=== PATIENT | female | born 1935 | race African-American/Black ===

== ENCOUNTER → 2016-11-18 | Outpatient (CLI) | payer MEDICARE ==
--- NOTE | 2016-11-21 13:27 | XCELERA REPORT ---
[address] [address] Lower Extremity Arterial Evaluation Name: DANK WHITE Age: 81 yrs Gender: Female : 1935 Patient Status: Outpatient Patient Location: Study Date: 11/18/2016 01:27 PM Procedure: A color flow and duplex scan of the lower extremity arteries was performed bilaterally with velocity and waveform anaylsis. Ankle brachial indicies performed. Reason For Study: RIGHT CALF ULCER L97.212 Ordering Physician: SHIVA WILSON Performed By: August Loja Measurements and Calculations Right Left RETORT FURNACE HELPER PSV 160.6 174.6 cm/sec Prox PFA PSV -124.0 -103.7 cm/sec Dist SFA PSV -144.1 -101.5 cm/sec Prox Pop A PSV 115.2 108.1 cm/sec Dist KRISTAN PSV -70.3 56.2 cm/sec Dist POULTICE MACHINE OPERATOR PSV 68.3 105.6 cm/sec Dist Kenton A PSV -206.5 cm/sec Bony Pedis PSV 87.1 -76.0 cm/sec Right Side Arterial Evaluation Normal velocity, waveform and triphasic flow are present, from the Common Femoral artery to the Popliteal artery. Biphasic in the Anterior Tibial artery then occluded Posterior Tibial artery, with biphasic retrograde filling. The ankle-brachial index was not obtainable, non compressible. 0-19 % stenosis is noted at the Femoral artery. With sequential disease. Left Side Arterial Evaluation Normal velocity, waveform and triphasic flow are present, in the Common Femoral artery.. Biphasic fro the Femoral to the Popliteal artery. Occluded Anterior and Posterior Tibial arteries, with biphasic retrograde filling. The ankle-brachial index was not obtainable, non compressible. 0-19 % stenosis is noted at the Femoral artery. With sequential disease. Interpretation Summary Moderate hemodynamically significant lesions in the bilateral lower extremities, on duplex imaging, at rest. Quite good collateral formation, in spite of infrageniculate occlusions. : SHIVA WILSON > Pedro Encinas
== END ==
LOC: SP 12:33
PROVIDERS: ATTEND Nurse Practitioner Family
DX: L97.212 Non-pressure chronic ulcer of right calf with fat layer exposed (principal)
CPT/HCPCS: 93925

== ENCOUNTER → 2016-12-07 | Outpatient (CLI) | payer MEDICARE ==
[2016-12-07 11:28] LABS: APPEARANCE,URINE TURBID; BILIRUBIN,URINE NEGATIVE (NEGATIVE); GLUCOSE, URINE NEGATIVE (NEGATIVE); KETONES,URINE NEGATIVE (NEGATIVE); LEUKOCYTE ESTERASE,URINE LARGE (NEGATIVE); NITRITE,URINE POSITIVE (NEGATIVE); PROTEIN,URINE 30 mg/dL (NEGATIVE); URINE SPECIFIC GRAVITY 1.012; UROBILINOGEN,URINE NEGATIVE mg/dL (<2.0)
[2016-12-07 11:33] LABS: HEMATOCRIT 38.8 % (36.0-47.0); HEMOGLOBIN 12.7 g/dL (12.0-15.5); HGB HCT DIFFERENCE -0.7; MEAN CORPUSCULAR HEMOGLOBIN 30.3 pg (27.0-33.4); MEAN CORPUSCULAR HGB CONC 32.7 g/dL (32.0-36.0); MEAN CORPUSCULAR VOLUME 93 fl (80-97); RED BLOOD COUNT 4.18 10^6/uL (3.72-5.28); RED CELL DISTRIBUTION WIDTH 15.2 % (11.5-14.0); WHITE BLOOD COUNT 5.5 10^3/uL (4.0-10.5)
[2016-12-07 11:55] LABS: ALANINE AMINOTRANSFERASE 35 U/L (9-52); ALBUMIN 3.8 g/dL (3.5-5.0); ALKALINE PHOSPHATASE 80 U/L (38-126); ANION GAP 12 (5-19); ASPARTATE AMINO TRANSFERASE 26 U/L (14-36); BILIRUBIN,TOTAL 0.8 mg/dL (0.2-1.3); BLOOD UREA NITROGEN 37 mg/dL (7-20); CALCIUM 10.4 mg/dL (8.4-10.2); CARBON DIOXIDE 28 mmol/L (22-30); CHLORIDE 102 mmol/L (98-107); CREATININE RESULT 1.96 mg/dL (0.52-1.25); GLUCOSE 117 mg/dL (75-110); POTASSIUM 4.5 mmol/L (3.6-5.0); SODIUM 141.9 mmol/L (137-145); TOTAL PROTEIN 8.1 g/dL (6.3-8.2)
== END ==
LOC: OD 10:10
PROVIDERS: ATTEND Internal Medicine Nephrology
DX: I12.9 Hypertensive chronic kidney disease with stage 1 through stage 4 chronic kidney disease, or unspecified chronic kidney disease (principal); N18.4 Chronic kidney disease, stage 4 (severe); E87.5 Hyperkalemia; D64.9 Anemia, unspecified
CPT/HCPCS: 36415; 80053; 81001; 82728; 83540; 83550; 85027

== ENCOUNTER → 2016-12-28 | Outpatient (CLI) | payer MEDICARE ==
[2016-12-28 09:53] LABS: CREATININE RESULT 1.84 mg/dL (0.52-1.25)
== END ==
LOC: OD 08:52
PROVIDERS: ATTEND Surgery Vascular Surgery
DX: Z79.899 Other long term (current) drug therapy (principal); Z51.81 Encounter for therapeutic drug level monitoring
CPT/HCPCS: 36415; 82565

== ENCOUNTER → 2017-01-21 | Outpatient (CLI) | payer MEDICARE ==
[2017-01-21 12:47] LABS: ANION GAP 12 (5-19); BLOOD UREA NITROGEN 41 mg/dL (7-20); CALCIUM 10.5 mg/dL (8.4-10.2); CARBON DIOXIDE 27 mmol/L (22-30); CHLORIDE 104 mmol/L (98-107); CREATININE RESULT 2.09 mg/dL (0.52-1.25); GLUCOSE 104 mg/dL (75-110); POTASSIUM 4.5 mmol/L (3.6-5.0); SODIUM 142.9 mmol/L (137-145)
== END ==
LOC: OD 11:08
PROVIDERS: ATTEND Internal Medicine Nephrology
DX: I12.9 Hypertensive chronic kidney disease with stage 1 through stage 4 chronic kidney disease, or unspecified chronic kidney disease (principal); N18.4 Chronic kidney disease, stage 4 (severe); E87.5 Hyperkalemia; D64.9 Anemia, unspecified
CPT/HCPCS: 36415; 80048

== ENCOUNTER → 2017-05-19 | Outpatient (CLI) | payer MEDICARE ==
[2017-05-19 10:55] LABS: HEMATOCRIT 36.4 % (36.0-47.0); HEMOGLOBIN 11.7 g/dL (12.0-15.5); HGB HCT DIFFERENCE -1.3; MEAN CORPUSCULAR HEMOGLOBIN 30.3 pg (27.0-33.4); MEAN CORPUSCULAR HGB CONC 32.1 g/dL (32.0-36.0); MEAN CORPUSCULAR VOLUME 95 fl (80-97); RED BLOOD COUNT 3.86 10^6/uL (3.72-5.28); RED CELL DISTRIBUTION WIDTH 14.2 % (11.5-14.0); WHITE BLOOD COUNT 4.3 10^3/uL (4.0-10.5)
[2017-05-19 11:16] LABS: ANION GAP 9 (5-19); BLOOD UREA NITROGEN 41 mg/dL (7-20); CALCIUM 9.8 mg/dL (8.4-10.2); CARBON DIOXIDE 28 mmol/L (22-30); CHLORIDE 105 mmol/L (98-107); CREATININE RESULT 2.06 mg/dL (0.52-1.25); GLUCOSE 88 mg/dL (75-110); POTASSIUM 4.9 mmol/L (3.6-5.0); SODIUM 141.6 mmol/L (137-145)
[2017-05-19 11:22] LABS: ANION GAP 9 (5-19); BLOOD UREA NITROGEN 41 mg/dL (7-20); CALCIUM 9.8 mg/dL (8.4-10.2); CARBON DIOXIDE 28 mmol/L (22-30); CHLORIDE 105 mmol/L (98-107); CREATININE RESULT 2.06 mg/dL (0.52-1.25); GLUCOSE 88 mg/dL (75-110); POTASSIUM 4.9 mmol/L (3.6-5.0); SODIUM 141.6 mmol/L (137-145)
[2017-05-20 14:53] LABS: VITAMIN D 1,25 DIHYDROXY 38.2 pg/mL (19.9-79.3)
== END ==
LOC: OD 10:08
PROVIDERS: ATTEND Family Medicine
DX: E03.9 Hypothyroidism, unspecified (principal); E78.5 Hyperlipidemia, unspecified; Z79.899 Other long term (current) drug therapy; I12.9 Hypertensive chronic kidney disease with stage 1 through stage 4 chronic kidney disease, or unspecified chronic kidney disease; N18.4 Chronic kidney disease, stage 4 (severe); D64.9 Anemia, unspecified
CPT/HCPCS: 36415; 80048; 82306; 82652; 83036; 84443; 85027

== ENCOUNTER → 2017-05-25 | Outpatient (CLI) | payer MEDICARE ==
[2017-05-25 11:56] LABS: CHOLESTEROL 171.51 mg/dL (0-200); Direct HDL 45 mg/dL (>40); TRIGLYCERIDES 91 mg/dL (<150)
[2017-05-25 12:07] LABS: DIRECT LDL 79 mg/dL (<100)
== END ==
LOC: OD 09:49
PROVIDERS: ATTEND Family Medicine
DX: E03.9 Hypothyroidism, unspecified (principal); E78.5 Hyperlipidemia, unspecified; I10 Essential (primary) hypertension; Z79.899 Other long term (current) drug therapy
CPT/HCPCS: 36415; 80061

== ENCOUNTER 2017-08-11 12:30 | Inpatient (IN) | payer MEDICARE ==
[2017-08-11] MEDS ORDERED: VANCOMYCIN HCL INJ 1000 MG VIAL IV ONE (12:54)
--- NOTE | 2017-08-11 12:55 | ER Document Report ---
ED Medical Screen (RME) - General Chief Complaint: Wound Recheck Stated Complaint: WOUND CHECK Time Seen by Provider: 08/11/17 12:51 Mode of Arrival: Ambulatory Information source: Patient Notes: 82-year-old female presents with wound to her left lateral leg of months duration. Patient was seen by her primary care physician noted to have maggots sent in for evaluation I have greeted and performed a rapid initial assessment of this patient. A comprehensive ED assessment and evaluation of the patient, analysis of test results and completion of the medical decision making process will be conducted by additional ED providers. PHYSICAL EXAMINATION: GENERAL: Well-appearing, well-nourished and in no acute distress. HEAD: Atraumatic, normocephalic. EYES: Pupils equal round extraocular movements intact, conjunctiva are normal. ENT: Nares patent NECK: Normal range of motion LUNGS: No respiratory distress Musculoskeletal: Normal range of motion NEUROLOGICAL: Normal speech, normal gait. PSYCH: Normal mood, normal affect. SKIN: left lateral leg ulcer with multiple maggots TRAVEL OUTSIDE OF THE [place] IN LAST 30 DAYS: No - Related Data Allergies/Adverse Reactions: No Known Allergies Allergy (Unverified 02/26/11 01:54) Past Medical History - Social History Chew tobacco use (# tins/day): No Frequency of alcohol use: None Drug Abuse: None - Past Medical History Cardiac Medical History: Reports: Hx Hypertension - MEDICATED Denies: Hx Coronary Artery Disease, Hx Heart Attack Pulmonary Medical History: Denies: Hx Asthma, Hx Bronchitis, Hx COPD, Hx Pneumonia Neurological Medical History: Denies: Hx Cerebrovascular Accident, Hx Seizures Renal/ Medical History: Denies: Hx Peritoneal Dialysis GI Medical History: Denies: Hx Hepatitis, Hx Hiatal Hernia, Hx Ulcer Musculoskeltal Medical History: Denies Hx Arthritis Infectious Medical History: Denies: Hx Hepatitis Past Surgical History: Reports: Hx Hysterectomy, Hx Orthopedic Surgery - left hip replacement. Denies: Hx Mastectomy, Hx Open Heart Surgery, Hx Pacemaker - Immunizations Hx Diphtheria, Pertussis, Tetanus Vaccination: No - UNSURE History of Influenza Vaccine for 08/2017 - 01/2018 Season: No Physical Exam - Vital signs Vitals: Temp Pulse BP Pulse Ox 97.8 F 89 180/88 H 100 08/11/17 12:39 08/11/17 12:39 08/11/17 12:39 08/11/17 12:39 Course - Vital Signs Vital signs: Temp Pulse Resp BP Pulse Ox 97.8 F 89 180/88 H 100 08/11/17 12:39 08/11/17 12:39 08/11/17 12:39 08/11/17 12:39
--- NOTE | 2017-08-11 13:57 | ER Document Report ---
ED General - General Chief Complaint: Wound Recheck Stated Complaint: WOUND CHECK Time Seen by Provider: 08/11/17 12:51 Mode of Arrival: Ambulatory Information source: Patient Notes: 82 yr old female presents with chronic wound of the left lateral leg of a month duraiton. pt seen by pcp today noted maggots and sent i for care denies any fevers or chills TRAVEL OUTSIDE OF THE [place] IN LAST 30 DAYS: No - HPI Onset: Other Onset/Duration: Persistent Quality of pain: Achy Severity: Mild Associated symptoms: Other Exacerbated by: Denies Relieved by: Denies Similar symptoms previously: Yes Recently seen / treated by doctor: Yes - Related Data Allergies/Adverse Reactions: No Known Allergies Allergy (Unverified 02/26/11 01:54) Past Medical History - General Information source: Patient - Social History Smoking Status: Never Smoker Cigarette use (# per day): No Chew tobacco use (# tins/day): No Smoking Education Provided: No Frequency of alcohol use: None Drug Abuse: None Family History: Reviewed & Not Pertinent - Past Medical History Cardiac Medical History: Reports: Hx Hypertension - MEDICATED Denies: Hx Coronary Artery Disease, Hx Heart Attack Pulmonary Medical History: Denies: Hx Asthma, Hx Bronchitis, Hx COPD, Hx Pneumonia Neurological Medical History: Denies: Hx Cerebrovascular Accident, Hx Seizures Renal/ Medical History: Denies: Hx Peritoneal Dialysis GI Medical History: Denies: Hx Hepatitis, Hx Hiatal Hernia, Hx Ulcer Musculoskeltal Medical History: Denies Hx Arthritis Infectious Medical History: Denies: Hx Hepatitis Past Surgical History: Reports: Hx Hysterectomy, Hx Orthopedic Surgery - left hip replacement. Denies: Hx Mastectomy, Hx Open Heart Surgery, Hx Pacemaker - Immunizations Hx Diphtheria, Pertussis, Tetanus Vaccination: No - UNSURE Hx Pneumococcal Vaccination: 09/07/05 Review of Systems - Review of Systems Notes: REVIEW OF SYSTEMS: CONSTITUTIONAL : Denies fever, chills, or sweats. Denies recent illness. EENT: Denies eye, ear, throat, or mouth pain or symptoms. Denies nasal or sinus congestion or discharge. Denies throat, tongue, or mouth swelling or difficulty swallowing. CARDIOVASCULAR: Denies chest pain. Denies palpitations or racing or irregular heart beat. Denies ankle edema. RESPIRATORY: Denies cough, cold, or chest congestion. Denies shortness of breath, difficulty breathing, or wheezing. GASTROINTESTINAL: Denies abdominal pain or distention. Denies nausea, vomiting , or diarrhea. Denies blood in vomitus, stools, or per rectum. Denies black, tarry stools. Denies constipation. GENITOURINARY: Denies difficulty urinating, painful urination, burning, frequency, blood in urine, or discharge. FEMALE GENITOURINARY: Denies vaginal bleeding, heavy or abnormal periods, irregular periods. Denies vaginal discharge or odor. MUSCULOSKELETAL: Admits to left leg pain SKIN: Denies rash, lesions or sores. HEMATOLOGIC : Denies easy bruising or bleeding. LYMPHATIC: Denies swollen, enlarged glands. NEUROLOGICAL: Denies confusion or altered mental status. Denies passing out or loss of consciousness. Denies dizziness or lightheadedness. Denies headache. Denies weakness or paralysis or loss of use of either side. Denies problems with gait or speech. Denies sensory loss, numbness, or tingling. Denies seizures. PSYCHIATRIC: Denies anxiety or stress. Denies depression, suicidal ideation, or homicidal ideation. ALL OTHER SYSTEMS REVIEWED AND NEGATIVE. PHYSICAL EXAMINATION: GENERAL: Well-appearing, well-nourished and in no acute distress. HEAD: Atraumatic, normocephalic. EYES: Pupils equal round and reactive to light, extraocular movements intact, conjunctiva are normal. ENT: Nares patent, oropharynx clear without exudates. Moist mucous membranes. NECK: Normal range of motion, supple without lymphadenopathy LUNGS: Breath sounds clear to auscultation bilaterally and equal. No wheezes rales or rhonchi. HEART: Regular rate and rhythm without murmurs ABDOMEN: Soft, nontender, nondistended abdomen. No guarding, no rebound. No masses appreciated. Female : deferred Musculoskeletal: Normal range of motion, no pitting or edema. No cyanosis. NEUROLOGICAL: Cranial nerves grossly intact. Normal speech, normal gait. Normal sensory, motor exams PSYCH: Normal mood, normal affect. SKIN: Ulceration of the left leg Dictation was performed using [employer] recognition software Physical Exam - Vital signs Vitals: Temp Pulse BP Pulse Ox 97.8 F 89 180/88 H 100 08/11/17 12:39 08/11/17 12:39 08/11/17 12:39 08/11/17 12:39 Course - Re-evaluation Re-evalutation: 08/11/17 13:57 Dr Riddle contacted 08/11/17 14:55 dr Riddle requests mri results before he decides to admit or have ortho admit 08/11/17 15:05 Given core morbidities I will admit to hospitalist service - Vital Signs Vital signs: Temp Pulse Resp BP Pulse Ox 97.8 F 89 180/88 H 100 08/11/17 12:39 08/11/17 12:39 08/11/17 12:39 08/11/17 12:39 - Laboratory Result Diagrams: 08/11/17 13:16 08/11/17 13:16 Laboratory results interpreted by me: 08/11/17 08/11/17 13:16 13:16 Hct 34.9 L RDW 14.1 H Seg Neutrophils % 80.0 H Lymphocytes % 8.6 L BUN 50 H Creatinine 2.66 H Est GFR ( Amer) 21 L Est GFR (Non-Af Amer) 17 L Glucose 113 H Calcium 10.3 H Direct Bilirubin 0.5 H Discharge - Discharge Clinical Impression: Chronic ulcer of left leg Qualifiers: Non-pressure ulcer stage: with necrosis of muscle Qualified Code(s): L97.923 - Non-pressure chronic ulcer of unspecified part of left lower leg with necrosis of muscle Condition: Stable Disposition: ADMITTED INPATIENT Admitting Provider: Hospitalist Unit Admitted: Telemetry Referrals: RASHEL DOS SANTOS MD [Primary Care Provider] - Follow up as needed
[2017-08-11 14:04] LABS: ABSOLUTE BASOPHILS # (AUTO) 0.1 10^3/uL (0.0-0.2); ABSOLUTE EOSINOPHILS # (AUTO) 0.1 10^3/uL (0.0-0.6); ABSOLUTE LYMPHOCYTES (AUTO) 0.6 10^3/uL (0.5-4.7); ABSOLUTE MONOCYTES (AUTO) 0.7 10^3/uL (0.1-1.4); ABSOLUTE NEUT (AUTO) 5.6 10^3/uL (1.7-8.2); BASOPHILS % (AUTO) 0.9 % (0-2); HEMATOCRIT 34.9 % (36.0-47.0); HGB HCT DIFFERENCE 1.1; LYMPHOCYTES % (AUTO) 8.6 % (13-45); MEAN CORPUSCULAR HEMOGLOBIN 32.1 pg (27.0-33.4); MEAN CORPUSCULAR HGB CONC 34.2 g/dL (32.0-36.0); MEAN CORPUSCULAR VOLUME 94 fl (80-97); MONOCYTES % (AUTO) 9.5 % (3-13); RED BLOOD COUNT 3.73 10^6/uL (3.72-5.28); RED CELL DISTRIBUTION WIDTH 14.1 % (11.5-14.0); WHITE BLOOD COUNT 7.1 10^3/uL (4.0-10.5)
[2017-08-11 14:17] LABS: ALANINE AMINOTRANSFERASE 27 U/L (9-52); ALKALINE PHOSPHATASE 81 U/L (38-126); ANION GAP 13 (5-19); ASPARTATE AMINO TRANSFERASE 26 U/L (14-36); BILIRUBIN,DIRECT 0.5 mg/dL (0.0-0.4); BILIRUBIN,TOTAL 0.7 mg/dL (0.2-1.3); BLOOD UREA NITROGEN 50 mg/dL (7-20); CALCIUM 10.3 mg/dL (8.4-10.2); CARBON DIOXIDE 25 mmol/L (22-30); CHLORIDE 99 mmol/L (98-107); CREATININE RESULT 2.66 mg/dL (0.52-1.25); GLUCOSE 113 mg/dL (75-110); POTASSIUM 4.7 mmol/L (3.6-5.0); SODIUM 137.2 mmol/L (137-145)
--- NOTE | 2017-08-11 15:42 | RADIOLOGY REPORT (SQ) ---
EXAM DESCRIPTION: VENOUS UNILATERAL LOWER COMPLETED DATE/TIME: 08/11/2017 3:31 pm REASON FOR STUDY: left lower extremity edema COMPARISON: None. TECHNIQUE: Dynamic and static hewitt scale and color images acquired of the left leg venous system. Se lected spectral images acquired with additional compression and augmentation maneuvers. The contralat eral common femoral vein and saphenofemoral junction were also imaged. Images stored on PACS. LIMITATIONS: None. FINDINGS: COMMON FEMORAL: Normal phasicity, compression and augmentation. No visualized echogenic ma terial on hewitt scale. No defects on color images. FEMORAL: Normal compression and augmentation. No visualized echogenic material on hewitt scale. No defe cts on color images. POPLITEAL: Normal compression, augmentation. No visualized echogenic material on hewitt scale. No defec ts on color images. CALF VESSELS: Normal compression, augmentation. No visualized echogenic material on hewitt scale. No de fects on color images. GSV and SSV: Normal compression, augmentation. No visualized echogenic material on hewitt scale. No def ects on color images. ANY DEEP VENOUS INSUFFICIENCY: Not evaluated. ANY EVIDENCE OF POPLITEAL CYST: No. OTHER: No other significant finding. CONTRALATERAL COMMON FEMORAL VEIN AND SAPHENOFEMORAL JUNCTION: Normal phasicity, compression and augmentation. No visualized echogenic material on hewitt scale. No de fects on color images. IMPRESSION: NO EVIDENCE DVT OR SVT IN THE LEFT LEG. TECHNICAL DOCUMENTATION: JOB ID: [id number] [employer]- All Rights Reserved
--- NOTE | 2017-08-11 15:44 | RADIOLOGY REPORT (SQ) ---
EXAM DESCRIPTION: TIBIA FIBULA LEFT COMPLETED DATE/TIME: 08/11/2017 3:06 pm REASON FOR STUDY: ulceration leg COMPARISON: None. NUMBER OF VIEWS: Two views. TECHNIQUE: Two radiographic images acquired of the left tibia and fibula to include the knee and ank le in at least one projection. LIMITATIONS: None. FINDINGS: MINERALIZATION: Normal. BONES: No acute fracture or dislocation. No worrisome bone lesions. SOFT TISSUES: Skin ulcer lateral aspect distally. Vascular calcifications. OTHER: No other significant finding. IMPRESSION: No evidence of osteomyelitis. TECHNICAL DOCUMENTATION: JOB ID: [id number] [employer]- All Rights Reserved
--- NOTE | 2017-08-11 16:22 | PDOC CONSULTATION ---
History of Present Illness Admission Date/PCP: 08/11/17 15:28 RASHEL DOS SANTOS MD Patient complains of: Left leg pain History of Present Illness: DANK WHITE is a 82 year old female with several month history of a nonhealing wound at the lateral aspect of her left lower leg just above the lateral malleolus. She notes pain at night and this leg but has been ambulating. She denies any claudication with ambulation. She has no history of diabetes. She had a history of chronic right lower leg wound that eventually healed under wound care clinic. She denies any fever. She denies any injury to the left leg. Past Medical History Cardiac Medical History: Reports: Hypertension - MEDICATED Denies: Coronary Artery Disease, Myocardial Infarction Pulmonary Medical History: Denies: Asthma, Bronchitis, Chronic Obstructive Pulmonary Disease (COPD), Pneumonia Neurological Medical History: Denies: Seizures GI Medical History: Denies: Hepatitis, Hiatal Hernia Musculoskeltal Medical History: Denies: Arthritis Hematology: Reports: Anemia - MEDICATED Denies: Sickle Cell Disease Past Surgical History Past Surgical History: Reports: Hysterectomy, Orthopedic Surgery - left hip replacement Denies: Amputation, Mastectomy, Pacemaker Social History Smoking Status: Never Smoker Family History Family History: Reviewed & Not Pertinent Parental Family History Reviewed: No Children Family History Reviewed: No Sibling(s) Family History Reviewed.: No Medication/Allergy Home Medications: Furosemide [Lasix 20 mg Tablet] 20 mg PO DAILY 08/11/17 Levothyroxine Sodium [Synthroid 0.1 mg Tablet] 0.1 mg PO DAILY 08/11/17 Losartan Potassium [Cozaar 100 mg Tablet] 100 mg PO DAILY 08/11/17 Mupirocin Calcium [Mupirocin] 15 gm TP BID 08/11/17 Sulfamethoxazole/Trimethoprim [Bactrim 400-80 mg Tablet] 1 tab PO BID 08/11/17 Allergies/Adverse Reactions: No Known Allergies Allergy (Unverified 02/26/11 01:54) Physical Exam Vital Signs: Temp Pulse Resp BP Pulse Ox 97.8 F 89 180/88 H 100 08/11/17 12:39 08/11/17 12:39 08/11/17 12:39 08/11/17 12:39 General appearance: PRESENT: no acute distress, cooperative Eye exam: PRESENT: conjunctiva pink Respiratory exam: PRESENT: clear to auscultation laurie Cardiovascular exam: PRESENT: RRR, systolic murmur Vascular exam: PRESENT: other - 2+ palpable pulses in bilateral dorsalis pedis. No ischemic changes of the toes. GI/Abdominal exam: PRESENT: other - Soft, nondistended, nontender to palpation. Extremities exam: PRESENT: other - Moderate left lower leg edema. A silver dollar sized wound just above the lateral malleolus with mild surrounding induration. The wound appears full-thickness with a sponginess underlying it with maggots at the base. No purulent drainage. The foot shows no ischemic changes. And it has palpable 2+ dorsalis pedis pulse. Neurological exam: PRESENT: alert, awake, oriented to situation Psychiatric exam: PRESENT: appropriate affect Skin exam: PRESENT: warm Results Impressions: Tibia/Fibula X-Ray 08/11/17 14:52 IMPRESSION: No evidence of osteomyelitis. Venous Doppler Study 08/11/17 14:53 IMPRESSION: NO EVIDENCE DVT OR SVT IN THE LEFT LEG. Assessment & Plan - Diagnosis (1) Chronic ulcer of left leg Qualifiers: Non-pressure ulcer stage: with necrosis of muscle Qualified Code(s): L97.923 - Non-pressure chronic ulcer of unspecified part of left lower leg with necrosis of muscle Is this a current diagnosis for this admission?: Yes Plan: Neglected chronic nonhealing ulcer of the left leg just above the lateral malleolus. She has good pulsations in her dorsalis pedis so I do not think it is related to arterial insufficiency. She had Doppler venous study which demonstrated no DVT. She may very well have underlying osteomyelitis of her fibula. Recommend MRI to rule out osteomyelitis. If she indeed has osteomyelitis she may benefit from resection of her fibula. If there is no evidence of osteomyelitis she would benefit from debridement. Although the maggots are doing a good job in debriding necrotic tissue. Patient will be admitted to the hospitalist service. Surgical service will follow along. MRI machine is backed up and will be done tomorrow morning.
[2017-08-11] MEDS ORDERED: ACETAMINOPHEN 325 MG TABLET PO PRN (16:52)
[2017-08-11] MEDS ORDERED: ONDANSETRON HCL INJ/PF 4 MG/2 ML SDV IV PRN (17:06)
[2017-08-11] MEDS ORDERED: ERTAPENEM SODIUM INJ 1 GM VIAL IV SCH (17:15)
--- NOTE | 2017-08-11 17:29 | PDOC H&P ---
History of Present Illness Admission Date/PCP: 08/11/17 15:28 RASHEL DOS SANTOS MD Patient complains of: leg ulcer History of Present Illness: DANK WHITE is a 82 year old female with several month history of a nonhealing wound at the lateral aspect of her left lower leg just above the lateral malleolus. She notes pain at night and this leg but has been ambulating. She denies any claudication with ambulation. She has no history of diabetes. She had a history of chronic right lower leg wound that eventually healed under wound care clinic. She denies any fever. She denies any injury to the left leg. With wound care the patient claims that her wounds on both legs healed and was discharged eventually from the wound clinic several months ago. She started to develop leg ulcer again on the left side. Denies any chills or fever. She does have pain on the leg patiently at night. Patient was evaluated by primary care physician where she was advised to return for reevaluation today of which her wounds were found to have maggots and therefore was sent to the hospital for admission. Past Medical History Cardiac Medical History: Reports: Hypertension - MEDICATED Denies: Coronary Artery Disease, Myocardial Infarction Pulmonary Medical History: Denies: Asthma, Bronchitis, Chronic Obstructive Pulmonary Disease (COPD), Pneumonia Neurological Medical History: Denies: Seizures Renal/ Medical History: Reports: Chronic Kidney Disease GI Medical History: Denies: Hepatitis, Hiatal Hernia Musculoskeltal Medical History: Denies: Arthritis Hematology: Reports: Anemia - MEDICATED Denies: Sickle Cell Disease Past Surgical History Past Surgical History: Reports: Hysterectomy, Orthopedic Surgery - left hip replacement Denies: Amputation, Mastectomy, Pacemaker Social History Information Source: Patient Smoking Status: Never Smoker Frequency of Alcohol Use: None Hx Recreational Drug Use: No Drugs: None - Advance Directive Resuscitation Status: Full Code Family History Family History: Malignancy - Breast Parental Family History Reviewed: Yes Children Family History Reviewed: Yes Sibling(s) Family History Reviewed.: Yes Medication/Allergy Home Medications: Furosemide [Lasix 20 mg Tablet] 20 mg PO DAILY 08/11/17 Levothyroxine Sodium [Synthroid 0.1 mg Tablet] 0.1 mg PO DAILY 08/11/17 Losartan Potassium [Cozaar 100 mg Tablet] 100 mg PO DAILY 08/11/17 Mupirocin Calcium [Mupirocin] 15 gm TP BID 08/11/17 Sulfamethoxazole/Trimethoprim [Bactrim 400-80 mg Tablet] 1 tab PO BID 08/11/17 Allergies/Adverse Reactions: No Known Allergies Allergy (Unverified 02/26/11 01:54) Review of Systems Constitutional: ABSENT: chills, fever(s), headache(s), weight gain, weight loss Eyes: ABSENT: visual disturbances Ears: ABSENT: hearing changes Nose, Mouth, and Throat: ABSENT: mouth pain, sore throat Cardiovascular: PRESENT: edema - Both lower extremities. ABSENT: chest pain, dyspnea on exertion, orthropnea, palpitations Respiratory: ABSENT: cough, hemoptysis Gastrointestinal: ABSENT: abdominal pain, constipation, diarrhea, hematemesis, hematochezia, nausea, vomiting Genitourinary: ABSENT: dysuria, hematuria Musculoskeletal: ABSENT: joint swelling Integumentary: ABSENT: rash, wounds Neurological: ABSENT: abnormal gait, abnormal speech, confusion, dizziness, focal weakness, syncope Psychiatric: ABSENT: anxiety, depression, homidical ideation, suicidal ideation Endocrine: ABSENT: cold intolerance, heat intolerance, polydipsia, polyphagia, polyuria Hematologic/Lymphatic: ABSENT: easy bleeding, easy bruising Physical Exam Vital Signs: Temp Pulse Resp BP Pulse Ox 97.6 F 79 172/77 H 100 08/11/17 16:24 08/11/17 16:24 08/11/17 16:24 08/11/17 16:24 General appearance: PRESENT: no acute distress, obese Head exam: PRESENT: atraumatic, normocephalic Eye exam: PRESENT: conjunctiva pink, EOMI, PERRLA - Sluggish. ABSENT: scleral icterus Ear exam: PRESENT: normal external ear exam Mouth exam: PRESENT: moist, neck supple, tongue midline Throat exam: ABSENT: post pharyngeal erythema, tonsillar erythema Neck exam: ABSENT: carotid bruit, JVD, lymphadenopathy, thyromegaly Respiratory exam: PRESENT: clear to auscultation laurie, unlabored. ABSENT: rales , rhonchi, wheezes Cardiovascular exam: PRESENT: RRR. ABSENT: diastolic murmur, rubs, systolic murmur Pulses: PRESENT: normal dorsalis pedis pul Vascular exam: PRESENT: normal capillary refill GI/Abdominal exam: PRESENT: normal bowel sounds, soft. ABSENT: distended, guarding, mass, organolmegaly, rebound, tenderness Rectal exam: PRESENT: deferred Extremities exam: PRESENT: full ROM. ABSENT: calf tenderness, clubbing, pedal edema Neurological exam: PRESENT: alert, awake, oriented to person, oriented to place , oriented to time, oriented to situation Psychiatric exam: PRESENT: appropriate affect, normal mood. ABSENT: homicidal ideation, suicidal ideation Skin exam: PRESENT: dry, warm, other - There is discoloration and darkening of the skin bilaterally on both lower extremities left more than the right with a chronic ulcer without any foul-smelling drainage but with some necrosis noted on the lateral portion of the leg distally.. ABSENT: cyanosis Results Impressions: Tibia/Fibula X-Ray 08/11/17 14:52 IMPRESSION: No evidence of osteomyelitis. Venous Doppler Study 08/11/17 14:53 IMPRESSION: NO EVIDENCE DVT OR SVT IN THE LEFT LEG. 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 Is this a current diagnosis for this admission?: Yes (2) Dehydration Is this a current diagnosis for this admission?: Yes (3) Hypercalcemia Is this a current diagnosis for this admission?: Yes (4) Essential hypertension Is this a current diagnosis for this admission?: Yes (5) Chronic kidney disease, stage III (moderate) Is this a current diagnosis for this admission?: Yes (6) Chronic ulcer of left leg Qualifiers: Non-pressure ulcer stage: with necrosis of muscle Qualified Code(s): L97.923 - Non-pressure chronic ulcer of unspecified part of left lower leg with necrosis of muscle Is this a current diagnosis for this admission?: Yes - Time Time Spent: 30 to 50 Minutes - Inpatient Certification Based on my medical assessment, after consideration of the patient's comorbidities, presenting symptoms, or acuity I expect that the services needed warrant INPATIENT care.: Yes I certify that my determination is in accordance with my understanding of Medicare's requirements for reasonable and necessary INPATIENT services [42 CFR 412.3e].: Yes Medical Necessity: Need For IV Fluids, Need for Surgery, Risk of Complication if Not Cared For in Hospital Post Hospital Care: D/C [place] Documentation - Plan Summary Plan Summary: We will admit the patient to the medical floor. Gently hydrate the patient with saline and recheck calcium level in the morning. We will consult surgery for debridement. I will obtain an arterial Doppler. I will empirically start the patient on antibiotic with Invanz. DVT prophylaxis with Lovenox will be placed. Further testing depends on the initial evaluation as outlined above.
[2017-08-11] MEDS: ERTAPENEM SODIUM 0.5 GM in NORMAL SALINE 50 ML IV SCH (17:53)
[2017-08-11] MEDS: NORMAL SALINE 1000 ML 1,000 ML IV PRN (17:55)
[2017-08-11] MEDS: DOCUSATE SODIUM 100 MG CAPSULE PO SCH (17:55)
[2017-08-11] MEDS ORDERED: INFLUENZA ADLT QUAD (36MOS+) 2017-18 VAC 0.5 ML SYR IM PRN (18:42)
[2017-08-12 05:36] LABS: ANION GAP 9 (5-19); BLOOD UREA NITROGEN 48 mg/dL (7-20); CALCIUM 9.8 mg/dL (8.4-10.2); CARBON DIOXIDE 23 mmol/L (22-30); CHLORIDE 107 mmol/L (98-107); CREATININE RESULT 2.69 mg/dL (0.52-1.25); GLUCOSE 74 mg/dL (75-110); POTASSIUM 4.7 mmol/L (3.6-5.0); SODIUM 138.8 mmol/L (137-145)
[2017-08-12] MEDS: LANSOPRAZOLE 30 MG TAB.RAP.DR PO SCH (05:52)
[2017-08-12] MEDS: NORMAL SALINE 1000 ML 1,000 ML IV PRN ×2 (05:53→22:52)
[2017-08-12] MEDS: LEVOTHYROXINE SODIUM 0.1 MG TABLET PO SCH (07:50)
--- NOTE | 2017-08-12 09:53 | PDOC PROGRESS REPORT ---
Subjective Progress Note for:: 08/12/17 Subjective:: Patient voiced no complaints. No pain at the moment. No diarrhea nausea or vomiting. No dizziness nor lightheadedness. No foul-smelling drainage noted on the wounds. Physical Exam Vital Signs: Temp Pulse Resp BP Pulse Ox 98.1 F 63 18 124/59 L 100 08/12/17 07:30 08/12/17 07:30 08/12/17 07:30 08/12/17 07:30 08/12/17 07:30 Intake & Output 08/11/17 08/12/17 08/13/17 06:59 06:59 06:59 Intake Total 1730 Output Total 650 Balance 1080 Weight 86.1 kg General appearance: PRESENT: no acute distress, cooperative Head exam: PRESENT: normocephalic Eye exam: PRESENT: EOMI Mouth exam: PRESENT: moist, neck supple Neck exam: ABSENT: JVD Respiratory exam: PRESENT: clear to auscultation laurie. ABSENT: rhonchi, wheezes Cardiovascular exam: PRESENT: RRR. ABSENT: gallop GI/Abdominal exam: PRESENT: soft. ABSENT: distended, tenderness Extremities exam: PRESENT: other - Left lower extremity edema and wound dressing clean and dry Neurological exam: PRESENT: alert, awake, oriented to situation Skin exam: PRESENT: dry, warm. ABSENT: cyanosis Results Laboratory Results: 08/12/17 03:55 08/12/17 03:55 Sodium 138.8 Potassium 4.7 Chloride 107 Carbon Dioxide 23 Anion Gap 9 BUN 48 H Creatinine 2.69 H Est GFR ( Amer) 21 L Est GFR (Non-Af Amer) 17 L Glucose 74 L Calcium 9.8 Impressions: Tibia/Fibula X-Ray 08/11/17 14:52 IMPRESSION: No evidence of osteomyelitis. Venous Doppler Study 08/11/17 14:53 IMPRESSION: NO EVIDENCE DVT OR SVT IN THE LEFT LEG. 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 Is this a current diagnosis for this admission?: Yes (2) Dehydration Is this a current diagnosis for this admission?: Yes (3) Hypercalcemia Is this a current diagnosis for this admission?: Yes (4) Essential hypertension Is this a current diagnosis for this admission?: Yes (5) Chronic kidney disease, stage III (moderate) Is this a current diagnosis for this admission?: Yes (6) Chronic ulcer of left leg Qualifiers: Non-pressure ulcer stage: with necrosis of muscle Qualified Code(s): L97.923 - Non-pressure chronic ulcer of unspecified part of left lower leg with necrosis of muscle Is this a current diagnosis for this admission?: Yes - Time Time Spent with patient: 25-34 minutes - Plan Summary Plan Summary: Awaiting debridement. Obtain MRI of the lower extremity to evaluate for osteomyelitis. Continue current antibiotic. Check arterial Doppler. Continue supportive care.
[2017-08-12] MEDS: LOSARTAN POTASSIUM 50 MG TABLET PO SCH (09:59)
[2017-08-12] MEDS: DOCUSATE SODIUM 100 MG CAPSULE PO SCH ×2 (09:59→18:17)
[2017-08-12] MEDS: FUROSEMIDE 20 MG TABLET PO SCH (10:00)
[2017-08-12] MEDS: ENOXAPARIN SODIUM INJ 30 MG/0.3 ML DISP.SYRIN SUBCUT SCH (10:00)
--- NOTE | 2017-08-12 12:33 | RADIOLOGY REPORT (SQ) ---
EXAM DESCRIPTION: MRI LT LOWER EXTREMITY WITHOUT COMPLETED DATE/TIME: 08/12/2017 11:57 am REASON FOR STUDY: ulceration left leg COMPARISON: MRI left lower extremity 03/01/2011 Left tibia and fibula plain films 08/11/2017 TECHNIQUE: Multiplanar imaging to include fat and fluid sensitive sequences. LIMITATIONS: None. FINDINGS: Patient has a skin wound over the distal 3rd of the left lower leg laterally. A small ulc er or skin lesion about a cm in size is present on coronal image 11 and axial image 25. There is superficial cellulitis, in the left lower leg adjacent to the ulcer with mild skin thickenin g and edema in the subcutaneous tissues. There is myositis deep to the skin ulcer, with edema in the extensor digitorum longus muscle, the lat eral edge of the tibialis anterior muscle, in the medial most edge of the soleus muscle best shown on axial STIR images 16-25. Well-defined intramuscular abscess is not identified. There is normal flow signal in the anterior tibial peroneal and posterior tibial veins. No marrow edema in the distal tibia or fibula worrisome for osteomyelitis. IMPRESSION: Left lower leg superficial cellulitis and mild edema in the adjacent muscles suggesting myositis. No intramuscular abscess. No marrow signal abnormalities worrisome for osteomyelitis TECHNICAL DOCUMENTATION: JOB ID: [id number] [employer]- All Rights Reserved
--- NOTE | 2017-08-12 14:02 | PDOC PROGRESS REPORT ---
Subjective Progress Note for:: 08/12/17 Subjective:: pains left lower leg ulcer Physical Exam Vital Signs: Temp Pulse Resp BP Pulse Ox 98.1 F 63 18 124/59 L 100 08/12/17 07:30 08/12/17 07:30 08/12/17 07:30 08/12/17 07:30 08/12/17 07:30 Intake & Output 08/11/17 08/12/17 08/13/17 06:59 06:59 06:59 Intake Total 1730 Output Total 650 Balance 1080 Weight 86.1 kg Exam: Left lower leg dressing in intact Results Laboratory Results: 08/12/17 03:55 08/12/17 03:55 Sodium 138.8 Potassium 4.7 Chloride 107 Carbon Dioxide 23 Anion Gap 9 BUN 48 H Creatinine 2.69 H Est GFR ( Amer) 21 L Est GFR (Non-Af Amer) 17 L Glucose 74 L Calcium 9.8 Impressions: Tibia/Fibula X-Ray 08/11/17 14:52 IMPRESSION: No evidence of osteomyelitis. Venous Doppler Study 08/11/17 14:53 IMPRESSION: NO EVIDENCE DVT OR SVT IN THE LEFT LEG. Lower Extremity MRI 08/12/17 09:31 IMPRESSION: Left lower leg superficial cellulitis and mild edema in the adjacent muscles suggesting myositis. No intramuscular abscess. No marrow signal abnormalities worrisome for osteomyelitis Assessment & Plan - Diagnosis (1) Chronic kidney disease, stage III (moderate) Is this a current diagnosis for this admission?: Yes (2) Chronic ulcer of left leg Qualifiers: Non-pressure ulcer stage: with necrosis of muscle Qualified Code(s): L97.923 - Non-pressure chronic ulcer of unspecified part of left lower leg with necrosis of muscle Is this a current diagnosis for this admission?: Yes (3) Essential hypertension Is this a current diagnosis for this admission?: Yes (4) Infected stasis ulcer of left lower extremity Is this a current diagnosis for this admission?: Yes Plan: MRI of the left lower leg did not show any bone infection. We will debride the leg ulcer tomorrow in the OR . Patient just had lunch lunch today We will keep her n.p.o. from midnight - Time Time Spent with patient: 15-24 minutes
[2017-08-12] MEDS ORDERED: MORPHINE SULFATE 10 MG/ML INJ IV PRN (14:58)
--- NOTE | 2017-08-12 16:42 | XCELERA REPORT ---
[address] [address] Lower Extremity Arterial Evaluation Name: DANK WHITE Age: 82 yrs Gender: Female : 1935 Patient Status: [facility]: 08/12/2017 09:21 AM Procedure: A color flow and duplex scan of the lower extremity arteries was performed bilaterally with velocity and waveform anaylsis. Ankle brachial indicies performed. Reason For Study: PAD Ordering Physician: TAWNYA BLEVINS Performed By: August Loja Measurements and Calculations Right Left PROCESS CONTROLLER PSV 168.9 190.8 cm/sec Prox PFA PSV -141.4 -125.7 cm/sec Dist SFA PSV -157.2 -227.5 cm/sec Dist Pop A PSV 151.6 118.6 cm/sec Dist KRISTAN PSV 176.8 118.6 cm/sec Mid RADAR REPAIRER PSV 49.5 102.2 cm/sec Bony Pedis PSV 116.9 78.1 cm/sec Right Side Arterial Evaluation Normal velocity and triphasic waveforms noted from the Common Femoral artery to the Femoral, Biphasic from the Popliteal to the Anterior Tibial artery. Occluded Posterior Tibial with distal monophasic reconstitution. 20-49 % stenosis at the Femoral artery. With sequential changes. Ankle Brachial index not obtained due to non compressibility in the DP and occluded Posterior Tibial artery. Left Side Arterial Evaluation Normal velocity and triphasic waveforms noted from the Common Femoral artery to the Popliteal artery, Biphasic in he Anterior Tibial artery. Occluded Posterior Tibial with distal biphasic reconstitution. 20-49 % stenosis at the Anterior Tibial artery. Interpretation Summary Moderate hemodynamically significant lesions in the bilateral lower extremities, on duplex imaging, at rest. : TAWNYA BLEVINS > Pedro Encinas
[2017-08-12] MEDS: ERTAPENEM SODIUM 0.5 GM in NORMAL SALINE 50 ML IV SCH (18:17)
--- NOTE | 2017-08-13 02:08 | EKG REPORT ---
SEVERITY:- BORDERLINE ECG - SINUS RHYTHM LEFT AXIS DEVIATION BORDERLINE R WAVE PROGRESSION, ANTERIOR LEADS : Confirmed by: Mary Johnson MD 13-Aug-2017 02:07:40
[2017-08-13] MEDS: LANSOPRAZOLE 30 MG TAB.RAP.DR PO SCH (05:10)
[2017-08-13 05:39] LABS: ANION GAP 8 (5-19); BLOOD UREA NITROGEN 42 mg/dL (7-20); CARBON DIOXIDE 23 mmol/L (22-30); CHLORIDE 110 mmol/L (98-107); CREATININE RESULT 2.33 mg/dL (0.52-1.25); GLUCOSE 87 mg/dL (75-110); POTASSIUM 4.5 mmol/L (3.6-5.0); SODIUM 141.1 mmol/L (137-145)
[2017-08-13] MEDS ORDERED: FENTANYL CITRATE INJ/PF 100 MCG/2 ML AMPUL IV PRN ×2 (09:05)
[2017-08-13] MEDS ORDERED: PROMETHAZINE HCL INJ 25 MG/1 ML VIAL IV PRN (09:05)
[2017-08-13] MEDS ORDERED: MEPERIDINE HCL/PF INJ 25 MG/1 ML DISP.SYRIN IV PRN (09:05)
[2017-08-13] MEDS ORDERED: MORPHINE SULFATE 10 MG/ML INJ IV PRN (09:05)
[2017-08-13] MEDS ORDERED: DIPHENHYDRAMINE HCL 50 MG/ML VIAL IV PRN (09:05)
[2017-08-13] MEDS ORDERED: PROPOFOL INJ 200 MG/20 ML VIAL IV ONE (09:07)
[2017-08-13] MEDS ORDERED: MIDAZOLAM 2 MG/2 ML INJ ONE (09:07)
[2017-08-13] MEDS ORDERED: FENTANYL CITRATE INJ/PF 100 MCG/2 ML AMPUL ONE ×2 (09:07→10:50)
[2017-08-13] MEDS ORDERED: KETAMINE HCL INJ 500 MG/10 ML VIAL ONE (09:07)
[2017-08-13] MEDS ORDERED: ACETAMINOPHEN 100 ML IV ONE (09:07)
[2017-08-13] MEDS ORDERED: EPHEDRINE SULFATE INJ 50 MG/1 ML AMPULE ONE (09:08)
[2017-08-13] MEDS: FENTANYL CITRATE INJ/PF 100 MCG/2 ML AMPUL IV PRN ×2 (10:40→10:50)
[2017-08-13] MEDS ORDERED: OXYCODONE-ACETAMINOPHEN 5-325 MG TABLET PO PRN (11:13)
[2017-08-13] MEDS: LOSARTAN POTASSIUM 50 MG TABLET PO SCH (12:05)
[2017-08-13] MEDS: FUROSEMIDE 20 MG TABLET PO SCH (12:05)
[2017-08-13] MEDS: DOCUSATE SODIUM 100 MG CAPSULE PO SCH (12:05)
[2017-08-13] MEDS: LEVOTHYROXINE SODIUM 0.1 MG TABLET PO SCH (12:06)
--- NOTE | 2017-08-13 12:43 | OPERATIVE REPORT E ---
Operative Report NAME: DANK WHITE : 1935 AGE: 82Y DATE OF SURGERY: ROOM: 528 PREOPERATIVE DIAGNOSIS: INFECTED ULCER, LEFT LOWER LEG. POSTOPERATIVE DIAGNOSIS: INFECTED ULCER, LEFT LOWER LEG. OPERATION: Debridement of ulcer, left lower leg. SURGEON: KARRIE NEFF M.D. ANESTHESIA: Local/MAC. INDICATION: This is an 82-year-old female with a chronic ulcer on the left lower leg. She had an MRI, which showed no evidence of bone infection. There were maggots in the wound when seen by Dr. Riddle 2 days ago. An MRI, however, showed no bone infection or osteomyelitis. PROCEDURE: After adequate IV sedation, the patient was placed in supine position and the left leg prepped and draped in the usual sterile fashion. Appropriate timeout was called. Next, the area looked relatively clean with areas of necrotic tissue. This ulcer was then curetted and subsequently pulse lavaged. Hemostasis was obtained with cautery in a few areas. The wound looked relatively clean after the pulse lavage. No evidence of any abscess or accumulation. The wound roughly measured about 9 cm long x 4 cm wide x about 6 mm deep in the mid part. Hemostasis then obtained with cautery. Next, the wound was then curetted again in the more superficial areas and had a couple of smaller wounds posterior to the large one. They were all curetted again and then given another pulse lavage. The wound roughly measured 9 cm x 4 cm x 6 cm. The wound was then covered with a layer of iodoform gauze and covered with a 4 x 4 and Billy. The patient tolerated the procedure well. Needle, instrument and sponge counts were all correct. Estimated blood loss: About 5 mL. The patient tolerated the procedure well and brought to PACU in satisfactory condition. DICTATING PHYSICIAN: KARRIE NEFF M.D. [id number] PHY#: [id number] ID: [id number] JOB#: [id number] ACCT: [id number] cc:KARRIE NEFF M.D. >
[2017-08-13] MEDS: ENOXAPARIN SODIUM INJ 30 MG/0.3 ML DISP.SYRIN SUBCUT SCH (14:14)
--- NOTE | 2017-08-13 14:36 | PDOC DISCHARGE SUMMARY ---
General - Admit/Disc Date/PCP Admission Date/Primary Care Provider: 08/11/17 16:52 RASHEL DOS SANTOS MD Discharge Date: 08/13/17 - Discharge Diagnosis (1) Infected stasis ulcer of left lower extremity Is this a current diagnosis for this admission?: Yes (2) Dehydration Is this a current diagnosis for this admission?: Yes (3) Hypercalcemia Is this a current diagnosis for this admission?: Yes (4) Essential hypertension Is this a current diagnosis for this admission?: Yes (5) Chronic kidney disease, stage III (moderate) Is this a current diagnosis for this admission?: Yes (6) Chronic ulcer of left leg Is this a current diagnosis for this admission?: Yes - Additional Information Resuscitation Status: Full Code Discharge Diet: Cardiac - Low-fat low-salt Discharge Activity: Activity As Tolerated, Balance Activity w/Rest Home Medications: Furosemide [Lasix 20 mg Tablet] 20 mg PO DAILY 08/11/17 Levothyroxine Sodium [Synthroid 0.1 mg Tablet] 0.1 mg PO DAILY 08/11/17 Losartan Potassium [Cozaar 100 mg Tablet] 100 mg PO DAILY 08/11/17 Aspirin 325 mg PO DAILY #30 tablet 08/13/17 Doxycycline Hyclate 100 mg PO BID #28 tablet 08/13/17 Levofloxacin [Levaquin 750 mg Tablet] 750 mg PO Q2DAYS #7 tab 08/13/17 Additional Information: Follow-up with the wound clinic in 1 week History of Present Illness Patient complains of: Leg ulcer History of Present Illness: DANK WHITE is a 82 year old female with several month history of a nonhealing wound at the lateral aspect of her left lower leg just above the lateral malleolus. She notes pain at night and this leg but has been ambulating. She denies any claudication with ambulation. She has no history of diabetes. She had a history of chronic right lower leg wound that eventually healed under wound care clinic. She denies any fever. She denies any injury to the left leg. With wound care the patient claims that her wounds on both legs healed and was discharged eventually from the wound clinic several months ago. She started to develop leg ulcer again on the left side. Denies any chills or fever. She does have pain on the leg patiently at night. Patient was evaluated by primary care physician where she was advised to return for reevaluation today of which her wounds were found to have maggots and therefore was sent to the hospital for admission. Hospital Course Hospital Course: The patient was admitted to the medical floor. The patient was referred to surgery for further evaluation and management. Arterial Dopplers were obtained and shows some moderate disease. Patient was begun on antiplatelet therapy and antibiotic therapy. Irrigation of the wound was done. Surgery eventually performed debridement and recommended Silvadene dressings daily. Workups include x-ray of the involved limb showing no signs of osteomyelitis. Likewise MRI of the lower extremity not reveal osteomyelitis as well. Subsequently the patient was cleared by surgical service to be discharged after debridement. Home health was arranged for wound care. Patient was advised to follow-up again at the wound clinic. The rest of the hospital stays unremarkable. Physical Exam Vital Signs: Temp Pulse Resp BP Pulse Ox 97.3 F 59 L 16 164/69 H 99 08/13/17 12:19 08/13/17 12:19 08/13/17 12:19 08/13/17 12:19 08/13/17 12:19 Intake & Output 08/12/17 08/13/17 08/14/17 06:59 06:59 06:59 Intake Total 1730 3912 3500 Output Total 650 1600 3010 Balance 1080 2312 490 Weight 86.1 kg 87.5 kg General appearance: PRESENT: no acute distress, cooperative Head exam: PRESENT: normocephalic Eye exam: PRESENT: EOMI Mouth exam: PRESENT: moist Neck exam: ABSENT: JVD Respiratory exam: PRESENT: clear to auscultation laurie Cardiovascular exam: PRESENT: RRR GI/Abdominal exam: PRESENT: soft. ABSENT: distended Extremities exam: PRESENT: other - Trace lower extremity edema bilateral Neurological exam: PRESENT: alert, awake, oriented to situation Skin exam: PRESENT: dry, warm, other - Wound dressing clean and dry on the left leg.. ABSENT: cyanosis Results Laboratory Results: 08/13/17 04:43 08/13/17 04:43 Sodium 141.1 Potassium 4.5 Chloride 110 H Carbon Dioxide 23 Anion Gap 8 BUN 42 H Creatinine 2.33 H Est GFR ( Amer) 24 L Est GFR (Non-Af Amer) 20 L Glucose 87 Calcium 10.0 Impressions: Tibia/Fibula X-Ray 08/11/17 14:52 IMPRESSION: No evidence of osteomyelitis. Venous Doppler Study 08/11/17 14:53 IMPRESSION: NO EVIDENCE DVT OR SVT IN THE LEFT LEG. Lower Extremity MRI 08/12/17 09:31 IMPRESSION: Left lower leg superficial cellulitis and mild edema in the adjacent muscles suggesting myositis. No intramuscular abscess. No marrow signal abnormalities worrisome for osteomyelitis Qualifiers PATEINT BEING DISCHARGED WITH ANY OF THE FOLLOWING DIAGNOSIS?: No Plan Discharge Plan: Follow-up with primary care physician in 1 week. Follow-up with the wound clinic in 1 week. Time Spent: Less than 30 Minutes
[2017-08-13] MEDS ORDERED: ONDANSETRON HCL INJ/PF 4 MG/2 ML SDV ONE (14:39)
[2017-08-13] MEDS ORDERED: LIDOCAINE 2% INJ-PF (20 MG/ML) 10 ML AMPUL ONE (14:39)
[2017-08-13] MEDS ORDERED: DEXAMETHASONE SOD PHOSPHATE INJ 4 MG/1 ML VIAL ONE (14:39)
[2017-08-13 16:32] VITALS: BP 143/64
== END 2017-08-13 16:47 | disposition home health service (06) | DRG 300 ==
LOC: ER 12:30 → UNDOADMIN 15:28 → EH 15:28 → 5 17:37
PROC: 3E0234Z Introduction of Serum, Toxoid and Vaccine into Muscle, Percutaneous Approach (ICD-10-PCS; principal; 2017-08-13 09:30)
DX: I83.028 Varicose veins of left lower extremity with ulcer other part of lower leg (principal); L97.823 Non-pressure chronic ulcer of other part of left lower leg with necrosis of muscle; E86.0 Dehydration; E83.52 Hypercalcemia; I12.9 Hypertensive chronic kidney disease with stage 1 through stage 4 chronic kidney disease, or unspecified chronic kidney disease; N18.3 Chronic kidney disease, stage 3 (moderate); Z96.642 Presence of left artificial hip joint; Z23 Encounter for immunization
CPT/HCPCS: 00400; 36415; 80048; 80053; 84443; 85025; 90686; 93005; 93010; 93925; 93971; 99285; J0131; J1100; J1335; J1650; J2250; J2405; J2704; J3010; J3490; J7030

== ENCOUNTER → 2018-04-24 | Outpatient (CLI) | payer MEDICARE ==
[2018-04-24 14:38] LABS: APPEARANCE,URINE CLEAR; BILIRUBIN,URINE NEGATIVE (NEGATIVE); COLOR,URINE YELLOW; GLUCOSE, URINE NEGATIVE (NEGATIVE); HEMATOCRIT 36.5 % (36.0-47.0); HEMOGLOBIN 12.1 g/dL (12.0-15.5); KETONES,URINE NEGATIVE (NEGATIVE); LEUKOCYTE ESTERASE,URINE SMALL (NEGATIVE); MEAN CORPUSCULAR HEMOGLOBIN 31.4 pg (27.0-33.4); MEAN CORPUSCULAR HGB CONC 33.2 g/dL (32.0-36.0); MEAN CORPUSCULAR VOLUME 95 fl (80-97); NITRITE,URINE NEGATIVE (NEGATIVE); PLATELET COUNT 130 10^3/uL (150-450); PROTEIN,URINE 30 mg/dL (NEGATIVE); RED BLOOD COUNT 3.86 10^6/uL (3.72-5.28); RED CELL DISTRIBUTION WIDTH 14.7 % (11.5-14.0); URINE SPECIFIC GRAVITY 1.016; WHITE BLOOD COUNT 4.3 10^3/uL (4.0-10.5)
[2018-04-24 14:54] LABS: ANION GAP 11 (5-19); BLOOD UREA NITROGEN 23 mg/dL (7-20); CARBON DIOXIDE 30 mmol/L (22-30); CHLORIDE 105 mmol/L (98-107); GLUCOSE 86 mg/dL (75-110); POTASSIUM 4.8 mmol/L (3.6-5.0); SODIUM 145.9 mmol/L (137-145)
== END ==
LOC: OD 13:22
PROVIDERS: ATTEND Internal Medicine Nephrology
DX: I12.9 Hypertensive chronic kidney disease with stage 1 through stage 4 chronic kidney disease, or unspecified chronic kidney disease (principal); N18.4 Chronic kidney disease, stage 4 (severe); E87.5 Hyperkalemia; D64.9 Anemia, unspecified
CPT/HCPCS: 36415; 80048; 81001; 85027

== ENCOUNTER → 2018-05-22 | Outpatient (CLI) | payer MEDICARE ==
[2018-05-22 14:29] LABS: HEMATOCRIT 36.7 % (36.0-47.0); HEMOGLOBIN 12.3 g/dL (12.0-15.5); MEAN CORPUSCULAR HEMOGLOBIN 32.3 pg (27.0-33.4); MEAN CORPUSCULAR HGB CONC 33.6 g/dL (32.0-36.0); MEAN CORPUSCULAR VOLUME 96 fl (80-97); PLATELET COUNT 107 10^3/uL (150-450); RED BLOOD COUNT 3.82 10^6/uL (3.72-5.28); RED CELL DISTRIBUTION WIDTH 15.1 % (11.5-14.0); WHITE BLOOD COUNT 4.2 10^3/uL (4.0-10.5)
[2018-05-22 15:05] LABS: APPEARANCE,URINE SLIGHTLY-CLOUDY; BILIRUBIN,URINE NEGATIVE (NEGATIVE); COLOR,URINE YELLOW; GLUCOSE, URINE NEGATIVE (NEGATIVE); KETONES,URINE NEGATIVE (NEGATIVE); LEUKOCYTE ESTERASE,URINE LARGE (NEGATIVE); NITRITE,URINE NEGATIVE (NEGATIVE); PROTEIN,URINE 100 mg/dL (NEGATIVE); URINE SPECIFIC GRAVITY 1.018
[2018-05-22 15:09] LABS: UR PRO/CREAT RATIO RESULT 0.2 mg/mg (0.0-0.2); URINE CREATININE 241.9 mg/dL (15-278); URINE PROTEIN 44.9 mg/dL (<12)
[2018-05-22 16:03] LABS: ANION GAP 10 (5-19); BLOOD UREA NITROGEN 20 mg/dL (7-20); CALCIUM 10.7 mg/dL (8.4-10.2); CARBON DIOXIDE 30 mmol/L (22-30); CHLORIDE 105 mmol/L (98-107); GLUCOSE 91 mg/dL (75-110); POTASSIUM 4.2 mmol/L (3.6-5.0); SODIUM 145.4 mmol/L (137-145)
[2018-05-22 16:04] LABS: PHOSPHORUS 2.8 mg/dL (2.5-4.5)
[2018-05-22 16:05] LABS: ANION GAP 10 (5-19); BLOOD UREA NITROGEN 20 mg/dL (7-20); CALCIUM 10.7 mg/dL (8.4-10.2); CARBON DIOXIDE 30 mmol/L (22-30); CHLORIDE 105 mmol/L (98-107); CHOLESTEROL 272.71 mg/dL (0-200); DIRECT LDL 116 mg/dL (<100); GLUCOSE 91 mg/dL (75-110); POTASSIUM 4.2 mmol/L (3.6-5.0); SODIUM 145.4 mmol/L (137-145); TRIGLYCERIDES 154 mg/dL (<150); VLDL CHOLESTEROL 30.8 mg/dL (10-31)
== END ==
LOC: OD 13:12
PROVIDERS: ATTEND Internal Medicine Nephrology
DX: I12.9 Hypertensive chronic kidney disease with stage 1 through stage 4 chronic kidney disease, or unspecified chronic kidney disease (principal); N18.4 Chronic kidney disease, stage 4 (severe); R80.9 Proteinuria, unspecified; E78.5 Hyperlipidemia, unspecified; E03.9 Hypothyroidism, unspecified; Z79.899 Other long term (current) drug therapy
CPT/HCPCS: 36415; 80048; 80061; 81001; 82570; 83036; 83970; 84100; 84156; 84443; 85027

== ENCOUNTER → 2018-06-07 | Outpatient (CLI) | payer MEDICARE | LOC: OD 13:00 | PROVIDERS: ATTEND Family Medicine | DX: E03.9 Hypothyroidism, unspecified (principal); Z79.899 Other long term (current) drug therapy | CPT/HCPCS: 36415; 84436; 84443 ==

== ENCOUNTER → 2018-06-22 | Outpatient (CLI) | payer MEDICARE | LOC: OD 11:28 | PROVIDERS: ATTEND Family Medicine | DX: E03.9 Hypothyroidism, unspecified (principal); Z79.899 Other long term (current) drug therapy | CPT/HCPCS: 36415; 84436; 84443 ==

== ENCOUNTER → 2018-11-27 | Outpatient (CLI) | payer MEDICARE ==
[2018-11-27 13:34] LABS: HEMATOCRIT 37.5 % (36.0-47.0); HEMOGLOBIN 12.5 g/dL (12.0-15.5); MEAN CORPUSCULAR HGB CONC 33.2 g/dL (32.0-36.0); MEAN CORPUSCULAR VOLUME 93 fl (80-97); PLATELET COUNT 127 10^3/uL (150-450); RED BLOOD COUNT 4.02 10^6/uL (3.72-5.28); WHITE BLOOD COUNT 5.7 10^3/uL (4.0-10.5)
[2018-11-27 13:55] LABS: ANION GAP 8 (5-19); BLOOD UREA NITROGEN 30 mg/dL (7-20); CALCIUM 10.6 mg/dL (8.4-10.2); CARBON DIOXIDE 30 mmol/L (22-30); CHLORIDE 103 mmol/L (98-107); GLUCOSE 92 mg/dL (75-110); POTASSIUM 4.7 mmol/L (3.6-5.0); SODIUM 140.6 mmol/L (137-145)
== END ==
LOC: OD 12:25
PROVIDERS: ATTEND Internal Medicine Nephrology
DX: I12.9 Hypertensive chronic kidney disease with stage 1 through stage 4 chronic kidney disease, or unspecified chronic kidney disease (principal); N18.4 Chronic kidney disease, stage 4 (severe); E87.5 Hyperkalemia; D64.9 Anemia, unspecified
CPT/HCPCS: 36415; 80048; 85027

== ENCOUNTER → 2019-02-19 | Outpatient (CLI) | payer MEDICARE ==
[2019-02-19 13:10] LABS: ABSOLUTE EOSINOPHILS # (AUTO) 0.1 10^3/uL (0.0-0.6); ABSOLUTE MONOCYTES (AUTO) 0.5 10^3/uL (0.1-1.4); ABSOLUTE NEUT (AUTO) 4.2 10^3/uL (1.7-8.2); BASOPHILS % (AUTO) 0.5 % (0-2); EOSINOPHILS % (AUTO) 0.9 % (0-6); HEMATOCRIT 34.6 % (36.0-47.0); HEMOGLOBIN 11.5 g/dL (12.0-15.5); LYMPHOCYTES % (AUTO) 16.8 % (13-45); MEAN CORPUSCULAR HEMOGLOBIN 31.9 pg (27.0-33.4); MEAN CORPUSCULAR HGB CONC 33.1 g/dL (32.0-36.0); MEAN CORPUSCULAR VOLUME 96 fl (80-97); MONOCYTES % (AUTO) 9.2 % (3-13); PLATELET COUNT 117 10^3/uL (150-450); RED CELL DISTRIBUTION WIDTH 15.1 % (11.5-14.0); SEGMENTED NEUTROPHILS % (AUTO) 72.6 % (42-78); TOTAL CELLS COUNTED % (AUTO) 100 %; WHITE BLOOD COUNT 5.8 10^3/uL (4.0-10.5)
[2019-02-19 13:32] LABS: ANION GAP 7 (5-19); BLOOD UREA NITROGEN 39 mg/dL (7-20); CARBON DIOXIDE 32 mmol/L (22-30); CHLORIDE 103 mmol/L (98-107); GLUCOSE 85 mg/dL (75-110); POTASSIUM 4.3 mmol/L (3.6-5.0); SODIUM 141.5 mmol/L (137-145)
[2019-02-19 13:50] LABS: APPEARANCE,URINE SLIGHTLY-CLOUDY; BILIRUBIN,URINE NEGATIVE (NEGATIVE); COLOR,URINE YELLOW; GLUCOSE, URINE NEGATIVE (NEGATIVE); KETONES,URINE NEGATIVE (NEGATIVE); LEUKOCYTE ESTERASE,URINE LARGE (NEGATIVE); NITRITE,URINE NEGATIVE (NEGATIVE); PROTEIN,URINE NEGATIVE (NEGATIVE); URINE SPECIFIC GRAVITY 1.013; UROBILINOGEN,URINE NEGATIVE mg/dL (<2.0)
== END ==
LOC: OD 12:26
PROVIDERS: ATTEND Internal Medicine Nephrology
DX: N18.4 Chronic kidney disease, stage 4 (severe) (principal); E87.5 Hyperkalemia; D64.9 Anemia, unspecified
CPT/HCPCS: 36415; 80048; 81001; 85025

== ENCOUNTER → 2019-08-23 | Outpatient (CLI) | payer MEDICARE ==
[2019-08-23 17:24] LABS: HEMATOCRIT 37.7 % (36.0-47.0); HEMOGLOBIN 12.4 g/dL (12.0-15.5); MEAN CORPUSCULAR HEMOGLOBIN 31.3 pg (27.0-33.4); MEAN CORPUSCULAR HGB CONC 32.8 g/dL (32.0-36.0); MEAN CORPUSCULAR VOLUME 95 fl (80-97); RED BLOOD COUNT 3.95 10^6/uL (3.72-5.28); WHITE BLOOD COUNT 8.6 10^3/uL (4.0-10.5)
[2019-08-23 17:37] LABS: ANION GAP 11 (5-19); BLOOD UREA NITROGEN 36 mg/dL (7-20); CALCIUM 10.4 mg/dL (8.4-10.2); CARBON DIOXIDE 28 mmol/L (22-30); CHLORIDE 102 mmol/L (98-107); GLUCOSE 143 mg/dL (75-110); IRON(TIBC) 73.9 ug/dL (37-170); PHOSPHORUS 3.1 mg/dL (2.5-4.5); POTASSIUM 4.3 mmol/L (3.6-5.0)
[2019-08-23 17:41] LABS: PLATELET COUNT 138 10^3/uL (150-450)
== END ==
LOC: OD 16:38
PROVIDERS: ATTEND Internal Medicine Nephrology
DX: I12.9 Hypertensive chronic kidney disease with stage 1 through stage 4 chronic kidney disease, or unspecified chronic kidney disease (principal); N18.4 Chronic kidney disease, stage 4 (severe); D63.1 Anemia in chronic kidney disease; E87.5 Hyperkalemia; R80.9 Proteinuria, unspecified
CPT/HCPCS: 36415; 80048; 82728; 83540; 83550; 83970; 84100; 85027

== ENCOUNTER 2019-09-10 16:50 | Emergency (ER) | payer MEDICARE ==
--- NOTE | 2019-09-10 17:03 | ER Document Report ---
ED Medical Screen (RME) - General Chief Complaint: Facial Swelling Stated Complaint: FACIAL SWELLING Time Seen by Provider: 09/10/19 17:00 Primary Care Provider: Kenya MEDINA MD [Primary Care Provider] - Follow up as needed Mode of Arrival: Wheelchair Information source: Relative Notes: 84-year-old female presented to ED for some mild pressure in the left upper jaw and swelling to the left side of her face daughter states that she came home and saw that her mother's face was swollen so she brought her into the emergency room. She states mother did have a tooth fall out several months ago but no other problems that she knows of. I have greeted and performed a rapid initial assessment of this patient. A comprehensive ED assessment and evaluation of the patient, analysis of test results and completion of medical decision making process will be conducted by an additional ED providers. TRAVEL OUTSIDE OF THE [place] IN LAST 30 DAYS: No - Related Data Allergies/Adverse Reactions: No Known Allergies Allergy (Verified 09/10/19 16:57) Past Medical History - Past Medical History Cardiac Medical History: Reports: Hx Hypertension - MEDICATED Denies: Hx Coronary Artery Disease, Hx Heart Attack Pulmonary Medical History: Denies: Hx Asthma, Hx Bronchitis, Hx COPD, Hx Pneumonia Neurological Medical History: Denies: Hx Cerebrovascular Accident, Hx Seizures Renal/ Medical History: Denies: Hx Peritoneal Dialysis GI Medical History: Denies: Hx Hepatitis, Hx Hiatal Hernia, Hx Ulcer Musculoskeltal Medical History: Denies Hx Arthritis Infectious Medical History: Denies: Hx Hepatitis Past Surgical History: Reports: Hx Hysterectomy, Hx Orthopedic Surgery - left hip replacement. Denies: Hx Mastectomy, Hx Open Heart Surgery, Hx Pacemaker - Immunizations Hx Diphtheria, Pertussis, Tetanus Vaccination: No - UNSURE Doctor's Discharge - Discharge Referrals: Kenya MEDINA MD [Primary Care Provider] - Follow up as needed
[2019-09-10 17:25] LABS: ABSOLUTE BASOPHILS # (AUTO) 0.1 10^3/uL (0.0-0.2); ABSOLUTE LYMPHOCYTES (AUTO) 1.1 10^3/uL (0.5-4.7); ABSOLUTE MONOCYTES (AUTO) 0.9 10^3/uL (0.1-1.4); ABSOLUTE NEUT (AUTO) 6.6 10^3/uL (1.7-8.2); EOSINOPHILS % (AUTO) 0.3 % (0-6); HEMATOCRIT 35.5 % (36.0-47.0); HEMOGLOBIN 11.9 g/dL (12.0-15.5); LYMPHOCYTES % (AUTO) 12.9 % (13-45); MEAN CORPUSCULAR HGB CONC 33.4 g/dL (32.0-36.0); MEAN CORPUSCULAR VOLUME 96 fl (80-97); MONOCYTES % (AUTO) 10.7 % (3-13); PLATELET COUNT 132 10^3/uL (150-450); RED BLOOD COUNT 3.72 10^6/uL (3.72-5.28); RED CELL DISTRIBUTION WIDTH 14.7 % (11.5-14.0); SEGMENTED NEUTROPHILS % (AUTO) 75.1 % (42-78); TOTAL CELLS COUNTED % (AUTO) 100 %; WHITE BLOOD COUNT 8.8 10^3/uL (4.0-10.5)
[2019-09-10 17:46] LABS: ALKALINE PHOSPHATASE 56 U/L (38-126); ANION GAP 10 (5-19); ASPARTATE AMINO TRANSFERASE 35 U/L (14-36); BILIRUBIN,DIRECT 0.1 mg/dL (0.0-0.4); BILIRUBIN,TOTAL 0.9 mg/dL (0.2-1.3); BLOOD UREA NITROGEN 31 mg/dL (7-20); CALCIUM 10.5 mg/dL (8.4-10.2); CARBON DIOXIDE 28 mmol/L (22-30); CHLORIDE 101 mmol/L (98-107); GLUCOSE 111 mg/dL (75-110); TOTAL PROTEIN 7.6 g/dL (6.3-8.2)
--- NOTE | 2019-09-10 21:13 | ER Document Report ---
HPI - HPI Time Seen by Provider: 09/10/19 17:00 Pain Level: 0 Context: Patient is an 84 year old female who presents to the emergency department with a chief complaint of left facial swelling. Her daughter came to her house and noticed that she had some left-sided facial swelling. Patient denies any pain, fever, body aches, chills, or any other symptoms. Patient has a past medical history of hypothyroidism and hypertension. Denies any shortness of breath, difficulty breathing, or any other symptoms. Denies any dental pain. States that she had a tooth fall out a couple months ago. - ROS Notes: REVIEW OF SYSTEMS: CONSTITUTIONAL : Denies recent illness. Denies recent unintentional weight loss. Denies fever, chills, or sweats. EENT: See HPI. CARDIOVASCULAR: Denies chest pain. RESPIRATORY: Denies shortness of breath, cough, congestion, difficulty breathing, or wheezing. GASTROINTESTINAL: Denies nausea, vomiting, and diarrhea. Denies abdominal pain. Denies constipation. GENITOURINARY: Denies difficulty urinating, burning, blood in urine, urgency or frequency. MUSCULOSKELETAL: Denies neck and back pain. Denies joint pain or swelling. SKIN: Denies rash, itchiness, or lesions HEMATOLOGIC : Denies easy bruising or bleeding. LYMPHATIC: Denies swollen, painful, enlarged glands. NEUROLOGICAL: Denies no numbness or tingling denies weakness. Denies headache. Denies altered mental status. Denies alteration in speech. PSYCHIATRIC: Denies stress, anxiety, alteration in sleep patterns, or de pression. All other systems reviewed and negative. - REPRODUCTIVE Reproductive: DENIES: : Past Medical History - General Information source: Patient, Relative - Social History Smoking Status: Unknown if Ever Smoked Chew tobacco use (# tins/day): No Frequency of alcohol use: None Drug Abuse: None Family History: Malignancy - Breast Patient has suicidal ideation: No Patient has homicidal ideation: No - Past Medical History Cardiac Medical History: Reports: Hx Hypertension - MEDICATED Denies: Hx Coronary Artery Disease, Hx Heart Attack Pulmonary Medical History: Denies: Hx Asthma, Hx Bronchitis, Hx COPD, Hx Pneumonia Neurological Medical History: Denies: Hx Cerebrovascular Accident, Hx Seizures Renal/ Medical History: Denies: Hx Peritoneal Dialysis GI Medical History: Denies: Hx Hepatitis, Hx Hiatal Hernia, Hx Ulcer Musculoskeletal Medical History: Denies Hx Arthritis Infectious Medical History: Denies: Hx Hepatitis Past Surgical History: Reports: Hx Hysterectomy, Hx Orthopedic Surgery - left hip replacement. Denies: Hx Mastectomy, Hx Open Heart Surgery, Hx Pacemaker - Immunizations Hx Diphtheria, Pertussis, Tetanus Vaccination: No - UNSURE Hx Pneumococcal Vaccination: 09/07/05 Vertical Provider Document - CONSTITUTIONAL Agree With Documented VS: Yes Exam Limitations: No Limitations General Appearance: No Apparent Distress Notes: PHYSICAL EXAMINATION: GENERAL: Appears well, healthy, well-nourished, no acute distress. HEAD: Normocephalic, atraumatic. Mild swelling noted to the left cheek. No tenderness noted. EYES: PERRL, conjunctiva normal, all extraocular movements intact, sclera nonicteric ENT: Moist mucous membranes. Dental caries noted to the left upper teeth. Some teeth missing. NECK: Supple, no noticeable swelling, redness, rash. Normal range of motion. LUNGS: Equal breath sounds bilaterally and clear to auscultation. No wheezes rales or rhonchi. CARDIOVASCULAR: S1-S2, regular rate, regular rhythm. Radial pulses 2+, normal. ABDOMEN: Normoactive bowel sounds. Soft, nontender, no guarding, no rebound tenderness, and no masses palpated. EXTREMITIES: Normal strength and range of motion, no pitting or edema. No cyanosis. NEUROLOGICAL: Moves all extremities upon command. Strength 5/5 in all extremities. PSYCH: Normal mood, normal affect. SKIN: Warm, dry. No rash, lesions, ulcerations noted. Normal skin turgor. - INFECTION CONTROL TRAVEL OUTSIDE OF THE [place] IN LAST 30 DAYS: No - HEENT Mouth Diagram: 1 - Some missing teeth and dental caries noted Course - Re-evaluation Re-evalutation: 09/10/19 21:16 Patient has dental caries noted to the left upper side of her mouth. Patient has not been to a dentist in a while. Patient will be given clindamycin and she [facility] I have advised him to also call the insurance companies to check to see if she has dental coverage. Daughter and patient are in agreement with this plan. Follow-up precautions were given. Verbal discharge instructions were given to the patient. They verbalized understanding. They are stable for discharge. - Vital Signs Vital signs: Temp Pulse Resp BP Pulse Ox 98.0 F 81 16 181/64 H 98 09/10/19 16:56 09/10/19 16:56 09/10/19 16:56 09/10/19 16:56 09/10/19 16:56 - Laboratory Result Diagrams: 09/10/19 17:16 09/10/19 17:16 Laboratory results interpreted by me: 09/10/19 09/10/19 17:16 17:16 Hgb 11.9 L Hct 35.5 L RDW 14.7 H Plt Count 132 L Lymph % (Auto) 12.9 L BUN 31 H Creatinine 2.38 H Est GFR ( Amer) 24 L Est GFR (MDRD) Non-Af 19 L Glucose 111 H Calcium 10.5 H Discharge - Discharge Clinical Impression: Facial swelling Condition: Stable Disposition: HOME, SELF-CARE Additional Instructions: You are seen today in the emergency department for swelling to the left side of your face. The most likely cause of the swelling is an infected tooth. Please follow-up with a dentist. You are also being referred to [facility] if your insurance does not cover dental work. Please see them in 1 week. You are also being placed on antibiotics. Please take all your antibiotics as prescribed. You received your first dose here in the emergency department your next dose can be given in the morning. If you develop shortness of breath, difficulty breathing, fever, or worsening symptoms, please return to the emergency department. Prescriptions: Clindamycin HCl [Cleocin 150 mg Capsule] 300 mg PO Q6 7 Days #56 capsule Referrals: RASHEL DOS SANTOS MD [Primary Care Provider] - Follow up as needed [facility] [Provider Group] - Follow up in 1 week
[2019-09-10] MEDS ORDERED: CLINDAMYCIN HCL 150 MG CAPSULE PO ONE (21:19)
[2019-09-10 21:39] VITALS: BP 188/59
== END 2019-09-10 21:36 | disposition home or self-care (01) ==
LOC: ER 16:50
DX: R22.0 Localized swelling, mass and lump, head (principal); K02.9 Dental caries, unspecified; E03.9 Hypothyroidism, unspecified; I10 Essential (primary) hypertension; Z90.710 Acquired absence of both cervix and uterus; Z96.642 Presence of left artificial hip joint
CPT/HCPCS: 99283; 36415; 85025; 80053; A9270

== ENCOUNTER → 2019-12-27 | Outpatient (CLI) | payer MEDICARE, OTHER ==
[2019-12-27 13:42] LABS: ABSOLUTE BASOPHILS # (AUTO) 0.1 10^3/uL (0.0-0.2); ABSOLUTE EOSINOPHILS # (AUTO) 0.2 10^3/uL (0.0-0.6); ABSOLUTE LYMPHOCYTES (AUTO) 1.3 10^3/uL (0.5-4.7); ABSOLUTE MONOCYTES (AUTO) 0.5 10^3/uL (0.1-1.4); ABSOLUTE NEUT (AUTO) 3.2 10^3/uL (1.7-8.2); EOSINOPHILS % (AUTO) 3.1 % (0-6); HEMATOCRIT 36.1 % (36.0-47.0); HEMOGLOBIN 11.9 g/dL (12.0-15.5); LYMPHOCYTES % (AUTO) 24.6 % (13-45); MEAN CORPUSCULAR HEMOGLOBIN 31.5 pg (27.0-33.4); MEAN CORPUSCULAR HGB CONC 32.9 g/dL (32.0-36.0); MEAN CORPUSCULAR VOLUME 96 fl (80-97); MONOCYTES % (AUTO) 9.3 % (3-13); PLATELET COUNT 113 10^3/uL (150-450); RED BLOOD COUNT 3.77 10^6/uL (3.72-5.28); RED CELL DISTRIBUTION WIDTH 14.9 % (11.5-14.0); TOTAL CELLS COUNTED % (AUTO) 100 %; WHITE BLOOD COUNT 5.2 10^3/uL (4.0-10.5)
[2019-12-27 14:02] LABS: BLOOD UREA NITROGEN 25 mg/dL (7-20); CALCIUM 10.3 mg/dL (8.4-10.2); CARBON DIOXIDE 29 mmol/L (22-30); GLUCOSE 130 mg/dL (75-110); PHOSPHORUS 2.3 mg/dL (2.5-4.5); POTASSIUM 4.1 mmol/L (3.6-5.0)
[2019-12-27 14:03] LABS: ANION GAP 8 (5-19); CHLORIDE 104 mmol/L (98-107)
== END ==
LOC: OD 13:11
PROVIDERS: ATTEND Internal Medicine Nephrology
DX: I12.9 Hypertensive chronic kidney disease with stage 1 through stage 4 chronic kidney disease, or unspecified chronic kidney disease (principal); N18.4 Chronic kidney disease, stage 4 (severe); N25.0 Renal osteodystrophy; E87.5 Hyperkalemia
CPT/HCPCS: 36415; 80048; 83970; 84100; 85025

== ENCOUNTER 2020-07-08 11:30 | Inpatient (IN) | payer MEDICARE, OTHER ==
[2020-07-08] MEDS ORDERED: NORMAL SALINE 1000 ML 1,000 ML IV ONE ×2 (12:10→15:03)
--- NOTE | 2020-07-08 12:17 | ER Document Report ---
ED Medical Screen (RME) - General Chief Complaint: Skin Problem Stated Complaint: SORES ON LEGS Time Seen by Provider: 07/08/20 12:01 Primary Care Provider: RASHEL DOS SANTOS MD [Primary Care Provider] - Follow up as needed Mode of Arrival: Ambulatory Information source: Patient TRAVEL OUTSIDE OF THE [place] IN LAST 30 DAYS: No - HPI Notes: 07/08/20 12:11 85-year-old female presents to the emergency room with daughter for evaluation of her eyes rolling in the back of the her head while they were driving to the doctor's office this morning. Patient has swelling to her right lower extremity with erythema and induration as well as some swelling to her left lower extremity. Daughter states that the patient fell a month ago on her knees and had rug burn, never had it checked out by a provider, EMS was called to the scene but they said it was red burn. Today, the home health care nurse came and evaluated patient advise her to go to the doctors because it look like she was getting an infection in her right lower extremity. While they are on the way to the doctors, daughter states that her eyes started rolling the back of her head which made her very concerned, daughter brought pt to the emergency room. daughter states that a large blister to the back of her right leg started this morning that she never noticed before. No [id number] medication has been tried. Daughter is the historian for the patient. Denies history of diabetes. In triage patient's blood pressure was 74/30, patient is typically hypertensive. I have greeted and performed a rapid initial assessment of this patient. A comprehensive ED assessment and evaluation of the patient, analysis of test results and completion of the medical decision making process will be conducted by additional ED providers. PHYSICAL EXAMINATION: GENERAL: Chronically ill well-nourished and in no acute distress. CV: s1, s2 regular LUNGS: No respiratory distress Musculoskeletal: Normal range of motion NEUROLOGICAL: Normal speech, normal gait. SKIN: Warm, Dry, normal turgor, no rashes or lesions noted. Right lower extremity with erythema induration, pitting edema with large bullae to the back of the right posterior calf. Faint distal pulses bilaterally - Related Data Allergies/Adverse Reactions: No Known Allergies Allergy (Verified 09/10/19 16:57) Past Medical History - Past Medical History Cardiac Medical History: Reports: Hx Hypertension - MEDICATED Denies: Hx Coronary Artery Disease, Hx Heart Attack Pulmonary Medical History: Denies: Hx Asthma, Hx Bronchitis, Hx COPD, Hx Pneumonia Neurological Medical History: Denies: Hx Cerebrovascular Accident, Hx Seizures Renal/ Medical History: Denies: Hx Peritoneal Dialysis GI Medical History: Denies: Hx Hepatitis, Hx Hiatal Hernia, Hx Ulcer Musculoskeltal Medical History: Denies Hx Arthritis Infectious Medical History: Denies: Hx Hepatitis Past Surgical History: Reports: Hx Hysterectomy, Hx Orthopedic Surgery - left hip replacement. Denies: Hx Mastectomy, Hx Open Heart Surgery, Hx Pacemaker - Immunizations Hx Diphtheria, Pertussis, Tetanus Vaccination: No - UNSURE Physical Exam - Vital signs Vitals: Temp Pulse Resp BP Pulse Ox 98.5 F 77 20 74/30 L 100 07/08/20 11:43 07/08/20 11:43 07/08/20 11:43 07/08/20 11:43 07/08/20 11:43 Course - Vital Signs Vital signs: Temp Pulse Resp BP Pulse Ox 98.5 F 77 20 91/49 L 100 07/08/20 12:00 07/08/20 11:43 07/08/20 11:43 07/08/20 11:50 07/08/20 11:43 Doctor's Discharge - Discharge Referrals: RASHEL DOS SANTOS MD [Primary Care Provider] - Follow up as needed
--- NOTE | 2020-07-08 12:43 | RADIOLOGY REPORT (SQ) ---
EXAM DESCRIPTION: CHEST SINGLE VIEW IMAGES COMPLETED DATE/TIME: 07/08/2020 12:33 pm REASON FOR STUDY: AMS, hypovolemia COMPARISON: 2008 EXAM PARAMETERS: NUMBER OF VIEWS: One view. TECHNIQUE: Single frontal radiographic view of the chest acquired. RADIATION DOSE: NA LIMITATIONS: None. FINDINGS: LUNGS AND PLEURA: There is patchy opacification in the left base. The left hemidiaphragm is indistinct. MEDIASTINUM AND HILAR STRUCTURES: No masses. Contour normal. HEART AND VASCULAR STRUCTURES: Heart normal in size. Normal vasculature. BONES: No acute findings. HARDWARE: None in the chest. OTHER: No other significant finding. IMPRESSION: Cannot exclude left lower lobe pneumonia. TECHNICAL DOCUMENTATION: JOB ID: [id number] 2010 [employer]- All Rights Reserved Reading location - IP/workstation name: [email or web address]
[2020-07-08 13:09] LABS: HEMATOCRIT 35.1 % (36.0-47.0); HEMOGLOBIN 11.5 g/dL (12.0-15.5); MEAN CORPUSCULAR HEMOGLOBIN 31.1 pg (27.0-33.4); MEAN CORPUSCULAR HGB CONC 32.6 g/dL (32.0-36.0); MEAN CORPUSCULAR VOLUME 95 fl (80-97); PLATELET COUNT 128 10^3/uL (150-450); RED BLOOD COUNT 3.68 10^6/uL (3.72-5.28); RED CELL DISTRIBUTION WIDTH 16.2 % (11.5-14.0); WHITE BLOOD COUNT 9.8 10^3/uL (4.0-10.5)
[2020-07-08 13:30] LABS: ABSOLUTE LYMPHOCYTES# (MANUAL) 1.3 10^3/uL (0.5-4.7); ABSOLUTE MONOCYTES # (MANUAL) 0.5 10^3/uL (0.1-1.4); BASOPHILS % (MANUAL) 0 % (0-2); EOSINOPHILS % (MANUAL) 0 % (0-6); LYMPHOCYTES % (MANUAL) 13 % (13-45); METAMYELOCYTES % (MANUAL) 2 % (0-1); MONOCYTES % (MANUAL) 5 % (3-13); SEGMENTED NEUTROPHILS % (MAN) 64 % (42-78); TOTAL CELLS COUNTED 100
[2020-07-08 13:32] LABS: ANISOCYTOSIS 2+; PLATELET COMMENT DECREASED
[2020-07-08 13:34] LABS: BURR CELLS 1+; OVALOCYTES 1+; POIKILOCYTOSIS 1+; POLYCHROMASIA SLIGHT; SCHISTOCYTES SLIGHT
[2020-07-08] MEDS ORDERED: VANCOMYCIN HCL INJ 1000 MG VIAL IV ONE ×2 (13:34→15:06)
[2020-07-08 13:35] LABS: ALBUMIN 3.2 g/dL (3.5-5.0); ALKALINE PHOSPHATASE 55 U/L (38-126); ANION GAP 11 (5-19); ASPARTATE AMINO TRANSFERASE 43 U/L (14-36); BAND NEUTROPHILS % (MANUAL) 13 % (3-5); BILIRUBIN,DIRECT 0.4 mg/dL (0.0-0.4); BILIRUBIN,TOTAL 0.7 mg/dL (0.2-1.3); BLOOD UREA NITROGEN 96 mg/dL (7-20); CALCIUM 9.5 mg/dL (8.4-10.2); CARBON DIOXIDE 23 mmol/L (22-30); CHLORIDE 103 mmol/L (98-107); GLUCOSE 180 mg/dL (75-110); POTASSIUM 5.7 mmol/L (3.6-5.0); TOTAL PROTEIN 6.2 g/dL (6.3-8.2)
[2020-07-08 13:36] LABS: MYELOCYTES % (MANUAL) 2 % (0); PROMYELOCYTES % (MANUAL) 1 % (0)
[2020-07-08 13:54] LABS: TROPONIN I 0.125 ng/mL
[2020-07-08 13:56] LABS: C-REACTIVE PROTEIN 257.3 mg/L (<10.0)
--- NOTE | 2020-07-08 14:56 | RADIOLOGY REPORT (SQ) ---
EXAM DESCRIPTION: TIBIA FIBULA RIGHT IMAGES COMPLETED DATE/TIME: 07/08/2020 2:47 pm REASON FOR STUDY: pain/lesions COMPARISON: None. NUMBER OF VIEWS: Two views. TECHNIQUE: Two radiographic images acquired of the right tibia and fibula to include the knee and an kle in at least one projection. LIMITATIONS: None. FINDINGS: MINERALIZATION: Normal. BONES: No acute fracture or dislocation. Degenerative changes in the knee. No worrisome bone lesion s. SOFT TISSUES: Soft tissue swelling. No foreign body. OTHER: No other significant finding. IMPRESSION: CHRONIC DEGENERATIVE CHANGES. SOFT TISSUE SWELLING. NO ACUTE BONY FINDINGS. TECHNICAL DOCUMENTATION: JOB ID: [id number] 2010 [employer]- All Rights Reserved Reading location - IP/workstation name: [email or web address]
[2020-07-08] MEDS ORDERED: PIPERACILLIN/TAZOBACTAM 3.375 GM VIAL IV ONE (15:01)
[2020-07-08] MEDS ORDERED: CEFEPIME 2 GM/D5W RTU 2 GM/50 ML RTUPB IV ONE (15:02)
--- NOTE | 2020-07-08 15:02 | RADIOLOGY REPORT (SQ) ---
EXAM DESCRIPTION: VENOUS BILATERAL LOWER IMAGES COMPLETED DATE/TIME: 07/08/2020 2:54 pm REASON FOR STUDY: bilateral leg swelling R>L with erythema COMPARISON: None. TECHNIQUE: Dynamic and static hewitt scale and color images acquired of both lower extremity venous sy stems. Selected spectral images acquired with additional compression and augmentation maneuvers. Imag es stored on PACS. LIMITATIONS: None. FINDINGS: RIGHT LEG COMMON FEMORAL AND FEMORAL: Normal phasicity, compression and augmentation. No visualized echogenic m aterial on hewitt scale. No defects on color images. POPLITEAL: Normal compression and augmentation. No visualized echogenic material on hewitt scale. No de fects on color images. CALF VESSELS: Normal compression and augmentation. No visualized echogenic material on hewitt scale. No defects on color image. GSV: Normal compression. No visualized echogenic material on hewitt scale. No defects on color images. ANY DEEP VENOUS INSUFFICIENCY: No. ANY EVIDENCE OF POPLITEAL CYST: No. OTHER: No other significant finding. LEFT LEG COMMON FEMORAL AND FEMORAL: Normal phasicity, compression and augmentation. No visualized echogenic m aterial on hewitt scale. No defects on color images. POPLITEAL: Normal compression and augmentation. No visualized echogenic material on hewitt scale. No de fects on color images. CALF VESSELS: Normal compression and augmentation. No visualized echogenic material on hewitt scale. No defects on color images. GSV: Normal compression. No visualized echogenic material on hewitt scale. No defects on color images. ANY DEEP VENOUS INSUFFICIENCY: No. ANY EVIDENCE POPLITEAL CYST: No. OTHER: No other significant finding. IMPRESSION: NO EVIDENCE DVT OR SVT IN EITHER LEG. TECHNICAL DOCUMENTATION: JOB ID: [id number] 2010 [employer]- All Rights Reserved Reading location - IP/workstation name: [email or web address]
--- NOTE | 2020-07-08 15:19 | ER Document Report ---
ED General - General Chief Complaint: Skin Problem Stated Complaint: SORES ON LEGS Time Seen by Provider: 07/08/20 12:01 Primary Care Provider: RASHEL DOS SANTOS MD [Primary Care Provider] - Follow up as needed Information source: Patient TRAVEL OUTSIDE OF THE [place] IN LAST 30 DAYS: No - HPI Notes: Patient presents complaint of leg pain bilaterally. Right greater than left. States this is been going on for approximately 4 or 5 days. Pain is constant. It radiates up the right leg. It is a aching and burning sensation. It is moderate to severe in intensity. Is worse with movement and better with rest. Daughter states that patient was getting care for this at the wound center until late winter. Patient has not been back to the wound center since that time. No known recent falls or trauma. Daughter states that she was told her mother has vascular insufficiency which is why she gets the chronic wound. - Related Data Allergies/Adverse Reactions: No Known Allergies Allergy (Verified 09/10/19 16:57) Past Medical History - General Information source: Patient - Social History Smoking Status: Never Smoker Frequency of alcohol use: None Drug Abuse: None Family History: Malignancy - Breast Patient has homicidal ideation: No - Past Medical History Cardiac Medical History: Reports: Hx Hypertension - MEDICATED Denies: Hx Coronary Artery Disease, Hx Heart Attack Pulmonary Medical History: Denies: Hx Asthma, Hx Bronchitis, Hx COPD, Hx Pneumonia Neurological Medical History: Denies: Hx Cerebrovascular Accident, Hx Seizures Renal/ Medical History: Denies: Hx Peritoneal Dialysis GI Medical History: Denies: Hx Hepatitis, Hx Hiatal Hernia, Hx Ulcer Musculoskeletal Medical History: Denies Hx Arthritis Infectious Medical History: Denies: Hx Hepatitis Past Surgical History: Reports: Hx Hysterectomy, Hx Orthopedic Surgery - left hip replacement. Denies: Hx Mastectomy, Hx Open Heart Surgery, Hx Pacemaker - Immunizations Hx Diphtheria, Pertussis, Tetanus Vaccination: No - UNSURE Hx Pneumococcal Vaccination: 09/07/05 Review of Systems - Review of Systems Constitutional: Malaise, Weakness Cardiovascular: denies: Chest pain, Palpitations Respiratory: denies: Cough, Short of breath -: Yes All other systems reviewed and negative Physical Exam - Vital signs Vitals: Temp Pulse Resp BP Pulse Ox 98.5 F 77 20 74/30 L 100 07/08/20 11:43 07/08/20 11:43 07/08/20 11:43 07/08/20 11:43 07/08/20 11:43 Interpretation: Normal, Other - Patient's blood pressure at triage was listed as low however the entire time the patient has been in the room she has had a normal blood pressure for me. Currently it is 138 systolic. - General General appearance: Appears well, Alert - HEENT Head: Normocephalic, Atraumatic Eyes: Normal Pupils: PERRL - Respiratory Respiratory status: No respiratory distress Chest status: Nontender Breath sounds: Normal Chest palpation: Normal - Cardiovascular Rhythm: Regular Heart sounds: Normal auscultation Murmur: No - Abdominal Inspection: Normal Distension: No distension Bowel sounds: Normal Tenderness: Nontender Organomegaly: No organomegaly - Back Back: Normal, Nontender - Extremities General upper extremity: Normal inspection, Nontender, Normal color, Normal ROM, Normal temperature General lower extremity: Other - Patient has lymphedema and chronic vascular insufficiency changes to both lower extremities. The right leg is significantly more swollen than the left leg. It is tender indurated and erythematous with a large blister on the posterior aspect. Exam is consistent with cellulitis. - Neurological Cognition: Confused Orientation: Disoriented to time Brijesh Coma Scale Eye Opening: Spontaneous Leigh Coma Scale Verbal: Confused Leigh Coma Scale Motor: Obeys Commands Leigh Coma Scale Total: 14 Speech: Normal Sensory: Normal - Psychological Associated symptoms: Normal affect, Normal mood - Skin Skin Temperature: Warm Skin Moisture: Dry Skin Color: Normal Course - Re-evaluation Re-evalutation: 07/08/20 15:22 Patient presents with obvious cellulitis on exam. Lactate is elevated but vital signs been stable. Patient also has some evidence of acute renal failure with a minimally elevated potassium. I believe this is also why lactate is elevated as patient does not appear septic. The wounds on the legs be treated with antibiotics. The renal injury will be treated with fluids and then reassess. At this time I do not believe that potassium needs addressed as I believe it will come down with fluids however potassium will need to be rechecked. An EKG is pending to monitor any type of hyperkalemic rhythm changes. - Vital Signs Vital signs: Temp Pulse Resp BP Pulse Ox 98.5 F 77 23 H 126/41 H 99 07/08/20 12:00 07/08/20 11:43 07/08/20 14:01 07/08/20 14:01 07/08/20 14:01 - Laboratory Result Diagrams: 07/08/20 12:47 07/08/20 12:47 Laboratory results interpreted by me: 07/08/20 07/08/20 07/08/20 12:46 12:47 12:47 RBC 3.68 L Hgb 11.5 L Hct 35.1 L RDW 16.2 H Plt Count 128 L Band Neutrophils % 13 H Metamyelocytes % 2 H Myelocytes % 2 H Promyelocytes % 1 H Sodium 136.6 L Potassium 5.7 H BUN 96 H Creatinine 4.21 H Est GFR ( Amer) 12 L Est GFR (MDRD) Non-Af 10 L Glucose 180 H POC Glucose 197 H Lactic Acid AST 43 H C-Reactive Protein 257.3 H NT-Pro-B Natriuret Pep Total Protein 6.2 L Albumin 3.2 L 07/08/20 07/08/20 12:47 12:47 RBC Hgb Hct RDW Plt Count Band Neutrophils % Metamyelocytes % Myelocytes % Promyelocytes % Sodium Potassium BUN Creatinine Est GFR ( Amer) Est GFR (MDRD) Non-Af Glucose POC Glucose Lactic Acid 3.0 H AST C-Reactive Protein NT-Pro-B Natriuret Pep 3990 H Total Protein Albumin - Diagnostic Test Radiology reviewed: Image reviewed, Reports reviewed Discharge - Discharge Clinical Impression: Cellulitis Qualifiers: Site of cellulitis: extremity Site of cellulitis of extremity: lower extremity Laterality: right Qualified Code(s): L03.115 - Cellulitis of right lower limb Acute renal failure Qualifiers: Acute renal failure type: unspecified Qualified Code(s): N17.9 - Acute kidney failure, unspecified Condition: Serious Disposition: ADMITTED INPATIENT Admitting Provider: Surya (Hospitalist) Unit Admitted: Medical Floor Referrals: RASHEL DOS SANTOS MD [Primary Care Provider] - Follow up as needed
--- NOTE | 2020-07-08 18:29 | EKG REPORT ---
SEVERITY:- ABNORMAL ECG - SINUS RHYTHM PROBABLE LEFT ATRIAL ABNORMALITY BORDERLINE LEFT AXIS DEVIATION CONSIDER ANTERIOR INFARCT ABNORMAL T, CONSIDER ISCHEMIA, LATERAL LEADS : Confirmed by: Morris Crabtree MD 08-Jul-2020 18:28:38
[2020-07-08] MEDS ORDERED: ONDANSETRON 4 MG TAB.RAPDIS PO PRN (18:33)
[2020-07-08] MEDS ORDERED: ONDANSETRON HCL INJ/PF 4 MG/2 ML SDV IV PRN (18:33)
--- NOTE | 2020-07-08 18:52 | PDOC H&P ---
History of Present Illness Admission Date/PCP: 07/08/20 16:34 RASHEL DOS SANTOS MD History of Present Illness: DANK WHITE is a 85 year old female with past medical history significant for chronic bilateral lower extremity venous stasis ulcers, HTN, HLD, morbid obesity, hypothyroidism, dementia who presents with a 2-day history of progressive pain/edema/fluid weeping/erythema of right lower extremity. Patient and daughter state that she has had extensive history of recurrent wounds in both lower extremities and she has been followed at the wound clinic in the past although she recently stopped going there when her left leg was essentially healed. Patient was sent to ED by home health nurse who noticed worsening erythema on right lower extremity. Lactic acid was significantly elevated and WBC was upper limit normal with a significant bandemia. Patient also had some moderate hyperkalemia and DENISSE in the setting of CKD 3. She was given Kayexalate. For cellulitis she has started on vancomycin/cefepime. Blood cultures were drawn and sent. Patient denies being diabetic although her blood sugar is essentially 200 on admission. Troponin is elevated though she denies chest pain this is likely due to her worsening renal function. BNP is up to 4000 but she denies any history of CHF. CRP elevated at 257. General surgery consulted for possible debridement of bullous edema in right lower extremity as patient states she has required this in the past. Nephrology was consulted for acute renal failure on CKD. Past Medical History Cardiac Medical History: Reports: Hyperlipidema, Hypertension - MEDICATED Denies: Coronary Artery Disease, Myocardial Infarction Pulmonary Medical History: Denies: Asthma, Bronchitis, Chronic Obstructive Pulmonary Disease (COPD), Pneumonia Neurological Medical History: Denies: Seizures Renal/ Medical History: Reports: Chronic Kidney Disease GI Medical History: Denies: Hepatitis, Hiatal Hernia Musculoskeltal Medical History: Denies: Arthritis Hematology: Reports: Anemia - MEDICATED Denies: Sickle Cell Disease Past Surgical History Past Surgical History: Reports: Hysterectomy, Orthopedic Surgery - left hip replacement Denies: Amputation, Mastectomy, Pacemaker Social History Information Source: Patient, Emergency Med Personnel Lives with: Family Smoking Status: Never Smoker Frequency of Alcohol Use: None Hx Recreational Drug Use: No Drugs: None Hx Prescription Drug Abuse: No - Advance Directive Resuscitation Status: Full Code Surrogate healthcare decision maker:: Daughter Family History Family History: CVA, Malignancy - Breast Parental Family History Reviewed: Yes Children Family History Reviewed: Yes Sibling(s) Family History Reviewed.: Yes Medication/Allergy Home Medications: Furosemide [Lasix 20 mg Tablet] 20 mg PO DAILY 08/11/17 Levothyroxine Sodium [Synthroid 0.1 mg Tablet] 0.1 mg PO DAILY 08/11/17 Losartan Potassium [Cozaar 100 mg Tablet] 100 mg PO DAILY 08/11/17 Aspirin 325 mg PO DAILY #30 tablet 08/13/17 Doxycycline Hyclate 100 mg PO BID #28 tablet 08/13/17 Levofloxacin [Levaquin 750 mg Tablet] 750 mg PO Q2DAYS #7 tab 08/13/17 Clindamycin HCl [Cleocin 150 mg Capsule] 300 mg PO Q6 7 Days #56 capsule 09/10/19 Allergies/Adverse Reactions: No Known Allergies Allergy (Verified 09/10/19 16:57) Review of Systems All systems: reviewed and no additional remarkable complaints except as stated - Review of systems per HPI, otherwise negative, denies fevers Physical Exam Vital Signs: Temp Pulse Resp BP Pulse Ox 97.5 F 77 22 H 126/65 H 98 07/08/20 17:02 07/08/20 11:43 07/08/20 18:01 07/08/20 18:01 07/08/20 18:01 Intake & Output 07/07/20 07/08/20 07/09/20 06:59 06:59 06:59 Intake Total 2049 Balance 2049 Weight 97.5 kg General appearance: PRESENT: no acute distress, morbidly obese, well-developed, well-nourished Head exam: PRESENT: atraumatic, normocephalic Eye exam: PRESENT: conjunctiva pink Mouth exam: PRESENT: moist Respiratory exam: PRESENT: clear to auscultation laurie. ABSENT: rales, rhonchi, wheezes Cardiovascular exam: PRESENT: RRR. ABSENT: diastolic murmur, rubs, systolic murmur GI/Abdominal exam: PRESENT: normal bowel sounds, soft. ABSENT: distended, guarding, mass, organolmegaly, rebound, tenderness Extremities exam: PRESENT: tenderness, +2 edema, other - Significant erythema and edema worse on the right, multiple ulcerations of various stages of healing on both lower extremities Neurological exam: PRESENT: alert, awake, oriented to person, oriented to place, oriented to time, oriented to situation Psychiatric exam: PRESENT: appropriate affect Skin exam: PRESENT: dry, warm Results Laboratory Results: 07/08/20 12:47 07/08/20 12:47 07/08/20 07/08/20 07/08/20 12:47 12:47 12:47 WBC 9.8 RBC 3.68 L Hgb 11.5 L Hct 35.1 L MCV 95 MCH 31.1 MCHC 32.6 RDW 16.2 H Plt Count 128 L Seg Neutrophils % Not Reportable Sodium 136.6 L Potassium 5.7 H Chloride 103 Carbon Dioxide 23 Anion Gap 11 BUN 96 H Creatinine 4.21 H Est GFR ( Amer) 12 L Glucose 180 H Lactic Acid 3.0 H Calcium 9.5 Total Bilirubin 0.7 AST 43 H Alkaline Phosphatase 55 C-Reactive Protein 257.3 H Total Protein 6.2 L Albumin 3.2 L 07/08/20 16:15 WBC RBC Hgb Hct MCV MCH MCHC RDW Plt Count Seg Neutrophils % Sodium Potassium Chloride Carbon Dioxide Anion Gap BUN Creatinine Est GFR ( Amer) Glucose Lactic Acid 1.7 Calcium Total Bilirubin AST Alkaline Phosphatase C-Reactive Protein Total Protein Albumin 07/08/20 12:47 Troponin I 0.125 NT-Pro-B Natriuret Pep 3990 H Impressions: Chest X-Ray 07/08/20 12:07 IMPRESSION: Cannot exclude left lower lobe pneumonia. Venous Doppler Study 07/08/20 12:07 IMPRESSION: NO EVIDENCE DVT OR SVT IN EITHER LEG. Tibia/Fibula X-Ray 07/08/20 13:34 IMPRESSION: CHRONIC DEGENERATIVE CHANGES. SOFT TISSUE SWELLING. NO ACUTE BONY FINDINGS. Assessment and Plan - Diagnosis (1) Cellulitis of right lower extremity Is this a current diagnosis for this admission?: Yes Plan: 2-day history of worsening pain/edema/erythema/weeping, new large bullous pockets of fluid on posterior right leg Vancomycin/cefepime empiric Blood cultures High WBC and lactic acid with left shift General surgery consulted for possible debridement and/or I&D Arterial ultrasound to rule out PAD (2) Acute kidney injury superimposed on CKD Is this a current diagnosis for this admission?: Yes Plan: Baseline creatinine approximately 2.4, elevated up to 4.21 on admission Suspect due to acute infection of right lower extremity Nephrology consulted Holding fluids due to severe bilateral lower extremity edema Trend BMP (3) Venous stasis of both lower extremities Is this a current diagnosis for this admission?: Yes Plan: Needs follow-up with wound clinic and needs to be followed there long-term Antibiotics and wound care as above (4) Morbid obesity Is this a current diagnosis for this admission?: Yes Plan: Needs weight loss (5) HLD (hyperlipidemia) Is this a current diagnosis for this admission?: Yes (6) Hypothyroidism Is this a current diagnosis for this admission?: Yes Plan: Continue Synthroid (7) Dementia Is this a current diagnosis for this admission?: Yes (8) Chronic ulcer of left leg Qualifiers: Non-pressure ulcer stage: with necrosis of muscle Qualified Code(s): L97.923 - Non-pressure chronic ulcer of unspecified part of left lower leg with necrosis of muscle Is this a current diagnosis for this admission?: Yes Plan: No acute appearing wounds on left leg but many chronic healing ulcers in various stages (9) Essential hypertension Is this a current diagnosis for this admission?: Yes Plan: Home medications - Time Time Spent with patient: 35 or more minutes Medications reviewed and adjusted accordingly: Yes Anticipated Discharge Disposition: Home with Home Health Anticipated Discharge Timeframe: within 72 hours - Inpatient Certification Based on my medical assessment, after consideration of the patient's comorbidities, presenting symptoms, or acuity I expect that the services needed warrant INPATIENT care.: Yes I certify that my determination is in accordance with my understanding of Medicare's requirements for reasonable and necessary INPATIENT services [42 CFR 412.3e].: Yes Medical Necessity: Significant Comorbidiites Make Outpatient Treatment Too Ri tatyana, Need Close Monitoring Due to Risk of Patient Decompensation, Need for IV Antibiotics, Risk of Complication if Not Cared For in Hospital, Risk of Diagnosis Which Will Require Inpatient Eval/Care/Monitoring
--- NOTE | 2020-07-08 18:53 | ADVANCED CARE ---
- Diagnosis (1) Cellulitis of right lower extremity Diagnosis Current: Yes (2) Acute kidney injury superimposed on CKD Diagnosis Current: Yes (3) Venous stasis of both lower extremities Diagnosis Current: Yes (4) Morbid obesity Diagnosis Current: Yes (5) HLD (hyperlipidemia) Diagnosis Current: Yes (6) Hypothyroidism Diagnosis Current: Yes (7) Dementia Diagnosis Current: Yes (8) Chronic ulcer of left leg Diagnosis Current: Yes (9) Essential hypertension Diagnosis Current: Yes Attendance: Patient and daughter Resuscitation Status: Full Code Discussion: All aspects of code status discussed with patient/POA including cardioversion, chest compressions, and intubation and the patient/POA indicated they wish to be full code MPOA is designated as: DaughterKarrie Time Spent: Greater than 16 minutes
[2020-07-08] MEDS ORDERED: SODIUM POLYSTYRENE SULFONATE 15 GM/60 ML PO ONE (19:15)
--- NOTE | 2020-07-08 20:08 | Operative Report ---
Operative Report DATE OF SURGERY: 07/08/20 PREOPERATIVE DIAGNOSIS: Cellulitis of the right lower leg with the largest blis ter on the posterior distal calf about 10 x 10 cm in diameter and a scab on the right kneecap about 4 x 3 cm POSTOPERATIVE DIAGNOSIS: Same OPERATION: Sharp debridement of dried scab with sacral E full-thickness on the right kneecap about 4 x 3 cm and unroofing of large blister on the right distal calf about 10 x 10 cm in diameter and a couple of anterior blisters about 2 x 2cm. SURGEON: KARRIE NEFF ANESTHESIA: Other TISSUE REMOVED OR ALTERED: Scab on the anterior kneecap blistered skin posterior distal calf COMPLICATIONS: None ESTIMATED BLOOD LOSS: 1 cc QUANTITATIVE BLOOD LOSS: 1 INTRAOPERATIVE FINDINGS: Full-thickness dried scab about 4 x 3 cm on the anterior knee patellar area. 10 x 10 cm blister on the distal posterior calf and to anterior blisters H about 2 x 2 cm in diameter. PROCEDURE: Patient was placed in supine position while in bed and the nurses told the patient to semi-left lateral decubitus position to have a better view of the posterior blister. The blister was then unroofed with scissors blisters content swab and sent for culture. Blister roughly measured about 10 x 10 cm. Patient was then turned on her back again and this time there were at least two 2 x 2 centimeter blisters that were also ungroomed on the anterior larson area. Scab on the patellar area was then debrided using an 11 blade. It was a full- thickness skin scab. It measures about 3 x 4cm. Patient will eventfully have a Silvadene dressing for all wounds and the leg will be elevated on about 2 pillows. I also ordered a arterial and venous Doppler of the right lower leg. I could barely feel dorsalis pedis artery pulse posterior tibial artery unable to palpate because of the wound be skin changes. Distal ankle area is is darkly discolored bilaterally. The right lower leg is inflamed reddish and swollen. Patient apparently had a fall from her bed a month ago and fell on the rug on her knees and sustained some rug parsons underneath her knees. Wound on the left knee area has healed but the right patellar area has not healed completely with a thick full-thickness scab that was then debrided. We will then sign off but call if there is any abnormalities in the arterial or venous Dopplers.
[2020-07-08] MEDS: DOCUSATE SODIUM 100 MG CAPSULE PO SCH (20:48)
[2020-07-08] MEDS: ACETAMINOPHEN 325 MG TABLET PO PRN (20:49)
[2020-07-08] MEDS: ENOXAPARIN SODIUM INJ 30 MG/0.3 ML DISP.SYRIN SUBCUT SCH (20:55)
[2020-07-08] MEDS ORDERED: CEFEPIME 2 GM/D5W RTU 2 GM/50 ML RTUPB IV SCH (22:00)
[2020-07-08] MEDS: SILVER SULFADIAZINE 1% CREAM 400 GM TP SCH (23:00)
[2020-07-09] MEDS: MORPHINE SULFATE 10 MG/ML INJ IV PRN ×2 (04:27→23:40)
[2020-07-09 05:16] LABS: HEMATOCRIT 30.7 % (36.0-47.0); HEMOGLOBIN 10.3 g/dL (12.0-15.5); MEAN CORPUSCULAR HEMOGLOBIN 31.6 pg (27.0-33.4); MEAN CORPUSCULAR HGB CONC 33.7 g/dL (32.0-36.0); MEAN CORPUSCULAR VOLUME 94 fl (80-97); PLATELET COUNT 100 10^3/uL (150-450); RED BLOOD COUNT 3.27 10^6/uL (3.72-5.28); RED CELL DISTRIBUTION WIDTH 16.2 % (11.5-14.0); WHITE BLOOD COUNT 10.6 10^3/uL (4.0-10.5)
[2020-07-09 05:35] LABS: ANION GAP 7 (5-19); BLOOD UREA NITROGEN 95 mg/dL (7-20); CALCIUM 8.9 mg/dL (8.4-10.2); CARBON DIOXIDE 20 mmol/L (22-30); CHLORIDE 111 mmol/L (98-107); GLUCOSE 121 mg/dL (75-110); PHOSPHORUS 4.7 mg/dL (2.5-4.5); POTASSIUM 5.2 mmol/L (3.6-5.0)
[2020-07-09 06:10] LABS: ABSOLUTE LYMPHOCYTES# (MANUAL) 0.8 10^3/uL (0.5-4.7); ABSOLUTE MONOCYTES # (MANUAL) 0.3 10^3/uL (0.1-1.4); BAND NEUTROPHILS % (MANUAL) 12 % (3-5); BASOPHILS % (MANUAL) 0 % (0-2); EOSINOPHILS % (MANUAL) 0 % (0-6); LYMPHOCYTES % (MANUAL) 8 % (13-45); METAMYELOCYTES % (MANUAL) 1 % (0-1); MONOCYTES % (MANUAL) 3 % (3-13); SEGMENTED NEUTROPHILS % (MAN) 76 % (42-78); TOTAL CELLS COUNTED 100
[2020-07-09 06:14] LABS: ANISOCYTOSIS 1+; BURR CELLS SLIGHT; OVALOCYTES SLIGHT; PLATELET COMMENT DECREASED; POIKILOCYTOSIS SLIGHT; SCHISTOCYTES SLIGHT; TEAR DROP CELLS SLIGHT
--- NOTE | 2020-07-09 08:12 | RADIOLOGY REPORT (SQ) ---
CT of the right tibia: 07/09/2020 7:08 AM CDT TECHNIQUE: Multiple axial contiguous images were obtained through the right tibia without intravenous contrast administered. Coronal and sagittal reconstructed images were also obtained and examined. This exam was performed according to our departmental dose-optimization program, which includes automated exposure control, adjustment of the mA and/or KV according to the patient's size and/or use of iterative reconstruction technique. COMPARISON: None available HISTORY: 85-year old patient with concern for an abscess. FINDINGS: There is reticulation within the subcutaneous soft tissues with skin thickening. This is consistent with edema and cellulitis. There is some atrophy of the right lower extremity musculature. No acute osseous abnormality is readily apparent. There is a subcutaneous soft tissue defect seen at the left anterior tibia. No large knee or ankle joint effusion is seen. There are prominent varicose veins present. There is moderate tricompartmental joint space narrowing with marginal osteophyte formation. There are subchondral cysts with sclerosis at the right lateral tibial plateau. There are no findings to suggest an acute fracture or subluxation. IMPRESSION: There is extensive edema and cellulitis. This is most pronounced along the pretibial region. No obvious focal fluid collection is seen. Evaluation is mildly limited by lack of intravenous contrast.
[2020-07-09] MEDS ORDERED: ENOXAPARIN SODIUM INJ 40 MG/0.4 ML DISP.SYRIN SUBCUT SCH (10:00)
[2020-07-09] MEDS: ENOXAPARIN SODIUM INJ 30 MG/0.3 ML DISP.SYRIN SUBCUT SCH (10:38)
[2020-07-09] MEDS: SILVER SULFADIAZINE 1% CREAM 400 GM TP SCH ×2 (10:40→22:00)
[2020-07-09 12:53] LABS: PATH REVIEW PATHOLOGIST REVIEWED
--- NOTE | 2020-07-09 15:24 | RADIOLOGY REPORT (SQ) ---
EXAM DESCRIPTION: U/S RETROPERITON (RENAL/AORTA) IMAGES COMPLETED DATE/TIME: 07/09/2020 2:56 pm REASON FOR STUDY: DENISSE COMPARISON: None. TECHNIQUE: Dynamic and static grayscale images acquired of the kidneys and bladder and recorded on P ACS. Additional selected color Doppler and spectral images recorded. LIMITATIONS: Ultrasound is limited as patient was unable to hold respirations and unable to be place d in the decubitus position. FINDINGS: RIGHT KIDNEY: The right kidney measures 12.2 cm in length. The echogenicity of the renal parenchyma is increased. There are several cortical cysts the largest of which measures 1.6 x 1.7 x 2.2 cm. There is no hydronephrosis or calcification. LEFT KIDNEY: The left kidney measures 10.3 cm in length. The echogenicity of the renal parenchyma i s increased. There is no hydronephrosis, calcification or mass. BLADDER: There is a Valdovinos catheter within the urinary bladder. OTHER FINDINGS: No other significant finding. IMPRESSION: 1. Increased echogenicity of the renal parenchyma - correlate for chronic medical renal disease. 2. Valdovinos catheter within the urinary bladder. TECHNICAL DOCUMENTATION: JOB ID: [id number] 2010 [employer]- All Rights Reserved Reading location - IP/workstation name: [email or web address]
[2020-07-09 17:21] LABS: APPEARANCE,URINE SLIGHTLY-CLOUDY; BILIRUBIN,URINE NEGATIVE (NEGATIVE); COLOR,URINE YELLOW; GLUCOSE, URINE NEGATIVE (NEGATIVE); KETONES,URINE NEGATIVE (NEGATIVE); LEUKOCYTE ESTERASE,URINE MODERATE (NEGATIVE); NITRITE,URINE NEGATIVE (NEGATIVE); PROTEIN,URINE 30 mg/dL (NEGATIVE); URINE SPECIFIC GRAVITY 1.014; UROBILINOGEN,URINE NEGATIVE mg/dL (<2.0)
--- NOTE | 2020-07-09 17:56 | PDOC PROGRESS REPORT ---
Subjective Subjective:: Patient met yesterday for severe right lower extremity cellulitis, underwent debridement and I&D by general surgery, continued on broad-spectrum antibiotics local wound care. Patient does not seem to be in any significant pain today and is smiling and in good spirits. Her blood cultures are still pending but the initial results show gram-negative rods. Wound culture is pending. Potassium is coming down as it was initially elevated and creatinine is also improving today. ABIs still pending to rule out peripheral artery disease. TSH is normal. CT showed extensive cellulitis of right lower extremity but no kimberley inable abscess. Patient has no new complaints today. Reason For Visit: RLE CELLULITIS, HTN, HLD, DEMENTIA Physical Exam Vital Signs: Temp Pulse Resp BP Pulse Ox 98.4 F 101 H 20 159/40 H 93 07/09/20 10:00 07/09/20 08:00 07/09/20 08:00 07/09/20 08:00 07/09/20 08:00 Intake & Output 07/08/20 07/09/20 07/10/20 06:59 06:59 06:59 Intake Total 2049 Balance 2049 Weight 98.4 kg Exam: General appearance: PRESENT: no acute distress, morbidly obese, well-developed, well-nourished, smiling and in good spirits today states she has very little pain Head exam: PRESENT: atraumatic, normocephalic Eye exam: PRESENT: conjunctiva pink Mouth exam: PRESENT: moist Respiratory exam: PRESENT: clear to auscultation laurie. ABSENT: rales, rhonchi, wheezes Cardiovascular exam: PRESENT: RRR. ABSENT: diastolic murmur, rubs, systolic murmur GI/Abdominal exam: PRESENT: normal bowel sounds, soft. ABSENT: distended, guarding, mass, organolmegaly, rebound, tenderness Extremities exam: PRESENT: tenderness, +2 edema, other - Significant erythema and edema worse on the right, multiple ulcerations of various stages of healing on both lower extremities; now with I&D of bullous lesions of right leg and debridement of left leg ulcer on anterior larson Neurological exam: PRESENT: alert, awake, oriented to person, oriented to place, oriented to time, oriented to situation Psychiatric exam: PRESENT: appropriate affect Skin exam: PRESENT: dry, warm Results Laboratory Results: 07/09/20 04:44 07/09/20 04:44 07/09/20 07/09/20 07/09/20 04:44 04:44 04:44 WBC 10.6 H RBC 3.27 L Hgb 10.3 L Hct 30.7 L MCV 94 MCH 31.6 MCHC 33.7 RDW 16.2 H Plt Count 100 L Seg Neutrophils % Not Reportable Sodium 138.0 Potassium 5.2 H Chloride 111 H Carbon Dioxide 20 L Anion Gap 7 BUN 95 H Creatinine 3.52 H Est GFR ( Amer) 15 L Glucose 121 H Calcium 8.9 Phosphorus 4.7 H Magnesium 2.6 H TSH 1.48 Urine Color Urine Appearance Urine pH Ur Specific [place] Urine Protein Urine Glucose (UA) Urine Ketones Urine Blood Urine Nitrite Ur Leukocyte Esterase Urine WBC (Auto) Urine RBC (Auto) 07/09/20 15:40 WBC RBC Hgb Hct MCV MCH MCHC RDW Plt Count Seg Neutrophils % Sodium Potassium Chloride Carbon Dioxide Anion Gap BUN Creatinine Est GFR ( Amer) Glucose Calcium Phosphorus Magnesium TSH Urine Color YELLOW Urine Appearance SLIGHTLY-CLOUDY Urine pH 5.0 Ur Specific [place] 1.014 Urine Protein 30 H Urine Glucose (UA) NEGATIVE Urine Ketones NEGATIVE Urine Blood LARGE H Urine Nitrite NEGATIVE Ur Leukocyte Esterase MODERATE H Urine WBC (Auto) 33 Urine RBC (Auto) 68 07/08/20 12:47 Troponin I 0.125 NT-Pro-B Natriuret Pep 3990 H Impressions: Chest X-Ray 07/08/20 12:07 IMPRESSION: Cannot exclude left lower lobe pneumonia. Venous Doppler Study 07/08/20 12:07 IMPRESSION: NO EVIDENCE DVT OR SVT IN EITHER LEG. Tibia/Fibula X-Ray 07/08/20 13:34 IMPRESSION: CHRONIC DEGENERATIVE CHANGES. SOFT TISSUE SWELLING. NO ACUTE BONY FINDINGS. Lower Extremity CT 07/09/20 07:00 IMPRESSION: There is extensive edema and cellulitis. This is most pronounced along the pretibial region. No obvious focal fluid collection is seen. Evaluation is mildly limited by lack of intravenous contrast. Renal Ultrasound 07/09/20 10:49 IMPRESSION: 1. Increased echogenicity of the renal parenchyma - correlate for chronic medical renal disease. 2. Valdovinos catheter within the urinary bladder. Assessment and Plan - Diagnosis (1) Cellulitis of right lower extremity Is this a current diagnosis for this admission?: Yes Plan: 2-day history of worsening pain/edema/erythema/weeping, new large bullous pockets of fluid on posterior right leg Vancomycin/cefepime empiric Blood cultures growing gram-negative rods High WBC and lactic acid with left shift General surgery consulted and they performed debridement and I&D of multiple right lower extremity bullous lesions Wound culture sent Arterial ultrasound to rule out PAD CT RLE showed extensive soft tissue cellulitis but no drainable abscess (2) Acute kidney injury superimposed on CKD Is this a current diagnosis for this admission?: Yes Plan: Baseline creatinine approximately 2.4, elevated up to 4.21 on admission Suspect due to acute infection of right lower extremity Nephrology consulted Holding fluids due to severe bilateral lower extremity edema Trend BMP Improving Nephrology consulted Renal ultrasound (3) Venous stasis of both lower extremities Is this a current diagnosis for this admission?: Yes (4) Morbid obesity Is this a current diagnosis for this admission?: Yes (5) HLD (hyperlipidemia) Is this a current diagnosis for this admission?: Yes (6) Hypothyroidism Is this a current diagnosis for this admission?: Yes (7) Dementia Is this a current diagnosis for this admission?: Yes (8) Chronic ulcer of left leg Qualifiers: Non-pressure ulcer stage: with necrosis of muscle Qualified Code(s): L97.923 - Non-pressure chronic ulcer of unspecified part of left lower leg with necrosis of muscle Is this a current diagnosis for this admission?: Yes (9) Essential hypertension Is this a current diagnosis for this admission?: Yes - Time Time Spent with patient: 25-34 minutes Medications reviewed and adjusted accordingly: Yes Anticipated Discharge Disposition: Home with Home Health Anticipated Discharge Timeframe: within 72 hours - Inpatient Certification Based on my medical assessment, after consideration of the patient's comorbid ities, presenting symptoms, or acuity I expect that the services needed warrant INPATIENT care.: Yes I certify that my determination is in accordance with my understanding of Medicare's requirements for reasonable and necessary INPATIENT services [42 CFR 412.3e].: Yes Medical Necessity: Significant Comorbidiites Make Outpatient Treatment Too Risky, Need Close Monitoring Due to Risk of Patient Decompensation, Need for IV Antibiotics, Risk of Complication if Not Cared For in Hospital, Risk of Diagnosis Which Will Require Inpatient Eval/Care/Monitoring
[2020-07-09] MEDS: ACETAMINOPHEN 325 MG TABLET PO PRN (17:57)
[2020-07-09] MEDS: CEFEPIME 1 GM/D5W RTU 1 GM/50 ML RTUPB IV SCH (17:58)
[2020-07-09] MEDS ORDERED: VANCOMYCIN HCL INJ 1000 MG VIAL IV ONE (18:33)
--- NOTE | 2020-07-09 20:49 | PDOC CONSULTATION ---
Consultation Consult Date: 07/09/20 Provider Consulted: ANIRUDH SOTELO Consult reason:: DENISSE/CKD History of Present Illness Admission Date/PCP: 07/08/20 16:34 RASHEL DOS SANTOS MD History of Present Illness: DANK WHITE is a 85 year old female, with history of chronic bilateral lower extremity venous stasis ulcers, hypertension, hyperlipidemia, chronic kidney disease, and dementia who was admitted yesterday because of worsening bilateral lower extremity erythema, swelling and and ulcers. Patient really did not add much to the history. He denies any fever, nausea, vomiting, diarrhea, cough, shortness of breath nor chest pains. Claims she has good appetite and is drinking been drinking fluids. She was diagnosed with lower extremity cellulitis and ulcers. Surgery did debridement last night. Patient also came in initially with low blood pressure as low as 74/30 initially but now it has improved. She was given 2 L of IV fluid bolus in the emergency room. She was also given antibiotics and is currently on cefepime and vancomycin. Other initial work-up showed a BUN of 96, creatinine of 4.21 with EGFR of 12, potassium of 5.7 and hemoglobin of 11.5. Review of records showed that on January 18, 2020 she had a BUN of 31, creatinine of 2.39. Her baseline creatinine seems to be around 2.2-2.5 with EGFR of 21-25. Her urine output has not been quantified. She remembers seeing Dr. Gatica but could not tell me when the last time she saw him. Past Medical History Cardiac Medical History: Reports: Hyperlipidemia, Hypertension-primary Neurological Medical History: Reports: Other - Dementia Renal/ Medical History: Reports: Chronic Kidney Disease Stage IV Past Surgical History Past Surgical History: Reports: Hysterectomy, Orthopedic Surgery - left hip replacement Social History Information Source: Patient Lives with: Alone - Her daughter lives across her. Smoking Status: Never Smoker Electronic Cigarette use?: No Frequency of Alcohol Use: None Hx Recreational Drug Use: No Drugs: None Hx Prescription Drug Abuse: No - Advance Directive Resuscitation Status: Full Code Family History Family History: Hypertension - Parents, Malignancy - Breast cancer in her sister Parental Family History Reviewed: Yes Children Family History Reviewed: Yes Sibling(s) Family History Reviewed.: Yes Medication/Allergy Home Medications: Furosemide [Lasix 20 mg Tablet] 20 mg PO DAILY 08/11/17 Levothyroxine Sodium [Synthroid 0.1 mg Tablet] 0.1 mg PO DAILY 08/11/17 Ascorbic Acid [Vitamin C 500 mg Tablet] 500 mg PO DAILY 07/08/20 Aspirin [Ecotrin 81 mg EC Tablet] 81 mg PO DAILY 07/08/20 Cholecalciferol (Vitamin D3) [Vitamin D3 400 Unit Tablet] 400 unit PO DAILY 07/08/20 Clonidine HCl [Catapres 0.1 mg Tablet] 0.1 mg PO Q12 07/08/20 Cyanocobalamin (Vitamin B-12) [Vitamin B-12 1000 Mcg Tablet] 1 tab PO DAILY 07/08/20 Donepezil HCl 10 mg PO QHS 07/08/20 Ferrous Fumarate 45 mg PO DAILY 07/08/20 Memantine HCl 10 mg PO QPM 07/08/20 Prednisone [Deltasone 5 mg Tablet] 5 mg PO DAILY 07/08/20 Vits96/Iron Fum/Folic [ Tablet] 1 each PO DAILY 07/08/20 Allergies/Adverse Reactions: No Known Allergies Allergy (Verified 09/10/19 16:57) Review of Systems All systems: reviewed and no additional remarkable complaints except as stated Review of Systems: Constitutional: ABSENT: chills, fatigue, fever(s), headache(s), weight gain, weight loss Eyes: ABSENT: visual disturbances Ears: ABSENT: hearing changes Cardiovascular: ABSENT: chest pain, dyspnea on exertion, orthropnea, palpitations; admits leg swelling Respiratory: ABSENT: cough, dyspnea, hemoptysis Gastrointestinal: ABSENT: abdominal pain, constipation, diarrhea, hematemesis, hematochezia, nausea, vomiting Genitourinary: ABSENT: dysuria, hematuria Musculoskeletal: ABSENT: joint swelling Integumentary: ABSENT: rash; admits lower extremity open wounds Neurological: ABSENT: abnormal gait, abnormal speech, confusion, dizziness, focal weakness, numbness, syncope Psychiatric: ABSENT: anxiety, depression Endocrine: ABSENT: cold intolerance, heat intolerance, polydipsia, polyuria Hematologic/Lymphatic: ABSENT: easy bleeding, easy bruising, lymphadenopathy Physical Exam Vital Signs: Temp Pulse Resp BP Pulse Ox 98.4 F 101 H 20 159/40 H 93 07/09/20 08:00 07/09/20 08:00 07/09/20 08:00 07/09/20 08:00 07/09/20 08:00 Intake & Output 0907/09/20 07/10/20 06:59 06:59 06:59 Intake Total 2049 Balance 2049 Weight 98.4 kg Exam: General appearance: No acute distress, cooperative, well-developed, well- nourished Head exam: PRESENT: atraumatic, normocephalic Eye exam: PRESENT: Conjunctiva Bucklin, EOMI, PERRLA. ABSENT: conjunctival injection, scleral icterus Mouth exam: PRESENT: moist, neck supple, tongue midline Neck exam: PRESENT: full ROM. ABSENT: carotid bruit, JVD, lymphadenopathy, thyromegaly Respiratory exam: PRESENT: clear to auscultation bilaterally. ABSENT: rales, rhonchi, stridor, wheezes Cardiovascular exam: PRESENT: RRR, +S1, +S2. ABSENT: systolic murmur Pulses: PRESENT: normal radial pulses, normal dorsalis pedis pulses GI/Abdominal exam: PRESENT: normal bowel sounds, soft. ABSENT: guarding, mass, tenderness Rectal exam: Deferred Extremities exam: PRESENT: full ROM. Grade 2 bilateral lower extremity pitting edema ABSENT: calf tenderness Musculoskeletal: PRESENT: full ROM. ABSENT: deformity Neurological exam: PRESENT: alert, Awake, Oriented to person, Oriented to place, Oriented to time, reflexes normal, CN II-XII grossly intact. ABSENT: motor sensory deficit Psychiatric exam: PRESENT: appropriate affect, normal mood. ABSENT: homicidal ideation, suicidal ideation Skin exam: PRESENT: dry, warm. Positive open sores 2 on the right and 1 on the left leg, poor skin turgor in the lower extremities with wrinkling of the skin ABSENT: rash Results Laboratory Results: 07/09/20 04:44 07/09/20 04:44 07/08/20 07/08/20 07/08/20 12:47 12:47 12:47 WBC 9.8 RBC 3.68 L Hgb 11.5 L Hct 35.1 L MCV 95 MCH 31.1 MCHC 32.6 RDW 16.2 H Plt Count 128 L Seg Neutrophils % Not Reportable Sodium 136.6 L Potassium 5.7 H Chloride 103 Carbon Dioxide 23 Anion Gap 11 BUN 96 H Creatinine 4.21 H Est GFR ( Amer) 12 L Glucose 180 H Lactic Acid 3.0 H Calcium 9.5 Phosphorus Magnesium Total Bilirubin 0.7 AST 43 H Alkaline Phosphatase 55 C-Reactive Protein 257.3 H Total Protein 6.2 L Albumin 3.2 L TSH 07/08/20 07/09/20 07/09/20 16:15 04:44 04:44 WBC 10.6 H RBC 3.27 L Hgb 10.3 L Hct 30.7 L MCV 94 MCH 31.6 MCHC 33.7 RDW 16.2 H Plt Count 100 L Seg Neutrophils % Not Reportable Sodium 138.0 Potassium 5.2 H Chloride 111 H Carbon Dioxide 20 L Anion Gap 7 BUN 95 H Creatinine 3.52 H Est GFR ( Amer) 15 L Glucose 121 H Lactic Acid 1.7 Calcium 8.9 Phosphorus 4.7 H Magnesium 2.6 H Total Bilirubin AST Alkaline Phosphatase C-Reactive Protein Total Protein Albumin TSH 07/09/20 04:44 WBC RBC Hgb Hct MCV MCH MCHC RDW Plt Count Seg Neutrophils % Sodium Potassium Chloride Carbon Dioxide Anion Gap BUN Creatinine Est GFR ( Amer) Glucose Lactic Acid Calcium Phosphorus Magnesium Total Bilirubin AST Alkaline Phosphatase C-Reactive Protein Total Protein Albumin TSH 1.48 07/08/20 12:47 Troponin I 0.125 NT-Pro-B Natriuret Pep 3990 H Impressions: Chest X-Ray 07/08/20 12:07 IMPRESSION: Cannot exclude left lower lobe pneumonia. Venous Doppler Study 07/08/20 12:07 IMPRESSION: NO EVIDENCE DVT OR SVT IN EITHER LEG. Tibia/Fibula X-Ray 07/08/20 13:34 IMPRESSION: CHRONIC DEGENERATIVE CHANGES. SOFT TISSUE SWELLING. NO ACUTE BONY FINDINGS. Lower Extremity CT 07/09/20 07:00 IMPRESSION: There is extensive edema and cellulitis. This is most pronounced along the pretibial region. No obvious focal fluid collection is seen. Evaluation is mildly limited by lack of intravenous contrast. Assessment & Plan - Diagnosis (1) Acute kidney injury superimposed on CKD Is this a current diagnosis for this admission?: Yes Plan: The patient presents with hypotension and lower extremity cellulitis. Baseline creatinine around 2.2-2.5 which is currently 4.21. Patient is still clinically volume depleted. I will obtain a kidney ultrasound and insert a Valdovinos catheter quantify her urine output. Will check urinalysis and urine sodium. Start IV fluid hydration cautiously. Continue to monitor kidney function and avoid nephrotoxic medications. (2) Cellulitis Qualifiers: Site of cellulitis: extremity Site of cellulitis of extremity: lower extremity Laterality: right Qualified Code(s): L03.115 - Cellulitis of right lower limb Is this a current diagnosis for this admission?: Yes Plan: Status post debridement, 07/08. Currently on cefepime and vancomycin per hospitalist. (3) Venous stasis of both lower extremities Is this a current diagnosis for this admission?: Yes Plan: Chronic and recurrent. (4) Dehydration Is this a current diagnosis for this admission?: Yes Plan: Start IV fluid hydration. (5) Essential hypertension Is this a current diagnosis for this admission?: Yes Plan: Presented initially with hypotension and is currently improved. (6) Hyperkalemia Is this a current diagnosis for this admission?: Yes Plan: Improved. (7) Dementia Is this a current diagnosis for this admission?: Yes - Notes Notes: Thank you very much for this consultation.
[2020-07-10 04:46] LABS: ABSOLUTE LYMPHOCYTES (AUTO) 0.7 10^3/uL (0.5-4.7); ABSOLUTE MONOCYTES (AUTO) 0.6 10^3/uL (0.1-1.4); ABSOLUTE NEUT (AUTO) 9.9 10^3/uL (1.7-8.2); BASOPHILS % (AUTO) 0.1 % (0-2); EOSINOPHILS % (AUTO) 0.4 % (0-6); HEMATOCRIT 29.7 % (36.0-47.0); HEMOGLOBIN 9.9 g/dL (12.0-15.5); LYMPHOCYTES % (AUTO) 5.9 % (13-45); MEAN CORPUSCULAR HEMOGLOBIN 31.1 pg (27.0-33.4); MEAN CORPUSCULAR HGB CONC 33.3 g/dL (32.0-36.0); MEAN CORPUSCULAR VOLUME 93 fl (80-97); MONOCYTES % (AUTO) 5.3 % (3-13); RED BLOOD COUNT 3.18 10^6/uL (3.72-5.28); RED CELL DISTRIBUTION WIDTH 15.9 % (11.5-14.0); SEGMENTED NEUTROPHILS % (AUTO) 88.3 % (42-78); TOTAL CELLS COUNTED % (AUTO) 100 %; WHITE BLOOD COUNT 11.2 10^3/uL (4.0-10.5)
[2020-07-10 05:01] LABS: ANION GAP 9 (5-19); CARBON DIOXIDE 21 mmol/L (22-30); CHLORIDE 110 mmol/L (98-107); GLUCOSE 121 mg/dL (75-110); POTASSIUM 4.3 mmol/L (3.6-5.0)
[2020-07-10 05:11] LABS: BLOOD UREA NITROGEN 75 mg/dL (7-20)
[2020-07-10 05:16] LABS: PLATELET COUNT 93 10^3/uL (150-450)
[2020-07-10] MEDS: ENOXAPARIN SODIUM INJ 30 MG/0.3 ML DISP.SYRIN SUBCUT SCH (10:08)
[2020-07-10] MEDS: MORPHINE SULFATE 10 MG/ML INJ IV PRN (10:15)
[2020-07-10] MEDS: SILVER SULFADIAZINE 1% CREAM 400 GM TP SCH ×2 (10:16→22:37)
[2020-07-10] MEDS: DOCUSATE SODIUM 100 MG CAPSULE PO SCH (10:16)
[2020-07-10] MEDS: NORMAL SALINE 1000 ML 1,000 ML IV PRN (10:21)
[2020-07-10] MEDS ORDERED: VANCOMYCIN HCL 1,000 MG in DEXTROSE 5%-WATER 250 ML IV SCH (18:00)
--- NOTE | 2020-07-10 18:00 | PDOC PROGRESS REPORT ---
Subjective Subjective:: Patient met yesterday for severe right lower extremity cellulitis, underwent debridement and I&D by general surgery, continued on broad-spectrum antibiotics local wound care. Patient does not seem to be in any significant pain today and is smiling and in good spirits. Her blood cultures are still pending but the initial results show gram-negative rods. Wound culture is pending. Potassium is coming down as it was initially elevated and creatinine is also improving today. ABIs still pending to rule out peripheral artery disease. TSH is normal. CT showed extensive cellulitis of right lower extremity but no kimberley inable abscess. Patient has no new complaints today. 07/10/2020 Patient in good spirits today which I think is mostly due to the fact she is oblivious to her medical problems due to her dementia. She is very pleasant lady and seems to be quite happy most the time. Blood pressure is elevated and WBC is higher. Hemoglobin and platelets have dropped and her creatinine is also downtrending approximately now at her baseline. We will be holding her DVT prophylaxis until her platelets recover. Patient has no new complaints today other than some discomfort in her right lower extremity. Reason For Visit: RLE CELLULITIS, HTN, HLD, DEMENTIA Physical Exam Vital Signs: Temp Pulse Resp BP Pulse Ox 97.5 F 83 16 152/52 H 100 07/10/20 15:36 07/10/20 15:36 07/10/20 15:36 07/10/20 15:36 07/10/20 15:36 Intake & Output 07/09/20 07/10/20 07/11/20 06:59 06:59 06:59 Intake Total 2049 1026 920 Output Total 2200 700 Balance 2049 -117 220 Weight 98.4 kg 98.4 kg Exam: General appearance: PRESENT: no acute distress, morbidly obese, well-developed, well-nourished, smiling and states her right lower extremity is not really painful but just uncomfortable Head exam: PRESENT: atraumatic, normocephalic Eye exam: PRESENT: conjunctiva pink Mouth exam: PRESENT: moist Respiratory exam: PRESENT: clear to auscultation laurie. ABSENT: rales, rhonchi, wheezes Cardiovascular exam: PRESENT: RRR. ABSENT: diastolic murmur, rubs, systolic murmur GI/Abdominal exam: PRESENT: normal bowel sounds, soft. ABSENT: distended, guarding, mass, organolmegaly, rebound, tenderness Extremities exam: PRESENT: tenderness, +2 edema, other - Significant erythema and edema worse on the right, multiple ulcerations of various stages of healing on both lower extremities; now with I&D of bullous lesions of right leg and debridement of left leg ulcer on anterior larson Neurological exam: PRESENT: alert, awake, oriented to person, oriented to place, oriented to time, oriented to situation Psychiatric exam: PRESENT: appropriate affect Skin exam: PRESENT: dry, warm Results Laboratory Results: 07/10/20 04:21 07/10/20 04:21 07/10/20 07/10/20 04:21 04:21 WBC 11.2 H RBC 3.18 L Hgb 9.9 L Hct 29.7 L MCV 93 MCH 31.1 MCHC 33.3 RDW 15.9 H Plt Count 93 L Seg Neutrophils % 88.3 H Sodium 139.9 Potassium 4.3 Chloride 110 H Carbon Dioxide 21 L Anion Gap 9 BUN 75 H D Creatinine 2.58 H Est GFR ( Amer) 21 L Glucose 121 H Calcium 9.0 07/08/20 19:50 Leg - Right Cellulitis Gram Stain - Final 07/08/20 12:47 Troponin I 0.125 NT-Pro-B Natriuret Pep 3990 H Impressions: Chest X-Ray 07/08/20 12:07 IMPRESSION: Cannot exclude left lower lobe pneumonia. Venous Doppler Study 07/08/20 12:07 IMPRESSION: NO EVIDENCE DVT OR SVT IN EITHER LEG. Tibia/Fibula X-Ray 07/08/20 13:34 IMPRESSION: CHRONIC DEGENERATIVE CHANGES. SOFT TISSUE SWELLING. NO ACUTE BONY FINDINGS. Lower Extremity CT 07/09/20 07:00 IMPRESSION: There is extensive edema and cellulitis. This is most pronounced along the pretibial region. No obvious focal fluid collection is seen. Evaluation is mildly limited by lack of intravenous contrast. Renal Ultrasound 07/09/20 10:49 IMPRESSION: 1. Increased echogenicity of the renal parenchyma - correlate for chronic medical renal disease. 2. Valdovinos catheter within the urinary bladder. Assessment and Plan - Diagnosis (1) Cellulitis of right lower extremity Is this a current diagnosis for this admission?: Yes Plan: 2-day history of worsening pain/edema/erythema/weeping, new large bullous pockets of fluid on posterior right leg Vancomycin/cefepime empiric Blood cultures growing gram-negative rods 1/2 bottles, repeat blood cultures sent High WBC and lactic acid with left shift General surgery consulted and they performed debridement and I&D of multiple right lower extremity bullous lesions Wound culture growing gram-negative rods Arterial ultrasound to rule out PAD CT RLE showed extensive soft tissue cellulitis but no drainable abscess (2) Acute kidney injury superimposed on CKD Is this a current diagnosis for this admission?: Yes Plan: Baseline creatinine approximately 2.4, elevated up to 4.21 on admission Suspect due to acute infection of right lower extremity Nephrology consulted Holding fluids due to severe bilateral lower extremity edema Trend BMP Improving Nephrology consulted Renal ultrasound Resolved to baseline creatinine (3) Venous stasis of both lower extremities Is this a current diagnosis for this admission?: Yes (4) Morbid obesity Is this a current diagnosis for this admission?: Yes (5) HLD (hyperlipidemia) Is this a current diagnosis for this admission?: Yes (6) Hypothyroidism Is this a current diagnosis for this admission?: Yes (7) Dementia Is this a current diagnosis for this admission?: Yes (8) Chronic ulcer of left leg Qualifiers: Non-pressure ulcer stage: with necrosis of muscle Qualified Code(s): L97.923 - Non-pressure chronic ulcer of unspecified part of left lower leg with necrosis of muscle Is this a current diagnosis for this admission?: Yes (9) Essential hypertension Is this a current diagnosis for this admission?: Yes Plan: Home medications Uncontrolled, restarted home clonidine - Time Time Spent with patient: 25-34 minutes Medications reviewed and adjusted accordingly: Yes Anticipated Discharge Disposition: Home with Home Health Anticipated Discharge Timeframe: within 72 hours - Inpatient Certification Based on my medical assessment, after consideration of the patient's comorbidities, presenting symptoms, or acuity I expect that the services needed warrant INPATIENT care.: Yes I certify that my determination is in accordance with my understanding of Medicare's requirements for reasonable and necessary INPATIENT services [42 CFR 412.3e].: Yes Medical Necessity: Significant Comorbidiites Make Outpatient Treatment Too Risky, Need Close Monitoring Due to Risk of Patient Decompensation, Need for IV Antibiotics, Risk of Complication if Not Cared For in Hospital, Risk of Diagnosis Which Will Require Inpatient Eval/Care/Monitoring
[2020-07-10] MEDS: CEFEPIME 1 GM/D5W RTU 1 GM/50 ML RTUPB IV SCH (18:39)
[2020-07-10] MEDS ORDERED: VANCOMYCIN HCL 750 MG in DEXTROSE 5%-WATER 250 ML IV SCH (22:00)
[2020-07-10] MEDS ORDERED: (PENDING PHARMACY ID) (Donepezil Hcl [Donepezil Hcl] 10 MG) PO SCH (22:00)
--- NOTE | 2020-07-10 22:32 | PDOC PROGRESS REPORT ---
Subjective Progress Note for:: 07/10/20 Subjective:: Patient states she is doing fine and has no complaints at all. She looks very clinically hemodynamically stable. She has made about 2200 mL of urine output yesterday with minimal IV fluid hydration. Reason For Visit: RLE CELLULITIS, HTN, HLD, DEMENTIA Physical Exam Vital Signs: Temp Pulse Resp BP Pulse Ox 97.8 F 98 15 143/44 H 95 07/10/20 11:08 07/10/20 11:08 07/10/20 11:08 07/10/20 11:08 07/10/20 11:08 Intake & Output 07/09/20 07/10/20 07/11/20 06:59 06:59 06:59 Intake Total 2049 1026 Output Total 2199 Balance 2049 -117 Weight 98.4 kg 98.4 kg Exam: General appearance: PRESENT: no acute distress, cooperative, well-developed, well-nourished Head exam: PRESENT: atraumatic, normocephalic Eye exam: PRESENT: conjunctiva pink, PERRLA. ABSENT: scleral icterus Neck exam: ABSENT: JVD Respiratory exam: PRESENT: Normal breath sounds. ABSENT: crackles, rales, rhonchi, unlabored, wheezes Cardiovascular exam: PRESENT: Regular rate rhythm -+S1, +S2. ABSENT: diastolic murmur, systolic murmur GI/Abdominal exam: PRESENT: normal bowel sounds, soft. ABSENT: guarding, mass, tenderness Extremities exam: Grade 2 bilateral lower extremity pitting edema Neurological exam: PRESENT: alert, awake, oriented to person, place and time. Skin exam: PRESENT: dry, warm, she has multiple open sores on both lower extremities currently wrapped up in dressing, fair skin turgor. Results Laboratory Results: 07/10/20 04:21 07/10/20 04:21 07/09/20 07/10/20 07/10/20 15:40 04:21 04:21 WBC 11.2 H RBC 3.18 L Hgb 9.9 L Hct 29.7 L MCV 93 MCH 31.1 MCHC 33.3 RDW 15.9 H Plt Count 93 L Seg Neutrophils % 88.3 H Sodium 139.9 Potassium 4.3 Chloride 110 H Carbon Dioxide 21 L Anion Gap 9 BUN 75 H D Creatinine 2.58 H Est GFR ( Amer) 21 L Glucose 121 H Calcium 9.0 Urine Color YELLOW Urine Appearance SLIGHTLY-CLOUDY Urine pH 5.0 Ur Specific [place] 1.014 Urine Protein 30 H Urine Glucose (UA) NEGATIVE Urine Ketones NEGATIVE Urine Blood LARGE H Urine Nitrite NEGATIVE Ur Leukocyte Esterase MODERATE H Urine WBC (Auto) 33 Urine RBC (Auto) 68 07/08/20 19:50 Leg - Right Cellulitis Gram Stain - Final 07/08/20 12:47 Troponin I 0.125 NT-Pro-B Natriuret Pep 3990 H Impressions: Chest X-Ray 07/08/20 12:07 IMPRESSION: Cannot exclude left lower lobe pneumonia. Venous Doppler Study 07/08/20 12:07 IMPRESSION: NO EVIDENCE DVT OR SVT IN EITHER LEG. Tibia/Fibula X-Ray 07/08/20 13:34 IMPRESSION: CHRONIC DEGENERATIVE CHANGES. SOFT TISSUE SWELLING. NO ACUTE BONY FINDINGS. Lower Extremity CT 07/09/20 07:00 IMPRESSION: There is extensive edema and cellulitis. This is most pronounced along the pretibial region. No obvious focal fluid collection is seen. Evaluation is mildly limited by lack of intravenous contrast. Renal Ultrasound 07/09/20 10:49 IMPRESSION: 1. Increased echogenicity of the renal parenchyma - correlate for chronic medical renal disease. 2. Valdovinos catheter within the urinary bladder. Assessment & Plan - Diagnosis (1) Acute kidney injury superimposed on CKD Is this a current diagnosis for this admission?: Yes Plan: The patient presents with hypotension and lower extremity cellulitis. Baseline creatinine around 2.2-2.5 which went up to 4.21 on admission. Her creatinine is now 2.58 which is very near baseline. Her BUN is just lagging behind. Her kidney ultrasound showed a right kidney measuring at 12.2 cm and the left kidney at 10.3 cm. There is increased echogenicity bilaterally. On the right kidney are several cortical cysts. Both kidneys have no hydronephrosis, calcification or masses. Her urine sodium is low at 9 consistent with acute prerenal azotemia. Her urinalysis showed minimal protein of 30, large blood with WBC of 33, RBC of 68 and bacteria of 3+ from a catheterized specimen. Urine culture pending. We will decrease IV fluids rate. Continue to monitor kidney function and avoid nephrotoxic medications. (2) Cellulitis Qualifiers: Site of cellulitis: extremity Site of cellulitis of extremity: lower extremity Laterality: right Qualified Code(s): L03.115 - Cellulitis of right lower limb Is this a current diagnosis for this admission?: Yes Plan: Status post debridement, 07/08. Currently on cefepime and vancomycin per hospitalist. (3) Venous stasis of both lower extremities Is this a current diagnosis for this admission?: Yes Plan: Chronic and recurrent. (4) Dehydration Is this a current diagnosis for this admission?: Yes Plan: Improved with hydration. (5) Essential hypertension Is this a current diagnosis for this admission?: Yes Plan: Presented initially with hypotension and is currently improved. (6) Hyperkalemia Is this a current diagnosis for this admission?: Yes Plan: Resolved. (7) Dementia Is this a current diagnosis for this admission?: Yes - Notes Notes: I anticipate continued improvement of the patient's kidney function. I will sign off. Please call us back if we can be of further help. - Time Time with patient: 15-25 minutes
[2020-07-10] MEDS: DONEPEZIL HCL 5 MG TABLET PO SCH (22:36)
[2020-07-10] MEDS: CLONIDINE HCL 0.1 MG TABLET PO SCH (22:36)
[2020-07-11] MEDS: LEVOTHYROXINE SODIUM 0.1 MG TABLET PO SCH (06:11)
[2020-07-11 07:27] LABS: HEMATOCRIT 28.1 % (36.0-47.0); HEMOGLOBIN 9.3 g/dL (12.0-15.5); MEAN CORPUSCULAR VOLUME 94 fl (80-97); RED BLOOD COUNT 2.99 10^6/uL (3.72-5.28); WHITE BLOOD COUNT 8.6 10^3/uL (4.0-10.5)
[2020-07-11 07:58] LABS: PLATELET COUNT 99 10^3/uL (150-450)
[2020-07-11 08:06] LABS: ABSOLUTE LYMPHOCYTES# (MANUAL) 0.2 10^3/uL (0.5-4.7); ABSOLUTE MONOCYTES # (MANUAL) 0.6 10^3/uL (0.1-1.4); BASOPHILS % (MANUAL) 0 % (0-2); EOSINOPHILS % (MANUAL) 0 % (0-6); LYMPHOCYTES % (MANUAL) 2 % (13-45); MONOCYTES % (MANUAL) 7 % (3-13); SEGMENTED NEUTROPHILS % (MAN) 91 % (42-78); TOTAL CELLS COUNTED 100
[2020-07-11 08:15] LABS: ANISOCYTOSIS 1+; OVALOCYTES SLIGHT; PLATELET COMMENT DECREASED; POIKILOCYTOSIS SLIGHT
[2020-07-11] MEDS: ENOXAPARIN SODIUM INJ 30 MG/0.3 ML DISP.SYRIN SUBCUT SCH (09:18)
[2020-07-11] MEDS: CLONIDINE HCL 0.1 MG TABLET PO SCH ×2 (09:24→23:23)
[2020-07-11] MEDS: PRENATAL VITAMIN W DHA CAPSULE PO SCH (09:25)
[2020-07-11] MEDS: SILVER SULFADIAZINE 1% CREAM 400 GM TP SCH ×2 (09:25→23:24)
[2020-07-11] MEDS ORDERED: (PENDING PHARMACY ID) (Prenatal Vits96/Iron Fum/Folic [Prenatal Tablet] 1 EACH) PO SCH (10:00)
[2020-07-11] MEDS: CEFEPIME 1 GM/D5W RTU 1 GM/50 ML RTUPB IV SCH (17:09)
[2020-07-11] MEDS: NORMAL SALINE 1000 ML 1,000 ML IV PRN (17:13)
--- NOTE | 2020-07-11 18:08 | PDOC PROGRESS REPORT ---
Subjective Subjective:: Patient met yesterday for severe right lower extremity cellulitis, underwent debridement and I&D by general surgery, continued on broad-spectrum antibiotics local wound care. Patient does not seem to be in any significant pain today and is smiling and in good spirits. Her blood cultures are still pending but the initial results show gram-negative rods. Wound culture is pending. Potassium is coming down as it was initially elevated and creatinine is also improving today. ABIs still pending to rule out peripheral artery disease. TSH is normal. CT showed extensive cellulitis of right lower extremity but no kimberley inable abscess. Patient has no new complaints today. 07/10/2020 Patient in good spirits today which I think is mostly due to the fact she is oblivious to her medical problems due to her dementia. She is very pleasant lady and seems to be quite happy most the time. Blood pressure is elevated and WBC is higher. Hemoglobin and platelets have dropped and her creatinine is also downtrending approximately now at her baseline. We will be holding her DVT prophylaxis until her platelets recover. Patient has no new complaints today other than some discomfort in her right lower extremity. 07/11/2020 Patient in good spirits today although she is surprised daily when I tell her she has a leg infection and a bloodstream infection although we have had this discussion every day that she has been here. Suspect this is her severe dementia at play. Strangely, 1 of her blood cultures is growing vibrio species and I am at a loss for how she could have gotten this given she seems to be relatively immobilized at baseline. Vibrio species is not cholera or vulnificus per my discussion with microbiology lab today and is highly sensitive to many antibiotics. She also appears to be growing a few other bacteria that are not completely resulted yet. She remains on broad-spectrum antibiotics while these cultures are resulting. She still having some drainage from her leg wounds and we may need some guidance from surgery on how to care for these in the long- term. Second set of blood cultures on 07/10 are pending. Urine culture is negative. She has no new complaints today. Reason For Visit: RLE CELLULITIS, HTN, HLD, DEMENTIA Physical Exam Vital Signs: Temp Pulse Resp BP Pulse Ox 98.7 F 75 18 123/34 L 98 07/11/20 17:00 07/11/20 17:07/11/20 17:07/11/20 17:00 07/11/20 17:00 Intake & Output 07/10/20 07/11/20 07/12/20 06:59 06:59 06:59 Intake Total 1026 2930 0 Output Total 2200 1450 Balance -1174 1480 0 Weight 98.4 kg 98.4 kg Results Laboratory Results: 07/11/20 07:02 07/10/20 04:21 07/11/20 07:02 WBC 8.6 RBC 2.99 L Hgb 9.3 L Hct 28.1 L MCV 94 MCH 31.0 MCHC 33.0 RDW 16.0 H Plt Count 99 L Seg Neutrophils % Not Reportable 07/08/20 14:40 Blood Blood Culture (PCR) - Final 07/08/20 14:40 Blood Blood Culture - Final Vibrio Species 07/08/20 19:50 Leg - Right Cellulitis Gram Stain - Final 07/08/20 12:47 Troponin I 0.125 NT-Pro-B Natriuret Pep 3990 H Impressions: Chest X-Ray 07/08/20 12:07 IMPRESSION: Cannot exclude left lower lobe pneumonia. Venous Doppler Study 07/08/20 12:07 IMPRESSION: NO EVIDENCE DVT OR SVT IN EITHER LEG. Tibia/Fibula X-Ray 07/08/20 13:34 IMPRESSION: CHRONIC DEGENERATIVE CHANGES. SOFT TISSUE SWELLING. NO ACUTE BONY FINDINGS. Lower Extremity CT 07/09/20 07:00 IMPRESSION: There is extensive edema and cellulitis. This is most pronounced along the pretibial region. No obvious focal fluid collection is seen. Evaluation is mildly limited by lack of intravenous contrast. Renal Ultrasound 07/09/20 10:49 IMPRESSION: 1. Increased echogenicity of the renal parenchyma - correlate for chronic medical renal disease. 2. Valdovinos catheter within the urinary bladder. Assessment and Plan - Diagnosis (1) Cellulitis of right lower extremity Is this a current diagnosis for this admission?: Yes Plan: 2-day history of worsening pain/edema/erythema/weeping, new large bullous pockets of fluid on posterior right leg Vancomycin/cefepime empiric Blood cultures growing gram-negative rods 1/2 bottles, repeat blood cultures sent High WBC and lactic acid with left shift General surgery consulted and they performed debridement and I&D of multiple right lower extremity bullous lesions Wound culture growing gram-negative rods Arterial ultrasound to rule out PAD CT RLE showed extensive soft tissue cellulitis but no drainable abscess 07/11/2020 Wound culture from I&D growing multiple bacteria 1/2 blood cultures from admission growing vibrio species with multiple sensitivities Repeat blood cultures on 07/10 pending Urine culture negative Continue broad-spectrum antibiotics (2) Acute kidney injury superimposed on CKD Is this a current diagnosis for this admission?: Yes Plan: Baseline creatinine approximately 2.4, elevated up to 4.21 on admission Suspect due to acute infection of right lower extremity Nephrology consulted Holding fluids due to severe bilateral lower extremity edema Trend BMP Improving Nephrology consulted Renal ultrasound Resolved to baseline creatinine (3) Venous stasis of both lower extremities Is this a current diagnosis for this admission?: Yes (4) Morbid obesity Is this a current diagnosis for this admission?: Yes (5) HLD (hyperlipidemia) Is this a current diagnosis for this admission?: Yes (6) Hypothyroidism Is this a current diagnosis for this admission?: Yes (7) Dementia Is this a current diagnosis for this admission?: Yes (8) Chronic ulcer of left leg Qualifiers: Non-pressure ulcer stage: with necrosis of muscle Qualified Code(s): L97.923 - Non-pressure chronic ulcer of unspecified part of left lower leg with necrosis of muscle Is this a current diagnosis for this admission?: Yes (9) Essential hypertension Is this a current diagnosis for this admission?: Yes - Time Time Spent with patient: 25-34 minutes Medications reviewed and adjusted accordingly: Yes Anticipated Discharge Disposition: Home with Home Health Anticipated Discharge Timeframe: within 72 hours - Inpatient Certification Based on my medical assessment, after consideration of the patient's comorbidities, presenting symptoms, or acuity I expect that the services needed warrant INPATIENT care.: Yes I certify that my determination is in accordance with my understanding of [facility]'s requirements for reasonable and necessary INPATIENT services [42 CFR 412.3e].: Yes Medical Necessity: Significant Comorbidiites Make Outpatient Treatment Too Risky, Need Close Monitoring Due to Risk of Patient Decompensation, Need for IV Antibiotics, Risk of Complication if Not Cared For in Hospital, Risk of Diagnosis Which Will Require Inpatient Eval/Care/Monitoring
[2020-07-11] MEDS: DONEPEZIL HCL 5 MG TABLET PO SCH (23:23)
[2020-07-12 06:31] LABS: ANION GAP 7 (5-19); BLOOD UREA NITROGEN 53 mg/dL (7-20); CALCIUM 8.7 mg/dL (8.4-10.2); CARBON DIOXIDE 21 mmol/L (22-30); CHLORIDE 111 mmol/L (98-107); GLUCOSE 143 mg/dL (75-110); POTASSIUM 4.5 mmol/L (3.6-5.0)
[2020-07-12] MEDS: LEVOTHYROXINE SODIUM 0.1 MG TABLET PO SCH (07:53)
[2020-07-12] MEDS: PRENATAL VITAMIN W DHA CAPSULE PO SCH (10:18)
[2020-07-12] MEDS: CLONIDINE HCL 0.1 MG TABLET PO SCH ×2 (10:19→22:12)
[2020-07-12] MEDS: DOCUSATE SODIUM 100 MG CAPSULE PO SCH (10:19)
[2020-07-12] MEDS: ENOXAPARIN SODIUM INJ 30 MG/0.3 ML DISP.SYRIN SUBCUT SCH (10:20)
[2020-07-12] MEDS: SILVER SULFADIAZINE 1% CREAM 400 GM TP SCH ×2 (12:05→22:13)
[2020-07-12 12:21] LABS: VANCOMYCIN,TROUGH 5.8 ug/mL (5.0-20.0)
[2020-07-12] MEDS: VANCOMYCIN HCL 750 MG in DEXTROSE 5%-WATER 250 ML IV SCH (14:12)
[2020-07-12] MEDS: MORPHINE SULFATE 10 MG/ML INJ IV PRN (17:39)
[2020-07-12] MEDS: CEFEPIME 1 GM/D5W RTU 1 GM/50 ML RTUPB IV SCH (17:40)
[2020-07-12] MEDS ORDERED: VANCOMYCIN HCL 1,250 MG in DEXTROSE 5%-WATER 250 ML IV SCH (18:00)
--- NOTE | 2020-07-12 20:47 | PDOC PROGRESS REPORT ---
Subjective Subjective:: Patient met yesterday for severe right lower extremity cellulitis, underwent debridement and I&D by general surgery, continued on broad-spectrum antibiotics local wound care. Patient does not seem to be in any significant pain today and is smiling and in good spirits. Her blood cultures are still pending but the initial results show gram-negative rods. Wound culture is pending. Potassium is coming down as it was initially elevated and creatinine is also improving today. ABIs still pending to rule out peripheral artery disease. TSH is normal. CT showed extensive cellulitis of right lower extremity but no kimberley inable abscess. Patient has no new complaints today. 07/10/2020 Patient in good spirits today which I think is mostly due to the fact she is oblivious to her medical problems due to her dementia. She is very pleasant lady and seems to be quite happy most the time. Blood pressure is elevated and WBC is higher. Hemoglobin and platelets have dropped and her creatinine is also downtrending approximately now at her baseline. We will be holding her DVT prophylaxis until her platelets recover. Patient has no new complaints today other than some discomfort in her right lower extremity. 07/11/2020 Patient in good spirits today although she is surprised daily when I tell her she has a leg infection and a bloodstream infection although we have had this discussion every day that she has been here. Suspect this is her severe dementia at play. Strangely, 1 of her blood cultures is growing vibrio species and I am at a loss for how she could have gotten this given she seems to be relatively immobilized at baseline. Vibrio species is not cholera or vulnificus per my discussion with microbiology lab today and is highly sensitive to many antibiotics. She also appears to be growing a few other bacteria that are not completely resulted yet. She remains on broad-spectrum antibiotics while these cultures are resulting. She still having some drainage from her leg wounds and we may need some guidance from surgery on how to care for these in the long- term. Second set of blood cultures on 07/10 are pending. Urine culture is negative. She has no new complaints today. 07/12/2020 I have consulted infectious disease for some advice on suspected vibrio infection in patients right leg wound culture. It seems to be sensitive to many antibiotics. Patient has no recollection of how she might of gotten contaminated water on this wound and she states she does not ambulate very far and has not been near body of water in many years. Creatinine lower as well as lower hemoglobin. Monitor bowels and her initial blood culture growing vibrio on 07/08. Second blood cultures are negative. She has no new complaints today and is pleasantly demented as usual. Reason For Visit: RLE CELLULITIS, HTN, HLD, DEMENTIA Physical Exam Vital Signs: Temp Pulse Resp BP Pulse Ox 98.3 F 71 16 138/54 H 100 07/12/20 19:28 07/12/20 19:28 07/12/20 19:28 07/12/20 19:28 07/12/20 19:28 Intake & Output 07/11/20 07/12/20 07/13/20 06:59 06:59 06:59 Intake Total 2930 50 1135 Output Total 1450 1600 850 Balance 1480 -1550 285 Weight 98.4 kg 98.4 kg Exam: General appearance: PRESENT: no acute distress, morbidly obese, well-developed, well-nourished, pleasantly demented Head exam: PRESENT: atraumatic, normocephalic Eye exam: PRESENT: conjunctiva pink Mouth exam: PRESENT: moist Respiratory exam: PRESENT: clear to auscultation laurie. ABSENT: rales, rhonchi, wheezes Cardiovascular exam: PRESENT: RRR. ABSENT: diastolic murmur, rubs, systolic murmur GI/Abdominal exam: PRESENT: normal bowel sounds, soft. ABSENT: distended, guarding, mass, organolmegaly, rebound, tenderness Extremities exam: PRESENT: tenderness, +2 edema, other - multiple ulcerations of various stages of healing on both lower extremities; status post I&D of bullous lesions of right leg and debridement of left leg ulcer on anterior larson, large amount of drainage on bedsheets and dressings Neurological exam: PRESENT: alert, awake, oriented to person, oriented to place, oriented to time, oriented to situation Psychiatric exam: PRESENT: appropriate affect Skin exam: PRESENT: dry, warm Results Laboratory Results: 07/11/20 07:02 07/12/20 05:30 07/12/20 05:30 Sodium 139.0 Potassium 4.5 Chloride 111 H Carbon Dioxide 21 L Anion Gap 7 BUN 53 H Creatinine 1.85 H Est GFR ( Amer) 31 L Glucose 143 H Calcium 8.7 07/09/20 15:40 Valdovinos Catheter Urine Culture - Final NO GROWTH 2 DAYS 07/08/20 12:47 Troponin I 0.125 NT-Pro-B Natriuret Pep 3990 H Impressions: Chest X-Ray 07/08/20 12:07 IMPRESSION: Cannot exclude left lower lobe pneumonia. Venous Doppler Study 07/08/20 12:07 IMPRESSION: NO EVIDENCE DVT OR SVT IN EITHER LEG. Tibia/Fibula X-Ray 07/08/20 13:34 IMPRESSION: CHRONIC DEGENERATIVE CHANGES. SOFT TISSUE SWELLING. NO ACUTE BONY FINDINGS. Lower Extremity CT 07/09/20 07:00 IMPRESSION: There is extensive edema and cellulitis. This is most pronounced along the pretibial region. No obvious focal fluid collection is seen. Evaluation is mildly limited by lack of intravenous contrast. Renal Ultrasound 07/09/20 10:49 IMPRESSION: 1. Increased echogenicity of the renal parenchyma - correlate for chronic medical renal disease. 2. Valdovinos catheter within the urinary bladder. Assessment and Plan - Diagnosis (1) Cellulitis of right lower extremity Is this a current diagnosis for this admission?: Yes Plan: 2-day history of worsening pain/edema/erythema/weeping, new large bullous pockets of fluid on posterior right leg Vancomycin/cefepime empiric Blood cultures growing gram-negative rods 1/2 bottles, repeat blood cultures sent High WBC and lactic acid with left shift General surgery consulted and they performed debridement and I&D of multiple right lower extremity bullous lesions Wound culture growing gram-negative rods Arterial ultrasound to rule out PAD CT RLE showed extensive soft tissue cellulitis but no drainable abscess 07/11/2020 Wound culture from I&D growing multiple bacteria 1/2 blood cultures from admission growing vibrio species with multiple sensitivities Repeat blood cultures on 07/10 pending Urine culture negative Continue broad-spectrum antibiotics 07/12/2020 Infectious disease consult Vibrio growing in 1/2 blood cultures and repeat blood cultures are negative Continue antibiotics She will need extensive wound care outpatient and needs referral to wound clinic (2) Acute kidney injury superimposed on CKD Is this a current diagnosis for this admission?: Yes Plan: Baseline creatinine approximately 2.4, elevated up to 4.21 on admission Suspect due to acute infection of right lower extremity Nephrology consulted Holding fluids due to severe bilateral lower extremity edema Trend BMP Improving Nephrology consulted Renal ultrasound Resolved to baseline creatinine (3) Venous stasis of both lower extremities Is this a current diagnosis for this admission?: Yes (4) Morbid obesity Is this a current diagnosis for this admission?: Yes (5) HLD (hyperlipidemia) Is this a current diagnosis for this admission?: Yes (6) Hypothyroidism Is this a current diagnosis for this admission?: Yes (7) Dementia Is this a current diagnosis for this admission?: Yes (8) Chronic ulcer of left leg Qualifiers: Non-pressure ulcer stage: with necrosis of muscle Qualified Code(s): L97.9 23 - Non-pressure chronic ulcer of unspecified part of left lower leg with necrosis of muscle Is this a current diagnosis for this admission?: Yes (9) Essential hypertension Is this a current diagnosis for this admission?: Yes - Time Time Spent with patient: 15-24 minutes Medications reviewed and adjusted accordingly: Yes Anticipated Discharge Disposition: Home with Home Health Anticipated Discharge Timeframe: within 48 hours - Inpatient Certification Based on my medical assessment, after consideration of the patient's comorbidities, presenting symptoms, or acuity I expect that the services needed warrant INPATIENT care.: Yes I certify that my determination is in accordance with my understanding of Medicare's requirements for reasonable and necessary INPATIENT services [42 CFR 412.3e].: Yes Medical Necessity: Significant Comorbidiites Make Outpatient Treatment Too Risky, Need Close Monitoring Due to Risk of Patient Decompensation, Need for IV Antibiotics, Risk of Complication if Not Cared For in Hospital, Risk of Diagnosis Which Will Require Inpatient Eval/Care/Monitoring
[2020-07-12] MEDS: DONEPEZIL HCL 5 MG TABLET PO SCH (22:13)
[2020-07-13] MEDS: MORPHINE SULFATE 10 MG/ML INJ IV PRN ×4 (05:27→18:00)
[2020-07-13] MEDS: LEVOTHYROXINE SODIUM 0.1 MG TABLET PO SCH (05:29)
[2020-07-13] MEDS: CLONIDINE HCL 0.1 MG TABLET PO SCH ×2 (09:40→21:28)
[2020-07-13] MEDS: PRENATAL VITAMIN W DHA CAPSULE PO SCH (09:40)
[2020-07-13] MEDS: ENOXAPARIN SODIUM INJ 30 MG/0.3 ML DISP.SYRIN SUBCUT SCH (09:41)
[2020-07-13] MEDS: SILVER SULFADIAZINE 1% CREAM 400 GM TP SCH ×2 (09:45→21:29)
[2020-07-13] MEDS: VANCOMYCIN HCL 750 MG in DEXTROSE 5%-WATER 250 ML IV SCH (13:40)
--- NOTE | 2020-07-13 17:09 | PDOC PROGRESS REPORT ---
Subjective Subjective:: Patient met yesterday for severe right lower extremity cellulitis, underwent debridement and I&D by general surgery, continued on broad-spectrum antibiotics local wound care. Patient does not seem to be in any significant pain today and is smiling and in good spirits. Her blood cultures are still pending but the initial results show gram-negative rods. Wound culture is pending. Potassium is coming down as it was initially elevated and creatinine is also improving today. ABIs still pending to rule out peripheral artery disease. TSH is normal. CT showed extensive cellulitis of right lower extremity but no kimberley inable abscess. Patient has no new complaints today. 07/10/2020 Patient in good spirits today which I think is mostly due to the fact she is oblivious to her medical problems due to her dementia. She is very pleasant lady and seems to be quite happy most the time. Blood pressure is elevated and WBC is higher. Hemoglobin and platelets have dropped and her creatinine is also downtrending approximately now at her baseline. We will be holding her DVT prophylaxis until her platelets recover. Patient has no new complaints today other than some discomfort in her right lower extremity. 07/11/2020 Patient in good spirits today although she is surprised daily when I tell her she has a leg infection and a bloodstream infection although we have had this discussion every day that she has been here. Suspect this is her severe dementia at play. Strangely, 1 of her blood cultures is growing vibrio species and I am at a loss for how she could have gotten this given she seems to be relatively immobilized at baseline. Vibrio species is not cholera or vulnificus per my discussion with microbiology lab today and is highly sensitive to many antibiotics. She also appears to be growing a few other bacteria that are not completely resulted yet. She remains on broad-spectrum antibiotics while these cultures are resulting. She still having some drainage from her leg wounds and we may need some guidance from surgery on how to care for these in the long- term. Second set of blood cultures on 07/10 are pending. Urine culture is negative. She has no new complaints today. 07/12/2020 I have consulted infectious disease for some advice on suspected vibrio infection in patients right leg wound culture. It seems to be sensitive to many antibiotics. Patient has no recollection of how she might of gotten contaminated water on this wound and she states she does not ambulate very far and has not been near body of water in many years. Creatinine lower as well as lower hemoglobin. Monitor bowels and her initial blood culture growing vibrio on 07/08. Second blood cultures are negative. She has no new complaints today and is pleasantly demented as usual. 07/13/2020 Patient seems to be doing well again today. She is a very pleasant and happy lady in general. We are still waiting on infectious disease consult which should be done tomorrow hopefully. Patient is continued on antibiotics and she seems to be tolerating these quite well. She and her family would like her to be discharged home with home health when she leaves the hospital and I think this is appropriate as long as she has excellent wound care in the outpatient setting. Patient has no new complaints today. Reason For Visit: RLE CELLULITIS, HTN, HLD, DEMENTIA Physical Exam Vital Signs: Temp Pulse Resp BP Pulse Ox 98.0 F 76 18 148/63 H 97 07/13/20 15:24 07/13/20 15:24 07/13/20 15:24 07/13/20 15:24 07/13/20 15:24 Intake & Output 07/12/20 07/13/20 07/14/20 06:59 06:59 06:59 Intake Total 50 1135 810 Output Total 1600 1300 275 Balance -1550 -165 535 Weight 98.4 kg 99.7 kg Exam: General appearance: PRESENT: no acute distress, morbidly obese, well-developed, well-nourished, pleasantly demented, states her right leg is mildly unco mfortable at times Head exam: PRESENT: atraumatic, normocephalic Eye exam: PRESENT: conjunctiva pink Mouth exam: PRESENT: moist Respiratory exam: PRESENT: clear to auscultation laurie. ABSENT: rales, rhonchi, wheezes Cardiovascular exam: PRESENT: RRR. ABSENT: diastolic murmur, rubs, systolic murmur GI/Abdominal exam: PRESENT: normal bowel sounds, soft. ABSENT: distended, guarding, mass, organolmegaly, rebound, tenderness Extremities exam: PRESENT: tenderness, +2 edema, other - multiple ulcerations of various stages of healing on both lower extremities; status post I&D of bullous lesions of right leg and debridement of left leg ulcer on anterior larson, large amount of drainage on bedsheets and dressings Neurological exam: PRESENT: alert, awake, oriented to person, oriented to place, oriented to time, oriented to situation Psychiatric exam: PRESENT: appropriate affect Skin exam: PRESENT: dry, warm Results Laboratory Results: 07/11/20 07:02 07/12/20 05:30 07/09/20 15:40 Valdovinos Catheter Urine Culture - Final NO GROWTH 2 DAYS 07/08/20 12:47 Troponin I 0.125 NT-Pro-B Natriuret Pep 3990 H Impressions: Chest X-Ray 07/08/20 12:07 IMPRESSION: Cannot exclude left lower lobe pneumonia. Venous Doppler Study 07/08/20 12:07 IMPRESSION: NO EVIDENCE DVT OR SVT IN EITHER LEG. Tibia/Fibula X-Ray 07/08/20 13:34 IMPRESSION: CHRONIC DEGENERATIVE CHANGES. SOFT TISSUE SWELLING. NO ACUTE BONY FINDINGS. Lower Extremity CT 07/09/20 07:00 IMPRESSION: There is extensive edema and cellulitis. This is most pronounced along the pretibial region. No obvious focal fluid collection is seen. Evaluation is mildly limited by lack of intravenous contrast. Renal Ultrasound 07/09/20 10:49 IMPRESSION: 1. Increased echogenicity of the renal parenchyma - correlate for chronic medical renal disease. 2. Valdovinos catheter within the urinary bladder. Assessment and Plan - Diagnosis (1) Cellulitis of right lower extremity Is this a current diagnosis for this admission?: Yes Plan: 2-day history of worsening pain/edema/erythema/weeping, new large bullous pockets of fluid on posterior right leg Vancomycin/cefepime empiric Blood cultures growing gram-negative rods 1/2 bottles, repeat blood cultures sent High WBC and lactic acid with left shift General surgery consulted and they performed debridement and I&D of multiple right lower extremity bullous lesions Wound culture growing gram-negative rods Arterial ultrasound to rule out PAD CT RLE showed extensive soft tissue cellulitis but no drainable abscess 07/11/2020 Wound culture from I&D growing multiple bacteria 1/2 blood cultures from admission growing vibrio species with multiple sensitivities Repeat blood cultures on 07/10 pending Urine culture negative Continue broad-spectrum antibiotics 07/12/2020 Infectious disease consult Vibrio growing in 1/2 blood cultures and repeat blood cultures are negative Continue antibiotics She will need extensive wound care outpatient and needs referral to wound clinic 07/13/2020 Still waiting on infectious disease consult which we may not have until Tuesday due to the holiday tomorrow delays us again Antibiotics ongoing Cultures resulted (2) Acute kidney injury superimposed on CKD Is this a current diagnosis for this admission?: Yes (3) Venous stasis of both lower extremities Is this a current diagnosis for this admission?: Yes (4) Morbid obesity Is this a current diagnosis for this admission?: Yes (5) HLD (hyperlipidemia) Is this a current diagnosis for this admission?: Yes (6) Hypothyroidism Is this a current diagnosis for this admission?: Yes (7) Dementia Is this a current diagnosis for this admission?: Yes (8) Chronic ulcer of left leg Qualifiers: Non-pressure ulcer stage: with necrosis of muscle Qualified Code(s): L97.923 - Non-pressure chronic ulcer of unspecified part of left lower leg with necrosis of muscle Is this a current diagnosis for this admission?: Yes (9) Essential hypertension Is this a current diagnosis for this admission?: Yes - Time Time Spent with patient: 15-24 minutes Medications reviewed and adjusted accordingly: Yes Anticipated Discharge Disposition: Home with Home Health Anticipated Discharge Timeframe: within 48 hours - Inpatient Certification Based on my medical assessment, after consideration of the patient's comorbidities, presenting symptoms, or acuity I expect that the services needed warrant INPATIENT care.: Yes I certify that my determination is in accordance with my understanding of Medicare's requirements for reasonable and necessary INPATIENT services [42 CFR 412.3e].: Yes Medical Necessity: Significant Comorbidiites Make Outpatient Treatment Too Risky, Need Close Monitoring Due to Risk of Patient Decompensation, Need for IV Antibiotics, Risk of Complication if Not Cared For in Hospital, Risk of Diagnosis Which Will Require Inpatient Eval/Care/Monitoring
[2020-07-13] MEDS: ACETAMINOPHEN 325 MG TABLET PO PRN (17:13)
[2020-07-13] MEDS: CEFEPIME 1 GM/D5W RTU 1 GM/50 ML RTUPB IV SCH (17:16)
[2020-07-13] MEDS: DONEPEZIL HCL 5 MG TABLET PO SCH (21:27)
[2020-07-14] MEDS: NORMAL SALINE 1000 ML 1,000 ML IV PRN ×2 (00:15→13:17)
[2020-07-14] MEDS: MORPHINE SULFATE 10 MG/ML INJ IV PRN ×2 (04:29→13:57)
[2020-07-14] MEDS: LEVOTHYROXINE SODIUM 0.1 MG TABLET PO SCH (05:15)
[2020-07-14 10:23] LABS: HEMATOCRIT 28.7 % (36.0-47.0); HEMOGLOBIN 9.8 g/dL (12.0-15.5); MEAN CORPUSCULAR HEMOGLOBIN 31.6 pg (27.0-33.4); MEAN CORPUSCULAR HGB CONC 33.9 g/dL (32.0-36.0); MEAN CORPUSCULAR VOLUME 93 fl (80-97); PLATELET COUNT 129 10^3/uL (150-450); RED BLOOD COUNT 3.09 10^6/uL (3.72-5.28); RED CELL DISTRIBUTION WIDTH 16.4 % (11.5-14.0); WHITE BLOOD COUNT 8.2 10^3/uL (4.0-10.5)
[2020-07-14] MEDS: CLONIDINE HCL 0.1 MG TABLET PO SCH ×2 (10:24→21:40)
[2020-07-14] MEDS: DOCUSATE SODIUM 100 MG CAPSULE PO SCH (10:25)
[2020-07-14] MEDS: PRENATAL VITAMIN W DHA CAPSULE PO SCH (10:25)
[2020-07-14] MEDS: ENOXAPARIN SODIUM INJ 30 MG/0.3 ML DISP.SYRIN SUBCUT SCH (10:26)
[2020-07-14] MEDS: SILVER SULFADIAZINE 1% CREAM 400 GM TP SCH ×2 (10:26→21:42)
[2020-07-14 10:41] LABS: ANION GAP 6 (5-19); BLOOD UREA NITROGEN 36 mg/dL (7-20); CALCIUM 8.3 mg/dL (8.4-10.2); CARBON DIOXIDE 22 mmol/L (22-30); CHLORIDE 110 mmol/L (98-107); GLUCOSE 125 mg/dL (75-110); POTASSIUM 4.7 mmol/L (3.6-5.0)
[2020-07-14 10:56] LABS: ABSOLUTE LYMPHOCYTES# (MANUAL) 1.7 10^3/uL (0.5-4.7); ABSOLUTE MONOCYTES # (MANUAL) 0.5 10^3/uL (0.1-1.4); ANISOCYTOSIS 1+; BAND NEUTROPHILS % (MANUAL) 3 % (3-5); BASOPHILS % (MANUAL) 0 % (0-2); EOSINOPHILS % (MANUAL) 2 % (0-6); LYMPHOCYTES % (MANUAL) 17 % (13-45); METAMYELOCYTES % (MANUAL) 1 % (0-1); MONOCYTES % (MANUAL) 6 % (3-13); SEGMENTED NEUTROPHILS % (MAN) 67 % (42-78); TOTAL CELLS COUNTED 100
[2020-07-14 10:57] LABS: PLATELET CLUMPS PRESENT; PLATELET COMMENT DECREASED
[2020-07-14 10:59] LABS: POLYCHROMASIA 1+
[2020-07-14 11:00] LABS: POIKILOCYTOSIS SLIGHT; TEAR DROP CELLS SLIGHT
[2020-07-14 11:01] LABS: OVALOCYTES SLIGHT
[2020-07-14] MEDS: VANCOMYCIN HCL 750 MG in DEXTROSE 5%-WATER 250 ML IV SCH (13:17)
--- NOTE | 2020-07-14 16:19 | PDOC PROGRESS REPORT ---
Subjective Subjective:: Patient met yesterday for severe right lower extremity cellulitis, underwent debridement and I&D by general surgery, continued on broad-spectrum antibiotics local wound care. Patient does not seem to be in any significant pain today and is smiling and in good spirits. Her blood cultures are still pending but the initial results show gram-negative rods. Wound culture is pending. Potassium is coming down as it was initially elevated and creatinine is also improving today. ABIs still pending to rule out peripheral artery disease. TSH is normal. CT showed extensive cellulitis of right lower extremity but no kimberley inable abscess. Patient has no new complaints today. 07/10/2020 Patient in good spirits today which I think is mostly due to the fact she is oblivious to her medical problems due to her dementia. She is very pleasant lady and seems to be quite happy most the time. Blood pressure is elevated and WBC is higher. Hemoglobin and platelets have dropped and her creatinine is also downtrending approximately now at her baseline. We will be holding her DVT prophylaxis until her platelets recover. Patient has no new complaints today other than some discomfort in her right lower extremity. 07/11/2020 Patient in good spirits today although she is surprised daily when I tell her she has a leg infection and a bloodstream infection although we have had this discussion every day that she has been here. Suspect this is her severe dementia at play. Strangely, 1 of her blood cultures is growing vibrio species and I am at a loss for how she could have gotten this given she seems to be relatively immobilized at baseline. Vibrio species is not cholera or vulnificus per my discussion with microbiology lab today and is highly sensitive to many antibiotics. She also appears to be growing a few other bacteria that are not completely resulted yet. She remains on broad-spectrum antibiotics while these cultures are resulting. She still having some drainage from her leg wounds and we may need some guidance from surgery on how to care for these in the long- term. Second set of blood cultures on 07/10 are pending. Urine culture is negative. She has no new complaints today. 07/12/2020 I have consulted infectious disease for some advice on suspected vibrio infection in patients right leg wound culture. It seems to be sensitive to many antibiotics. Patient has no recollection of how she might of gotten contaminated water on this wound and she states she does not ambulate very far and has not been near body of water in many years. Creatinine lower as well as lower hemoglobin. Monitor bowels and her initial blood culture growing vibrio on 07/08. Second blood cultures are negative. She has no new complaints today and is pleasantly demented as usual. 07/13/2020 Patient seems to be doing well again today. She is a very pleasant and happy lady in general. We are still waiting on infectious disease consult which should be done tomorrow hopefully. Patient is continued on antibiotics and she seems to be tolerating these quite well. She and her family would like her to be discharged home with home health when she leaves the hospital and I think this is appropriate as long as she has excellent wound care in the outpatient setting. Patient has no new complaints today. 07/14/2020 Patient's wounds are still weeping quite a bit of serous and serosanguineous fluid. She will certainly need extensive wound care at discharge. I consulted infectious disease a few days ago but they have not been able to review the case due to the holiday weekend. We should have their opinion at some point tomorrow afternoon. Specifically, I would like them to comment on the treatment of the patient's vibrio species found in her wound culture. Antibiotics continue. Stop vancomycin. No MRSA isolated in any cultures. Patient states her right leg is hurting a bit more today. Reason For Visit: RLE CELLULITIS, HTN, HLD, DEMENTIA Physical Exam Vital Signs: Temp Pulse Resp BP Pulse Ox 98.2 F 70 19 146/50 H 97 07/14/20 11:32 07/14/20 11:32 07/14/20 11:32 07/14/20 11:32 07/14/20 11:32 Intake & Output 07/13/20 07/14/20 07/15/20 06:59 06:59 06:59 Intake Total 1135 1340 1660 Output Total 1300 860 Balance -123 153 3729 Weight 99.7 kg 99.8 kg Exam: General appearance: PRESENT: no acute distress, morbidly obese, well-developed, well-nourished, pleasantly demented, states her right leg more painful today Head exam: PRESENT: atraumatic, normocephalic Eye exam: PRESENT: conjunctiva pink Mouth exam: PRESENT: moist Respiratory exam: PRESENT: clear to auscultation laurie. ABSENT: rales, rhonchi, wheezes Cardiovascular exam: PRESENT: RRR. ABSENT: diastolic murmur, rubs, systolic mur mur GI/Abdominal exam: PRESENT: normal bowel sounds, soft. ABSENT: distended, guarding, mass, organolmegaly, rebound, tenderness Extremities exam: PRESENT: tenderness, +2 edema, other - multiple ulcerations of various stages of healing on both lower extremities; status post I&D of bullous lesions of right leg and debridement of left leg ulcer on anterior larson, moderate amount of drainage on bedsheets and dressings Neurological exam: PRESENT: alert, awake, oriented to person, oriented to place, oriented to time, oriented to situation Psychiatric exam: PRESENT: appropriate affect Skin exam: PRESENT: dry, warm Results Laboratory Results: 07/14/20 10:07 07/14/20 10:07 07/14/20 07/14/20 10:07 10:07 WBC 8.2 RBC 3.09 L Hgb 9.8 L Hct 28.7 L MCV 93 MCH 31.6 MCHC 33.9 RDW 16.4 H Plt Count 129 L Seg Neutrophils % Not Reportable Sodium 138.0 Potassium 4.7 Chloride 110 H Carbon Dioxide 22 Anion Gap 6 BUN 36 H Creatinine 1.49 H Est GFR ( Amer) 40 L Glucose 125 H Calcium 8.3 L 07/08/20 16:15 Blood Blood Culture - Final NO GROWTH IN 5 DAYS 07/08/20 12:47 Troponin I 0.125 NT-Pro-B Natriuret Pep 3990 H Impressions: Chest X-Ray 07/08/20 12:07 IMPRESSION: Cannot exclude left lower lobe pneumonia. Venous Doppler Study 07/08/20 12:07 IMPRESSION: NO EVIDENCE DVT OR SVT IN EITHER LEG. Tibia/Fibula X-Ray 07/08/20 13:34 IMPRESSION: CHRONIC DEGENERATIVE CHANGES. SOFT TISSUE SWELLING. NO ACUTE BONY FINDINGS. Lower Extremity CT 07/09/20 07:00 IMPRESSION: There is extensive edema and cellulitis. This is most pronounced along the pretibial region. No obvious focal fluid collection is seen. Evaluation is mildly limited by lack of intravenous contrast. Renal Ultrasound 07/09/20 10:49 IMPRESSION: 1. Increased echogenicity of the renal parenchyma - correlate for chronic medical renal disease. 2. Valdovinos catheter within the urinary bladder. Assessment and Plan - Diagnosis (1) Cellulitis of right lower extremity Is this a current diagnosis for this admission?: Yes Plan: 2-day history of worsening pain/edema/erythema/weeping, new large bullous pockets of fluid on posterior right leg Vancomycin/cefepime empiric Blood cultures growing gram-negative rods 1/2 bottles, repeat blood cultures sent High WBC and lactic acid with left shift General surgery consulted and they performed debridement and I&D of multiple right lower extremity bullous lesions Wound culture growing gram-negative rods Arterial ultrasound to rule out PAD CT RLE showed extensive soft tissue cellulitis but no drainable abscess 07/11/2020 Wound culture from I&D growing multiple bacteria 1/2 blood cultures from admission growing vibrio species with multiple sensitivities Repeat blood cultures on 07/10 pending Urine culture negative Continue broad-spectrum antibiotics 07/12/2020 Infectious disease consult Vibrio growing in 1/2 blood cultures and repeat blood cultures are negative Continue antibiotics She will need extensive wound care outpatient and needs referral to wound clinic 07/13/2020 Still waiting on infectious disease consult which we may not have until Tuesday due to the holiday tomorrow delays us again Antibiotics ongoing Cultures resulted 07/14/2020 Infectious disease consult will likely come tomorrow to tell us their opinion on treating vibrio species in leg wound Stop vancomycin as no MRSA is growing in any cultures Continue cefepime (2) Acute kidney injury superimposed on CKD Is this a current diagnosis for this admission?: Yes (3) Venous stasis of both lower extremities Is this a current diagnosis for this admission?: Yes (4) Morbid obesity Is this a current diagnosis for this admission?: Yes (5) HLD (hyperlipidemia) Is this a current diagnosis for this admission?: Yes (6) Hypothyroidism Is this a current diagnosis for this admission?: Yes (7) Dementia Is this a current diagnosis for this admission?: Yes (8) Chronic ulcer of left leg Qualifiers: Non-pressure ulcer stage: with necrosis of muscle Qualified Code(s): L97.923 - Non-pressure chronic ulcer of unspecified part of left lower leg with necrosis of muscle Is this a current diagnosis for this admission?: Yes (9) Essential hypertension Is this a current diagnosis for this admission?: Yes - Time Time Spent with patient: 25-34 minutes Medications reviewed and adjusted accordingly: Yes Anticipated Discharge Disposition: Home with Home Health Anticipated Discharge Timeframe: within 24 hours - Inpatient Certification Based on my medical assessment, after consideration of the patient's comorbidities, presenting symptoms, or acuity I expect that the services needed warrant INPATIENT care.: Yes I certify that my determination is in accordance with my understanding of Medicare's requirements for reasonable and necessary INPATIENT services [42 CFR 412.3e].: Yes Medical Necessity: Significant Comorbidiites Make Outpatient Treatment Too Risky, Need Close Monitoring Due to Risk of Patient Decompensation, Need for IV Antibiotics, Risk of Complication if Not Cared For in Hospital, Risk of Diagnosis Which Will Require Inpatient Eval/Care/Monitoring
[2020-07-14] MEDS: CEFEPIME 1 GM/D5W RTU 1 GM/50 ML RTUPB IV SCH (18:35)
[2020-07-14] MEDS: DONEPEZIL HCL 5 MG TABLET PO SCH (21:40)
[2020-07-15] MEDS: LEVOTHYROXINE SODIUM 0.1 MG TABLET PO SCH (05:49)
[2020-07-15] MEDS: CLONIDINE HCL 0.1 MG TABLET PO SCH ×2 (09:05→22:02)
[2020-07-15] MEDS: SILVER SULFADIAZINE 1% CREAM 400 GM TP SCH ×2 (09:06→22:03)
[2020-07-15] MEDS: NORMAL SALINE 1000 ML 1,000 ML IV PRN (09:06)
[2020-07-15] MEDS: PRENATAL VITAMIN W DHA CAPSULE PO SCH (09:06)
[2020-07-15] MEDS: ENOXAPARIN SODIUM INJ 30 MG/0.3 ML DISP.SYRIN SUBCUT SCH (09:06)
[2020-07-15 11:41] LABS: HEMATOCRIT 30.2 % (36.0-47.0); MEAN CORPUSCULAR HEMOGLOBIN 31.4 pg (27.0-33.4); MEAN CORPUSCULAR HGB CONC 33.3 g/dL (32.0-36.0); MEAN CORPUSCULAR VOLUME 95 fl (80-97); PLATELET COUNT 154 10^3/uL (150-450); RED BLOOD COUNT 3.19 10^6/uL (3.72-5.28); RED CELL DISTRIBUTION WIDTH 16.4 % (11.5-14.0); WHITE BLOOD COUNT 8.9 10^3/uL (4.0-10.5)
[2020-07-15 12:01] LABS: ANION GAP 6 (5-19); BLOOD UREA NITROGEN 32 mg/dL (7-20); CALCIUM 8.4 mg/dL (8.4-10.2); CARBON DIOXIDE 22 mmol/L (22-30); CHLORIDE 108 mmol/L (98-107); GLUCOSE 215 mg/dL (75-110); POTASSIUM 4.7 mmol/L (3.6-5.0)
[2020-07-15] MEDS: MORPHINE SULFATE 10 MG/ML INJ IV PRN (13:16)
--- NOTE | 2020-07-15 14:15 | PDOC PROGRESS REPORT ---
Subjective Progress Note for:: 07/15/20 Subjective:: She is feeling well. Denies any particular concerns. Attempted to call daughter, Kerry, but received no answer. Reason For Visit: RLE CELLULITIS, HTN, HLD, DEMENTIA Physical Exam Vital Signs: Temp Pulse Resp BP Pulse Ox 98.3 F 67 19 137/50 H 97 07/15/20 08:37 07/15/20 07:25 07/15/20 07:25 07/15/20 07:25 07/15/20 07:25 Intake & Output 07/14/20 07/15/20 07/16/20 06:59 06:59 06:59 Intake Total 1340 2840 370 Output Total 860 1450 Balance 480 1390 370 Weight 99.8 kg 94.8 kg 94.8 kg General appearance: PRESENT: no acute distress Eye exam: ABSENT: conjunctival injection Mouth exam: PRESENT: moist Neck exam: ABSENT: JVD Respiratory exam: PRESENT: clear to auscultation laurie. ABSENT: accessory muscle use Cardiovascular exam: PRESENT: RRR. ABSENT: irregular rhythm GI/Abdominal exam: PRESENT: normal bowel sounds Extremities exam: PRESENT: other - b/l lower legs wrapped, RLE weeping Neurological exam: PRESENT: alert, oriented to person. ABSENT: oriented to place, oriented to time Results Laboratory Results: 07/15/20 10:57 07/15/20 10:57 07/15/20 07/15/20 10:57 10:57 WBC 8.9 RBC 3.19 L Hgb 10.0 L Hct 30.2 L MCV 95 MCH 31.4 MCHC 33.3 RDW 16.4 H Plt Count 154 Sodium 135.6 L Potassium 4.7 Chloride 108 H Carbon Dioxide 22 Anion Gap 6 BUN 32 H Creatinine 1.57 H Est GFR ( Amer) 38 L Glucose 215 H Calcium 8.4 Magnesium 2.0 07/08/20 19:50 Leg - Right Cellulitis Gram Stain - Final 07/08/20 19:50 Leg - Right Cellulitis Wound Culture - Final Alcaligenes Species Shewanella Putrefaciens Skin Coral 07/08/20 12:47 Troponin I 0.125 NT-Pro-B Natriuret Pep 3990 H Impressions: Chest X-Ray 07/08/20 12:07 IMPRESSION: Cannot exclude left lower lobe pneumonia. Venous Doppler Study 07/08/20 12:07 IMPRESSION: NO EVIDENCE DVT OR SVT IN EITHER LEG. Tibia/Fibula X-Ray 07/08/20 13:34 IMPRESSION: CHRONIC DEGENERATIVE CHANGES. SOFT TISSUE SWELLING. NO ACUTE BONY FINDINGS. Lower Extremity CT 07/09/20 07:00 IMPRESSION: There is extensive edema and cellulitis. This is most pronounced along the pretibial region. No obvious focal fluid collection is seen. Evaluation is mildly limited by lack of intravenous contrast. Renal Ultrasound 07/09/20 10:49 IMPRESSION: 1. Increased echogenicity of the renal parenchyma - correlate for chronic medical renal disease. 2. Valdovinos catheter within the urinary bladder. Assessment and Plan - Plan Summary Summary: RLE Cellulitis: 2-day history of worsening pain/edema/erythema/weeping, new large bullous pockets of fluid on posterior right leg. Found to have high WBC with left shift and lactic acidosis. Initially started on empiric Vancomycin/Cefepime. CT RLE showed extensive soft tissue cellulitis but no drainable abscess. General surgery consulted and they performed I&D, debridement of multiple right lower extremity bullous lesions. 1/2 blood cultures from admission growing vibrio species. - Infectious disease consulted on 07/12/2020, awaiting recommendations - She will need extensive wound care outpatient and needs referral to wound clinic - no MRSA is growing in any cultures, so Vanc discontinued - Continue cefepime, will discuss whether dosage needs to be adjusted for CrCl Pre-renal DENISSE on CKD Stage 3: she has had continually improving kidney function throughout admission, although it appears that her kidney function has now plateaued. Nephrology consulted. - was due to dehydration and resolved with IVF - avoid nephrotoxins - renally dose medications for eGFR ~30 Dementia Frail Elderly Generalized Weakness - fall precautions - delirium precautions - PT - may benefit from discharge to rehab, and then potentially to a LTC facility given her advanced age, frailty, weakness and ongoing wound care needs Goals of Care: will need to address, along with Code Status, with family. Attempted to call daughter, Kerry, today and left voicemail. Will attempt again tomorrow. - Time Time Spent with patient: 25-34 minutes Anticipated Discharge Disposition: [facility] Facility Anticipated Discharge Timeframe: within 48 hours
--- NOTE | 2020-07-15 14:32 | ADVANCED CARE ---
Resuscitation Status: Do Not Resuscitate Care Planning Goals: Spoke with Ms. Jain's daughter, Kerry, today at length. We discussed the patient's advanced age and multiple co-morbidities including dementia, chronic kidney disease, frailty, and generalized weakness. Kerry notes that her mom lives alone but is no longer able to care for herself. Kerry's chief concern is her mother's quality of life. We discussed her prolonged hospital stay here and the fact that she will need SNF for rehab/wound care upon discharge, and that her mom may require LTC even afterwards. Kerry is understanding and agreeable. We also discussed goals of care and code status. Kerry, who is her mother's medical POA as her only child, would like to change Ms. Jain's code status to DNR/DNI which I believe is absolutely appropriate. Time Spent: >30 minutes
[2020-07-15] MEDS: CEFEPIME 1 GM/D5W RTU 1 GM/50 ML RTUPB IV SCH (18:11)
[2020-07-15] MEDS: DONEPEZIL HCL 5 MG TABLET PO SCH (22:02)
[2020-07-15] MEDS: DOXYCYCLINE HYCLATE 100 MG TABLET PO SCH (22:03)
[2020-07-16] MEDS: MORPHINE SULFATE 10 MG/ML INJ IV PRN (03:16)
[2020-07-16] MEDS: LEVOTHYROXINE SODIUM 0.1 MG TABLET PO SCH (05:11)
[2020-07-16] MEDS: CEFEPIME 1 GM/D5W RTU 1 GM/50 ML RTUPB IV SCH ×2 (05:11→17:47)
--- NOTE | 2020-07-16 07:14 | Progress Note ---
Provider Note Provider Note: [facility] ID Telephone Advice Consultation Chart reviewed. Patient is a 85-year-old woman with dementia who recently juarez ffered a fall at home developing superficial parsons on her right leg. She has a wound in her right knee as well. Per notes, she started having worsening erythema, swelling and pain in her right leg. Wound started draining. She was admitted on 07/08. Blood cultures had 1/2 sets positive for Vibrio spp. Repeat cultures on 07/10 negative. Wound cultures grew Alcalinegens spp and Shewanella putrefaciens. She was evaluated by surgery for I&D on 07/08. CT of the right leg on 07/09 showed soft tissue swelling, no abscess. She had DENISSE with a creatinine above 4, now improved to 1.5. CRP significantly elevated 257. She was initially on cefepime and vancomycin, vancomycin discontinued. ID consulted for recommendations. Allergies: No Known Allergies Allergy (Verified 09/10/19 16:57) Medications: Furosemide [Lasix 20 mg Tablet] 20 mg PO DAILY 08/11/17 Levothyroxine Sodium [Synthroid 0.1 mg Tablet] 0.1 mg PO DAILY 08/11/17 Ascorbic Acid [Vitamin C 500 mg Tablet] 500 mg PO DAILY 07/08/20 Aspirin [Ecotrin 81 mg EC Tablet] 81 mg PO DAILY 07/08/20 Cholecalciferol (Vitamin D3) [Vitamin D3 400 Unit Tablet] 400 unit PO DAILY 07/08/20 Clonidine HCl [Catapres 0.1 mg Tablet] 0.1 mg PO Q12 07/08/20 Cyanocobalamin (Vitamin B-12) [Vitamin B-12 1000 Mcg Tablet] 1 tab PO DAILY 07/08/20 Donepezil HCl 10 mg PO QHS 07/08/20 Ferrous Fumarate 45 mg PO DAILY 07/08/20 Memantine HCl 10 mg PO QPM 07/08/20 Prednisone [Deltasone 5 mg Tablet] 5 mg PO DAILY 07/08/20 Vits96/Iron Fum/Folic [ Tablet] 1 each PO DAILY 07/08/20 Vital Signs: Temp Pulse Resp BP Pulse Ox 97.7 F 66 18 174/52 H 100 07/15/20 23:31 07/15/20 23:31 07/15/20 23:31 07/15/20 23:31 07/15/20 23:31 Intake & Output 07/15/20 07/16/20 07/17/20 06:59 06:59 06:59 Intake Total 2840 1690 Output Total 1450 700 Balance 1390 990 Weight 94.8 kg 99.5 kg Weight/Height Weight 99.5 kg Height 5 ft 6.5 in Laboratories: 07/15/20 10:57 07/15/20 10:57 MCV 95 fl (80-97) 07/15/20 10:57 MCH 31.4 pg (27.0-33.4) 07/15/20 10:57 MCHC 33.3 g/dL (32.0-36.0) 07/15/20 10:57 RDW 16.4 % (11.5-14.0) H 07/15/20 10:57 Seg Neutrophils % Not Reportable 07/14/20 10:07 Chloride 108 mmol/L (98-107) H 07/15/20 10:57 Carbon Dioxide 22 mmol/L (22-30) 07/15/20 10:57 Anion Gap 6 (5-19) 07/15/20 10:57 Est GFR ( Amer) 38 (>60) L 07/15/20 10:57 Glucose 215 mg/dL (75-110) H 07/15/20 10:57 Lactic Acid 1.7 mmol/L (0.7-2.1) 07/08/20 16:15 Calcium 8.4 mg/dL (8.4-10.2) 07/15/20 10:57 Phosphorus 4.7 mg/dL (2.5-4.5) H 07/09/20 04:44 Magnesium 2.0 mg/dL (1.6-2.3) 07/15/20 10:57 Total Bilirubin 0.7 mg/dL (0.2-1.3) 07/08/20 12:47 AST 43 U/L (14-36) H 07/08/20 12:47 Alkaline Phosphatase 55 U/L (38-126) 07/08/20 12:47 C-Reactive Protein 257.3 mg/L (<10.0) H 07/08/20 12:47 Total Protein 6.2 g/dL (6.3-8.2) L 07/08/20 12:47 Albumin 3.2 g/dL (3.5-5.0) L 07/08/20 12:47 TSH 1.48 uIU/mL (0.47-4.68) 07/09/20 04:44 Urine Color YELLOW 07/09/20 15:40 Urine Appearance SLIGHTLY-CLOUDY 07/09/20 15:40 Urine pH 5.0 (5.0-9.0) 07/09/20 15:40 Ur Specific [place] 1.014 07/09/20 15:40 Urine Protein 30 mg/dL (NEGATIVE) H 07/09/20 15:40 Urine Glucose (UA) NEGATIVE mg/dL (NEGATIVE) 07/09/20 15:40 Urine Ketones NEGATIVE mg/dL (NEGATIVE) 07/09/20 15:40 Urine Blood LARGE (NEGATIVE) H 07/09/20 15:40 Urine Nitrite NEGATIVE (NEGATIVE) 07/09/20 15:40 Ur Leukocyte Esterase MODERATE (NEGATIVE) H 07/09/20 15:40 Urine WBC (Auto) 33 /HPF 07/09/20 15:40 Urine RBC (Auto) 68 /HPF 07/09/20 15:40 07/10/20 18:43 Blood Blood Culture - Final NO GROWTH IN 5 DAYS 07/10/20 18:20 Blood Blood Culture - Final NO GROWTH IN 5 DAYS 07/08/20 19:50 Leg - Right Cellulitis Gram Stain - Final 07/08/20 19:50 Leg - Right Cellulitis Wound Culture - Final Alcaligenes Species Shewanella Putrefaciens Skin Coral 07/08/20 Blood Vibrio spp 1/2 sets Radiology: Chest X-Ray 07/08/20 12:07 IMPRESSION: Cannot exclude left lower lobe pneumonia. Venous Doppler Study 07/08/20 12:07 IMPRESSION: NO EVIDENCE DVT OR SVT IN EITHER LEG. Tibia/Fibula X-Ray 07/08/20 13:34 IMPRESSION: CHRONIC DEGENERATIVE CHANGES. SOFT TISSUE SWELLING. NO ACUTE BONY FINDINGS. Lower Extremity CT 07/09/20 07:00 IMPRESSION: There is extensive edema and cellulitis. This is most pronounced along the pretibial region. No obvious focal fluid collection is seen. Evaluation is mildly limited by lack of intravenous contrast. Renal Ultrasound 07/09/20 10:49 IMPRESSION: 1. Increased echogenicity of the renal parenchyma - correlate for chronic medical renal disease. 2. Valdovinos catheter within the urinary bladder. Assessment and Recommendations: Patient evaluated due to Vibrio bacteremia in the setting of contaminated wound with waterborne organisms including Shewanella and Alcaligenes. It is unclear how her wound was contaminated with these organisms but she is on cefepime for her wound and bacteremia, will add doxycycline. Duration of therapy will be 14 days from negative blood cultures. When ready to be discharged home, can transition to levofloxacin 500 mg daily and doxycycline 100 mg po bid until 07/24. Recommendations given to attending physician. Please call back if questions. Macy Snowden MD [facility] [phone]
[2020-07-16] MEDS: PRENATAL VITAMIN W DHA CAPSULE PO SCH (09:17)
[2020-07-16] MEDS: ENOXAPARIN SODIUM INJ 30 MG/0.3 ML DISP.SYRIN SUBCUT SCH (09:17)
[2020-07-16] MEDS: DOCUSATE SODIUM 100 MG CAPSULE PO SCH (09:17)
[2020-07-16] MEDS: CLONIDINE HCL 0.1 MG TABLET PO SCH ×2 (09:17→21:39)
[2020-07-16] MEDS: SILVER SULFADIAZINE 1% CREAM 400 GM TP SCH ×2 (09:18→21:40)
[2020-07-16 09:38] LABS: HEMATOCRIT 27.8 % (36.0-47.0); HEMOGLOBIN 9.2 g/dL (12.0-15.5); MEAN CORPUSCULAR HEMOGLOBIN 31.2 pg (27.0-33.4); MEAN CORPUSCULAR HGB CONC 33.2 g/dL (32.0-36.0); MEAN CORPUSCULAR VOLUME 94 fl (80-97); PLATELET COUNT 150 10^3/uL (150-450); RED BLOOD COUNT 2.96 10^6/uL (3.72-5.28); RED CELL DISTRIBUTION WIDTH 16.1 % (11.5-14.0); WHITE BLOOD COUNT 11.2 10^3/uL (4.0-10.5)
[2020-07-16 09:52] LABS: ANION GAP 6 (5-19); BLOOD UREA NITROGEN 28 mg/dL (7-20); CALCIUM 8.2 mg/dL (8.4-10.2); CARBON DIOXIDE 22 mmol/L (22-30); CHLORIDE 110 mmol/L (98-107); GLUCOSE 107 mg/dL (75-110); POTASSIUM 4.5 mmol/L (3.6-5.0)
[2020-07-16 10:21] LABS: ABSOLUTE LYMPHOCYTES# (MANUAL) 1.6 10^3/uL (0.5-4.7); ABSOLUTE MONOCYTES # (MANUAL) 1.1 10^3/uL (0.1-1.4); BASOPHILS % (MANUAL) 1 % (0-2); EOSINOPHILS % (MANUAL) 2 % (0-6); LYMPHOCYTES % (MANUAL) 13 % (13-45); MONOCYTES % (MANUAL) 10 % (3-13); SEGMENTED NEUTROPHILS % (MAN) 73 % (42-78); TOTAL CELLS COUNTED 100
[2020-07-16 10:23] LABS: TOXIC GRANULATION 1+
[2020-07-16 10:28] LABS: ANISOCYTOSIS 1+; OVALOCYTES SLIGHT; PLATELET COMMENT ADEQUATE; POIKILOCYTOSIS SLIGHT; POLYCHROMASIA SLIGHT; SCHISTOCYTES SLIGHT; TEAR DROP CELLS SLIGHT
[2020-07-16] MEDS: DOXYCYCLINE HYCLATE 100 MG TABLET PO SCH ×2 (11:37→21:39)
[2020-07-16] MEDS ORDERED: BISACODYL 10 MG SUPP.RECT PR PRN (15:54)
--- NOTE | 2020-07-16 17:43 | PDOC PROGRESS REPORT ---
Subjective Progress Note for:: 07/16/20 Subjective:: Feeling well. No particular concerns. Notes no BM for several days but denies abdominal pain. Reason For Visit: RLE CELLULITIS, HTN, HLD, DEMENTIA Physical Exam Vital Signs: Temp Pulse Resp BP Pulse Ox 97.7 F 66 18 174/52 H 100 07/16/20 08:58 07/15/20 23:31 07/15/20 23:31 07/15/20 23:31 07/15/20 23:31 Intake & Output 07/15/20 07/16/20 07/17/20 06:59 06:59 06:59 Intake Total 2840 1690 950 Output Total 1450 700 Balance 1390 990 950 Weight 94.8 kg 99.5 kg General appearance: PRESENT: no acute distress Head exam: PRESENT: atraumatic Mouth exam: PRESENT: moist Neck exam: ABSENT: JVD Respiratory exam: PRESENT: clear to auscultation laurie Cardiovascular exam: PRESENT: RRR GI/Abdominal exam: PRESENT: normal bowel sounds Extremities exam: PRESENT: other - bilateral legs swollen/bandaged, RLE weeping Neurological exam: PRESENT: alert, oriented to person. ABSENT: oriented to place, oriented to time, oriented to situation Skin exam: ABSENT: rash Results Laboratory Results: 07/16/20 08:15 07/16/20 08:15 07/16/20 07/16/20 08:15 08:15 WBC 11.2 H RBC 2.96 L Hgb 9.2 L Hct 27.8 L MCV 94 MCH 31.2 MCHC 33.2 RDW 16.1 H Plt Count 150 Seg Neutrophils % Not Reportable Sodium 138.1 Potassium 4.5 Chloride 110 H Carbon Dioxide 22 Anion Gap 6 BUN 28 H Creatinine 1.49 H Est GFR ( Amer) 40 L Glucose 107 Calcium 8.2 L 07/10/20 18:43 Blood Blood Culture - Final NO GROWTH IN 5 DAYS 07/10/20 18:20 Blood Blood Culture - Final NO GROWTH IN 5 DAYS 07/08/20 12:47 Troponin I 0.125 NT-Pro-B Natriuret Pep 3990 H Impressions: Chest X-Ray 07/08/20 12:07 IMPRESSION: Cannot exclude left lower lobe pneumonia. Venous Doppler Study 07/08/20 12:07 IMPRESSION: NO EVIDENCE DVT OR SVT IN EITHER LEG. Tibia/Fibula X-Ray 07/08/20 13:34 IMPRESSION: CHRONIC DEGENERATIVE CHANGES. SOFT TISSUE SWELLING. NO ACUTE BONY FINDINGS. Lower Extremity CT 07/09/20 07:00 IMPRESSION: There is extensive edema and cellulitis. This is most pronounced along the pretibial region. No obvious focal fluid collection is seen. Evaluation is mildly limited by lack of intravenous contrast. Renal Ultrasound 07/09/20 10:49 IMPRESSION: 1. Increased echogenicity of the renal parenchyma - correlate for chronic medical renal disease. 2. Valdovinos catheter within the urinary bladder. Assessment and Plan - Plan Summary Summary: RLE Cellulitis: 2-day history of worsening pain/edema/erythema/weeping, new large bullous pockets of fluid on posterior right leg. Found to have high WBC with left shift and lactic acidosis. Initially started on empiric Vancomyci n/Cefepime. CT RLE showed extensive soft tissue cellulitis but no drainable abscess. General surgery consulted and they performed I&D, debridement of multiple right lower extremity bullous lesions. 1/2 blood cultures from admission growing vibrio species. Vibrio bacteremia in the setting of contamin ated wound with waterborne organisms including Shewanella and Alcaligenes. - Infectious disease consulted on 07/12/2020. Duration of therapy will be 14 days from negative blood cultures. When ready to be discharged home, can transition to levofloxacin 500 mg daily and doxycycline 100 mg po bid until 07/24. - She will need extensive wound care outpatient and needs referral to wound clinic - Continue cefepime/doxycycline while inpatient Pre-renal DENISSE on CKD Stage 3: she has had continually improving kidney function throughout admission, although it appears that her kidney function has now plateaued. Nephrology consulted. - was due to dehydration and resolved with IVF - avoid nephrotoxins - renally dose medications for eGFR ~30 Dementia Frail Elderly Generalized Weakness - fall precautions - delirium precautions - PT - may benefit from discharge to rehab, and then potentially to a LTC facility given her advanced age, frailty, weakness and ongoing wound care needs Constipation - dulcolax PRN - Time Time Spent with patient: 25-34 minutes [facility]ticipated [facility] Anticipated Discharge Timeframe: within 24 hours
[2020-07-16] MEDS: DONEPEZIL HCL 5 MG TABLET PO SCH (21:39)
[2020-07-17] MEDS: LEVOTHYROXINE SODIUM 0.1 MG TABLET PO SCH (05:07)
[2020-07-17] MEDS: CEFEPIME 1 GM/D5W RTU 1 GM/50 ML RTUPB IV SCH ×2 (05:07→18:40)
[2020-07-17] MEDS: CLONIDINE HCL 0.1 MG TABLET PO SCH ×2 (10:22→22:11)
[2020-07-17] MEDS: DOXYCYCLINE HYCLATE 100 MG TABLET PO SCH ×2 (10:22→22:11)
[2020-07-17] MEDS: PRENATAL VITAMIN W DHA CAPSULE PO SCH (10:22)
[2020-07-17] MEDS: ENOXAPARIN SODIUM INJ 30 MG/0.3 ML DISP.SYRIN SUBCUT SCH (10:22)
[2020-07-17] MEDS: SILVER SULFADIAZINE 1% CREAM 400 GM TP SCH ×2 (10:23→22:11)
[2020-07-17] MEDS: ACETAMINOPHEN 325 MG TABLET PO PRN (10:30)
--- NOTE | 2020-07-17 17:16 | PDOC PROGRESS REPORT ---
Subjective Progress Note for:: 07/17/20 Subjective:: Valdovinos catheter was removed last night, but she has not been able to urinate. Bladder scan showed >600 retained urine and she required Valdovinos to be replaced today. Reason For Visit: RLE CELLULITIS, HTN, HLD, DEMENTIA Physical Exam Vital Signs: Temp Pulse Resp BP Pulse Ox 98.2 F 60 19 139/46 H 97 07/17/20 10:00 07/17/20 08:09 07/17/20 08:09 07/17/20 08:09 07/17/20 08:09 Intake & Output 07/16/20 07/17/20 07/18/20 06:59 06:59 06:59 Intake Total 1690 1870 Output Total 700 200 Balance 990 1670 Weight 99.5 kg 96.1 kg General appearance: PRESENT: no acute distress Eye exam: ABSENT: scleral icterus Mouth exam: PRESENT: moist Neck exam: ABSENT: JVD Respiratory exam: PRESENT: clear to auscultation laurie, unlabored Cardiovascular exam: PRESENT: RRR GI/Abdominal exam: PRESENT: normal bowel sounds, soft. ABSENT: tenderness Extremities exam: PRESENT: other - BLE bandages removed today with nursing staff. Wounds examined. RLE wounds still weeping, not erythematous and no pus present. RLE also has 2+ pitting edema, which is likely contributing to slow healing process. LLE 1+ pitting edema. Neurological exam: PRESENT: alert, awake, oriented to person, oriented to place. ABSENT: oriented to time Psychiatric exam: PRESENT: flat affect Results Laboratory Results: 07/16/20 08:15 07/16/20 08:15 07/08/20 12:47 Troponin I 0.125 NT-Pro-B Natriuret Pep 3990 H Impressions: Chest X-Ray 07/08/20 12:07 IMPRESSION: Cannot exclude left lower lobe pneumonia. Venous Doppler Study 07/08/20 12:07 IMPRESSION: NO EVIDENCE DVT OR SVT IN EITHER LEG. Tibia/Fibula X-Ray 07/08/20 13:34 IMPRESSION: CHRONIC DEGENERATIVE CHANGES. SOFT TISSUE SWELLING. NO ACUTE BONY FINDINGS. Lower Extremity CT 07/09/20 07:00 IMPRESSION: There is extensive edema and cellulitis. This is most pronounced along the pretibial region. No obvious focal fluid collection is seen. Evaluation is mildly limited by lack of intravenous contrast. Renal Ultrasound 07/09/20 10:49 IMPRESSION: 1. Increased echogenicity of the renal parenchyma - correlate for chronic medical renal disease. 2. Valdovinos catheter within the urinary bladder. Assessment and Plan - Plan Summary Summary: RLE Cellulitis: 2-day history of worsening pain/edema/erythema/weeping, new large bullous pockets of fluid on posterior right leg. Found to have high WBC with left shift and lactic acidosis. Initially started on empiric Vancomycin/Cefepime. CT RLE showed extensive soft tissue cellulitis but no drainable abscess. General surgery consulted and they performed I&D, debridement of multiple right lower extremity bullous lesions. 1/2 blood cultures from admission showing Vibrio bacteremia in the setting of contaminated wound with waterborne organisms including Shewanella and Alcaligenes. Infectious disease consulted and recommended that the duration of therapy will be 14 days from negative blood cultures. When ready to be discharged home, can transition to l evofloxacin 500 mg daily and doxycycline 100 mg po bid until 07/24. - She will need ongoing, extensive wound care and podiatry consultation as outpatient. - Continue cefepime/doxycycline while inpatient Pre-renal DENISSE on CKD Stage 3: she has had continually improving kidney function throughout admission, although it appears that her kidney function has now plateaued. Nephrology consulted. DENISSE was due to dehydration and resolved with IVF, which are not discontinued. - avoid nephrotoxins - renally dose medications for eGFR ~30 Dementia Frail Elderly Generalized Weakness - fall precautions - delirium precautions - PT - may benefit from discharge to rehab, and then potentially to a LTC facility given her advanced age, frailty, weakness and ongoing wound care needs Constipation - dulcolax PRN Urinary Retention - Valdovinos catheter had to be replaced on 07/17/2020 due to retention. She should have a repeat voiding trial in 1-2 weeks. - Time Time Spent with patient: 35 or more minutes Anticipated Discharge Disposition: [facility] Anticipated Discharge Timeframe: within 24 hours
[2020-07-17] MEDS: DONEPEZIL HCL 5 MG TABLET PO SCH (22:11)
[2020-07-18] MEDS: CEFEPIME 1 GM/D5W RTU 1 GM/50 ML RTUPB IV SCH (05:26)
[2020-07-18] MEDS: LEVOTHYROXINE SODIUM 0.1 MG TABLET PO SCH (05:26)
[2020-07-18 07:20] LABS: HEMATOCRIT 26.4 % (36.0-47.0); HEMOGLOBIN 8.8 g/dL (12.0-15.5); MEAN CORPUSCULAR HEMOGLOBIN 31.2 pg (27.0-33.4); MEAN CORPUSCULAR HGB CONC 33.3 g/dL (32.0-36.0); MEAN CORPUSCULAR VOLUME 94 fl (80-97); PLATELET COUNT 177 10^3/uL (150-450); RED BLOOD COUNT 2.82 10^6/uL (3.72-5.28); RED CELL DISTRIBUTION WIDTH 15.7 % (11.5-14.0); WHITE BLOOD COUNT 9.3 10^3/uL (4.0-10.5)
[2020-07-18 07:34] LABS: BLOOD UREA NITROGEN 25 mg/dL (7-20); CALCIUM 8.6 mg/dL (8.4-10.2); GLUCOSE 85 mg/dL (75-110); POTASSIUM 4.5 mmol/L (3.6-5.0)
[2020-07-18 07:41] LABS: ANION GAP 5 (5-19); CARBON DIOXIDE 21 mmol/L (22-30); CHLORIDE 110 mmol/L (98-107)
[2020-07-18] MEDS: DOCUSATE SODIUM 100 MG CAPSULE PO SCH (10:27)
[2020-07-18] MEDS: PRENATAL VITAMIN W DHA CAPSULE PO SCH (10:28)
[2020-07-18] MEDS: DOXYCYCLINE HYCLATE 100 MG TABLET PO SCH (10:32)
[2020-07-18] MEDS: CLONIDINE HCL 0.1 MG TABLET PO SCH (10:33)
[2020-07-18] MEDS: ENOXAPARIN SODIUM INJ 30 MG/0.3 ML DISP.SYRIN SUBCUT SCH (10:35)
[2020-07-18] MEDS: SILVER SULFADIAZINE 1% CREAM 400 GM TP SCH (10:36)
--- NOTE | 2020-07-18 14:23 | PDOC DISCHARGE SUMMARY ---
Impression - Admit/DC Date/PCP Admission Date/Primary Care Provider: 07/08/20 16:34 RASHEL DOS SANTOS MD Discharge Date: 07/18/20 - Discharge Diagnosis (1) Acute kidney injury superimposed on CKD Is this a current diagnosis for this admission?: Yes (2) Dementia Is this a current diagnosis for this admission?: Yes (3) Hypothyroidism Is this a current diagnosis for this admission?: Yes (4) Morbid obesity Is this a current diagnosis for this admission?: Yes (5) Venous stasis of both lower extremities Is this a current diagnosis for this admission?: Yes (6) Chronic kidney disease, stage III (moderate) Is this a current diagnosis for this admission?: Yes (7) Essential hypertension Is this a current diagnosis for this admission?: Yes (8) Infected stasis ulcer of left lower extremity Is this a current diagnosis for this admission?: Yes - Assessment Summary: RLE Cellulitis due to infected venous stasis ulcer: she presented with a 2-day history of worsening pain/edema/erythema/weeping and new large bullous pockets of fluid on posterior right leg. Found to have high WBC with left shift and lactic acidosis. Initially started on empiric Vancomycin/Cefepime. CT RLE showed extensive soft tissue cellulitis. General surgery consulted and they performed I&D, debridement of multiple right lower extremity bullous lesions. 1/2 blood cultures from admission showing Vibrio bacteremia in the setting of contaminated wound with waterborne organisms including Shewanella and Alcaligenes. Infectious disease consulted and recommended that the duration of therapy will be 14 days from negative blood cultures. - On the day of discharge, she was transitioned from IV antibiotics to levofloxacin 500 mg daily and doxycycline 100 mg po bid (both to be continued until 07/24). - She will need ongoing, extensive wound care and podiatry consultation as outpatient, both for her RLE as well as her LLE. Pre-renal DENISSE on CKD Stage 3: she has had continually improving kidney function throughout admission, although it appears that her kidney function has now plateaued. Nephrology was consulted. DENISSE was due to dehydration and resolved with IVF, which are now discontinued. Dementia and Generalized Weakness: she is exceedingly weak and would benefit from discharge to rehab for ongoing PT/OT, and then potentially to a LTC facility given her advanced age, frailty, weakness and ongoing wound care needs. Acute Urinary Retention: Valdovinos catheter had to be placed on 07/17/2020 due to retention. She should have a repeat voiding trial in 1 week (around 07/24/2020), to see if the Valdovinos can be removed altogether. Code Status: DNR/DNI - Additional Information Resuscitation Status: Do Not Resuscitate Discharge Diet: Cardiac Discharge Activity: Activity As Tolerated, Other - elevate legs when not ambulating Referrals: RASHEL DOS SANTOS MD [Primary Care Provider] - Follow up as needed (DR OFFICE CLOSED AT ONE) Home Medications: Levothyroxine Sodium [Synthroid 0.1 mg Tablet] 0.1 mg PO DAILY 08/11/17 Ascorbic Acid [Vitamin C 500 mg Tablet] 500 mg PO DAILY 07/08/20 Aspirin [Ecotrin 81 mg EC Tablet] 81 mg PO DAILY 07/08/20 Cholecalciferol (Vitamin D3) [Vitamin D3 400 Unit Tablet] 400 unit PO DAILY 07/08/20 Clonidine HCl [Catapres 0.1 mg Tablet] 0.1 mg PO Q12 07/08/20 Cyanocobalamin (Vitamin B-12) [Vitamin B-12 1000 mcg Tablet] 1 tab PO DAILY 07/08/20 Donepezil HCl 10 mg PO QHS 07/08/20 Ferrous Fumarate 45 mg PO DAILY 07/08/20 Vits96/Iron Fum/Folic [ Tablet] 1 each PO DAILY 07/08/20 Acetaminophen [Tylenol 325 mg Tablet] 650 mg PO Q4HP PRN tablet 07/18/20 Bisacodyl [Dulcolax 10 mg Supp.rect] 10 mg ME DAILYP PRN supp.rect 07/18/20 Doxycycline Hyclate [Vibramycin 100 mg Tablet] 100 mg PO Q12 #14 tablet 07/18/20 Levofloxacin [Levaquin 500 mg Tablet] 500 mg PO DAILY #7 tablet 07/18/20 Ondansetron [Zofran Odt 4 mg Tablet] 4 mg PO Q4HP PRN tab.rapdis 07/18/20 Silver Sulfadiazine [Silvadene 1% Cream 400 gm] 1 applic TP Q12 jar 07/18/20 History of Present Illiness History of Present Illness: DANK WHITE is a 85 year old female Physical Exam Vital Signs: Temp Pulse Resp BP Pulse Ox 97.7 F 67 12 154/52 H 95 07/18/20 10:46 07/18/20 10:46 07/18/20 10:46 07/18/20 10:46 07/18/20 10:46 Intake & Output 07/17/20 07/18/20 07/19/20 06:59 06:59 06:59 Intake Total 1870 558 122 Output Total 200 1400 250 Balance 1670 -842 -128 Weight 96.1 kg 96.5 kg Results Laboratory Results: WBC 9.3 10^3/uL (4.0-10.5) 07/18/20 05:46 RBC 2.82 10^6/uL (3.72-5.28) L 07/18/20 05:46 Hgb 8.8 g/dL (12.0-15.5) L 07/18/20 05:46 Hct 26.4 % (36.0-47.0) L 07/18/20 05:46 MCV 94 fl (80-97) 07/18/20 05:46 MCH 31.2 pg (27.0-33.4) 07/18/20 05:46 MCHC 33.3 g/dL (32.0-36.0) 07/18/20 05:46 RDW 15.7 % (11.5-14.0) H 07/18/20 05:46 Plt Count 177 10^3/uL (150-450) 07/18/20 05:46 Lymph % (Auto) Not Reportable 07/16/20 08:15 [place] % (Auto) Not Reportable 07/16/20 08:15 Eos % (Auto) Not Reportable 07/16/20 08:15 Baso % (Auto) Not Reportable 07/16/20 08:15 Absolute Neuts (auto) Not Reportable 07/16/20 08:15 Absolute Lymphs (auto) Not Reportable 07/16/20 08:15 Absolute Monos (auto) Not Reportable 07/16/20 08:15 Absolute Eos (auto) Not Reportable 07/16/20 08:15 Absolute Basos (auto) Not Reportable 07/16/20 08:15 Total Counted 100 07/16/20 08:15 Seg Neutrophils % Not Reportable 07/16/20 08:15 Seg Neuts % (Manual) 73 % (42-78) 07/16/20 08:15 Band Neutrophils % 3 % (3-5) 07/14/20 10:07 Lymphocytes % (Manual) 13 % (13-45) 07/16/20 08:15 Atypical Lymphs % 1 % (0) 07/16/20 08:15 Monocytes % (Manual) 10 % (3-13) 07/16/20 08:15 Eosinophils % (Manual) 2 % (0-6) 07/16/20 08:15 Basophils % (Manual) 1 % (0-2) 07/16/20 08:15 Metamyelocytes % 1 % (0-1) 07/14/20 10:07 Myelocytes % 2 % (0) H 07/08/20 12:47 Promyelocytes % 1 % (0) H 07/08/20 12:47 Abs Neuts (Manual) 8.2 10^3/uL (1.7-8.2) 07/16/20 08:15 Abs Lymphs (Manual) 1.6 10^3/uL (0.5-4.7) 07/16/20 08:15 Abs Monocytes (Manual) 1.1 10^3/uL (0.1-1.4) 07/16/20 08:15 Absolute Eos (Manual) 0.2 10^3/uL (0.0-0.6) 07/16/20 08:15 Abs Basophils (Manual) 0.1 10^3/uL (0.0-0.2) 07/16/20 08:15 Toxic Granulation 1+ 07/16/20 08:15 WBC Morphology Comment Not Reportable 07/08/20 12:47 Clumped Platelets PRESENT 07/14/20 10:07 Platelet Comment ADEQUATE 07/16/20 08:15 Polychromasia SLIGHT 07/16/20 08:15 Poikilocytosis SLIGHT 07/16/20 08:15 Anisocytosis 1+ 07/16/20 08:15 Tear Drop Cells SLIGHT 07/16/20 08:15 Ovalocytes SLIGHT 07/16/20 08:15 Jonathan Cells SLIGHT 07/09/20 04:44 Schistocytes SLIGHT 07/16/20 08:15 Sodium 136.4 mmol/L (137-145) L 07/18/20 05:46 Potassium 4.5 mmol/L (3.6-5.0) 07/18/20 05:46 Chloride 110 mmol/L (98-107) H 07/18/20 05:46 Carbon Dioxide 21 mmol/L (22-30) L 07/18/20 05:46 Anion Gap 5 (5-19) 07/18/20 05:46 BUN 25 mg/dL (7-20) H 07/18/20 05:46 Creatinine 1.62 mg/dL (0.52-1.25) H 07/18/20 05:46 Est GFR ( Amer) 37 (>60) L 07/18/20 05:46 Est GFR (MDRD) Non-Af 30 (>60) L 07/18/20 05:46 Glucose 85 mg/dL (75-110) 07/18/20 05:46 POC Glucose 197 mg/dL (70-110) H 07/08/20 12:46 Hemoglobin A1c % 6.3 % (4.7-6.0) H 07/08/20 12:47 Lactic Acid 1.7 mmol/L (0.7-2.1) 07/08/20 16:15 Calcium 8.6 mg/dL (8.4-10.2) 07/18/20 05:46 Phosphorus 4.7 mg/dL (2.5-4.5) H 07/09/20 04:44 Magnesium 2.0 mg/dL (1.6-2.3) 07/15/20 10:57 Total Bilirubin 0.7 mg/dL (0.2-1.3) 07/08/20 12:47 Direct Bilirubin 0.4 mg/dL (0.0-0.4) 07/08/20 12:47 Neonat Total Bilirubin Not Reportable 07/08/20 12:47 Neonat Direct Bilirubin Not Reportable 07/08/20 12:47 Neonat Indirect Bili Not Reportable 07/08/20 12:47 AST 43 U/L (14-36) H 07/08/20 12:47 ALT 22 U/L (<35) 07/08/20 12:47 Alkaline Phosphatase 55 U/L (38-126) 07/08/20 12:47 Troponin I 0.125 ng/mL 07/08/20 12:47 C-Reactive Protein 257.3 mg/L (<10.0) H 07/08/20 12:47 NT-Pro-B Natriuret Pep 3990 pg/mL (<450) H 07/08/20 12:47 Total Protein 6.2 g/dL (6.3-8.2) L 07/08/20 12:47 Albumin 3.2 g/dL (3.5-5.0) L 07/08/20 12:47 TSH 1.48 uIU/mL (0.47-4.68) 07/09/20 04:44 Urine Color YELLOW 07/09/20 15:40 Urine Appearance SLIGHTLY-CLOUDY 07/09/20 15:40 Urine pH 5.0 (5.0-9.0) 07/09/20 15:40 Ur Specific [place] 1.014 07/09/20 15:40 Urine Protein 30 mg/dL (NEGATIVE) H 07/09/20 15:40 Urine Glucose (UA) NEGATIVE mg/dL (NEGATIVE) 07/09/20 15:40 Urine Ketones NEGATIVE mg/dL (NEGATIVE) 07/09/20 15:40 Urine Blood LARGE (NEGATIVE) H 07/09/20 15:40 Urine Nitrite NEGATIVE (NEGATIVE) 07/09/20 15:40 Urine Bilirubin NEGATIVE (NEGATIVE) 07/09/20 15:40 Urine Urobilinogen NEGATIVE mg/dL (<2.0) 07/09/20 15:40 Ur Leukocyte Esterase MODERATE (NEGATIVE) H 07/09/20 15:40 Urine WBC (Auto) 33 /HPF 07/09/20 15:40 Urine RBC (Auto) 68 /HPF 07/09/20 15:40 Urine Bacteria (Auto) 3+ /HPF 07/09/20 15:40 Squamous Epi Cells Auto <1 /HPF 07/09/20 15:40 Urine Mucus (Auto) RARE /LPF 07/09/20 15:40 Urine Yeast (Budding) PRESENT /HPF 07/09/20 15:40 Urine Sodium 9 mmol/L (30-90) L 07/09/20 15:40 Urine Ascorbic Acid 40 (NEGATIVE) H 07/09/20 15:40 Time Trough Drawn 1150 07/12/20 11:50 Vancomycin Trough 5.8 ug/mL (5.0-20.0) 07/12/20 11:50 COVID-19 Source NASOPHARYNGEAL 07/15/20 18:30 COVID-19 (RYANN) NOT DETECTED 07/15/20 18:30 Slides for Path Review PATHOLOGIST REVIEWED 07/08/20 12:47 07/08/20 12:47 Troponin I 0.125 NT-Pro-B Natriuret Pep 3990 H Impressions: Chest X-Ray 07/08/20 12:07 IMPRESSION: Cannot exclude left lower lobe pneumonia. Venous Doppler Study 07/08/20 12:07 IMPRESSION: NO EVIDENCE DVT OR SVT IN EITHER LEG. Tibia/Fibula X-Ray 07/08/20 13:34 IMPRESSION: CHRONIC DEGENERATIVE CHANGES. SOFT TISSUE SWELLING. NO ACUTE BONY FINDINGS. Lower Extremity CT 07/09/20 07:00 IMPRESSION: There is extensive edema and cellulitis. This is most pronounced along the pretibial region. No obvious focal fluid collection is seen. Evaluation is mildly limited by lack of intravenous contrast. Renal Ultrasound 07/09/20 10:49 IMPRESSION: 1. Increased echogenicity of the renal parenchyma - correlate for chronic medical renal disease. 2. Valdovinos catheter within the urinary bladder. Stroke Is this a Stroke Patient?: No Acute Heart Failure Is this a Heart Failure Patient?: No
[2020-07-18 15:27] VITALS: BP 143/43
[2020-07-19] MEDS ORDERED: LEVOFLOXACIN 500 MG TABLET PO SCH (10:00)
== END 2020-07-18 17:08 | DRG 300 ==
LOC: ER 11:30 → EH 16:34 → 4W 18:32 → 4S 07-11 18:23
PROVIDERS: ADMIT Internal Medicine; ATTEND Hospitalist
PROC: 0HDKXZZ Extraction of Right Lower Leg Skin, External Approach (ICD-10-PCS; principal; 2020-07-08)
DX: I87.2 Venous insufficiency (chronic) (peripheral) (principal); L03.115 Cellulitis of right lower limb; R78.81 Bacteremia; E87.2 Acidosis; L97.211 Non-pressure chronic ulcer of right calf limited to breakdown of skin; L97.811 Non-pressure chronic ulcer of other part of right lower leg limited to breakdown of skin; N17.9 Acute kidney failure, unspecified; L97.821 Non-pressure chronic ulcer of other part of left lower leg limited to breakdown of skin; E66.01 Morbid (severe) obesity due to excess calories; E03.9 Hypothyroidism, unspecified; E78.5 Hyperlipidemia, unspecified; F03.90 Unspecified dementia, unspecified severity, without behavioral disturbance, psychotic disturbance, mood disturbance, and anxiety; E87.5 Hyperkalemia; E86.0 Dehydration; N18.3 Chronic kidney disease, stage 3 (moderate); I12.9 Hypertensive chronic kidney disease with stage 1 through stage 4 chronic kidney disease, or unspecified chronic kidney disease; B96.82 Vibrio vulnificus as the cause of diseases classified elsewhere; Z96.642 Presence of left artificial hip joint; Z20.828 Contact with and (suspected) exposure to other viral communicable diseases; R33.9 Retention of urine, unspecified; Z66 Do not resuscitate; Z82.3 Family history of stroke; Z80.3 Family history of malignant neoplasm of breast; Z79.899 Other long term (current) drug therapy; Z79.890 Hormone replacement therapy; Z79.82 Long term (current) use of aspirin; Z90.710 Acquired absence of both cervix and uterus; Z68.33 Body mass index [BMI] 33.0-33.9, adult
CPT/HCPCS: 36415; 71045; 76770; 80048; 80053; 80202; 81001; 82962; 83036; 83605; 83735; 83880; 84100; 84300; 84443; 84484; 85025; 85027; 86140; 87040; 87070; 87077; 87086; 87150; 87186; 87205; 87635; 93005; 93010; 93925; 93970; 96361; 96365; 96375; 99285; C9803; J0692; J1650; J2270; J3370; J3490; J7030; J7060

== ENCOUNTER → 2020-08-14 | Outpatient (CLI) | payer MEDICARE, OTHER | LOC: SP 09:47 | PROVIDERS: ATTEND Nurse Practitioner Family | DX: Z53.8 Procedure and treatment not carried out for other reasons (principal); L97.212 Non-pressure chronic ulcer of right calf with fat layer exposed ==

== ENCOUNTER 2020-08-20 18:53 | Inpatient (IN) | payer MEDICARE, OTHER ==
[2020-08-20 19:25] LABS: VENOUS BLOOD BASE EXCESS -2.2 mmol/L; VENOUS BLOOD HCO3 24.6 mmol/L (20-32); VENOUS BLOOD PCO2 51.6 mmHg (35-63); VENOUS BLOOD PH 7.3 (7.30-7.42)
--- NOTE | 2020-08-20 19:38 | RADIOLOGY REPORT (SQ) ---
EXAM DESCRIPTION: CHEST SINGLE VIEW IMAGES COMPLETED DATE/TIME: 08/20/2020 6:17 pm REASON FOR STUDY: possible sepsis COMPARISON: 07/08/2020 EXAM PARAMETERS: NUMBER OF VIEWS: One view. TECHNIQUE: Single frontal radiographic view of the chest acquired. RADIATION DOSE: NA LIMITATIONS: None. FINDINGS: LUNGS AND PLEURA: Persistent patchy opacities at the left lung base stable 1 prior, possib ly infectious/ inflammatory process versus chronic pleural and parenchymal scarring. Lungs are hyper inflated. No pneumothorax. MEDIASTINUM AND HILAR STRUCTURES: No masses. Contour normal. HEART AND VASCULAR STRUCTURES: Heart normal in size. Normal vasculature. BONES: No acute findings. HARDWARE: None in the chest. OTHER: No other significant finding. IMPRESSION: Persistent left basilar atelectasis/scarring similar in appearance to previous, probably chronic pleural and parenchymal scarring. TECHNICAL DOCUMENTATION: JOB ID: [id number] [employer]- All Rights Reserved Reading location - IP/workstation name: [email or web address]
[2020-08-20 19:46] LABS: HEMATOCRIT 32.7 % (36.0-47.0); HEMOGLOBIN 10.5 g/dL (12.0-15.5); MEAN CORPUSCULAR HEMOGLOBIN 29.8 pg (27.0-33.4); MEAN CORPUSCULAR VOLUME 93 fl (80-97); PLATELET COUNT 222 10^3/uL (150-450); RED BLOOD COUNT 3.51 10^6/uL (3.72-5.28); WHITE BLOOD COUNT 10.8 10^3/uL (4.0-10.5)
[2020-08-20 19:48] LABS: ALBUMIN 3.4 g/dL (3.5-5.0); ALKALINE PHOSPHATASE 89 U/L (38-126); ANION GAP 15 (5-19); ASPARTATE AMINO TRANSFERASE 36 U/L (14-36); BILIRUBIN,DIRECT 0.5 mg/dL (0.0-0.4); BILIRUBIN,TOTAL 0.6 mg/dL (0.2-1.3); BLOOD UREA NITROGEN 57 mg/dL (7-20); CALCIUM 11.9 mg/dL (8.4-10.2); CARBON DIOXIDE 23 mmol/L (22-30); CHLORIDE 102 mmol/L (98-107); GLUCOSE 155 mg/dL (75-110); POTASSIUM 5.8 mmol/L (3.6-5.0); TOTAL PROTEIN 7.5 g/dL (6.3-8.2)
[2020-08-20 19:54] LABS: INTERNATIONAL RATION (INR) 1.08; PROTHROMBIN TIME 14.2 SEC (11.4-15.4)
[2020-08-20 20:07] LABS: APPEARANCE,URINE CLOUDY; BILIRUBIN,URINE NEGATIVE (NEGATIVE); COLOR,URINE AMBER; GLUCOSE, URINE NEGATIVE (NEGATIVE); KETONES,URINE NEGATIVE (NEGATIVE); PROTEIN,URINE 30 mg/dL (NEGATIVE); URINE SPECIFIC GRAVITY 1.017; UROBILINOGEN,URINE NEGATIVE mg/dL (<2.0)
[2020-08-20 20:10] LABS: ABSOLUTE LYMPHOCYTES# (MANUAL) 2.2 10^3/uL (0.5-4.7); ABSOLUTE MONOCYTES # (MANUAL) 0.4 10^3/uL (0.1-1.4); BASOPHILS % (MANUAL) 1 % (0-2); EOSINOPHILS % (MANUAL) 0 % (0-6); LYMPHOCYTES % (MANUAL) 20 % (13-45); MONOCYTES % (MANUAL) 4 % (3-13); NUCLEATED RED BLOOD CELLS 1 /100 WBC (0); SEGMENTED NEUTROPHILS % (MAN) 75 % (42-78); TOTAL CELLS COUNTED 100
[2020-08-20 20:11] LABS: ANISOCYTOSIS 1+; PLATELET COMMENT ADEQUATE; POLYCHROMASIA SLIGHT
[2020-08-20] MEDS ORDERED: RINGERS SOLUTION,LACTATED 1,000 ML IV ONE (20:24)
[2020-08-20] MEDS ORDERED: CEFTRIAXONE 1 GM/D5W RTU 1 GM/50 ML RTUPB IV ONE (20:25)
--- NOTE | 2020-08-20 20:39 | ER Document Report ---
ED General - General Chief Complaint: Wound Infection Stated Complaint: ALTERED MENTAL STATUS Time Seen by Provider: 08/20/20 20:10 Primary Care Provider: RASHEL DOS SANTOS MD [Primary Care Provider] - Follow up as needed TRAVEL OUTSIDE OF THE [place] IN LAST 30 DAYS: No - HPI Notes: Patient is an 85-year-old female scented to the emergency department for evaluation by Lidia Katz. Evidently she had a decreased level of consciousness. I do not have any information directly from the [facility]. What I am told, by the daughter, is that they found her "unresponsive and osman oling." Daughter notes that she saw her yesterday at wound care. She states that she seemed more tired, less talkative than normal. Other than that she reports no other acute communications from the [facility] regarding her mother's condition. The patient herself denies any pain at this time. She states she believes she ate today. She has no acute complaints for me at this time. Also per daughter, the patient has been going to wound care, they have been telling her that things are looking improved. They also report that she needs bunny boots. - Related Data Allergies/Adverse Reactions: No Known Allergies Allergy (Verified 09/10/19 16:57) Home Medications: Marinol, Colace, ferrous sulfate, multivitamin, zinc, Synthroid, milk of magnesia, vitamin C, aspirin, vitamin D3, donepezil, folic acid, vitamin B12, clonidine, Tylenol, Zofran Past Medical History - General Information source: Relative, [facility] Records, Outside Facility Records - Social History Smoking Status: Never Smoker Chew tobacco use (# tins/day): No Frequency of alcohol use: None Drug Abuse: None Family History: CVA, Malignancy - Breast Patient has homicidal ideation: No - Medical History Medical History: Other - Anemia - Past Medical History Cardiac Medical History: Reports: Hx Hypercholesterolemia, Hx Hypertension - MEDICATED Denies: Hx Coronary Artery Disease, Hx Heart Attack Pulmonary Medical History: Denies: Hx Asthma, Hx Bronchitis, Hx COPD, Hx Pneumonia Neurological Medical History: Denies: Hx Cerebrovascular Accident, Hx Seizures Endocrine Medical History: Reports: Hx Hypothyroidism Renal/ Medical History: Reports: Hx Renal Insufficiency. Denies: Hx Peritoneal Dialysis GI Medical History: Denies: Hx Hepatitis, Hx Hiatal Hernia, Hx Ulcer Musculoskeletal Medical History: Denies Hx Arthritis Psychiatric Medical History: Reports: Hx Dementia Denies: Hx Depression Infectious Medical History: Denies: Hx Hepatitis Past Surgical History: Reports: Hx Hysterectomy, Hx Orthopedic Surgery - left hip replacement. Denies: Hx Mastectomy, Hx Open Heart Surgery, Hx Pacemaker - Immunizations Hx Diphtheria, Pertussis, Tetanus Vaccination: No - UNSURE Hx Pneumococcal Vaccination: 09/07/05 Review of Systems - Review of Systems Constitutional: See HPI EENT: No symptoms reported Cardiovascular: No symptoms reported Respiratory: No symptoms reported Gastrointestinal: No symptoms reported Genitourinary: No symptoms reported Musculoskeletal: No symptoms reported Skin: See HPI Neurological/Psychological: No symptoms reported Physical Exam - Vital signs Vitals: Temp 93.8 F L 08/20/20 18:53 - Notes Notes: This is a frail-appearing 85-year-old female, who appears her stated age. She is resting with her eyes closed when I walk into the room, but does open her eyes to verbal stimuli. She is laying under a albert hugger. Vital signs reviewed, please refer to chart. Head is normocephalic, atraumatic. Pupils equal round, reactive to light. Neck is supple without meningismus. Heart is regular rate and rhythm. Lungs reveal diminished breath sounds at the bases without wheezes, rales, rhonchi. Abdomen is soft, nontender, normoactive bowel sounds throughout. Extremities without cyanosis, clubbing. She has chronic appearing wounds to bilateral lower extremities. There is a bandage in place over the right lower leg, with seepage from a posterior calf wound. Her is no marked calor. Neurovascularly intact distally. She has seen a significant skin thickening and ischemic appearing changes over the right calcaneus. Patient is drowsy but arouses to verbal stimuli. She is oriented to person and place, disoriented to time. She moves all 4 extremities spontaneously. Course - Re-evaluation Re-evalutation: 08/20/20 20:42 Patient presents to the emergency department for evaluation. She was found to have a decreased level of consciousness. She has a GCS of 14 here. She is found to be markedly hypothermic on arrival. She is placed on a Albert hugger. Laboratory investigations were obtained. Her creatinine reveals DENISSE on top of her CKD with a hyperkalemia. She has mild leukocytosis. She has findings consistent with urinary tract infection. Urine culture, blood cultures ordered. Her lactic is elevated. An LR bolus compatible with appropriate sepsis treatment is ordered. I ordered ceftriaxone, as the only prior urine culture revealed gudino sensitivity. Patient has no allergies. My hope is that the mild hyperkalemia will be abated with IV fluids. Patient is currently stable. Will contact medicine for admission. 08/20/20 21:[address] Conway regarding this patient's admission. He states that as that is the nitrate negative specimen, he would prefer the antibiotic administered the Merrem. Ceftriaxone discontinued, 1 g of Merrem ordered at his request. He will accept the patient for further care. - Vital Signs Vital signs: Temp Pulse Resp BP Pulse Ox 93.8 F L 100 08/20/20 18:53 08/20/20 19:01 - Laboratory Result Diagrams: 08/20/20 19:03 08/20/20 19:03 Laboratory results interpreted by me: 08/20/20 08/20/20 08/20/20 19:03 19:03 19:03 WBC 10.8 H RBC 3.51 L Hgb 10.5 L Hct 32.7 L RDW 16.0 H Potassium 5.8 H BUN 57 H Creatinine 2.98 H Est GFR ( Amer) 18 L Est GFR (MDRD) Non-Af 15 L Glucose 155 H POC Glucose Lactic Acid 3.5 H Calcium 11.9 H Direct Bilirubin 0.5 H Albumin 3.4 L Urine Protein Urine Blood Leukocyte Esterase Rfl Urine Ascorbic Acid 08/20/20 08/20/20 19:03 20:25 WBC RBC Hgb Hct RDW Potassium BUN Creatinine Est GFR ( Amer) Est GFR (MDRD) Non-Af Glucose POC Glucose 143 H Lactic Acid Calcium Direct Bilirubin Albumin Urine Protein 30 H Urine Blood SMALL H Leukocyte Esterase Rfl LARGE H Urine Ascorbic Acid 40 H - Diagnostic Test Radiology reviewed: Reports reviewed Radiology results interpreted by me: 08/20/20 20:45 Chest X-Ray 08/20/20 19:02 IMPRESSION: Persistent left basilar atelectasis/scarring similar in appearance to previous, probably chronic pleural and parenchymal scarring. - EKG Interpretation by Me Additional EKG results interpreted by me: 08/20/20 20:45 Large baseline artifact is noted. Likely sinus mechanism with a rate of approximately 65 bpm. Left axis deviation. Nonspecific ST changes, but no obvious ST elevation concerning or infarction. No significant change in compared to prior study with reported limitations as noted. Discharge - Discharge Clinical Impression: Acute kidney injury superimposed on CKD, Hyperkalemia UTI (urinary tract infection) Qualifiers: Urinary tract infection type: site unspecified Hematuria presence: without hematuria Qualified Code(s): N39.0 - Urinary tract infection, site not specified Hypothermia Qualifiers: Encounter type: initial encounter Qualified Code(s): T68.XXXA - Hypothermia, initial encounter Condition: Stable Disposition: ADMITTED INPATIENT Admitting Provider: Zoraida (Hospitalist) Unit Admitted: Medical Floor Referrals: RASHEL DOS SANTOS MD [Primary Care Provider] - Follow up as needed
[2020-08-20] MEDS ORDERED: MEROPENEM 1 GM VIAL IV ONE (21:11)
[2020-08-20] MEDS: NORMAL SALINE 1000 ML 1,000 ML IV PRN (21:19)
[2020-08-20] MEDS ORDERED: ACETAMINOPHEN 650 MG SUPP.RECT PR PRN (22:23)
[2020-08-20] MEDS ORDERED: MAGNESIUM HYDROXIDE SUSP 30 ML UDCUP PO PRN (22:23)
[2020-08-20] MEDS ORDERED: GUAIFENESIN SYRP 200 MG/10 ML UDC PO PRN (22:28)
[2020-08-20] MEDS ORDERED: MAG HYDROX/AL HYDROX/SIMETH SUSP 30 ML UDCUP PO PRN (22:28)
[2020-08-20] MEDS ORDERED: MELATONIN 5 MG TABLET PO PRN (22:28)
[2020-08-20] MEDS ORDERED: LORAZEPAM INJ 2 MG/1 ML VIAL IV PRN (22:28)
[2020-08-21] MEDS: NORMAL SALINE 1000 ML 1,000 ML IV PRN ×2 (00:28→15:32)
[2020-08-21] MEDS: ACETAMINOPHEN 325 MG TABLET PO PRN ×2 (00:32→21:03)
[2020-08-21 05:52] LABS: ABSOLUTE LYMPHOCYTES (AUTO) 1.3 10^3/uL (0.5-4.7); ABSOLUTE MONOCYTES (AUTO) 0.7 10^3/uL (0.1-1.4); ABSOLUTE NEUT (AUTO) 8.7 10^3/uL (1.7-8.2); BASOPHILS % (AUTO) 0.3 % (0-2); EOSINOPHILS % (AUTO) 0.3 % (0-6); HEMATOCRIT 29.8 % (36.0-47.0); HEMOGLOBIN 9.9 g/dL (12.0-15.5); LYMPHOCYTES % (AUTO) 11.8 % (13-45); MEAN CORPUSCULAR HEMOGLOBIN 30.1 pg (27.0-33.4); MEAN CORPUSCULAR HGB CONC 33.2 g/dL (32.0-36.0); MEAN CORPUSCULAR VOLUME 91 fl (80-97); MONOCYTES % (AUTO) 6.3 % (3-13); PLATELET COUNT 207 10^3/uL (150-450); RED BLOOD COUNT 3.28 10^6/uL (3.72-5.28); RED CELL DISTRIBUTION WIDTH 16.6 % (11.5-14.0); SEGMENTED NEUTROPHILS % (AUTO) 81.3 % (42-78); TOTAL CELLS COUNTED % (AUTO) 100 %; WHITE BLOOD COUNT 10.7 10^3/uL (4.0-10.5)
[2020-08-21 06:14] LABS: ALKALINE PHOSPHATASE 79 U/L (38-126); ANION GAP 11 (5-19); ASPARTATE AMINO TRANSFERASE 57 U/L (14-36); BILIRUBIN,DIRECT 0.4 mg/dL (0.0-0.4); BILIRUBIN,TOTAL 0.5 mg/dL (0.2-1.3); BLOOD UREA NITROGEN 57 mg/dL (7-20); CALCIUM 10.6 mg/dL (8.4-10.2); CARBON DIOXIDE 23 mmol/L (22-30); CHLORIDE 107 mmol/L (98-107); GLUCOSE 102 mg/dL (75-110); POTASSIUM 5.2 mmol/L (3.6-5.0); TOTAL PROTEIN 6.8 g/dL (6.3-8.2)
--- NOTE | 2020-08-21 06:33 | PDOC H&P ---
History of Present Illness Admission Date/PCP: 08/20/20 21:39 RASHEL DOS SANTOS MD Patient complains of: Lethargy History of Present Illness: DANK WHITE is a 85 year old female who presented to the emergency room from the [facility] with lethargy. Patient was noted by staff to be lethargic and poorly responsive to verbal stimuli and was subsequently sent to the hospital for evaluation. The patient has dementia and is unable to contribute reliable medical history. In the emergency room patient was found to be lethargic and hypothermic. She was noted to have acute on chronic renal failure and a moderately elevated potassium at 5.4. She was also noted to have pyuria with a negative nitrite. She was subsequently admitted hospital for further evaluation and treatment. Past Medical History Past Medical History: Due to the patient's lethargy and dementia historical information is obtained from the best available reliable source. Cardiac Medical History: Reports: Hyperlipidema, Hypertension Denies: Coronary Artery Disease, Myocardial Infarction Pulmonary Medical History: Denies: Asthma, Bronchitis, Chronic Obstructive Pulmonary Disease (COPD), Pneumonia EENT Medical History: Reports: Eyes - Corrective lenses Denies: Ears - Hearing aids Neurological Medical History: Denies: Hemorrhagic CVA, Ischemic CVA, Seizures Endocrine Medical History: Reports: Hypothyroidism, Obesity Denies: Diabetes Mellitus Type 1, Diabetes Mellitus Type 2, Hyperthyroidism Renal/ Medical History: Reports: Chronic Kidney Disease Denies: Nephrolithiasis Malignancy Medical History: Reports: None GI Medical History: Denies: Cirrhosis, Hepatitis, Hiatal Hernia Musculoskeltal Medical History: Denies: Arthritis, Fibromyalgia Skin Medical History: Reports: Other - Chronic wound left lower extremity Denies: Eczema, Psoriasis Psychiatric Medical History: Reports: Dementia Denies: Alcohol Dependency, Depression, Substance Abuse, Tobacco Dependency Traumatic Medical History: Reports: None Hematology: Reports: Anemia Denies: Bleeding Tendencies Infectious Medical History: Reports: None Past Surgical History Past Surgical History: Due to the patient's lethargy and dementia historical information is obtained from the best available reliable source. Past Surgical History: Reports: Hip Replacement, Hysterectomy, Orthopedic Surgery - left hip replacement Social History Information Source: [facility] Records Lives with: Detention Smoking Status: Never Smoker Electronic Cigarette use?: No Frequency of Alcohol Use: None Hx Recreational Drug Use: No Drugs: None Hx Prescription Drug Abuse: No Past Social History Note: Due to the patient's lethargy and dementia historical information is obtained from the best available reliable source. - Advance Directive Resuscitation Status: Do Not Resuscitate Surrogate healthcare decision maker:: Karrie White Family History Family History: CVA, Malignancy - Breast Family History: Due to the patient's lethargy and dementia historical information is obtained from the best available reliable source. Parental Family History Reviewed: Yes Children Family History Reviewed: No Sibling(s) Family History Reviewed.: No Medication/Allergy Home Medications: Levothyroxine Sodium [Synthroid 0.1 mg Tablet] 0.1 mg PO DAILY 08/11/17 Ascorbic Acid [Vitamin C 500 mg Tablet] 500 mg PO DAILY 07/08/20 Aspirin [Ecotrin 81 mg EC Tablet] 81 mg PO DAILY 07/08/20 Cholecalciferol (Vitamin D3) [Vitamin D3 400 Unit Tablet] 400 unit PO DAILY 07/08/20 Clonidine HCl [Catapres 0.1 mg Tablet] 0.1 mg PO Q12 07/08/20 Cyanocobalamin (Vitamin B-12) [Vitamin B-12 1000 mcg Tablet] 1 tab PO DAILY 07/08/20 Donepezil HCl 10 mg PO QHS 07/08/20 Ferrous Fumarate 45 mg PO DAILY 07/08/20 Vits96/Iron Fum/Folic [ Tablet] 1 each PO DAILY 07/08/20 Acetaminophen [Tylenol 325 mg Tablet] 650 mg PO Q4HP PRN tablet 07/18/20 Bisacodyl [Dulcolax 10 mg Supp.rect] 10 mg SD DAILYP PRN supp.rect 07/18/20 Doxycycline Hyclate [Vibramycin 100 mg Tablet] 100 mg PO Q12 #14 tablet 07/18/20 Levofloxacin [Levaquin 500 mg Tablet] 500 mg PO DAILY #7 tablet 07/18/20 Ondansetron [Zofran Odt 4 mg Tablet] 4 mg PO Q4HP PRN tab.rapdis 07/18/20 Silver Sulfadiazine [Silvadene 1% Cream 400 gm] 1 applic TP Q12 jar 07/18/20 Allergies/Adverse Reactions: No Known Allergies Allergy (Verified 09/10/19 16:57) Review of Systems ROS unobtainable: Due to mental status Physical Exam Vital Signs: Temp Pulse Resp BP Pulse Ox 93.8 F L 100 08/20/20 18:53 08/20/20 19:01 Intake & Output 08/18/20 08/19/20 08/20/20 23:59 23:59 23:59 Weight 88.451 kg General appearance: PRESENT: no acute distress, cooperative, obese Head exam: PRESENT: atraumatic Eye exam: PRESENT: conjunctiva pink. ABSENT: conjunctival injection, scleral icterus Ear exam: PRESENT: normal external ear exam. ABSENT: bleeding, drainage Mouth exam: PRESENT: dry mucosa, neck supple Neck exam: ABSENT: thyromegaly, tracheal deviation Respiratory exam: PRESENT: clear to auscultation laurie, symmetrical, unlabored Cardiovascular exam: PRESENT: RRR. ABSENT: clicks, gallop, rubs Pulses: PRESENT: normal radial pulses, normal dorsalis pedis pul Vascular exam: ABSENT: normal capillary refill - Mildly delayed capillary refill greater than 3-4 seconds, pallor GI/Abdominal exam: PRESENT: normal bowel sounds, soft Rectal exam: PRESENT: deferred Extremities exam: ABSENT: joint swelling, pedal edema Musculoskeletal exam: ABSENT: deformity, dislocation Neurological exam: PRESENT: altered - Mildly lethargic, CN II-XII grossly intact, other - Poorly orientated. ABSENT: motor sensory deficit Psychiatric exam: PRESENT: appropriate affect, normal mood Skin exam: PRESENT: dry, intact, warm, other - Left lower extremity ulceration (chronic wound) is noted.. ABSENT: jaundice, rash, urticaria Results Laboratory Results: 08/20/20 19:03 08/20/20 19:03 08/20/20 08/20/20 08/20/20 19:03 19:03 19:03 WBC 10.8 H RBC 3.51 L Hgb 10.5 L Hct 32.7 L MCV 93 MCH 29.8 MCHC 32.0 RDW 16.0 H Plt Count 222 Seg Neutrophils % Not Reportable VBG pH 7.30 VBG pCO2 51.6 VBG HCO3 24.6 VBG Base Excess -2.2 Sodium 140.0 Potassium 5.8 H Chloride 102 Carbon Dioxide 23 Anion Gap 15 BUN 57 H Creatinine 2.98 H Est GFR ( Amer) 18 L Glucose 155 H Lactic Acid Calcium 11.9 H Total Bilirubin 0.6 AST 36 Alkaline Phosphatase 89 Total Protein 7.5 Albumin 3.4 L Urine Color Urine Appearance Urine pH Ur Specific [place] Urine Protein Urine Glucose (UA) Urine Ketones Urine Blood Urine RBC (Auto) 08/20/20 08/20/20 19:03 19:03 WBC RBC Hgb Hct MCV MCH MCHC RDW Plt Count Seg Neutrophils % VBG pH VBG pCO2 VBG HCO3 VBG Base Excess Sodium Potassium Chloride Carbon Dioxide Anion Gap BUN Creatinine Est GFR ( Amer) Glucose Lactic Acid 3.5 H Calcium Total Bilirubin AST Alkaline Phosphatase Total Protein Albumin Urine Color IVELISSE Urine Appearance CLOUDY Urine pH 6.0 Ur Specific [place] 1.017 Urine Protein 30 H Urine Glucose (UA) NEGATIVE Urine Ketones NEGATIVE Urine Blood SMALL H Urine RBC (Auto) 27 08/20/20 19:03 Troponin I < 0.012 Impressions: Chest X-Ray 08/20/20 19:02 IMPRESSION: Persistent left basilar atelectasis/scarring similar in appearance to previous, probably chronic pleural and parenchymal scarring. Assessment and Plan - Diagnosis (1) SIRS (systemic inflammatory response syndrome) Is this a current diagnosis for this admission?: Yes (2) Hypothermia Qualifiers: Encounter type: initial encounter Qualified Code(s): T68.XXXA - Hypothermia, initial encounter Is this a current diagnosis for this admission?: Yes (3) Acute kidney injury superimposed on CKD Is this a current diagnosis for this admission?: Yes (4) Pyuria Is this a current diagnosis for this admission?: Yes (5) Essential hypertension Is this a current diagnosis for this admission?: Yes (6) HLD (hyperlipidemia) Qualifiers: Hyperlipidemia type: unspecified Qualified Code(s): E78.5 - Hyperlipidemia, unspecified Is this a current diagnosis for this admission?: Yes (7) Hyperkalemia Is this a current diagnosis for this admission?: Yes (8) Hypothyroidism Qualifiers: Hypothyroidism type: unspecified Qualified Code(s): E03.9 - Hypothyroidism, unspecified Is this a current diagnosis for this admission?: Yes (9) Chronic ulcer of left leg Qualifiers: Non-pressure ulcer stage: with necrosis of muscle Qualified Code(s): L97.923 - Non-pressure chronic ulcer of unspecified part of left lower leg with necrosis of muscle Is this a current diagnosis for this admission?: Yes (10) Venous stasis of both lower extremities Is this a current diagnosis for this admission?: Yes (11) Dementia Qualifiers: Dementia type: unspecified type Dementia behavioral disturbance: without behavioral disturbance Qualified Code(s): F03.90 - Unspecified dementia without behavioral disturbance Is this a current diagnosis for this admission?: Yes - Plan Summary Summary: Patient will be admitted to a medical bed where she will receive routine juarez pportive and symptomatic cares. She will be treated initially with meropenem 1 g IV followed by 500 mg IV every 8 hours. Blood and urine cultures are pending. She has been giving a hyperkalemia IV cocktail in the ER and her serum potassium will be followed on a regular basis. A warming blanket will be used to bring her body temperature to an acceptable range. Serial lactic acid levels will be obtained. A thyroid profile will be obtained. Additional laboratory and/or radiographic evaluations will be obtained as appropriate. Patient will use Ativan 1 mg IV every 4 hours as needed for anxiety or restlessness. She will be treated with IV fluids utilizing lactated Ringer solution at 250 mL/h x 12 hours with reassessment of IV fluid requirements at that time. - Time Time Spent with patient: Less than 15 minutes Medications reviewed and adjusted accordingly: Yes Anticipated Discharge Disposition: [facility] Facility Anticipated Discharge Timeframe: Undetermined - Inpatient Certification Based on my medical assessment, after consideration of the patient's comorbidities, presenting symptoms, or acuity I expect that the services needed warrant INPATIENT care.: Yes I certify that my determination is in accordance with my understanding of Medicare's requirements for reasonable and necessary INPATIENT services [42 CFR 412.3e].: Yes Medical Necessity: Need Close Monitoring Due to Risk of Patient Decompensation, Need For IV Fluids, Need for IV Antibiotics, Risk of Complication if Not Cared For in Hospital
[2020-08-21] MEDS: PANTOPRAZOLE SODIUM 20 MG TABLET.DR PO SCH (06:34)
[2020-08-21] MEDS ORDERED: MEROPENEM 500 MG VIAL IV SCH (10:00)
[2020-08-21] MEDS: MEROPENEM 500 MG in NORMAL SALINE 50 ML IV SCH ×2 (10:21→21:02)
[2020-08-21] MEDS ORDERED: ONDANSETRON 4 MG TAB.RAPDIS PO PRN (14:11)
[2020-08-21] MEDS ORDERED: (PENDING PHARMACY ID) (Levothyroxine Sodium [Synthroid] 125 MCG) PO SCH (14:15)
[2020-08-21 15:08] LABS: FREE T3 1.47 pg/mL (2.77-5.27); FREE T4 (FREE THYROXINE) 0.6 ng/dL (0.78-2.19)
[2020-08-21] MEDS ORDERED: LEVOTHYROXINE SODIUM 0.025 MG TABLET PO SCH (15:30)
[2020-08-21] MEDS ORDERED: LEVOTHYROXINE SODIUM 0.1 MG TABLET PO SCH (15:30)
[2020-08-21] MEDS: DONEPEZIL HCL 5 MG TABLET PO SCH (21:03)
[2020-08-21] MEDS ORDERED: (PENDING PHARMACY ID) (Donepezil Hcl [Donepezil Hcl] 10 MG) PO SCH (22:00)
[2020-08-22] MEDS: LEVOTHYROXINE SODIUM 0.05 MG TABLET PO SCH (05:53)
[2020-08-22] MEDS: PANTOPRAZOLE SODIUM 20 MG TABLET.DR PO SCH (05:53)
[2020-08-22] MEDS: NORMAL SALINE 1000 ML 1,000 ML IV PRN ×2 (05:54→12:08)
--- NOTE | 2020-08-22 07:27 | PDOC PROGRESS REPORT ---
Subjective Progress Note for:: 08/21/20 Subjective:: Patient is seen on morning rounds. She is resting in bed humming to music. When asked where she is she is able to tell me she is in the hospital, when asked why she states it's for her legs. She provides me with no complaints or concerns today. No concerns per nursing. Reason For Visit: SIRS,HYPOTHERMIA,PYURIA,ACUTE ON CHRONIC RENAL Physical Exam Vital Signs: Temp Pulse Resp BP Pulse Ox 98.3 F 81 19 140/57 H 98 08/21/20 15:57 08/21/20 15:57 08/21/20 15:57 08/21/20 15:57 08/21/20 15:57 Intake & Output 08/20/20 08/21/20 08/22/20 06:59 06:59 06:59 Intake Total 2050 320 Output Total 100 300 Balance 1950 20 Weight 82.5 kg 81.8 kg General appearance: PRESENT: cooperative, hard of hearing, obese Head exam: PRESENT: atraumatic, normocephalic Eye exam: PRESENT: conjunctiva pink. ABSENT: scleral icterus Ear exam: ABSENT: bleeding, drainage Mouth exam: PRESENT: dry mucosa, tongue midline Neck exam: PRESENT: full ROM. ABSENT: tenderness, thyromegaly Respiratory exam: PRESENT: clear to auscultation laurie, symmetrical, unlabored Cardiovascular exam: PRESENT: RRR. ABSENT: clicks, gallop, rubs Pulses: PRESENT: normal radial pulses Vascular exam: PRESENT: other - delayed capillary refill 3 seconds GI/Abdominal exam: PRESENT: normal bowel sounds, soft. ABSENT: distended, firm, guarding, tenderness Extremities exam: PRESENT: full ROM. ABSENT: tenderness Musculoskeletal exam: ABSENT: deformity, dislocation Neurological exam: PRESENT: oriented to person, oriented to place. ABSENT: oriented to time, oriented to situation - PT is aware that she is in the hospital, but unaware to situation Psychiatric exam: PRESENT: appropriate affect Skin exam: PRESENT: dry, intact, warm, other - Right lower extremity with chronic wound, this is wrapped with a bandage over it noting "08/20". Both lower extremities have skin changes consistent with chronic swellling, though her legs appear without edema at this time. Results Laboratory Results: 08/21/20 05:33 08/21/20 05:33 08/20/20 08/21/2020 23:26 02:24 05:33 WBC RBC Hgb Hct MCV MCH MCHC RDW Plt Count Seg Neutrophils % Sodium Potassium Chloride Carbon Dioxide Anion Gap BUN Creatinine Est GFR ( Amer) Glucose Lactic Acid 1.4 1.2 1.0 Calcium Total Bilirubin AST Alkaline Phosphatase Total Protein Albumin TSH Free T4 Free T3 pg/mL 08/21/20 08/21/20 08/21/20 05:33 05:33 05:33 WBC 10.7 H RBC 3.28 L Hgb 9.9 L Hct 29.8 L MCV 91 MCH 30.1 MCHC 33.2 RDW 16.6 H Plt Count 207 Seg Neutrophils % 81.3 H Sodium 140.6 Potassium 5.2 H Chloride 107 Carbon Dioxide 23 Anion Gap 11 BUN 57 H Creatinine 3.07 H Est GFR ( Amer) 18 L Glucose 102 Lactic Acid Calcium 10.6 H Total Bilirubin 0.5 AST 57 H Alkaline Phosphatase 79 Total Protein 6.8 Albumin 3.0 L TSH 66.80 H Free T4 Free T3 pg/mL 08/21/20 05:33 WBC RBC Hgb Hct MCV MCH MCHC RDW Plt Count Seg Neutrophils % Sodium Potassium Chloride Carbon Dioxide Anion Gap BUN Creatinine Est GFR ( Amer) Glucose Lactic Acid Calcium Total Bilirubin AST Alkaline Phosphatase Total Protein Albumin TSH Free T4 0.60 L Free T3 pg/mL 1.47 L 08/20/20 19:03 Troponin I < 0.012 Impressions: Chest X-Ray 08/20/20 19:02 IMPRESSION: Persistent left basilar atelectasis/scarring similar in appearance to previous, probably chronic pleural and parenchymal scarring. Assessment and Plan - Diagnosis (1) SIRS (systemic inflammatory response syndrome) Is this a current diagnosis for this admission?: Yes (2) Hypothermia Qualifiers: Encounter type: initial encounter Qualified Code(s): T68.XXXA - Hypothermia, initial encounter Is this a current diagnosis for this admission?: Yes (3) Neutrophilic leukocytosis Is this a current diagnosis for this admission?: Yes (4) Hyperkalemia Is this a current diagnosis for this admission?: Yes (5) Acute kidney injury superimposed on CKD Is this a current diagnosis for this admission?: Yes (6) Pyuria Is this a current diagnosis for this admission?: Yes (8) Dementia Qualifiers: Dementia type: unspecified type Dementia behavioral disturbance: without behavioral disturbance Qualified Code(s): F03.90 - Unspecified dementia without behavioral disturbance Is this a current diagnosis for this admission?: Yes (9) Essential hypertension Is this a current diagnosis for this admission?: Yes (10) Hypothyroidism Qualifiers: Hypothyroidism type: unspecified Qualified Code(s): E03.9 - Hypothyroidism, unspecified Is this a current diagnosis for this admission?: Yes (11) Venous stasis of both lower extremities Is this a current diagnosis for this admission?: Yes - Plan Summary Summary: Patient will be admitted to a medical bed where she will receive routine supportive and symptomatic cares. She will be treated initially with meropenem 1 g IV followed by 500 mg IV every 8 hours. Blood and urine cultures are pending. She has been giving a hyperkalemia IV cocktail in the ER and her serum potassium will be followed on a regular basis. A warming blanket will be used to bring her body temperature to an acceptable range. Serial lactic acid levels will be obtained. A thyroid profile will be obtained. Additional laboratory and/or radiographic evaluations will be obtained as appropriate. Patient will use Ativan 1 mg IV every 4 hours as needed for anxiety or restlessness. She will be treated with IV fluids utilizing lactated Ringer solution at 250 mL/h x 12 hours with reassessment of IV fluid requirements at that time. 08/21/2020: SIRS (systemic inflammatory response syndrome) Hypothermic and tachypneic on initial presentation Lethargic on presentation, though this has significantly improved with IVF Since resolved BC pending UC pending Started on Meropenem IV fluids Hypothermia 93.8F on initial presentation Since resolved Monitor with VS q4hrs Neutrophilic leukocytosis Etiology unknown, most likely secondary to UTI - pyuria noted on UA on admission UC pending BC pending Monitor with daily CBCs Hyperkalemia 5.8 -> 5.2 Mildly elevated IVF Repeat chemistries daily Acute kidney injury superimposed on CKD History stage III CKD BUN 57 (records reviewed usually in 40s) Cr 3.07 (Records reviewed usually in 1.60s) Suspect secondary to dehydration IVF Monitor on morning chemistries Pyuria Valdovinos catheter in place Potentially cause of patient's lethargic presentation on admission UC pending Currently on meropenem, adjust abx pending cultures Dementia Patient is pleasant, but this makes patient a difficult historian Contacted [facility] for records Resume dementia medication Essential hypertension BP did drop into low 100s/50s Has since improved Home medication includes clonidine BP meds resumed but with parameters Monitor with VS q4hrs Hypothyroidism TSH elevated at 66.6 Home dose Levothyroxine increased from 125mcg to 150mcg FT3 and FT4 pending Thyroid non-palpable on exam Potentially the cause of pt's lethary on initial presentation Venous stasis of both lower extremities With chronic wounds both lower extremities Potential place for infection Appear stable at this time Continue to monitor Keep legs elevated while in bed - Time Time Spent with patient: 15-24 minutes Medications reviewed and adjusted accordingly: Yes Anticipated Discharge Disposition: [facility] Anticipated Discharge Timeframe: within 48 hours
[2020-08-22 07:33] LABS: HEMATOCRIT 27.5 % (36.0-47.0); HEMOGLOBIN 9.1 g/dL (12.0-15.5); MEAN CORPUSCULAR HEMOGLOBIN 30.3 pg (27.0-33.4); MEAN CORPUSCULAR HGB CONC 33.1 g/dL (32.0-36.0); MEAN CORPUSCULAR VOLUME 91 fl (80-97); PLATELET COUNT 187 10^3/uL (150-450); RED BLOOD COUNT 3.01 10^6/uL (3.72-5.28); RED CELL DISTRIBUTION WIDTH 16.1 % (11.5-14.0); WHITE BLOOD COUNT 8.9 10^3/uL (4.0-10.5)
[2020-08-22 09:26] LABS: ANION GAP 10 (5-19); BLOOD UREA NITROGEN 48 mg/dL (7-20); CALCIUM 9.8 mg/dL (8.4-10.2); CARBON DIOXIDE 20 mmol/L (22-30); CHLORIDE 113 mmol/L (98-107); GLUCOSE 82 mg/dL (75-110)
[2020-08-22] MEDS: MEROPENEM 500 MG in NORMAL SALINE 50 ML IV SCH ×2 (09:42→22:01)
[2020-08-22] MEDS: ASPIRIN 81 MG TABLET, ENT COATED PO SCH ×2 (09:43→09:57)
[2020-08-22] MEDS: FERROUS SULFATE 325 MG TABLET PO SCH ×2 (09:43→09:57)
[2020-08-22] MEDS: CHOLECALCIFEROL (D3) 400 UNIT TABLET PO SCH ×2 (09:43→09:56)
[2020-08-22] MEDS: ASCORBIC ACID 500 MG TABLET PO SCH ×2 (09:43→09:56)
[2020-08-22] MEDS: CYANOCOBALAMIN (VITAMIN B-12) 1,000 MCG TABLET PO SCH ×2 (09:43→09:57)
[2020-08-22] MEDS: DOCUSATE SODIUM 100 MG CAPSULE PO SCH ×2 (09:43→09:57)
--- NOTE | 2020-08-22 13:50 | PDOC PROGRESS REPORT ---
Subjective Progress Note for:: 08/22/20 Subjective:: Patient is seen on morning rounds. She is resting comfortably in her bed and wakes easily when I say her name. When inquired how patient is doing she states that she is doing alright, denies any complaints concerns at this time. Discussed the case with patient's nurse. States that patient did not eat her breakfast, asked patient why she is not eating, patient replied that she is not hungry. Nurse also states that she does not believe patient is taking all the m edications she is given. Per nurse patient was given her medications when the nurse turned away and looked back patient took a pill out of her mouth and put in her hand. There is a chance that patient has been noncompliant with her medications at nursing facility as well, this may explain the elevated TSH value regardless of treatment. I did address the patient asking if she is taking all of her medications, to which she responded yes. Of note patient has dementia. No further complaints or concerns at this time. Reason For Visit: SIRS,HYPOTHERMIA,PYURIA,ACUTE ON CHRONIC RENAL Physical Exam Vital Signs: Temp Pulse Resp BP Pulse Ox 97.5 F 79 18 150/54 H 98 08/22/20 11:44 08/22/20 11:44 08/22/20 11:44 08/22/20 11:44 08/22/20 11:44 Intake & Output 08/21/20 08/22/20 08/23/20 06:59 06:59 06:59 Intake Total 2050 1370 1050 Output Total 100 650 700 Balance 1950 720 350 Weight 82.5 kg 88.1 kg General appearance: PRESENT: cooperative, obese Head exam: PRESENT: atraumatic, normocephalic Eye exam: PRESENT: conjunctiva pink. ABSENT: scleral icterus Mouth exam: PRESENT: moist, tongue midline Neck exam: PRESENT: full ROM. ABSENT: JVD, tenderness, thyromegaly Respiratory exam: PRESENT: clear to auscultation laurie, symmetrical, unlabored. ABSENT: rales, retraction, rhonchi, stridor, tachypnea, wheezes Cardiovascular exam: PRESENT: RRR. ABSENT: diastolic murmur, systolic murmur, tachycardia Pulses: PRESENT: normal radial pulses Vascular exam: PRESENT: normal capillary refill GI/Abdominal exam: PRESENT: normal bowel sounds, soft. ABSENT: tenderness Gentrourinary exam: PRESENT: indwelling catheter Extremities exam: PRESENT: tenderness - TTP along posterior aspect right lower extremity Musculoskeletal exam: ABSENT: ambulatory, deformity, dislocation Neurological exam: PRESENT: alert, awake, oriented to person, oriented to place. ABSENT: oriented to time, oriented to situation Psychiatric exam: PRESENT: other - Pt demented, this is her baseline Skin exam: PRESENT: dry - Skin dry and flaking, other - Hypertrophic skin changes bilateral calcaneus consistent with early stages of pressure ulcers. Pt bedbound. Early stages of a sacral ulcer approximatly 4in in length, more consistent with skin tear at this time. Ulcer posterior aspect RLE, covered with pad this is chronic. Skin on bilateral LE dry, scalining and flaky. Results Laboratory Results: 08/22/20 07:06 08/22/20 07:06 08/21/20 08/22/20 08/22/20 05:33 07:06 07:06 WBC 8.9 RBC 3.01 L Hgb 9.1 L Hct 27.5 L MCV 91 MCH 30.3 MCHC 33.1 RDW 16.1 H Plt Count 187 Sodium 142.6 Potassium 4.0 Chloride 113 H Carbon Dioxide 20 L Anion Gap 10 BUN 48 H Creatinine 2.54 H Est GFR ( Amer) 22 L Glucose 82 Calcium 9.8 Free T4 0.60 L Free T3 pg/mL 1.47 L 08/20/20 19:03 Valdovinos Catheter Urine Culture - Final Pseudomonas Aeruginosa 08/20/20 19:03 Troponin I < 0.012 Impressions: Chest X-Ray 08/20/20 19:02 IMPRESSION: Persistent left basilar atelectasis/scarring similar in appearance to previous, probably chronic pleural and parenchymal scarring. Assessment and Plan - Diagnosis (1) Urinary retention Is this a current diagnosis for this admission?: Yes (2) Catheter-associated urinary tract infection Qualifiers: Indwelling urinary catheter type: indwelling urethral catheter Encounter type: initial encounter Qualified Code(s): T83.511A - Infection and inflammatory reaction due to indwelling urethral catheter, initial encounter; N39.0 - Urinary tract infection, site not specified Is this a current diagnosis for this admission?: Yes (3) SIRS (systemic inflammatory response syndrome) Is this a current diagnosis for this admission?: Yes (4) Hypothermia Qualifiers: Encounter type: initial encounter Qualified Code(s): T68.XXXA - Hypothermia, initial encounter Is this a current diagnosis for this admission?: Yes (5) Neutrophilic leukocytosis Is this a current diagnosis for this admission?: Yes (6) Hyperkalemia Is this a current diagnosis for this admission?: Yes (7) Acute kidney injury superimposed on CKD Is this a current diagnosis for this admission?: Yes (8) Pyuria Is this a current diagnosis for this admission?: Yes (10) Dementia Qualifiers: Dementia type: unspecified type Dementia behavioral disturbance: without behavioral disturbance Qualified Code(s): F03.90 - Unspecified dementia without behavioral disturbance Is this a current diagnosis for this admission?: Yes (11) Essential hypertension Is this a current diagnosis for this admission?: Yes (12) Hypothyroidism Qualifiers: Hypothyroidism type: unspecified Qualified Code(s): E03.9 - Hypothyroidism, unspecified Is this a current diagnosis for this admission?: Yes (13) Venous stasis of both lower extremities Is this a current diagnosis for this admission?: Yes - Plan Summary Summary: Patient will be admitted to a medical bed where she will receive routine supportive and symptomatic cares. She will be treated initially with meropenem 1 g IV followed by 500 mg IV every 8 hours. Blood and urine cultures are pending. She has been giving a hyperkalemia IV cocktail in the ER and her serum potassium will be followed on a regular basis. A warming blanket will be used to bring her body temperature to an acceptable range. Serial lactic acid levels will be obtained. A thyroid profile will be obtained. Additional laboratory and/or radiographic evaluations will be obtained as appropriate. Patient will use Ativan 1 mg IV every 4 hours as needed for anxiety or restlessness. She will be treated with IV fluids utilizing lactated Ringer solution at 250 mL/h x 12 hours with reassessment of IV fluid requirements at that time. 08/22/2020: Catheter acquired UTI / Urinary retention / Pyuria : UC positive for Pseudomonas Aeruginosa. Currently on meropenem (day 2); with coverage. BC negative at 24 hours, continue meropenem until 48 hours negative then consider switching to Levofloxacin at discharge. Her SNF records patient had catheter placed 07-24-2020. This was removed today. Voiding trial initiated with bladder scans every 8 hours. Catheter will be replaced if greater than 350 mL urine and bladder. SIRS (systemic inflammatory response syndrome) Hypothermic, tachypneic and lethargic on initial presentation, since resolved. Treatment as discussed above. Hypothermia: 93.8F on initial presentation. Since resolved Neutrophilic leukocytosis: Resolved ([facility] BC 8.9) Secondary to catheter acquired UTI per urine culture. Hyperkalemia: Resolved 5.8 -> 4.0 Acute kidney injury superimposed on CKD: Suspect secondary to dehydration. Improving with fluids. History stage III CKD BUN 48 (records reviewed usually in 40s). Cr 2.54 (Records reviewed usually in 1.60s) Dementia Patient is pleasant, but history of dementia makes patient a difficult historian Contacted [facility] for records. Resume dementia medication Essential hypertension: Previously held home medication, resumed today. On initial presentation patient found to be hypotensive. BP currently running in 150s/54. Hydralazine utilized if SBP > 160. Hypothyroidism: TSH elevated at 66.6 Home dose Levothyroxine increased from 125mcg to 150mcg FT3 and FT4 decreased. Thyroid non-palpable on exam There is a chance that patient is not taking her medication, as reported by nurse today. This may explain severely elevated TSH. Venous stasis of both lower extremities: Chronic wounds both lower extremities. Recent hospitalization regarding cellulitis right lower extremity due to infected venous stasis old ulcer this required surgical debridement and antibiotic therapy. Consulted wound care, recommended treatment: - left and right heel Betadine daily. - Right lower leg poly-Mem AG. - Float right leg, right heel left heel and in bed. - Pro-heel excludes bilateral feet. - Time Time Spent with patient: 15-24 minutes Medications reviewed and adjusted accordingly: Yes Anticipated Discharge Disposition: Nursing Home Facility Anticipated Discharge Timeframe: within 48 hours
[2020-08-22] MEDS ORDERED: DEXTROSE 50%-WATER 25 GM/50 ML DISP.SYRIN IV ONE ×2 (16:06→16:09)
--- NOTE | 2020-08-22 18:12 | EKG REPORT ---
SEVERITY:- ABNORMAL ECG - SINUS RHYTHM NONSPECIFIC INTRAVENTRICULAR CONDUCTION DELAY CONSIDER ANTERIOR INFARCT : Confirmed by: Ashlie Pollock 22-Aug-2020 18:11:47
[2020-08-22] MEDS: DEXTROSE 5%-1/2 NORMAL SALINE 1,000 ML IV PRN (19:28)
[2020-08-22] MEDS: CLONIDINE HCL 0.1 MG TABLET PO SCH (22:01)
[2020-08-22] MEDS: DONEPEZIL HCL 5 MG TABLET PO SCH (22:01)
[2020-08-23] MEDS: DEXTROSE 5%-1/2 NORMAL SALINE 1,000 ML IV PRN ×2 (03:29→10:16)
[2020-08-23] MEDS: LEVOTHYROXINE SODIUM 0.05 MG TABLET PO SCH (05:05)
[2020-08-23] MEDS: PANTOPRAZOLE SODIUM 20 MG TABLET.DR PO SCH (05:05)
[2020-08-23 06:45] LABS: HEMATOCRIT 27.2 % (36.0-47.0); MEAN CORPUSCULAR HEMOGLOBIN 30.1 pg (27.0-33.4); MEAN CORPUSCULAR HGB CONC 33.1 g/dL (32.0-36.0); MEAN CORPUSCULAR VOLUME 91 fl (80-97); PLATELET COUNT 172 10^3/uL (150-450); RED BLOOD COUNT 2.98 10^6/uL (3.72-5.28); RED CELL DISTRIBUTION WIDTH 16.3 % (11.5-14.0); WHITE BLOOD COUNT 7.7 10^3/uL (4.0-10.5)
[2020-08-23 06:47] LABS: ANION GAP 5 (5-19); BLOOD UREA NITROGEN 34 mg/dL (7-20); CALCIUM 9.1 mg/dL (8.4-10.2); CARBON DIOXIDE 22 mmol/L (22-30); CHLORIDE 113 mmol/L (98-107); GLUCOSE 175 mg/dL (75-110); POTASSIUM 3.7 mmol/L (3.6-5.0)
[2020-08-23] MEDS: DOCUSATE SODIUM 100 MG CAPSULE PO SCH (10:10)
[2020-08-23] MEDS: CYANOCOBALAMIN (VITAMIN B-12) 1,000 MCG TABLET PO SCH (10:10)
[2020-08-23] MEDS: MEROPENEM 500 MG in NORMAL SALINE 50 ML IV SCH ×2 (10:10→21:16)
[2020-08-23] MEDS: CLONIDINE HCL 0.1 MG TABLET PO SCH ×2 (10:10→21:20)
[2020-08-23] MEDS: CHOLECALCIFEROL (D3) 400 UNIT TABLET PO SCH (10:11)
[2020-08-23] MEDS: ASCORBIC ACID 500 MG TABLET PO SCH (10:11)
--- NOTE | 2020-08-23 10:15 | PDOC PROGRESS REPORT ---
Subjective Progress Note for:: 08/23/20 Subjective:: Patient is resting comfortably this morning. Nurses report no new issues or complaints. Reason For Visit: SIRS,HYPOTHERMIA,PYURIA,ACUTE ON CHRONIC RENAL Physical Exam Vital Signs: Temp Pulse Resp BP Pulse Ox 97.5 F 68 20 149/57 H 99 08/23/20 07:17 08/23/20 07:17 08/23/20 07:17 08/23/20 07:17 08/23/20 07:17 Intake & Output 08/22/20 08/23/20 08/24/20 06:59 06:59 06:59 Intake Total 1370 2893 Output Total 650 1300 Balance 720 1593 Weight 88.1 kg 87 kg General appearance: PRESENT: no acute distress, cooperative, well-developed Head exam: PRESENT: atraumatic, normocephalic Ear exam: PRESENT: normal external ear exam. ABSENT: bleeding, drainage Respiratory exam: PRESENT: rales - Faint rales at bases, symmetrical, unlabored. ABSENT: prolonged expiratory phas, rhonchi, tachypnea, wheezes Cardiovascular exam: PRESENT: RRR, +S1, +S2. ABSENT: bradycardia, diastolic murmur, irregular rhythm, systolic murmur, tachycardia GI/Abdominal exam: PRESENT: normal bowel sounds, soft. ABSENT: distended, guarding, tenderness Rectal exam: PRESENT: deferred Gentrourinary exam: PRESENT: indwelling catheter Extremities exam: PRESENT: +1 edema Neurological exam: PRESENT: alert, awake, oriented to person Psychiatric exam: PRESENT: flat affect. ABSENT: agitated, anxious Skin exam: PRESENT: dry, normal color, warm, other - Leg ulceration covered with dressing. Did not remove today. Results Laboratory Results: 08/23/20 05:42 08/23/20 05:42 08/23/20 08/23/20 05:42 05:42 WBC 7.7 RBC 2.98 L Hgb 9.0 L Hct 27.2 L MCV 91 MCH 30.1 MCHC 33.1 RDW 16.3 H Plt Count 172 Sodium 140.1 Potassium 3.7 Chloride 113 H Carbon Dioxide 22 Anion Gap 5 BUN 34 H Creatinine 1.89 H Est GFR ( Amer) 31 L Glucose 175 H Calcium 9.1 08/20/20 19:03 Valdovinos Catheter Urine Culture - Final Pseudomonas Aeruginosa 08/20/20 19:03 Troponin I < 0.012 Impressions: Chest X-Ray 08/20/20 19:02 IMPRESSION: Persistent left basilar atelectasis/scarring similar in appearance to previous, probably chronic pleural and parenchymal scarring. Assessment and Plan - Diagnosis (1) Urinary retention Is this a current diagnosis for this admission?: Yes (2) Catheter-associated urinary tract infection Qualifiers: Indwelling urinary catheter type: indwelling urethral catheter Encounter type: initial encounter Qualified Code(s): T83.511A - Infection and infla mmatory reaction due to indwelling urethral catheter, initial encounter; N39.0 - Urinary tract infection, site not specified Is this a current diagnosis for this admission?: Yes (3) SIRS (systemic inflammatory response syndrome) Is this a current diagnosis for this admission?: Yes (4) Hypothermia Qualifiers: Encounter type: initial encounter Qualified Code(s): T68.XXXA - Hypothermia, initial encounter Is this a current diagnosis for this admission?: Yes (5) Neutrophilic leukocytosis Is this a current diagnosis for this admission?: Yes (6) Hyperkalemia Is this a current diagnosis for this admission?: Yes (7) Acute kidney injury superimposed on CKD Is this a current diagnosis for this admission?: Yes (8) Pyuria Is this a current diagnosis for this admission?: Yes (9) Dementia Qualifiers: Dementia type: unspecified type Dementia behavioral disturbance: without behavioral disturbance Qualified Code(s): F03.90 - Unspecified dementia without behavioral disturbance Is this a current diagnosis for this admission?: Yes (10) Essential hypertension Is this a current diagnosis for this admission?: Yes (11) Hypothyroidism Qualifiers: Hypothyroidism type: unspecified Qualified Code(s): E03.9 - Hypothyroidism, unspecified Is this a current diagnosis for this admission?: Yes (12) Venous stasis of both lower extremities Is this a current diagnosis for this admission?: Yes (13) Pseudomonas urinary tract infection Is this a current diagnosis for this admission?: Yes - Plan Summary Summary: Patient will be admitted to a medical bed where she will receive routine supportive and symptomatic cares. She will be treated initially with meropenem 1 g IV followed by 500 mg IV every 8 hours. Blood and urine cultures are pending. She has been giving a hyperkalemia IV cocktail in the ER and her serum potassium will be followed on a regular basis. A warming blanket will be used to bring her body temperature to an acceptable range. Serial lactic acid levels will be obtained. A thyroid profile will be obtained. Additional laboratory and/or radiographic evaluations will be obtained as appropriate. Patient will use Ativan 1 mg IV every 4 hours as needed for anxiety or restlessness. She will be treated with IV fluids utilizing lactated Ringer solution at 250 mL/h x 12 hours with reassessment of IV fluid requirements at that time. 08/22/2020: Catheter acquired UTI / Urinary retention / Pyuria : UC positive for Pseudomonas Aeruginosa. Currently on meropenem (day 2); with coverage. BC negative at 24 hours, continue meropenem until 48 hours negative then consider switching to Levofloxacin at discharge. Her SNF records patient had catheter placed 07-24-2020. This was removed today. Voiding trial initiated with bladder scans every 8 hours. Catheter will be replaced if greater than 350 mL urine and bladder. 08/23-failed voiding trial. Catheter needed to be replaced. Organism identified is pseudomonas aeruginosa. It is very sensitive to multiple antibiotics including meropenem. We will continue same. SIRS (systemic inflammatory response syndrome) Hypothermic, tachypneic and lethargic on initial presentation, since resolved. Treatment as discussed above. 08/23-resolved with fluid and antibiotics Hypothermia: 93.8F on initial presentation. Since resolved Neutrophilic leukocytosis: Resolved ([facility] BC 8.9) Secondary to catheter acquired UTI per urine culture. 08/23-white blood cell count is now normal at 7.7 after treatment with antibiotics. Hyperkalemia: Resolved 5.8 -> 4.0 08/23-potassium is down to 3.7 today. May need to initiate supplement. Acute kidney injury superimposed on CKD: Suspect secondary to dehydration. Improving with fluids. History stage III CKD BUN 48 (records reviewed usually in 40s). Cr 2.54 (Records reviewed usually in 1.60s) 08/23-BUN now 34 with a creatinine of 1.89. We will continue IV fluids. Getting close to baseline. Dementia Patient is pleasant, but history of dementia makes patient a difficult historian Contacted [facility] for records. Resume dementia medication Essential hypertension: Previously held home medication, resumed today. On initial presentation patient found to be hypotensive. BP currently running in 150s/54. Hydralazine utilized if SBP > 160. 08/23-blood pressures are still variable. No changes in medications currently. Continue to monitor vital signs. Hypothyroidism: TSH elevated at 66.6 Home dose Levothyroxine increased from 125mcg to 150mcg FT3 and FT4 decreased. Thyroid non-palpable on exam There is a chance that patient is not taking her medication, as reported by nurse today. This may explain severely elevated TSH. 08/23-continue to administer her medications here. Patient would benefit from compliance with levothyroxine. Venous stasis of both lower extremities: Chronic wounds both lower extremities. Recent hospitalization regarding cellulitis right lower extremity due to infected venous stasis old ulcer this required surgical debridement and ant ibiotic therapy. Consulted wound care, recommended treatment: - left and right heel Betadine daily. - Right lower leg poly-Mem AG. - Float right leg, right heel left heel and in bed. - Pro-heel excludes bilateral feet. - Time Time Spent with patient: 15-24 minutes Medications reviewed and adjusted accordingly: Yes Anticipated Discharge Disposition: [facility] Anticipated Discharge Timeframe: within 72 hours
[2020-08-23] MEDS: FERROUS SULFATE 325 MG TABLET PO SCH (10:49)
[2020-08-23] MEDS: ASPIRIN 81 MG TABLET, ENT COATED PO SCH (10:49)
[2020-08-23] MEDS: NORMAL SALINE 1000 ML 1,000 ML IV PRN (11:52)
[2020-08-23] MEDS: DRONABINOL 2.5 MG CAPSULE PO SCH (15:42)
[2020-08-23] MEDS: ACETAMINOPHEN 325 MG TABLET PO PRN (16:15)
[2020-08-23] MEDS: DONEPEZIL HCL 5 MG TABLET PO SCH (21:16)
[2020-08-24] MEDS: NORMAL SALINE 1000 ML 1,000 ML IV PRN ×2 (01:17→17:36)
[2020-08-24 04:56] LABS: HEMATOCRIT 25.9 % (36.0-47.0); HEMOGLOBIN 8.5 g/dL (12.0-15.5); MEAN CORPUSCULAR HEMOGLOBIN 30.3 pg (27.0-33.4); MEAN CORPUSCULAR HGB CONC 32.9 g/dL (32.0-36.0); MEAN CORPUSCULAR VOLUME 92 fl (80-97); PLATELET COUNT 155 10^3/uL (150-450); RED BLOOD COUNT 2.81 10^6/uL (3.72-5.28); RED CELL DISTRIBUTION WIDTH 16.6 % (11.5-14.0); WHITE BLOOD COUNT 7.1 10^3/uL (4.0-10.5)
[2020-08-24] MEDS: LEVOTHYROXINE SODIUM 0.05 MG TABLET PO SCH (05:10)
[2020-08-24] MEDS: PANTOPRAZOLE SODIUM 20 MG TABLET.DR PO SCH (05:11)
[2020-08-24 05:18] LABS: ANION GAP 6 (5-19); BLOOD UREA NITROGEN 28 mg/dL (7-20); CALCIUM 8.9 mg/dL (8.4-10.2); CARBON DIOXIDE 22 mmol/L (22-30); CHLORIDE 113 mmol/L (98-107); GLUCOSE 70 mg/dL (75-110); POTASSIUM 3.9 mmol/L (3.6-5.0)
[2020-08-24] MEDS: DRONABINOL 2.5 MG CAPSULE PO SCH ×2 (08:44→15:52)
[2020-08-24] MEDS: MEROPENEM 500 MG in NORMAL SALINE 50 ML IV SCH ×2 (09:56→21:31)
[2020-08-24] MEDS: CYANOCOBALAMIN (VITAMIN B-12) 1,000 MCG TABLET PO SCH (09:57)
[2020-08-24] MEDS: CHOLECALCIFEROL (D3) 400 UNIT TABLET PO SCH (09:57)
[2020-08-24] MEDS: ASCORBIC ACID 500 MG TABLET PO SCH (09:57)
[2020-08-24] MEDS: CLONIDINE HCL 0.1 MG TABLET PO SCH ×2 (09:57→21:31)
[2020-08-24] MEDS: DOCUSATE SODIUM 100 MG CAPSULE PO SCH (09:57)
[2020-08-24] MEDS: ZINC SULFATE 220 MG CAPSULE PO SCH (09:58)
[2020-08-24] MEDS: ASPIRIN 81 MG TABLET, ENT COATED PO SCH (11:50)
[2020-08-24] MEDS: FERROUS SULFATE 325 MG TABLET PO SCH (11:50)
--- NOTE | 2020-08-24 12:38 | PDOC PROGRESS REPORT ---
Subjective Progress Note for:: 08/24/20 Subjective:: Nursing reports improved appetite. No new complaints. Reason For Visit: SIRS,HYPOTHERMIA,PYURIA,ACUTE ON CHRONIC RENAL Physical Exam Vital Signs: Temp Pulse Resp BP Pulse Ox 97.8 F 74 15 141/65 H 100 08/24/20 09:30 08/24/20 07:32 08/24/20 07:32 08/24/20 07:32 08/24/20 07:32 Intake & Output 08/23/20 08/24/20 08/25/20 06:59 06:59 06:59 Intake Total 2893 2577 Output Total 1300 750 Balance 1593 1827 Weight 87 kg 89.2 kg General appearance: PRESENT: no acute distress, cooperative, well-developed Head exam: PRESENT: atraumatic, normocephalic Ear exam: PRESENT: normal external ear exam. ABSENT: bleeding, drainage Mouth exam: PRESENT: moist, tongue midline Respiratory exam: PRESENT: clear to auscultation laurie, symmetrical, unlabored. ABSENT: rales, rhonchi, tachypnea, wheezes Cardiovascular exam: PRESENT: RRR, +S1, +S2. ABSENT: bradycardia, diastolic murmur, irregular rhythm, systolic murmur, tachycardia GI/Abdominal exam: PRESENT: normal bowel sounds, soft. ABSENT: tenderness Rectal exam: PRESENT: deferred Extremities exam: PRESENT: +1 edema Neurological exam: PRESENT: alert, awake, oriented to person Psychiatric exam: PRESENT: appropriate affect. ABSENT: agitated, anxious Skin exam: PRESENT: other - Did not take down dressings on legs today Results Laboratory Results: 08/24/20 04:00 08/24/20 04:00 08/24/20 08/24/20 04:00 04:00 WBC 7.1 RBC 2.81 L Hgb 8.5 L Hct 25.9 L MCV 92 MCH 30.3 MCHC 32.9 RDW 16.6 H Plt Count 155 Sodium 140.7 Potassium 3.9 Chloride 113 H Carbon Dioxide 22 Anion Gap 6 BUN 28 H Creatinine 1.77 H Est GFR ( Amer) 33 L Glucose 70 L Calcium 8.9 08/20/20 19:03 Troponin I < 0.012 Impressions: Chest X-Ray 08/20/20 19:02 IMPRESSION: Persistent left basilar atelectasis/scarring similar in appearance to previous, probably chronic pleural and parenchymal scarring. Assessment and Plan - Diagnosis (1) Urinary retention Is this a current diagnosis for this admission?: Yes (2) Catheter-associated urinary tract infection Qualifiers: Indwelling urinary catheter type: indwelling urethral catheter Encounter type: initial encounter Qualified Code(s): T83.511A - Infection and inflammatory reaction due to indwelling urethral catheter, initial encounter; N39.0 - Urinary tract infection, site not specified Is this a current diagnosis for this admission?: Yes (3) SIRS (systemic inflammatory response syndrome) Is this a current diagnosis for this admission?: Yes (4) Hypothermia Qualifiers: Encounter type: initial encounter Qualified Code(s): T68.XXXA - Hypothermia, initial encounter Is this a current diagnosis for this admission?: Yes (5) Neutrophilic leukocytosis Is this a current diagnosis for this admission?: Yes (6) Hyperkalemia Is this a current diagnosis for this admission?: Yes (7) Acute kidney injury superimposed on CKD Is this a current diagnosis for this admission?: Yes (8) Pyuria Is this a current diagnosis for this admission?: Yes (9) Dementia Qualifiers: Dementia type: unspecified type Dementia behavioral disturbance: without behavioral disturbance Qualified Code(s): F03.90 - Unspecified dementia without behavioral disturbance Is this a current diagnosis for this admission?: Yes (10) Essential hypertension Is this a current diagnosis for this admission?: Yes (11) Hypothyroidism Qualifiers: Hypothyroidism type: unspecified Qualified Code(s): E03.9 - Hypothyroidism, unspecified Is this a current diagnosis for this admission?: Yes (12) Venous stasis of both lower extremities Is this a current diagnosis for this admission?: Yes (13) Pseudomonas urinary tract infection Is this a current diagnosis for this admission?: Yes - Plan Summary Summary: Patient will be admitted to a medical bed where she will receive routine supportive and symptomatic cares. She will be treated initially with meropenem 1 g IV followed by 500 mg IV every 8 hours. Blood and urine cultures are pending. She has been giving a hyperkalemia IV cocktail in the ER and her serum potassium will be followed on a regular basis. A warming blanket will be used to bring her body temperature to an acceptable range. Serial lactic acid levels will be obtained. A thyroid profile will be obtained. Additional laboratory and/or radiographic evaluations will be obtained as appropriate. Patient will use Ativan 1 mg IV every 4 hours as needed for anxiety or restlessness. She will be treated with IV fluids utilizing lactated Ringer solution at 250 mL/h x 12 hours with reassessment of IV fluid requirements at that time. 08/22/2020: Catheter acquired UTI / Urinary retention / Pyuria : UC positive for Pseudomonas Aeruginosa. Currently on meropenem (day 2); with coverage. BC negative at 24 hours, continue meropenem until 48 hours negative then consider switching to Levofloxacin at discharge. Her SNF records patient had catheter placed 07-24-2020. This was removed today. Voiding trial initiated with bladder scans every 8 hours. Catheter will be replaced if greater than 350 mL urine and bladder. 08/23-failed voiding trial. Catheter needed to be replaced. Organism identified is pseudomonas aeruginosa. It is very sensitive to multiple antibiotics including meropenem. We will continue same. 08/24/2020-Valdovinos catheter back in place. Pseudomonas Infection in Urine 08/24/2020-Pseudomonas is sensitive to multiple intravenous antibiotics. Oral antibiotics are the quinolones. Want to avoid use of the quinolones due to rapid ability to develop resistance. Checking to see if [facility] can administer IV antibiotics so that patient can complete her treatment at that facility as she is a long-term resident. SIRS (systemic inflammatory response syndrome) Hypothermic, tachypneic and lethargic on initial presentation, since resolved. Treatment as discussed above. 08/23-resolved with fluid and antibiotics Hypothermia: 93.8F on initial presentation. Since resolved 08/24/2020-hypothermia resolved. Patient's temperature seems to stay in the 97. 5 to 98 degree range. Neutrophilic leukocytosis: Resolved (WC BC 8.9) Secondary to catheter acquired UTI per urine culture. 08/23-white blood cell count is now normal at 7.7 after treatment with antibiotics. Hyperkalemia: Resolved 5.8 -> 4.0 08/23-potassium is down to 3.7 today. May need to initiate supplement. 08/24/2020-potassium is 3.9. Will monitor on low-dose supplement. Need to avoid recurrent hyperkalemia. Acute kidney injury superimposed on CKD: Suspect secondary to dehydration. Improving with fluids. History stage III CKD BUN 48 (records reviewed usually in 40s). Cr 2.54 (Records reviewed usually in 1.60s) 08/23-BUN now 34 with a creatinine of 1.89. We will continue IV fluids. Getting close to baseline. 1018-BUN is down to 28 with a creatinine of 1.77. Urine output was well over 1 L yesterday. Continue to monitor renal function as well as intake and output. Dementia Patient is pleasant, but history of dementia makes patient a difficult historian Contacted [facility] for records. Resume dementia medication Essential hypertension: Previously held home medication, resumed today. On initial presentation patient found to be hypotensive. BP currently running in 150s/54. Hydralazine utilized if SBP > 160. 08/23-blood pressures are still variable. No changes in medications currently. Continue to monitor vital signs. Hypothyroidism: TSH elevated at 66.6 Home dose Levothyroxine increased from 125mcg to 150mcg FT3 and FT4 decreased. Thyroid non-palpable on exam There is a chance that patient is not taking her medication, as reported by nurse today. This may explain severely elevated TSH. 08/23-continue to administer her medications here. Patient would benefit from compliance with levothyroxine. Venous stasis of both lower extremities: Chronic wounds both lower extremities. Recent hospitalization regarding cellulitis right lower extremity due to infected venous stasis old ulcer this required surgical debridement and antibiotic therapy. Consulted wound care, recommended treatment: - left and right heel Betadine daily. - Right lower leg poly-Mem AG. - Float right leg, right heel left heel and in bed. - Pro-heel excludes bilateral feet. 08/24/2020-investigating possibility of completing IV antibiotics back at [facility]. Also investigating the need for repeat COVID testing prior to return to the [facility] facility. Discharge will be dependent on the answers to these questions. - Time Time Spent with patient: 15-24 minutes Medications reviewed and adjusted accordingly: Yes Anticipated Discharge Disposition: [facility] Anticipated Discharge Timeframe: Based on answers to inquiries
[2020-08-24] MEDS: DONEPEZIL HCL 5 MG TABLET PO SCH (21:31)
[2020-08-25] MEDS: PANTOPRAZOLE SODIUM 20 MG TABLET.DR PO SCH (05:07)
[2020-08-25] MEDS: LEVOTHYROXINE SODIUM 0.05 MG TABLET PO SCH (05:07)
[2020-08-25] MEDS: NORMAL SALINE 1000 ML 1,000 ML IV PRN ×2 (06:57→21:46)
[2020-08-25] MEDS: DRONABINOL 2.5 MG CAPSULE PO SCH ×2 (07:59→16:26)
[2020-08-25] MEDS: ASPIRIN 81 MG TABLET, ENT COATED PO SCH (09:26)
[2020-08-25] MEDS: FERROUS SULFATE 325 MG TABLET PO SCH (09:27)
[2020-08-25] MEDS: ASCORBIC ACID 500 MG TABLET PO SCH (10:30)
[2020-08-25] MEDS: ZINC SULFATE 220 MG CAPSULE PO SCH (10:30)
[2020-08-25] MEDS: DOCUSATE SODIUM 100 MG CAPSULE PO SCH (10:30)
[2020-08-25] MEDS: MEROPENEM 500 MG in NORMAL SALINE 50 ML IV SCH ×2 (10:30→21:43)
[2020-08-25] MEDS: CLONIDINE HCL 0.1 MG TABLET PO SCH ×2 (10:30→21:44)
[2020-08-25] MEDS: CHOLECALCIFEROL (D3) 400 UNIT TABLET PO SCH (10:30)
[2020-08-25] MEDS: CYANOCOBALAMIN (VITAMIN B-12) 1,000 MCG TABLET PO SCH (10:31)
--- NOTE | 2020-08-25 16:13 | RADIOLOGY REPORT (SQ) ---
EXAM DESCRIPTION: PICC INSERTION IMAGES COMPLETED DATE/TIME: 08/25/2020 3:51 pm REASON FOR STUDY: Outpatient antibiotics at [facility] COMPARISON: None. FLUOROSCOPY TIME: 4.49 minutes 1 images saved to PACS. TECHNIQUE: Fluoroscopic and ultrasound guided PICC placement. LIMITATIONS: None. PROCEDURE: After written consent and assessment were obtained, the patient was brought into the fluo roscopy room and placed supine on the table. Ultrasound evaluation of potential access sites were per formed. After successfully identifying a patent left upper extremity basilic vein, the left arm was p repped and draped in a sterile fashion along with the ultrasound probe. The entry site was anesthetiz ed with 1% lidocaine. A 21 gauge 7 cm needle was advanced through the skin and into the basilic vein under live ultrasound guidance. An ultrasound image was saved to PACS confirming access site. A .01 8 guide wire was then inserted through the needle and into the venous system. The needle was then rem wilfred and an 11 blade scalpel was used to make a 1cm skin incision. A 5 fr peel-away sheath was advan penelope over the wire and into the venous system. A measurement was then made using the existing wire and live fluoroscopic guidance. The wire was then removed and trimmed. The PICC was advanced through the peel-away sheath and into the venous system. The peel-away sheath was removed and the catheter was a dhered to the patients arm with a stat lock. The catheter was then aspirated and flushed and a steril e bandage was placed over the access site. A fluoroscopic spot image was saved to PACS confirming th e catheter tip within the SVC. IMPRESSION: SUCCESSFUL PLACEMENT OF A 5 FR DUAL LUMEN 49 CM PICC IN THE LEFT BASILIC VEIN. COMMENT: Patient medication list reviewed: Yes- Quality ID# [id number]:Eligible professional attests to doc umenting in the medical record they obtained, updated, or reviewed the patient's current medications. . Quality ID 145: Final reports for procedures using fluoroscopy that document radiation exposure marie loretta, or exposure time and number of fluorographic images (if radiation exposure indices are not avail able) Quality ID #76: The patient was prepped and draped using maximum sterile barrier technique including cap, mask, sterile gown, sterile gloves, a large sterile sheet, hand hygiene, and 2% Chlorhexidine fo r cutaneous antisepsis. When ultrasound is used, sterile ultrasound techniques are followed requiring sterile gel and sterile probes. TECHNICAL DOCUMENTATION: JOB ID: [id number] 2010 [employer]- All Rights Reserved rev Reading location - IP/workstation name: [id number]
[2020-08-25] MEDS ORDERED: NORMAL SALINE 10 ML SDV (AFTER EACH USE) IV PRN (16:30)
--- NOTE | 2020-08-25 20:53 | PDOC PROGRESS REPORT ---
Subjective Progress Note for:: 08/25/20 Subjective:: Patient stable. PICC line ordered so that she can finish antibiotic therapy at [facility]. Reason For Visit: SIRS,HYPOTHERMIA,PYURIA,ACUTE ON CHRONIC RENAL Physical Exam Vital Signs: Temp Pulse Resp BP Pulse Ox 97.8 F 64 19 159/63 H 96 08/25/20 16:29 08/25/20 16:29 08/25/20 16:29 08/25/20 16:29 08/25/20 16:29 Intake & Output 08/24/20 08/25/20 08/26/20 06:59 06:59 06:59 Intake Total 2577 2340 470 Output Total 750 860 700 Balance 1827 1480 -230 Weight 89.2 kg 89.2 kg 89.8 kg General appearance: PRESENT: no acute distress, cooperative, well-developed Head exam: PRESENT: atraumatic, normocephalic Mouth exam: PRESENT: moist, tongue midline Respiratory exam: PRESENT: clear to auscultation laurie, symmetrical, unlabored. ABSENT: rales, rhonchi, tachypnea, wheezes Cardiovascular exam: PRESENT: RRR, +S1, +S2. ABSENT: bradycardia, diastolic murmur, irregular rhythm, systolic murmur, tachycardia GI/Abdominal exam: PRESENT: normal bowel sounds, soft. ABSENT: distended, gua rding, tenderness Rectal exam: PRESENT: deferred Extremities exam: PRESENT: +1 edema Musculoskeletal exam: ABSENT: ambulatory Neurological exam: PRESENT: alert, awake, oriented to person Psychiatric exam: PRESENT: flat affect. ABSENT: agitated, anxious Focused psych exam: ABSENT: delusional, paranoid, restlessness Skin exam: PRESENT: other - Dressings on both legs. Results Laboratory Results: 08/24/20 04:00 08/24/20 04:00 08/20/20 19:03 Blood Blood Culture - Final NO GROWTH IN 5 DAYS 08/20/20 19:03 Troponin I < 0.012 Impressions: Chest X-Ray 08/20/20 19:02 IMPRESSION: Persistent left basilar atelectasis/scarring similar in appearance to previous, probably chronic pleural and parenchymal scarring. PICC Line Insertion 08/25/20 00:00 IMPRESSION: SUCCESSFUL PLACEMENT OF A 5 FR DUAL LUMEN 49 CM PICC IN THE LEFT BASILIC VEIN. Assessment and Plan - Diagnosis (1) Urinary retention Is this a current diagnosis for this admission?: Yes (2) Catheter-associated urinary tract infection Qualifiers: Indwelling urinary catheter type: indwelling urethral catheter Encounter type: initial encounter Qualified Code(s): T83.511A - Infection and inflammatory reaction due to indwelling urethral catheter, initial encounter; N39.0 - Urinary tract infection, site not specified Is this a current diagnosis for this admission?: Yes (3) SIRS (systemic inflammatory response syndrome) Is this a current diagnosis for this admission?: Yes (4) Hypothermia Qualifiers: Encounter type: initial encounter Qualified Code(s): T68.XXXA - Hypothermia, initial encounter Is this a current diagnosis for this admission?: Yes (5) Neutrophilic leukocytosis Is this a current diagnosis for this admission?: Yes (6) Hyperkalemia Is this a current diagnosis for this admission?: Yes (7) Acute kidney injury superimposed on CKD Is this a current diagnosis for this admission?: Yes (8) Pyuria Is this a current diagnosis for this admission?: Yes (9) Dementia Qualifiers: Dementia type: unspecified type Dementia behavioral disturbance: without behavioral disturbance Qualified Code(s): F03.90 - Unspecified dementia without behavioral disturbance Is this a current diagnosis for this admission?: Yes (10) Essential hypertension Is this a current diagnosis for this admission?: Yes (11) Hypothyroidism Qualifiers: Hypothyroidism type: unspecified Qualified Code(s): E03.9 - Hypothyroidism, unspecified Is this a current diagnosis for this admission?: Yes (12) Venous stasis of both lower extremities Is this a current diagnosis for this admission?: Yes (13) Pseudomonas urinary tract infection Is this a current diagnosis for this admission?: Yes - Plan Summary Summary: Patient will be admitted to a medical bed where she will receive routine supportive and symptomatic cares. She will be treated initially with meropenem 1 g IV followed by 500 mg IV every 8 hours. Blood and urine cultures are pending. She has been giving a hyperkalemia IV cocktail in the ER and her serum potassium will be followed on a regular basis. A warming blanket will be used to bring her body temperature to an acceptable range. Serial lactic acid levels will be obtained. A thyroid profile will be obtained. Additional laboratory and/or radiographic evaluations will be obtained as appropriate. Patient will use Ativan 1 mg IV every 4 hours as needed for anxiety or restlessness. She will be treated with IV fluids utilizing lactated Ringer solution at 250 mL/h x 12 hours with reassessment of IV fluid requirements at that time. 08/22/2020: Catheter acquired UTI / Urinary retention / Pyuria : UC positive for Pseudomonas Aeruginosa. Currently on meropenem (day 2); with coverage. BC negative at 24 hours, continue meropenem until 48 hours negative then consider switching to Levofloxacin at discharge. Her SNF records patient had catheter placed 07-24-2020. This was removed today. Voiding trial initiated with bladder scans every 8 hours. Catheter will be replaced if greater than 350 mL urine and bladder. 08/23-failed voiding trial. Catheter needed to be replaced. Organism identified is pseudomonas aeruginosa. It is very sensitive to multiple antibiotics including meropenem. We will continue same. 08/24/2020-Valdovinos catheter back in place. 08/25/2020-consider removing Valdovinos catheter after antibiotic therapy completed for Pseudomonas urinary infection Pseudomonas Infection in Urine 08/24/2020-Pseudomonas is sensitive to multiple intravenous antibiotics. Oral antibiotics are the quinolones. Want to avoid use of the quinolones due to rapid ability to develop resistance. Checking to see if [facility] can administer IV antibiotics so that patient can complete her treatment at that facility as she is a long-term resident. 08/25/2020-PICC line in place. Once Covid serology returns patient can complete IV antibiotic therapy at [facility] SIRS (systemic inflammatory response syndrome) Hypothermic, tachypneic and lethargic on initial presentation, since resolved. Treatment as discussed above. 08/23-resolved with fluid and antibiotics Hypothermia: 93.8F on initial presentation. Since resolved 08/24/2020-hypothermia resolved. Patient's temperature seems to stay in the 97.5 to 98 degree range. Neutrophilic leukocytosis: Resolved (WC BC 8.9) Secondary to catheter acquired UTI per urine culture. 08/23-white blood cell count is now normal at 7.7 after treatment with antibiotics. Hyperkalemia: Resolved 5.8 -> 4.0 08/23-potassium is down to 3.7 today. May need to initiate supplement. 08/24/2020-potassium is 3.9. Will monitor on low-dose supplement. Need to avoid recurrent hyperkalemia. 08/25/2020-serum potassium remains normal Acute kidney injury superimposed on CKD: Suspect secondary to dehydration. Improving with fluids. History stage III CKD BUN 48 (records reviewed usually in 40s). Cr 2.54 (Records reviewed usually in 1.60s) 08/23-BUN now 34 with a creatinine of 1.89. We will continue IV fluids. Getting close to baseline. 08/24-BUN is down to 28 with a creatinine of 1.77. Urine output was well over 1 L yesterday. Continue to monitor renal function as well as intake and output. 08/25/2020-creatinine continues to slowly improve and is down to 1.28 with a BUN of 18. Continue to monitor and encourage fluid intake Dementia Patient is pleasant, but history of dementia makes patient a difficult historian Contacted [facility] for records. Resume dementia medication Essential hypertension: Previously held home medication, resumed today. On initial presentation patient found to be hypotensive. BP currently running in 150s/54. Hydralazine utilized if SBP > 160. 08/23-blood pressures are still variable. No changes in medications currently. Continue to monitor vital signs. 08/25/2020-continue medications as is Hypothyroidism: TSH elevated at 66.6 Home dose Levothyroxine increased from 125mcg to 150mcg FT3 and FT4 decreased. Thyroid non-palpable on exam There is a chance that patient is not taking her medication, as reported by nu rse today. This may explain severely elevated TSH. 08/23-continue to administer her medications here. Patient would benefit from compliance with levothyroxine. Venous stasis of both lower extremities: Chronic wounds both lower extremities. Recent hospitalization regarding cellulitis right lower extremity due to infected venous stasis old ulcer this required surgical debridement and antibiotic therapy. Consulted wound care, recommended treatment: - left and right heel Betadine daily. - Right lower leg poly-Mem AG. - Float right leg, right heel left heel and in bed. - Pro-heel excludes bilateral feet. 08/24/2020-investigating possibility of completing IV antibiotics back at [facility]. Also investigating the need for repeat COVID testing prior to return to the assisted facility. Discharge will be dependent on the answers to these questions. 08/25/2020-discharge planning reported that IV antibiotics can be completed at [facility] as long as the patient has a PICC line in. We are awaiting Covid serology. Depending on how long it takes for Covid serology results to return the patient may complete her antibiotics while inpatient. The PICC line and certainly will help by eliminating the need for phlebotomy sticks - Time Time Spent with patient: Less than 15 minutes Medications reviewed and adjusted accordingly: Yes Anticipated Discharge Disposition: Custodial Facility Anticipated Discharge Timeframe: Plan Covid serology results available
[2020-08-25] MEDS: DONEPEZIL HCL 5 MG TABLET PO SCH (21:43)
[2020-08-25] MEDS: NORMAL SALINE 10 ML SDV (SCHEDULED) IV SCH (21:44)
[2020-08-26] MEDS: LEVOTHYROXINE SODIUM 0.05 MG TABLET PO SCH (05:17)
[2020-08-26] MEDS: PANTOPRAZOLE SODIUM 20 MG TABLET.DR PO SCH (05:17)
[2020-08-26] MEDS: CLONIDINE HCL 0.1 MG TABLET PO SCH ×2 (10:11→21:04)
[2020-08-26] MEDS: DOCUSATE SODIUM 100 MG CAPSULE PO SCH (10:12)
[2020-08-26] MEDS: CYANOCOBALAMIN (VITAMIN B-12) 1,000 MCG TABLET PO SCH (10:12)
[2020-08-26] MEDS: CHOLECALCIFEROL (D3) 400 UNIT TABLET PO SCH (10:12)
[2020-08-26] MEDS: FERROUS SULFATE 325 MG TABLET PO SCH ×2 (10:12→10:28)
[2020-08-26] MEDS: ASPIRIN 81 MG TABLET, ENT COATED PO SCH ×2 (10:12→10:28)
[2020-08-26] MEDS: ASCORBIC ACID 500 MG TABLET PO SCH (10:12)
[2020-08-26] MEDS: ZINC SULFATE 220 MG CAPSULE PO SCH (10:12)
[2020-08-26] MEDS: DRONABINOL 2.5 MG CAPSULE PO SCH ×3 (10:12→16:35)
[2020-08-26] MEDS: MEROPENEM 500 MG in NORMAL SALINE 50 ML IV SCH ×2 (10:14→21:05)
[2020-08-26] MEDS: NORMAL SALINE 10 ML SDV (SCHEDULED) IV SCH ×2 (10:14→21:06)
[2020-08-26] MEDS: NORMAL SALINE 1000 ML 1,000 ML IV PRN (14:19)
--- NOTE | 2020-08-26 20:02 | PDOC PROGRESS REPORT ---
Subjective Progress Note for:: 08/26/20 Subjective:: NAEO Reason For Visit: SIRS,HYPOTHERMIA,PYURIA,ACUTE ON CHRONIC RENAL Physical Exam Vital Signs: Temp Pulse Resp BP Pulse Ox 99 F 67 19 135/54 H 98 08/26/20 16:00 08/26/20 16:00 08/26/20 16:00 08/26/20 16:00 08/26/20 11:32 Intake & Output 08/25/20 08/26/20 08/27/20 06:59 06:59 06:59 Intake Total 2340 2138 2051 Output Total 860 1200 550 Balance 5620 084 1794 Weight 89.2 kg 89.8 kg 89.8 kg General appearance: PRESENT: no acute distress, cooperative Eye exam: ABSENT: scleral icterus Mouth exam: PRESENT: moist Throat exam: ABSENT: post pharyngeal erythema Neck exam: ABSENT: JVD Respiratory exam: PRESENT: clear to auscultation laurie Cardiovascular exam: PRESENT: RRR GI/Abdominal exam: PRESENT: normal bowel sounds, soft Gentrourinary exam: PRESENT: indwelling catheter Extremities exam: PRESENT: other - bilateral venous stasis. ABSENT: pedal edema Neurological exam: PRESENT: alert, awake, oriented to person Psychiatric exam: PRESENT: appropriate affect Skin exam: ABSENT: rash Results Laboratory Results: 08/24/20 04:00 08/24/20 04:00 08/20/20 20:48 Blood Blood Culture - Final NO GROWTH IN 5 DAYS 08/20/20 19:03 Blood Blood Culture - Final NO GROWTH IN 5 DAYS 08/20/20 19:03 Troponin I < 0.012 Impressions: Chest X-Ray 08/20/20 19:02 IMPRESSION: Persistent left basilar atelectasis/scarring similar in appearance to previous, probably chronic pleural and parenchymal scarring. PICC Line Insertion 08/25/20 00:00 IMPRESSION: SUCCESSFUL PLACEMENT OF A 5 FR DUAL LUMEN 49 CM PICC IN THE LEFT BASILIC VEIN. Assessment and Plan - Diagnosis (1) Catheter-associated urinary tract infection Qualifiers: Indwelling urinary catheter type: indwelling urethral catheter Encounter type: initial encounter Qualified Code(s): T83.511A - Infection and inflammatory reaction due to indwelling urethral catheter, initial encounter; N39.0 - Urinary tract infection, site not specified Is this a current diagnosis for this admission?: Yes (2) Pseudomonas urinary tract infection Is this a current diagnosis for this admission?: Yes (3) Acute kidney injury superimposed on CKD Is this a current diagnosis for this admission?: Yes (4) Hyperkalemia Is this a current diagnosis for this admission?: Yes (5) Hypothermia Qualifiers: Encounter type: initial encounter Qualified Code(s): T68.XXXA - Hypothermia, initial encounter Is this a current diagnosis for this admission?: Yes (6) Neutrophilic leukocytosis Is this a current diagnosis for this admission?: Yes (7) Pyuria Is this a current diagnosis for this admission?: Yes (8) SIRS (systemic inflammatory response syndrome) Is this a current diagnosis for this admission?: Yes (9) Dehydration Is this a current diagnosis for this admission?: Yes (10) Dementia Qualifiers: Dementia type: unspecified type Dementia behavioral disturbance: without behavioral disturbance Qualified Code(s): F03.90 - Unspecified dementia without behavioral disturbance Is this a current diagnosis for this admission?: Yes (11) Essential hypertension Is this a current diagnosis for this admission?: Yes (12) Hypothyroidism Qualifiers: Hypothyroidism type: unspecified Qualified Code(s): E03.9 - Hypothyroidism, unspecified Is this a current diagnosis for this admission?: Yes (13) Obesity (BMI 30-39.9) Is this a current diagnosis for this admission?: Yes - Plan Summary Summary: Catheter acquired UTI: UC positive for Pseudomonas Aeruginosa. Chronic indwelling Valdovinos catheter in place for chronic urinary retention. PICC line placed on 08/25. SIRS (systemic inflammatory response syndrome): Hypothermic, tachypneic and lethargic on initial presentation, since resolved with fluids and antibiotics. Neutrophilic leukocytosis: Resolved. Secondary to CAUTI. Hyperkalemia: Resolved. Was due to DENISSE on CKD in the s/o dehydration due to infection. Acute kidney injury superimposed on CKD stage 3: Suspect secondary to dehydration in the s/o infection. Resolved with IVF. Essential hypertension: well controlled. Hypothyroidism: TSH elevated at 66. Levothyroxine dose increased from 125mcg to 150mcg. Recheck TSH and FT4 in 6 weeks. Venous stasis of both lower extremities: Chronic wounds to both lower extremities. She had a recent hospitalization for cellulitis of right lower extremity due to infected venous stasis old ulcer which required surgical debridement and antibiotic therapy. Consulted wound care, recommended treatment: - left and right heel Betadine daily. - Right lower leg poly-Mem AG. - Float right leg, right heel left heel and in bed. - Pro-heel excludes bilateral feet. - Time Time Spent with patient: 35 or more minutes Anticipated Discharge Disposition: Residential Facility Anticipated Discharge Timeframe: within 24 hours
[2020-08-26] MEDS: DONEPEZIL HCL 5 MG TABLET PO SCH (21:05)
[2020-08-27] MEDS: PANTOPRAZOLE SODIUM 20 MG TABLET.DR PO SCH (05:04)
[2020-08-27] MEDS: LEVOTHYROXINE SODIUM 0.05 MG TABLET PO SCH (05:04)
[2020-08-27] MEDS: NORMAL SALINE 1000 ML 1,000 ML IV PRN (05:08)
[2020-08-27] MEDS: CYANOCOBALAMIN (VITAMIN B-12) 1,000 MCG TABLET PO SCH (09:31)
[2020-08-27] MEDS: ZINC SULFATE 220 MG CAPSULE PO SCH ×2 (09:31→09:46)
[2020-08-27] MEDS: DRONABINOL 2.5 MG CAPSULE PO SCH ×2 (09:31→09:46)
[2020-08-27] MEDS: FERROUS SULFATE 325 MG TABLET PO SCH (09:31)
[2020-08-27] MEDS: CLONIDINE HCL 0.1 MG TABLET PO SCH (09:32)
[2020-08-27] MEDS: DOCUSATE SODIUM 100 MG CAPSULE PO SCH (09:32)
[2020-08-27] MEDS: CHOLECALCIFEROL (D3) 400 UNIT TABLET PO SCH (09:32)
[2020-08-27] MEDS: ASCORBIC ACID 500 MG TABLET PO SCH (09:32)
[2020-08-27] MEDS: ASPIRIN 81 MG TABLET, ENT COATED PO SCH (09:32)
[2020-08-27] MEDS: NORMAL SALINE 10 ML SDV (SCHEDULED) IV SCH (09:33)
[2020-08-27] MEDS: MEROPENEM 500 MG in NORMAL SALINE 50 ML IV SCH (09:33)
--- NOTE | 2020-08-27 11:19 | PDOC TRANSFER SUMMARY ---
Impression - Admit/DC Date/PCP Admission Date/Primary Care Provider: 08/20/20 21:39 RASHEL DOS SANTOS MD Discharge Date: 08/27/20 - Discharge Diagnosis (1) Catheter-associated urinary tract infection Is this a current diagnosis for this admission?: Yes (2) Pseudomonas urinary tract infection Is this a current diagnosis for this admission?: Yes (3) Acute kidney injury superimposed on CKD Is this a current diagnosis for this admission?: Yes (4) Hyperkalemia Is this a current diagnosis for this admission?: Yes (5) Hypothermia Is this a current diagnosis for this admission?: Yes (6) Neutrophilic leukocytosis Is this a current diagnosis for this admission?: Yes (7) Pyuria Is this a current diagnosis for this admission?: Yes (8) SIRS (systemic inflammatory response syndrome) Is this a current diagnosis for this admission?: Yes (9) Dehydration Is this a current diagnosis for this admission?: Yes (10) Dementia Is this a current diagnosis for this admission?: Yes (11) Essential hypertension Is this a current diagnosis for this admission?: Yes (12) Hypothyroidism Is this a current diagnosis for this admission?: Yes (13) Obesity (BMI 30-39.9) Is this a current diagnosis for this admission?: Yes - Assessment Summary: Catheter associated UTI: UC positive for Pseudomonas Aeruginosa. Chronic indwelling Valdovinos catheter in place for chronic urinary retention. She has completed a week of IV antibiotic therapy. Valdovinos catheter was last exchanged on 08/27/2020 and should be exchanged every 4 weeks. SIRS (systemic inflammatory response syndrome): Hypothermic, tachypnic and lethargic on initial presentation, since resolved with fluids and antibiotics. Neutrophilic leukocytosis: Resolved. Secondary to CAUTI. Hyperkalemia: Resolved. Was due to DENISSE on CKD in the s/o dehydration due to infection. Acute kidney injury superimposed on CKD stage 3: Suspect secondary to dehydration in the s/o infection. Resolved with IVF. Essential hypertension: well controlled. Hypothyroidism: TSH elevated at 66. Levothyroxine dose increased from 125mcg to 150mcg. Recheck TSH and FT4 in 6 weeks. Venous stasis of both lower extremities: Chronic wounds to both lower extremities. She had a recent hospitalization for cellulitis of right lower extremity due to infected venous stasis ulcer which required surgical debridement and antibiotic therapy. Consulted wound care, who recommended the following treatment: - left and right heel Betadine daily. - Right lower leg poly-Mem AG. - Float right leg, right heel left heel and in bed. - Pro-heel excludes bilateral feet. Generalized Weakness: She will need ongoing PT/OT. Fall precautions advised. - Additional Information Resuscitation Status: Do Not Resuscitate Discharge Diet: Cardiac Discharge Activity: Activity As Tolerated, Keep Legs Elevated, Supervised Activity Referrals: RASHEL DOS SANTOS MD [Primary Care Provider] - Follow up as needed Home Medications: Ascorbic Acid [Vitamin C 500 mg Tablet] 500 mg PO DAILY 07/08/20 Aspirin [Ecotrin 81 mg EC Tablet] 81 mg PO DAILY 07/08/20 Cholecalciferol (Vitamin D3) [Vitamin D3 400 Unit Tablet] 400 unit PO DAILY 07/08/20 Clonidine HCl [Catapres 0.1 mg Tablet] 0.1 mg PO Q12 07/08/20 Cyanocobalamin (Vitamin B-12) [Vitamin B-12 1000 mcg Tablet] 1 tab PO DAILY 07/08/20 Donepezil HCl 10 mg PO QHS 07/08/20 Vits96/Iron Fum/Folic [ Tablet] 1 each PO DAILY 07/08/20 Ondansetron [Zofran Odt 4 mg Tablet] 4 mg PO Q4HP PRN tab.rapdis 07/18/20 Acetaminophen [Tylenol 325 mg Tablet] 650 mg PO Q4HP PRN 08/21/20 Bisacodyl [Dulcolax 10 mg Supp.rect] 10 mg IN DAILYP PRN 08/21/20 Collagenase Clostridium Hist. [Santyl Ointment 30 gm] 1 applic TP DAILY 08/21/20 Dronabinol [Marinol 2.5 mg Capsule] 5 mg PO BIDACBS 08/21/20 Ferrous Sulfate [Feosol 325 mg Tablet] 325 mg PO DAILY 08/21/20 Multivitamin with Minerals [One Daily Plus Minerals] 1 each PO DAILY 08/21/20 Nut.tx.comp. Immune Systm,Reg [Impact Advanced Recovery] 178 ml PO BID 08/21/20 Povidone-Iodine [Betadine] 1 each TP DAILY 08/21/20 Zinc Oxide [Zinc Oxide 20% Ointment 28.35 gm] 1 applic TP DAILYP PRN 08/21/20 Zinc Sulfate [Zinc-220 Capsule] 220 mg PO DAILY 08/21/20 Levothyroxine Sodium [Synthroid 0.05 mg Tablet] 0.15 mg PO Q6AM tablet 08/27/20 History of Present Illiness History of Present Illness: DANK WHITE is a 85 year old female Physical Exam Vital Signs: Temp Pulse Resp BP Pulse Ox 97.4 F 64 19 149/57 H 100 08/27/20 10:00 08/27/20 07:36 08/27/20 07:36 08/27/20 07:36 08/27/20 07:36 Intake & Output 08/26/20 08/27/20 08/28/20 06:59 06:59 06:59 Intake Total 2138 3201 387 Output Total 1200 900 Balance 938 2301 387 Weight 89.8 kg 84.6 kg Results Laboratory Results: WBC 7.1 10^3/uL (4.0-10.5) 08/24/20 04:00 RBC 2.81 10^6/uL (3.72-5.28) L 08/24/20 04:00 Hgb 8.5 g/dL (12.0-15.5) L 08/24/20 04:00 Hct 25.9 % (36.0-47.0) L 08/24/20 04:00 MCV 92 fl (80-97) 08/24/20 04:00 MCH 30.3 pg (27.0-33.4) 08/24/20 04:00 MCHC 32.9 g/dL (32.0-36.0) 08/24/20 04:00 RDW 16.6 % (11.5-14.0) H 08/24/20 04:00 Plt Count 155 10^3/uL (150-450) 08/24/20 04:00 Lymph % (Auto) 11.8 % (13-45) L 08/21/20 05:33 Toombs % (Auto) 6.3 % (3-13) 08/21/20 05:33 Eos % (Auto) 0.3 % (0-6) 08/21/20 05:33 Baso % (Auto) 0.3 % (0-2) 08/21/20 05:33 Absolute Neuts (auto) 8.7 10^3/uL (1.7-8.2) H 08/21/20 05:33 Absolute Lymphs (auto) 1.3 10^3/uL (0.5-4.7) 08/21/20 05:33 Absolute Monos (auto) 0.7 10^3/uL (0.1-1.4) 08/21/20 05:33 Absolute Eos (auto) 0.0 10^3/uL (0.0-0.6) 08/21/20 05:33 Absolute Basos (auto) 0.0 10^3/uL (0.0-0.2) 08/21/20 05:33 Total Counted 100 08/20/20 19:03 Seg Neutrophils % 81.3 % (42-78) H 08/21/20 05:33 Seg Neuts % (Manual) 75 % (42-78) 08/20/20 19:03 Lymphocytes % (Manual) 20 % (13-45) 08/20/20 19:03 Monocytes % (Manual) 4 % (3-13) 08/20/20 19:03 Eosinophils % (Manual) 0 % (0-6) 08/20/20 19:03 Basophils % (Manual) 1 % (0-2) 08/20/20 19:03 Abs Neuts (Manual) 8.1 10^3/uL (1.7-8.2) 08/20/20 19:03 Abs Lymphs (Manual) 2.2 10^3/uL (0.5-4.7) 08/20/20 19:03 Abs Monocytes (Manual) 0.4 10^3/uL (0.1-1.4) 08/20/20 19:03 Absolute Eos (Manual) 0.0 10^3/uL (0.0-0.6) 08/20/20 19:03 Abs Basophils (Manual) 0.1 10^3/uL (0.0-0.2) 08/20/20 19:03 Nucleated RBCs 1 /100 WBC (0) 08/20/20 19:03 Platelet Comment ADEQUATE 08/20/20 19:03 Polychromasia SLIGHT 08/20/20 19:03 Anisocytosis 1+ 08/20/20 19:03 PT 14.2 SEC (11.4-15.4) 08/20/20 19:03 INR 1.08 08/20/20 19:03 VBG pH 7.30 (7.30-7.42) 08/20/20 19:03 VBG pCO2 51.6 mmHg (35-63) 08/20/20 19:03 VBG HCO3 24.6 mmol/L (20-32) 08/20/20 19:03 VBG Base Excess -2.2 mmol/L 08/20/20 19:03 Sodium 140.7 mmol/L (137-145) 08/24/20 04:00 Potassium 3.9 mmol/L (3.6-5.0) 08/24/20 04:00 Chloride 113 mmol/L (98-107) H 08/24/20 04:00 Carbon Dioxide 22 mmol/L (22-30) 08/24/20 04:00 Anion Gap 6 (5-19) 08/24/20 04:00 BUN 28 mg/dL (7-20) H 08/24/20 04:00 Creatinine 1.77 mg/dL (0.52-1.25) H 08/24/20 04:00 Est GFR ( Amer) 33 (>60) L 08/24/20 04:00 Est GFR (MDRD) Non-Af 27 (>60) L 08/24/20 04:00 Glucose 70 mg/dL (75-110) L 08/24/20 04:00 POC Glucose 105 mg/dL (70-110) 08/24/20 15:28 Lactic Acid 1.0 mmol/L (0.7-2.1) 08/21/20 05:33 Calcium 8.9 mg/dL (8.4-10.2) 08/24/20 04:00 Total Bilirubin 0.5 mg/dL (0.2-1.3) 08/21/20 05:33 Direct Bilirubin 0.4 mg/dL (0.0-0.4) 08/21/20 05:33 Neonat Total Bilirubin Not Reportable 08/21/20 05:33 Neonat Direct Bilirubin Not Reportable 08/21/20 05:33 Neonat Indirect Bili Not Reportable 08/21/20 05:33 AST 57 U/L (14-36) H 08/21/20 05:33 ALT 32 U/L (<35) 08/21/20 05:33 Alkaline Phosphatase 79 U/L (38-126) 08/21/20 05:33 Troponin I < 0.012 ng/mL 08/20/20 19:03 Total Protein 6.8 g/dL (6.3-8.2) 08/21/20 05:33 Albumin 3.0 g/dL (3.5-5.0) L 08/21/20 05:33 TSH 66.80 uIU/mL (0.47-4.68) H 08/21/20 05:33 Free T4 0.60 ng/dL (0.78-2.19) L 08/21/20 05:33 Free T3 pg/mL 1.47 pg/mL (2.77-5.27) L 08/21/20 05:33 Urine Color IVELISSE 08/20/20 19:03 Urine Appearance CLOUDY 08/20/20 19:03 Urine pH 6.0 (5.0-9.0) 08/20/20 19:03 Ur Specific [place] 1.017 08/20/20 19:03 Urine Protein 30 mg/dL (NEGATIVE) H 08/20/20 19:03 Urine Glucose (UA) NEGATIVE mg/dL (NEGATIVE) 08/20/20 19:03 Urine Ketones NEGATIVE mg/dL (NEGATIVE) 08/20/20 19:03 Urine Blood SMALL (NEGATIVE) H 08/20/20 19:03 Urine Nitrite (Reflex) NEGATIVE (NEGATIVE) 08/20/20 19:03 Urine Bilirubin NEGATIVE (NEGATIVE) 08/20/20 19:03 Urine Urobilinogen NEGATIVE mg/dL (<2.0) 08/20/20 19:03 Leukocyte Esterase Rfl LARGE (NEGATIVE) H 08/20/20 19:03 Urine RBC (Auto) 27 /HPF 08/20/20 19:03 Urine Bacteria (Auto) 1+ /HPF 08/20/20 19:03 Urine WBC (Reflex) > 182 /HPF 08/20/20 19:03 Urine WBC Clumps MANY /HPF 08/20/20 19:03 Squamous Epi Cells Auto 1 /HPF 08/20/20 19:03 Urine Mucus (Auto) OCC /LPF 08/20/20 19:03 Urine Ascorbic Acid 40 (NEGATIVE) H 08/20/20 19:03 COVID-19 Source See comment 08/25/20 08:40 COVID-19 (RYANN) Not Detected (Not Detect) 08/25/20 08:40 08/20/20 19:03 Troponin I < 0.012 Impressions: Chest X-Ray 08/20/20 19:02 IMPRESSION: Persistent left basilar atelectasis/scarring similar in appearance to previous, probably chronic pleural and parenchymal scarring. PICC Line Insertion 08/25/20 00:00 IMPRESSION: SUCCESSFUL PLACEMENT OF A 5 FR DUAL LUMEN 49 CM PICC IN THE LEFT BASILIC VEIN. Stroke Is this a Stroke Patient?: No Acute Heart Failure Is this a Heart Failure Patient?: No
[2020-08-27 15:37] VITALS: BP 153/67
== END 2020-08-27 16:22 | DRG 699 ==
LOC: ER 18:53 → EH 21:39 → 4S 08-21 00:40
PROVIDERS: ADMIT Emergency Medicine; ATTEND Hospitalist
PROC: 0TPBX0Z Removal of Drainage Device from Bladder, External Approach (ICD-10-PCS; principal; 2020-08-22)
PROC: 02HV33Z Insertion of Infusion Device into Superior Vena Cava, Percutaneous Approach (ICD-10-PCS; 2020-08-25)
PROC: B518ZZA Fluoroscopy of Superior Vena Cava, Guidance (ICD-10-PCS; 2020-08-25)
PROC: B548ZZA Ultrasonography of Superior Vena Cava, Guidance (ICD-10-PCS; 2020-08-25)
DX: T83.511A Infection and inflammatory reaction due to indwelling urethral catheter, initial encounter (principal); N17.9 Acute kidney failure, unspecified; L97.923 Non-pressure chronic ulcer of unspecified part of left lower leg with necrosis of muscle; Y84.6 Urinary catheterization as the cause of abnormal reaction of the patient, or of later complication, without mention of misadventure at the time of the procedure; B96.5 Pseudomonas (aeruginosa) (mallei) (pseudomallei) as the cause of diseases classified elsewhere; E87.5 Hyperkalemia; T68.XXXA Hypothermia, initial encounter; D72.828 Other elevated white blood cell count; E86.0 Dehydration; F03.90 Unspecified dementia, unspecified severity, without behavioral disturbance, psychotic disturbance, mood disturbance, and anxiety; I12.9 Hypertensive chronic kidney disease with stage 1 through stage 4 chronic kidney disease, or unspecified chronic kidney disease; E03.9 Hypothyroidism, unspecified; E66.9 Obesity, unspecified; N39.0 Urinary tract infection, site not specified; N18.30 Chronic kidney disease, stage 3 unspecified; I87.8 Other specified disorders of veins; E78.5 Hyperlipidemia, unspecified; R53.1 Weakness; D63.1 Anemia in chronic kidney disease; Z96.642 Presence of left artificial hip joint; Z66 Do not resuscitate; Z79.899 Other long term (current) drug therapy; Z79.82 Long term (current) use of aspirin; Z79.890 Hormone replacement therapy; Z82.3 Family history of stroke; Z80.3 Family history of malignant neoplasm of breast
CPT/HCPCS: 36415; 36573; 71045; 80048; 80053; 81001; 82803; 82962; 83605; 84439; 84443; 84481; 84484; 85025; 85027; 85610; 87040; 87086; 87088; 87186; 87635; 93005; 93010; 99285; A9270-GY; C1769; C9803; J1642; J2185; J3490; J7030

== ENCOUNTER 2020-09-02 14:27 | Emergency (ER) | payer MEDICARE, OTHER ==
--- NOTE | 2020-09-02 14:42 | ER Document Report ---
ED Dizziness/Weakness - General Stated Complaint: WEAKNESS Primary Care Provider: RASHEL DOS SANTOS MD [HONORARY] - Follow up as needed Mode of Arrival: Medic Information source: Patient, Emergency Med Personnel Notes: 85-year-old black female arrives by friendly EMS transfer with Glenn as EMS workers and as main historians. They were transferring her back to [facility] from wound care. She had been treated for her bilateral heel and right knee wounds. They are wrapped with clean Billy and also with tape. She appears to be in no distress from these wounds. Around 1215 EMS workers noticed she stopped talking from a coherent verbalization conversation and her oxygen sats dropped to 72% and she had garbled speech and left arm neglect with no sensation no use of left arm. We evaluated this patient at 1220 with Cat RN and she was taken to CT scan. At 1230 she was being transferred from her gurney to the CT table and she was asked to hold onto EMS Cain's arm and her adventure challenge instructor was very good with the left hand and left arm as well as her reaching with her right upper extremity to grab his right arm. He was almost pulled off of around his gurney. It would appear her research and development technician have returned to the left upper extremity. Patient was very conversive when I saw her at 1220 in hallway next t o the room #2 with RN. She was thereafter moved from CT room to room #18 for CVA work-up. Patient has a history of chronic ulcer to left lower extremity hypertension CKD ARF venous stasis of lower extremities hypothyroidism hypertension dehydration and EMS worker Gisele advises 2 weeks ago she took this patient to [facility] and therefore knows this patient well. TRAVEL OUTSIDE OF THE [place] IN LAST 30 DAYS: No - HPI Patient complains to provider of: Altered mental status, Weakness Onset: Just prior to arrival Onset/Duration: Sudden, Better Quality of pain: No pain Severity: Mild Pain Level: 1 Associated symptoms: Confused, Less responsive, Loss of motor function, Loss of strength, Loss of sensation, Weak all over - Related Data Allergies/Adverse Reactions: No Known Allergies Allergy (Verified 09/10/19 16:57) Past Medical History - General Information source: Emergency Med Personnel - Social History Smoking Status: Unknown if Ever Smoked Cigarette use (# per day): No Chew tobacco use (# tins/day): No Smoking Education Provided: No Frequency of alcohol use: None Lives with: Snf Family History: Reviewed & Not Pertinent, CVA, Malignancy - Breast Patient has suicidal ideation: No Patient has homicidal ideation: No - Past Medical History Cardiac Medical History: Reports: Hx Hypercholesterolemia, Hx Hypertension Denies: Hx Coronary Artery Disease, Hx Heart Attack Pulmonary Medical History: Denies: Hx Asthma, Hx Bronchitis, Hx COPD, Hx Pneumonia Neurological Medical History: Denies: Hx Cerebrovascular Accident, Hx Seizures Endocrine Medical History: Reports: Hx Hypothyroidism. Denies: Hx Diabetes Mellitus Type 1, Hx Diabetes Mellitus Type 2, Hx Hyperthyroidism Renal/ Medical History: Reports: Hx Renal Insufficiency. Denies: Hx Peritoneal Dialysis GI Medical History: Denies: Hx Cirrhosis, Hx Hepatitis, Hx Hiatal Hernia, Hx U lcer Musculoskeletal Medical History: Denies Hx Arthritis, Denies Hx Fibromyalgia Skin Medical History: Denies Hx Eczema, Denies Hx Psoriasis Psychiatric Medical History: Reports: Hx Dementia Denies: Hx Depression Infectious Medical History: Denies: Hx Hepatitis Past Surgical History: Reports: Hx Hysterectomy, Hx Orthopedic Surgery - left hip replacement. Denies: Hx Mastectomy, Hx Open Heart Surgery, Hx Pacemaker - Immunizations Hx Diphtheria, Pertussis, Tetanus Vaccination: No - UNSURE Hx Pneumococcal Vaccination: 09/07/05 Review of Systems - Review of Systems Constitutional: See HPI, Weakness EENT: No symptoms reported Cardiovascular: No symptoms reported Respiratory: No symptoms reported Gastrointestinal: No symptoms reported Genitourinary: No symptoms reported Female Genitourinary: No symptoms reported Musculoskeletal: No symptoms reported Skin: No symptoms reported Hematologic/Lymphatic: No symptoms reported Neurological/Psychological: See HPI, Sensory change, Weakness, Loss of power -: Yes All other systems reviewed and negative Physical Exam - Vital signs Vitals: Pulse Resp BP Pulse Ox 67 14 142/49 H 97 09/02/20 14:28 09/02/20 14:28 09/02/20 14:28 09/02/20 14:28 Interpretation: Normal - General General appearance: Appears well, Alert - HEENT Head: Normocephalic, Atraumatic Eyes: Normal Pupils: PERRL - Respiratory Respiratory status: No respiratory distress Chest status: Nontender Breath sounds: Normal Chest palpation: Normal - Cardiovascular Rhythm: Regular Heart sounds: Normal auscultation Murmur: No - Abdominal Inspection: Normal Distension: No distension Bowel sounds: Normal Tenderness: Nontender Organomegaly: No organomegaly - Rectal Hemorrhoids: Other - Genitourinary Biman[place] exam: Other - Deferred - Back Back: Normal, Nontender - Extremities General upper extremity: Normal color, Normal temperature, Other - Right upper extremity with good strength full mobility and sensation at 1420 but no use of left upper extremity General lower extremity: Normal color, Normal temperature, Other - Bilateral lower extremity. No: Mela's sign - Neurological Neuro grossly intact: Yes Cognition: Normal Orientation: AAOx4 [place] Coma Scale Eye Opening: Spontaneous [place] Coma Scale Verbal: Oriented [place] Coma Scale Motor: Obeys Commands [place] Coma Scale Total: 15 Speech: Normal Motor strength normal: LUE, RUE, LLE, RLE Sensory: Normal - Psychological Associated symptoms: Normal affect, Normal mood - Skin Skin Temperature: Warm Skin Moisture: Dry Skin Color: Normal Course - Vital Signs Vital signs: Temp Pulse Resp BP Pulse Ox 97.5 F 67 17 145/45 H 100 09/02/20 14:59 09/02/20 14:50 09/02/20 19:01 09/02/20 19:01 09/02/20 19:01 - Laboratory Result Diagrams: 09/02/20 14:45 09/02/20 14:45 Laboratory results interpreted by me: 09/02/20 09/02/20 14:45 14:45 RBC 2.96 L Hgb 9.0 L Hct 27.0 L RDW 16.3 H Est GFR ( Amer) 50 L Est GFR (MDRD) Non-Af 41 L Glucose 124 H Calcium 10.7 H Creatine Kinase 25 L Albumin 2.7 L - Diagnostic Test Radiology reviewed: Reports reviewed - I spoke with radiologist at 1445 and she advises negative CT brain at this time. - EKG Interpretation by Me EKG shows normal: Sinus rhythm Rate: Normal Rhythm: NSR - 57 bpm with sinus rhythm left axis deviation and EKG machine reports anterior infarct but I do not see any ST elevation ST depression T wave depression or elevation and I read this EKG Discharge - Discharge Clinical Impression: TIA (transient ischemic attack) Condition: Good Disposition: HOME, SELF-CARE Additional Instructions: follow-up with personal doctor return to ER if symptoms of stroke recur; take your medicines as directed; encourage fluids Referrals: RASHEL DOS SANTOS MD [HONORARY] - Follow up as needed
--- NOTE | 2020-09-02 14:52 | RADIOLOGY REPORT (SQ) ---
EXAM DESCRIPTION: CT HEAD WITHOUT IMAGES COMPLETED DATE/TIME: 09/02/2020 2:37 pm REASON FOR STUDY: LEFT SIDED WEAKNESS COMPARISON: None. TECHNIQUE: Axial images acquired through the brain without intravenous contrast. Images reviewed wi th bone, brain and subdural windows. Additional sagittal and coronal reconstructions were generated. Images stored on PACS. All CT scanners at this facility use dose modulation, iterative reconstruction, and/or weight based d osing when appropriate to reduce radiation dose to as low as reasonably achievable (ALARA). [facility]: Dose Right [facility]: CareDose [facility]: Dose Right [facility]: Teradose 4D [facility]: [employer] RADIATION DOSE: CT Rad equipment meets quality standard of care and radiation dose reduction techniq ues were employed. CTDIvol: 53.2 mGy. DLP: 1044 mGy-cm. mGy. LIMITATIONS: Motion artifact on images through the skullbase and posterior fossa FINDINGS: VENTRICLES: Normal size and contour. CEREBRUM: No masses. No hemorrhage. No midline shift. No evidence for acute infarction. Normal gra y/white matter differentiation. No areas of low density in the white matter. CEREBELLUM: Motion artifact. No gross hemorrhage or midline shift EXTRAAXIAL SPACES: No fluid collections. No masses. ORBITS AND GLOBE: No intra- or extraconal masses. Normal contour of globe without masses. CALVARIUM: No fracture. PARANASAL SINUSES: No fluid or mucosal thickening. SOFT TISSUES: No mass or hematoma. OTHER: No other significant finding. IMPRESSION: Limited negative study EVIDENCE OF ACUTE STROKE: NO. COMMENT: Findings discussed with Dr. Montoya, 1440 hours 09/02/2020 as a critical result, CT stroke alert Quality ID # [id number]: Final reports with documentation of one or more dose reduction techniques (e.g., Au tomated exposure control, adjustment of the mA and/or kV according to patient size, use of iterative reconstruction technique) TECHNICAL DOCUMENTATION: JOB ID: [id number] 2010 [employer]- All Rights Reserved Reading location - IP/workstation name: [email or web address]
[2020-09-02 14:54] LABS: ABSOLUTE BASOPHILS # (AUTO) 0.1 10^3/uL (0.0-0.2); ABSOLUTE EOSINOPHILS # (AUTO) 0.3 10^3/uL (0.0-0.6); ABSOLUTE LYMPHOCYTES (AUTO) 2.5 10^3/uL (0.5-4.7); ABSOLUTE MONOCYTES (AUTO) 0.7 10^3/uL (0.1-1.4); ABSOLUTE NEUT (AUTO) 4.2 10^3/uL (1.7-8.2); BASOPHILS % (AUTO) 0.9 % (0-2); EOSINOPHILS % (AUTO) 3.7 % (0-6); MEAN CORPUSCULAR HEMOGLOBIN 30.5 pg (27.0-33.4); MEAN CORPUSCULAR HGB CONC 33.4 g/dL (32.0-36.0); MEAN CORPUSCULAR VOLUME 91 fl (80-97); MONOCYTES % (AUTO) 8.6 % (3-13); PLATELET COUNT 189 10^3/uL (150-450); RED BLOOD COUNT 2.96 10^6/uL (3.72-5.28); RED CELL DISTRIBUTION WIDTH 16.3 % (11.5-14.0); SEGMENTED NEUTROPHILS % (AUTO) 54.8 % (42-78); TOTAL CELLS COUNTED % (AUTO) 100 %; WHITE BLOOD COUNT 7.7 10^3/uL (4.0-10.5)
--- NOTE | 2020-09-02 14:54 | RADIOLOGY REPORT (SQ) ---
EXAM DESCRIPTION: CHEST SINGLE VIEW IMAGES COMPLETED DATE/TIME: 09/02/2020 2:43 pm REASON FOR STUDY: LEFT SIDED WEAKNESS COMPARISON: 08/20/2020 and 07/08/2020. EXAM PARAMETERS: NUMBER OF VIEWS: One view. TECHNIQUE: Single frontal radiographic view of the chest acquired. RADIATION DOSE: NA LIMITATIONS: None. FINDINGS: LUNGS AND PLEURA: Chronic scarring particularly in the lung bases. No lobar infiltrate, m asses or pneumothorax. No pleural effusion. MEDIASTINUM AND HILAR STRUCTURES: No masses. Contour normal. HEART AND VASCULAR STRUCTURES: Heart normal in size. Normal vasculature. BONES: No acute findings. HARDWARE: None in the chest. OTHER: No other significant finding. IMPRESSION: CHRONIC SCARRING. NO ACUTE RADIOGRAPHIC FINDING IN THE CHEST. TECHNICAL DOCUMENTATION: JOB ID: [id number] [employer]- All Rights Reserved Reading location - IP/workstation name: [email or web address]
[2020-09-02 15:06] LABS: INTERNATIONAL RATION (INR) 1.06; PARTIAL THROMBOPLASTIN TIME 30.6 SEC (23.5-35.8)
[2020-09-02 15:13] LABS: ALBUMIN 2.7 g/dL (3.5-5.0); ALKALINE PHOSPHATASE 85 U/L (38-126); ANION GAP 10 (5-19); ASPARTATE AMINO TRANSFERASE 33 U/L (14-36); BILIRUBIN,DIRECT 0.2 mg/dL (0.0-0.4); BILIRUBIN,TOTAL 0.6 mg/dL (0.2-1.3); BLOOD UREA NITROGEN 17 mg/dL (7-20); CALCIUM 10.7 mg/dL (8.4-10.2); CARBON DIOXIDE 24 mmol/L (22-30); CHLORIDE 105 mmol/L (98-107); CREATINE KINASE 25 U/L (30-135); GLUCOSE 124 mg/dL (75-110); TOTAL PROTEIN 6.4 g/dL (6.3-8.2)
[2020-09-02 15:24] LABS: CREATINE KINASE MB 1.06 ng/mL (<4.55)
[2020-09-02 15:32] LABS: TROPONIN I < 0.012 ng/mL
--- NOTE | 2020-09-02 18:12 | EKG REPORT ---
SEVERITY:- BORDERLINE ECG - SINUS RHYTHM LEFT AXIS DEVIATION CONSIDER ANTERIOR INFARCT : Confirmed by: Morris Crabtree MD 02-Sep-2020 18:12:02
[2020-09-02 20:46] VITALS: BP 156/64
== END 2020-09-02 20:48 ==
LOC: ER 14:27
DX: G45.9 Transient cerebral ischemic attack, unspecified (principal); R41.0 Disorientation, unspecified; R53.1 Weakness; I10 Essential (primary) hypertension; R20.8 Other disturbances of skin sensation
CPT/HCPCS: 36415; 70450; 71045; 80053; 82550; 82553; 82962; 84484; 85025; 85610; 85730; 93005; 93010; 99285

== ENCOUNTER 2020-09-19 10:29 | Inpatient (IN) | payer MEDICARE ==
[2020-09-19 11:37] LABS: APPEARANCE,URINE TURBID; BILIRUBIN,URINE NEGATIVE (NEGATIVE); COLOR,URINE YELLOW; GLUCOSE, URINE NEGATIVE (NEGATIVE); KETONES,URINE NEGATIVE (NEGATIVE); LEUKOCYTE ESTERASE,URINE MODERATE (NEGATIVE); NITRITE,URINE NEGATIVE (NEGATIVE); PROTEIN,URINE >=500 mg/dL (NEGATIVE); TRIPLE PHOSPHATE CRYSTAL,URINE TOO NUMEROUS TO CNT /HPF; URIC ACID CRYSTALS,URINE MODERATE /HPF; URINE SPECIFIC GRAVITY 1.017; UROBILINOGEN,URINE NEGATIVE mg/dL (<2.0)
[2020-09-19] MEDS ORDERED: CEFEPIME 2 GM/D5W RTU 2 GM/50 ML RTUPB IV ONE ×2 (12:00→15:00)
[2020-09-19] MEDS ORDERED: NORMAL SALINE 500 ML IV ONE (12:01)
[2020-09-19] MEDS ORDERED: VANCOMYCIN HCL INJ 1000 MG VIAL IV ONE ×2 (12:01→14:15)
[2020-09-19 12:28] LABS: HEMATOCRIT 32.8 % (36.0-47.0); HEMOGLOBIN 10.2 g/dL (12.0-15.5); MEAN CORPUSCULAR HEMOGLOBIN 28.9 pg (27.0-33.4); MEAN CORPUSCULAR VOLUME 93 fl (80-97); PLATELET COUNT 194 10^3/uL (150-450); RED BLOOD COUNT 3.52 10^6/uL (3.72-5.28); RED CELL DISTRIBUTION WIDTH 17.5 % (11.5-14.0); WHITE BLOOD COUNT 13.8 10^3/uL (4.0-10.5)
[2020-09-19 12:35] LABS: INTERNATIONAL RATION (INR) 1.02; PROTHROMBIN TIME 13.6 SEC (11.4-15.4)
[2020-09-19 12:46] LABS: ALBUMIN 3.2 g/dL (3.5-5.0); ALKALINE PHOSPHATASE 115 U/L (38-126); ANION GAP 9 (5-19); ASPARTATE AMINO TRANSFERASE 41 U/L (14-36); BILIRUBIN,DIRECT 0.3 mg/dL (0.0-0.4); BILIRUBIN,TOTAL 0.5 mg/dL (0.2-1.3); BLOOD UREA NITROGEN 71 mg/dL (7-20); CARBON DIOXIDE 31 mmol/L (22-30); CHLORIDE 107 mmol/L (98-107); GLUCOSE 136 mg/dL (75-110); POTASSIUM 4.3 mmol/L (3.6-5.0)
--- NOTE | 2020-09-19 12:51 | RADIOLOGY REPORT (SQ) ---
EXAM DESCRIPTION: CT CHEST WITHOUT IMAGES COMPLETED DATE/TIME: 09/19/2020 12:40 pm REASON FOR STUDY: unresponsive COMPARISON: None. TECHNIQUE: CT scan performed of the chest without intravenous contrast. Images reviewed with lung, soft tissue and bone windows. Reconstructed coronal and sagittal MPR images reviewed. All images st ored on PACS. All CT scanners at this facility use dose modulation, iterative reconstruction, and/or weight based d osing when appropriate to reduce radiation dose to as low as reasonably achievable (ALARA). [facility]: Dose Right [facility]: CareDose [facility]: Dose Right [facility]: Teradose 4D [facility]: Novan RADIATION DOSE: CT Rad equipment meets quality standard of care and radiation dose reduction techniq ues were employed. CTDIvol: 15.3 - 22.4 mGy. DLP: 1654 mGy-cm. mGy. LIMITATIONS: No technical limitations. FINDINGS: LUNGS AND PLEURA: Bilateral nodular airspace disease. This could be infectious or inflamm atory. Neoplasm cannot be excluded. Changes are most prominent in the lung bases. Probable underly ing interstitial airspace disease. Does the patient have a known primary? HILAR AND MEDIASTINAL STRUCTURES: No identified masses or abnormal nodes. No obvious aneurysm. HEART AND VASCULAR STRUCTURES: No aneurysm. No pericardial effusion. UPPER ABDOMEN: No significant findings. Limited exam. THYROID AND OTHER SOFT TISSUES: No masses. No adenopathy. BONES: No significant finding. HARDWARE: None in the chest. OTHER: No other significant findings. IMPRESSION: Bilateral nodular airspace disease most marked in the lung bases. This could be infecti ous, inflammatory or neoplastic. Does the patient have a known primary? No effusions. TECHNICAL DOCUMENTATION: JOB ID: [id number] Quality ID # [id number]: Final reports with documentation of one or more dose reduction techniques (e.g., Au tomated exposure control, adjustment of the mA and/or kV according to patient size, use of iterative reconstruction technique) 2010 [employer]- All Rights Reserved Reading location - IP/workstation name: [email or web address]
--- NOTE | 2020-09-19 12:52 | RADIOLOGY REPORT (SQ) ---
EXAM DESCRIPTION: CT HEAD WITHOUT IMAGES COMPLETED DATE/TIME: 09/19/2020 12:40 pm REASON FOR STUDY: unresponsive COMPARISON: 09/02/2020 TECHNIQUE: Axial images acquired through the brain without intravenous contrast. Images reviewed wi th bone, brain and subdural windows. Additional sagittal and coronal reconstructions were generated. Images stored on PACS. All CT scanners at this facility use dose modulation, iterative reconstruction, and/or weight based d osing when appropriate to reduce radiation dose to as low as reasonably achievable (ALARA). [facility]: Dose Right [facility]: CareDose [facility]: Dose Right [facility]: Teradose 4D [facility]: [employer] RADIATION DOSE: CT Rad equipment meets quality standard of care and radiation dose reduction techniq ues were employed. CTDIvol: 53.2 mGy. DLP: 1044 mGy-cm.mGy. LIMITATIONS: None. FINDINGS: VENTRICLES: Prominent. CEREBRUM: No masses. No hemorrhage. No midline shift. Areas of low density in the white matter mos t likely due to chronic micro-vascular ischemic change. No evidence for acute infarction. CEREBELLUM: No masses. No hemorrhage. No alteration of density. No evidence for acute infarction. EXTRAAXIAL SPACES: Age-related involutional change. No fluid collections. No masses. ORBITS AND GLOBE: No intra- or extraconal masses. Normal contour of globe without masses. CALVARIUM: No fracture. PARANASAL SINUSES: Retention cyst or polyp in the left maxillary sinus. SOFT TISSUES: No mass or hematoma. OTHER: No other significant finding. IMPRESSION: CHRONIC CHANGES OF ATROPHY AND MICROVASCULAR ISCHEMIA. NO ACUTE PROCESS. EVIDENCE OF ACUTE STROKE: NO. TECHNICAL DOCUMENTATION: JOB ID: [id number] Quality ID # [id number]: Final reports with documentation of one or more dose reduction techniques (e.g., Au tomated exposure control, adjustment of the mA and/or kV according to patient size, use of iterative reconstruction technique) 2010 [employer]- All Rights Reserved Reading location - IP/workstation name: [email or web address]
--- NOTE | 2020-09-19 12:55 | RADIOLOGY REPORT (SQ) ---
EXAM DESCRIPTION: CT ABD/PELVIS NO ORAL OR IV IMAGES COMPLETED DATE/TIME: 09/19/2020 12:40 pm REASON FOR STUDY: unresponsive COMPARISON: None. TECHNIQUE: CT scan of the abdomen and pelvis performed without intravenous or oral contrast. Images reviewed with lung, soft tissue, and bone windows. Reconstructed coronal and sagittal MPR images revi ewed. All images stored on PACS. All CT scanners at this facility use dose modulation, iterative reconstruction, and/or weight based d osing when appropriate to reduce radiation dose to as low as reasonably achievable (ALARA). [facility]: Dose Right [facility]: CareDose [facility]: Dose Right [facility]: Teradose 4D [facility]: [employer] RADIATION DOSE: mGy. LIMITATIONS: None. FINDINGS: LOWER CHEST: Bibasilar airspace disease. NON-CONTRASTED LIVER, SPLEEN, ADRENALS: Evaluation limited by lack of IV contrast. No identified sign ificant masses. PANCREAS: There is mild stranding in the fat surrounding the pancreatic head any laboratory evidence of pancreatitis? GALLBLADDER: Gallstones. RIGHT KIDNEY AND URETER: No suspicious masses. Assessment limited by lack of IV contrast. No signif icant calcifications. Small right renal cyst. LEFT KIDNEY AND URETER: No suspicious masses. Assessment limited by lack of IV contrast. No signifi cant calcifications. No hydronephrosis or hydroureter. AORTA AND RETROPERITONEUM: No aneurysm. No retroperitoneal masses or adenopathy. BOWEL AND PERITONEAL CAVITY: No obvious masses or inflammatory changes. No free fluid. APPENDIX: Normal. PELVIS, BLADDER, AND ABDOMINAL WALL:Images through the pelvis are limited by the left hip prosthesis. No obvious masses or inflammatory changes. A Valdovinos catheter decompresses the bladder. BONES: No significant findings. OTHER: No other significant finding. IMPRESSION: Question mild pancreatitis with slight inflammation noted surrounding the pancreatic hea d. Gallstones. COMMENT: Quality ID # 436: Final reports with documentation of one or more dose reduction techniques (e.g., Automated exposure control, adjustment of the mA and/or kV according to patient size, use of iterative reconstruction technique) TECHNICAL DOCUMENTATION: JOB ID: [id number] 2010 [employer]- All Rights Reserved Reading location - IP/workstation name: [email or web address]
[2020-09-19 12:56] LABS: ABSOLUTE LYMPHOCYTES# (MANUAL) 1.7 10^3/uL (0.5-4.7); ABSOLUTE MONOCYTES # (MANUAL) 0.4 10^3/uL (0.1-1.4); BASOPHILS % (MANUAL) 0 % (0-2); EOSINOPHILS % (MANUAL) 4 % (0-6); LYMPHOCYTES % (MANUAL) 11 % (13-45); MONOCYTES % (MANUAL) 3 % (3-13); NUCLEATED RED BLOOD CELLS 1 /100 WBC (0); SEGMENTED NEUTROPHILS % (MAN) 81 % (42-78); TOTAL CELLS COUNTED 100
[2020-09-19 12:57] LABS: ANISOCYTOSIS 1+; PLATELET COMMENT ADEQUATE; TROPONIN I 0.013 ng/mL
[2020-09-19 12:58] LABS: OVALOCYTES 1+; POIKILOCYTOSIS 1+; TEAR DROP CELLS SLIGHT
--- NOTE | 2020-09-19 13:12 | RADIOLOGY REPORT (SQ) ---
EXAM DESCRIPTION: ACUTE ABDOMEN SERIES IMAGES COMPLETED DATE/TIME: 09/19/2020 1:00 pm REASON FOR STUDY: unresponsive COMPARISON: None. NUMBER OF VIEWS: Three views. TECHNIQUE: Frontal chest, supine abdomen and upright/decubitus abdomen radiographic images acquired. LIMITATIONS: None. FINDINGS: CHEST: Basilar interstitial airspace disease please see CT of the chest for further discus antonio. FREE AIR: None. No abnormal gas collections. BOWEL GAS PATTERN: Moderate constipation. No evidence of mechanical obstruction. CALCIFICATIONS: No suspicious calcifications. HARDWARE: None in the abdomen. SOFT TISSUES: No gross mass or suggestion of organomegaly. BONES: No acute fracture. No worrisome bone lesions. OTHER: No other significant finding. IMPRESSION: Constipation. No other significant findings. TECHNICAL DOCUMENTATION: JOB ID: [id number] 2010 [employer]- All Rights Reserved Reading location - IP/workstation name: [email or web address]
[2020-09-19 13:30] LABS: CALCIUM 13.8 mg/dL (8.4-10.2)
[2020-09-19] MEDS ORDERED: FUROSEMIDE INJ/PF 20 MG/2 ML SDV IV ONE (14:35)
[2020-09-19] MEDS ORDERED: CALCITONIN,SALMON,SYNTHETIC 400 UNIT/2 ML VIAL IM STA (15:16)
[2020-09-19] MEDS ORDERED: NORMAL SALINE 1000 ML 1,000 ML IV ONE (15:16)
--- NOTE | 2020-09-19 15:35 | ER Document Report ---
Entered by MEENA FLORES SCRIBE 09/19/20 1058 Acting as scribe for:ARACELY SHARPE MD ED General - General Stated Complaint: POSSIBLE SYNCOPE Mode of Arrival: Medic Information source: Patient, Emergency Med Personnel Notes: This 85 year old female patient with a history of dementia brought in by EMS from [facility] presents to the ED for evaluation after being found unresponsive in the shower by staff. Per EMS, staff at the facility report that the patient was breathing but did not have a pulse so they started CPR and patient regained a pulse shortly after. Upon EMS arrival, patient was alert but confused at baseline. Vital signs were stable and the patient had a BGL of 166 with EMS. Patient denies any pain or headache. TRAVEL OUTSIDE OF THE [place] IN LAST 30 DAYS: No - Related Data Allergies/Adverse Reactions: No Known Allergies Allergy (Verified 09/10/19 16:57) Past Medical History - General Information source: [facility] Records - Social History Smoking Status: Unknown if Ever Smoked Smoking Education Provided: No Lives with: [facility] Family History: Reviewed & Not Pertinent, CVA, Malignancy - Past Medical History Cardiac Medical History: Reports: Hx Hypercholesterolemia, Hx Hypertension Endocrine Medical History: Reports: Hx Hypothyroidism Renal/ Medical History: Reports: Hx Renal Insufficiency Psychiatric Medical History: Reports: Hx Dementia Past Surgical History: Reports: Hx Hysterectomy, Hx Orthopedic Surgery - left hip replacement - Immunizations Hx Diphtheria, Pertussis, Tetanus Vaccination: No - UNSURE Hx Pneumococcal Vaccination: 09/07/05 Review of Systems - Review of Systems Constitutional: No symptoms reported EENT: No symptoms reported Cardiovascular: No symptoms reported Respiratory: No symptoms reported Gastrointestinal: No symptoms reported Genitourinary: No symptoms reported Female Genitourinary: No symptoms reported Musculoskeletal: See HPI Skin: No symptoms reported Hematologic/Lymphatic: No symptoms reported Neurological/Psychological: See HPI -: Yes All other systems reviewed and negative Physical Exam - Vital signs Vitals: Resp 22 H 09/19/20 10:43 - General General appearance: Alert In distress: None - HEENT Head: Normocephalic, Atraumatic Eyes: Normal Pupils: PERRL Nasal: Other - Boggy turbinates Mouth/Lips: Other - Poor dentition Pharynx: Normal. No: Erythema Neck: Normal, Supple. No: Carotid bruit - Respiratory Respiratory status: No respiratory distress Chest status: Nontender Breath sounds: Normal Chest palpation: Normal - Cardiovascular Rhythm: Regular Heart sounds: Normal auscultation Murmur: Yes Systolic murmur grade 1-6: 3 Friction rub: No Gallop: None auscultated - Abdominal Inspection: Normal Distension: No distension Bowel sounds: Normal Tenderness: Nontender - Abdomen soft Organomegaly: No organomegaly - Back Back: Normal, Nontender - Extremities General lower extremity: Other - Bandages and dressing over right lower leg, right heel, midcalf, and knee cap. Patient has a history of chronic bilateral lower extremity venous stasis ulcers. - Neurological Neuro grossly intact: Yes - Psychological Associated symptoms: Normal affect, Normal mood - Skin Skin Temperature: Warm Skin Moisture: Dry Skin Color: Normal Course - Vital Signs Vital signs: Temp Pulse Resp BP Pulse Ox 94.1 F L 100 28 H 98/67 L 98 09/21/20 10:00 09/21/20 14:00 09/21/20 14:00 09/21/20 14:00 09/21/20 14:00 - Laboratory Result Diagrams: 09/21/20 07:05 09/21/20 07:05 Laboratory results interpreted by me: 09/19/20 09/19/20 09/19/20 11:20 12:00 12:00 WBC 13.8 H RBC 3.52 L Hgb 10.2 L Hct 32.8 L MCHC 31.0 L RDW 17.5 H Seg Neuts % (Manual) 81 H Lymphocytes % (Manual) 11 L Abs Neuts (Manual) 11.2 H Sodium 147.2 H Carbon Dioxide 31 H BUN 71 H Creatinine 3.44 H Est GFR ( Amer) 15 L Est GFR (MDRD) Non-Af 13 L Glucose 136 H Calcium 13.8 H* AST 41 H NT-Pro-B Natriuret Pep Albumin 3.2 L Lipase 6325.9 H Urine Protein >=500 H Ur Leukocyte Esterase MODERATE H Urine Ascorbic Acid 20 H 09/19/20 12:00 WBC RBC Hgb Hct MCHC RDW Seg Neuts % (Manual) Lymphocytes % (Manual) Abs Neuts (Manual) Sodium Carbon Dioxide BUN Creatinine Est GFR ( Amer) Est GFR (MDRD) Non-Af Glucose Calcium AST NT-Pro-B Natriuret Pep 609 H Albumin Lipase Urine Protein Ur Leukocyte Esterase Urine Ascorbic Acid - Diagnostic Test Radiology reviewed: Image reviewed, Reports reviewed Radiology results interpreted by me: 09/19/20 14:45 Acute Abdomen Series 09/19/20 11:58 IMPRESSION: Constipation. No other significant findings. Head CT 09/19/20 12:02 IMPRESSION: CHRONIC CHANGES OF ATROPHY AND MICROVASCULAR ISCHEMIA. NO ACUTE PROCESS. EVIDENCE OF ACUTE STROKE: NO. Chest CT 09/19/20 12:03 IMPRESSION: Bilateral nodular airspace disease most marked in the lung bases. This could be infectious, inflammatory or neoplastic. Does the patient have a known primary? No effusions. Abdomen/Pelvis CT 09/19/20 12:05 IMPRESSION: Question mild pancreatitis with slight inflammation noted surrounding the pancreatic head. Gallstones. - Consults Dr. Alcaraz, Hospitalist Time consulted: 14:43 Dr. Marina, Hospitalist Time consulted: 15:13 Discharge - Discharge Clinical Impression: Unresponsive state, Hypercalcemia, Gallstones UTI (urinary tract infection) Qualifiers: Urinary tract infection type: acute pyelonephritis Qualified Code(s): N10 - Acute pyelonephritis Chronic kidney disease, stage III (moderate) Qualifiers: Chronic kidney disease stage 3 subtype: unspecified whether 3a or 3b Qualified Code(s): N18.30 - Chronic kidney disease, stage 3 unspecified Venous stasis ulcer of lower extremity Qualifiers: Laterality: bilateral Qualified Code(s): I83.019 - Varicose veins of right lower extremity with ulcer of unspecified site Acute pancreatitis Qualifiers: Pancreatitis type: unspecified pancreatitis type Dementia Qualifiers: Dementia type: Alzheimer's disease Condition: Fair Disposition: ADMITTED INPATIENT Admitting Provider: Laina (Hospitalist) Unit Admitted: I[facility]U I personally performed the services described in the documentation, reviewed and edited the documentation which was dictated to the scribe in my presence, and it accurately records my words and actions.
[2020-09-19] MEDS ORDERED: TEMAZEPAM 7.5 MG CAPSULE PO PRN (16:24)
[2020-09-19] MEDS ORDERED: ACETAMINOPHEN 325 MG TABLET PO PRN (16:24)
[2020-09-19] MEDS ORDERED: PROMETHAZINE HCL INJ 25 MG/1 ML VIAL IV PRN (16:24)
[2020-09-19] MEDS ORDERED: IPRATROPIUM/ALBUTEROL 0.5-2.5 MG/3 ML AMPUL NEB PRN (16:24)
[2020-09-19] MEDS ORDERED: ONDANSETRON HCL INJ/PF 4 MG/2 ML SDV IV PRN (16:24)
--- NOTE | 2020-09-19 16:24 | RADIOLOGY REPORT (SQ) ---
EXAM DESCRIPTION: U/S ABDOMEN COMPLETE W/DOPPLER IMAGES COMPLETED DATE/TIME: 09/19/2020 4:13 pm REASON FOR STUDY: abd pain/gallstones/pancreatitis COMPARISON: CT abdomen done earlier the same day. TECHNIQUE: Dynamic and static grayscale images acquired of the abdomen and recorded on PACS. Additio nal selected color Doppler and spectral images recorded. Note: Study does not meet criteria for complete doppler/duplex scan LIMITATIONS: None. FINDINGS: PANCREAS: No masses. Visualized pancreatic duct normal caliber. LIVER: No masses. Echotexture normal. LIVER VASCULATURE: Normal directional flow of the main portal vein and hepatic veins. GALLBLADDER: Gallstones. No wall thickening or pericholecystic edema. ULTRASOUND-DETECTED LYN'S SIGN: Negative. INTRAHEPATIC DUCTS AND COMMON DUCT: CBD and intrahepatic ducts normal caliber. No filling defects. INFERIOR VENA CAVA: Normal flow. AORTA: No aneurysm. RIGHT KIDNEY: Normal size. Increased echogenicity. No solid or suspicious masses. Renal cyst is noted. No hydronephrosis. No calcifications. LEFT KIDNEY: Normal size. Increased echogenicity. No solid or suspicious masses. No hydronephr osis. No calcifications. SPLEEN: Normal size. No solid masses. PERITONEAL AND PLEURAL SPACES: No ascites or effusions. OTHER: No other significant finding. IMPRESSION: Gallstones. Echogenic kidneys consistent with medical renal disease. TECHNICAL DOCUMENTATION: JOB ID: [id number] 2010 [employer]- All Rights Reserved Reading location - IP/workstation name: [email or web address]
[2020-09-19] MEDS ORDERED: ZINC OXIDE 20% OINTMENT 28.35 GM TP PRN (16:30)
--- NOTE | 2020-09-19 17:49 | PDOC H&P ---
History of Present Illness Admission Date/PCP: 09/19/20 16:06 JUAN SNYDER MD History of Present Illness: DANK WHITE is a 85 year old female past medical history of dyslipidemia, hypertension, hypothyroidism, CKD, dementia, chronic bilateral lower extremity venous stasis, recurrent UTI with indwelling Valdovinos catheter, who was brought by EMS from [facility] after patient was found unresponsive in the shower by the staff. Unfortunately patient has dementia and does not recall any incident causing her to come to the hospital, patient's daughter who is in the room present stating that she does not know anything about the incident and she was just called by [facility] that her mother had coded as was being sent to the hospital. Source of information is chart review and my conversation with ED physician. As per EMS patient was found nonresponsive, was noted to breathing but they could not find a pulse, they started CPR and patient regained a pulse shortly after. A 20 EMS arrival patient was noted to be confused vital signs were stable and BGL was 166. In ED chest CT showed bilateral nodular airspace disease most marked in the lung bases, CT head was negative for any acute abnormalities, CT abdomen pelvis showed mild pancreatitis with slight inflammation and gallstones, abdominal ultrasound showed gallstones with no acute cholecystitis or common bile duct dilation. Patient was noted to have neutrophilic leukocytosis with no bandemia, worsening renal function, hypercalcemia and elevated lipase. Was also noted to have positive UA. On my encounter patient is comfortably sitting in bed but unfortunately does not provide any history, patient is stating that all she remembers that she was in the hospital, does not recall any pain prior to the episode, patient is stating that she is feeling fine and on review of systems she is saying no to everything. On physical examination patient has mild epigastric abdominal pain and chronic bilateral venous stasis otherwise benign physical examination. Past Medical History Cardiac Medical History: Reports: Hyperlipidema, Hypertension Denies: Coronary Artery Disease, Myocardial Infarction Pulmonary Medical History: Denies: Asthma, Bronchitis, Chronic Obstructive Pulmonary Disease (COPD), Pneumonia Neurological Medical History: Denies: Seizures Endocrine Medical History: Reports: Hypothyroidism Denies: Diabetes Mellitus Type 1, Diabetes Mellitus Type 2, Hyperthyroidism GI Medical History: Denies: Cirrhosis, Hepatitis, Hiatal Hernia Musculoskeltal Medical History: Denies: Arthritis, Fibromyalgia Skin Medical History: Denies: Eczema, Psoriasis Psychiatric Medical History: Reports: Dementia Denies: Depression Hematology: Reports: Anemia Denies: Sickle Cell Disease, Bleeding Tendencies Past Surgical History Past Surgical History: Reports: Hysterectomy, Orthopedic Surgery - left hip repl acement Denies: Amputation, Mastectomy, Pacemaker Social History Lives with: [facility] Smoking Status: Unknown if Ever Smoked Electronic Cigarette use?: No Frequency of Alcohol Use: None Hx Recreational Drug Use: No Drugs: None Hx Prescription Drug Abuse: No Family History Family History: CVA, Malignancy Parental Family History Reviewed: Yes Children Family History Reviewed: Yes Sibling(s) Family History Reviewed.: Yes Medication/Allergy Home Medications: Ascorbic Acid [Vitamin C 500 mg Tablet] 500 mg PO DAILY 07/08/20 Aspirin [Ecotrin 81 mg EC Tablet] 81 mg PO DAILY 07/08/20 Cholecalciferol (Vitamin D3) [Vitamin D3 400 Unit Tablet] 400 unit PO DAILY 07/08/20 Clonidine HCl [Catapres 0.1 mg Tablet] 0.1 mg PO Q12 07/08/20 Cyanocobalamin (Vitamin B-12) [Vitamin B-12 1000 mcg Tablet] 1 tab PO DAILY 07/08/20 Donepezil HCl 10 mg PO QHS 07/08/20 Vits96/Iron Fum/Folic [ Tablet] 1 each PO DAILY 07/08/20 Acetaminophen [Tylenol 325 mg Tablet] 650 mg PO Q4HP PRN 08/21/20 Bisacodyl [Dulcolax 10 mg Supp.rect] 10 mg [place] DAILYP PRN 08/21/20 Dronabinol [Marinol 2.5 mg Capsule] 5 mg PO BIDACBS 08/21/20 Ferrous Sulfate [Feosol 325 mg Tablet] 325 mg PO DAILY 08/21/20 Multivitamin with Minerals [One Daily Plus Minerals] 1 each PO DAILY 08/21/20 Nut.tx.comp. Immune Systm,Reg [Impact Advanced Recovery] 178 ml PO BID 08/21/20 Zinc Oxide [Zinc Oxide 20% Ointment 28.35 gm] 1 applic TP DAILYP PRN 08/21/20 Zinc Sulfate [Zinc-220 Capsule] 220 mg PO DAILY 08/21/20 Docusate Sodium [Colace 100 mg Capsule] 100 mg PO BID 09/19/20 Levothyroxine Sodium [Synthroid] 200 mcg PO Q6AM 09/19/20 Loperamide HCl [Loperamide] 2 mg PO Q6HP PRN 09/19/20 Ondansetron [Zofran Odt 4 mg Tablet] 4 mg PO Q4HP PRN 09/19/20 Allergies/Adverse Reactions: No Known Allergies Allergy (Verified 09/10/19 16:57) Review of Systems Review of Systems: as per hpi Physical Exam Vital Signs: Temp Pulse Resp BP Pulse Ox 98.4 F 15 128/46 H 100 09/19/20 16:24 09/19/20 15:00 09/19/20 14:55 09/19/20 15:00 Intake & Output 09/18/20 09/19/20 09/20/20 06:59 06:59 06:59 Intake Total 300 Output Total 487 Balance -187 Weight 81.3 kg General appearance: PRESENT: no acute distress, obese, well-developed, well- nourished Respiratory exam: PRESENT: clear to auscultation laurie. ABSENT: rales, rhonchi, wheezes Cardiovascular exam: PRESENT: RRR. ABSENT: diastolic murmur, rubs, systolic murmur GI/Abdominal exam: PRESENT: normal bowel sounds, soft, tenderness - Epigastric abdominal tenderness. ABSENT: distended, guarding, mass, organolmegaly, rebound Neurological exam: PRESENT: alert, awake, oriented to person, oriented to place, CN II-XII grossly intact. ABSENT: motor sensory deficit Skin exam: PRESENT: other - Bilateral lower extremity stasis dermatitis. Results Laboratory Results: 09/19/20 12:00 09/19/20 12:00 09/19/20 09/19/20 09/19/20 11: 12:00 12:00 WBC 13.8 H RBC 3.52 L Hgb 10.2 L Hct 32.8 L MCV 93 MCH 28.9 MCHC 31.0 L RDW 17.5 H Plt Count 194 Seg Neutrophils % Not Reportable Sodium 147.2 H Potassium 4.3 Chloride 107 Carbon Dioxide 31 H Anion Gap 9 BUN 71 H Creatinine 3.44 H Est GFR ( Amer) 15 L Glucose 136 H Lactic Acid Calcium 13.8 H* Total Bilirubin 0.5 AST 41 H Alkaline Phosphatase 115 Total Protein 7.0 Albumin 3.2 L Triglycerides Lipase 6325.9 H Urine Color YELLOW Urine Appearance TURBID Urine pH 8.0 Ur Specific [place] 1.017 Urine Protein >=500 H Urine Glucose (UA) NEGATIVE Urine Ketones NEGATIVE Urine Blood NEGATIVE Urine Nitrite NEGATIVE Ur Leukocyte Esterase MODERATE H Urine WBC (Auto) >182 Urine RBC (Auto) 40 09/19/20 09/19/20 12:00 12:00 WBC RBC Hgb Hct MCV MCH MCHC RDW Plt Count Seg Neutrophils % Sodium Potassium Chloride Carbon Dioxide Anion Gap BUN Creatinine Est GFR ( Amer) Glucose Lactic Acid 1.7 Calcium Total Bilirubin AST Alkaline Phosphatase Total Protein Albumin Triglycerides 100 Lipase Urine Color Urine Appearance Urine pH Ur Specific [place] Urine Protein Urine Glucose (UA) Urine Ketones Urine Blood Urine Nitrite Ur Leukocyte Esterase Urine WBC (Auto) Urine RBC (Auto) 09/19/20 12:00 Troponin I 0.013 NT-Pro-B Natriuret Pep 609 H Impressions: Acute Abdomen Series 09/19/20 11:58 IMPRESSION: Constipation. No other significant findings. Head CT 09/19/20 12:02 IMPRESSION: CHRONIC CHANGES OF ATROPHY AND MICROVASCULAR ISCHEMIA. NO ACUTE PROCESS. EVIDENCE OF ACUTE STROKE: NO. Chest CT 09/19/20 12:03 IMPRESSION: Bilateral nodular airspace disease most marked in the lung bases. This could be infectious, inflammatory or neoplastic. Does the patient have a known primary? No effusions. Abdomen/Pelvis CT 09/19/20 12:05 IMPRESSION: Question mild pancreatitis with slight inflammation noted surrounding the pancreatic head. Gallstones. Abdomen Ultrasound 09/19/20 15:14 IMPRESSION: Gallstones. Echogenic kidneys consistent with medical renal disease. Assessment and Plan - Diagnosis (1) Acute pancreatitis Qualifiers: Pancreatitis type: unspecified pancreatitis type Is this a current diagnosis for this admission?: Yes Plan: Patient presenting with severely elevated lipase level. Denies any trauma. Patient denies any nausea, vomiting, abdominal pain. Mild tenderness on palpation in the epigastric region. CT abdomen and pelvis and abdominal ultrasound positive for cholelithiasis but negative for any acute cholecystitis or common bile dilation. Serum lipase is WNL. Patient denies any abdominal trauma. Patient denies any EtOH abuse. IV fluids guided by volume status, as needed opioid and nonopioid analgesics, advance tolerated and tolerated. (2) Gallstones Is this a current diagnosis for this admission?: Yes Plan: Gallstone with no sign of acute cystitis or cholangitis. Liver chemistries are WNL. Outpatient follow-up with surgery for possible cholecystectomy. Not sure if patient will be a candidate given her age and comorbidities. (3) Unresponsive state Is this a current diagnosis for this admission?: Yes Plan: Unfortunately not certain if patient actually had any cardiopulmonary arrest and the circumstances of her unresponsiveness is not very clear. Patient does not recall the incident at all and her daughter who is present at the room does not know the circumstances of the incident. As per EMS report patient was found unresponsive, she was noted to breathe breathing that they could not palpate her pulse. Patient regained consciousness after brief CPR. Vitals are stable. SPO2 WNL. Denies any chest pain. EKG negative for any acute changes. Troponin 0.013. Admit to telemetry, trend troponins, monitor vitals, fall, aspiration and seizure precautions. (4) Venous stasis ulcer of lower extremity Qualifiers: Laterality: bilateral Qualified Code(s): I83.019 - Varicose veins of right lower extremity with ulcer of unspecified site; I83.029 - Varicose veins of left lower extremity with ulcer of unspecified site; L97.919 - Non-pressure chronic ulcer of unspecified part of right lower leg with unspecified severity; L97.929 - Non-pressure chronic ulcer of unspecified part of left lower leg with unspecified severity Is this a current diagnosis for this admission?: Yes Plan: Chronic bilateral lower extremity stasis dermatitis. Does not appear to be infected. Continue wound care. Elevate bilateral lower extremities. (5) Acute kidney injury superimposed on CKD Is this a current diagnosis for this admission?: Yes Plan: Nonoliguric. Likely prerenal. Strict in and out, cautious volume resuscitation guided by volume status, avoid nephrotoxic meds. If no improvement will consult nephrology. (6) Catheter-associated urinary tract infection Is this a current diagnosis for this admission?: Yes Plan: History of recurrent UTI. Patient has indwelling Valdovinos catheter for chronic urinary retention. Continue broad-spectrum IV antibiotics. Follow-up urine culture. (7) HLD (hyperlipidemia) Is this a current diagnosis for this admission?: Yes Plan: Resume home meds. (8) Hypothyroidism Is this a current diagnosis for this admission?: Yes Plan: Resume home meds. (9) Hypercalcemia Is this a current diagnosis for this admission?: Yes Plan: Denies any history of multiple myeloma. Likely complication of acute pancreatitis. Received 1 dose of calcitonin. Volume decision guided by volume status. Monitor calcium level. - Time Time Spent with patient: 35 or more minutes Medications reviewed and adjusted accordingly: Yes Anticipated Discharge Disposition: Residential Facility Anticipated Discharge Timeframe: within 72 hours
[2020-09-19] MEDS ORDERED: [UNRECOGNIZED DRUG - OTHER] PO SCH (18:00)
[2020-09-19] MEDS: NORMAL SALINE 1000 ML 1,000 ML IV PRN (20:23)
[2020-09-19 21:19] LABS: ANION GAP 11 (5-19); BLOOD UREA NITROGEN 67 mg/dL (7-20); CARBON DIOXIDE 27 mmol/L (22-30); CHLORIDE 108 mmol/L (98-107); GLUCOSE 114 mg/dL (75-110)
[2020-09-19 21:48] LABS: CALCIUM 12.1 mg/dL (8.4-10.2)
[2020-09-19] MEDS: CLONIDINE HCL 0.1 MG TABLET PO SCH (21:49)
[2020-09-19] MEDS: CEFEPIME 1 GM/D5W RTU 1 GM/50 ML RTUPB IV SCH (21:49)
[2020-09-19] MEDS: FAMOTIDINE INJ/PF 20 MG/2 ML SDV IV SCH (21:50)
[2020-09-19] MEDS: HEPARIN SOD (PORCINE) 5,000 UNIT/ML 1 ML VIAL SUBCUT SCH (21:50)
[2020-09-19] MEDS: DONEPEZIL HCL 5 MG TABLET PO SCH (21:50)
[2020-09-19] MEDS ORDERED: (PENDING PHARMACY ID) (Donepezil Hcl [Donepezil Hcl] 10 MG) PO SCH (22:00)
[2020-09-20] MEDS: NORMAL SALINE 1000 ML 1,000 ML IV PRN (01:39)
--- NOTE | 2020-09-20 03:53 | Progress Note ---
Provider Note Provider Note: Patient becoming progressively worse overnight, hypothermic, dropping blood pressure despite aggressive IV fluids. Suspect she is going into severe septic shock. Contacted ICU team who will evaluate the patient and they have agreed to have the patient transferred to ICU where I expect her to require pressor suppo rt. Appreciate ICU help.
[2020-09-20] MEDS: DONEPEZIL HCL 5 MG TABLET PO SCH ×2 (04:01→21:29)
[2020-09-20] MEDS: CLONIDINE HCL 0.1 MG TABLET PO SCH (04:01)
[2020-09-20] MEDS ORDERED: ALBUMIN HUMAN 12.5 GM/50 ML RTUINJ IV SCH (06:00)
[2020-09-20] MEDS: RINGERS SOLUTION,LACTATED 1,000 ML IV PRN ×3 (06:16→23:19)
[2020-09-20] MEDS: HYDROCORTISONE SOD SUCCINATE INJ/PF 100 MG/2 ML SDV IV SCH ×3 (06:16→21:32)
[2020-09-20] MEDS: HEPARIN SOD (PORCINE) 5,000 UNIT/ML 1 ML VIAL SUBCUT SCH ×4 (06:16→21:48)
[2020-09-20] MEDS: LEVOTHYROXINE SODIUM 0.1 MG TABLET PO SCH (06:18)
--- NOTE | 2020-09-20 06:18 | CRITICAL CARE ADMISSION REPORT ---
HPI Date:: 09/20/20 Time:: 06:07 Reason for ICU Reason:: sepsis Admission Date/Time & PCP: Admission Date/Time: 09/19/20 16:06 Primary Care Provider: JUAN SNYDER MD HPI: DANK WHITE is a 85 year old female past medical history of dyslipidemia, hypertension, hypothyroidism, CKD, dementia, chronic bilateral lower extremity venous stasis, recurrent UTI with indwelling Valdovinos catheter, who was brought by EMS from [facility] after patient was found unresponsive in the shower by the staff. Unfortunately patient has dementia and does not recall any incident causing her to come to the hospital, patient's daughter who is in the room present stating that she does not know anything about the incident and she was just called by correction that her mother had coded as was being sent to the hospital. Source of information is chart review and my conversation with ED physician. As per EMS patient was found nonresponsive, was noted to breathing but they could not find a pulse, they started CPR and patient regained a pulse shortly after. A 20 EMS arrival patient was noted to be confused vital signs were stable and BGL was 166. In ED chest CT showed bilateral nodular airspace disease most marked in the lung bases, CT head was negative for any acute abnormalities, CT abdomen pelvis showed mild pancreatitis with slight inflammation and gallstones, abdominal ultrasound showed gallstones with no acute cholecystitis or common bile duct dilation. Patient was noted to have neutrophilic leukocytosis with no bandemia, worsening renal function, hypercalcemia and elevated lipase. Was also noted to have positive UA. On my encounter patient is comfortably sitting in bed but unfortunately does not provide any history, patient is stating that all she remembers that she was in the hospital, does not recall any pain prior to the episode, patient is stating that she is feeling fine and on review of systems she is saying no to everything. On physical examination patient has mild epigastric abdominal pain and chronic bilateral venous stasis otherwise benign physical examination. Called by hospitalist requesting transfer to ICU due to hypotension and hypothermia and possible septic shock. The patient arrived to ICU normotensive nad normothermic. No acute distress , confused per report of nursing staff patients baseline and she is yelling out when touched. - Diagnosis/Plan (1) Chronic kidney disease, stage III (moderate) Qualifiers: Chronic kidney disease stage 3 subtype: unspecified whether 3a or 3b Q ualified Code(s): N18.30 - Chronic kidney disease, stage 3 unspecified Is this a current diagnosis for this admission?: Yes Plan: aggressive fluid hydration for treatment of dehydration (2) Dementia Qualifiers: Dementia type: unspecified type Is this a current diagnosis for this admission?: Yes (3) Hypercalcemia Is this a current diagnosis for this admission?: Yes (4) Urinary tract infection Qualifiers: Urinary tract infection type: acute pyelonephritis Qualified Code(s): N10 - Acute pyelonephritis Is this a current diagnosis for this admission?: Yes Plan: aggressive antibiotic treatment cultures pending (5) Venous stasis ulcer of lower extremity Qualifiers: Laterality: bilateral Qualified Code(s): I83.019 - Varicose veins of right lower extremity with ulcer of unspecified site; I83.029 - Varicose veins of left lower extremity with ulcer of unspecified site; L97.919 - Non-pressure chronic ulcer of unspecified part of right lower leg with unspecified severity; L97.929 - Non-pressure chronic ulcer of unspecified part of left lower leg with unspecified severity Is this a current diagnosis for this admission?: Yes Plan: venous stasis ulcer chronic (6) Acute kidney injury superimposed on CKD Is this a current diagnosis for this admission?: Yes Plan: IV fluids (9) Chronic ulcer of left leg Qualifiers: Non-pressure ulcer stage: with necrosis of muscle Qualified Code(s): L97.923 - Non-pressure chronic ulcer of unspecified part of left lower leg with necrosis of muscle Is this a current diagnosis for this admission?: Yes (10) Hypothyroidism Qualifiers: Hypothyroidism type: unspecified Qualified Code(s): E03.9 - Hypothyroidism, unspecified Is this a current diagnosis for this admission?: Yes Past Medical History Cardiac Medical History: Reports: Hyperlipidema, Hypertension Denies: Coronary Artery Disease, Myocardial Infarction Pulmonary Medical History: Denies: Asthma, Bronchitis, Chronic Obstructive Pulmonary Disease (COPD), Pneumonia Neurological Medical History: Denies: Seizures Endocrine Medical History: Reports: Hypothyroidism Denies: Diabetes Mellitus Type 1, Diabetes Mellitus Type 2, Hyperthyroidism GI Medical History: Denies: Cirrhosis, Hepatitis, Hiatal Hernia Musculoskeltal Medical History: Denies: Arthritis, Fibromyalgia Skin Medical History: Denies: Eczema, Psoriasis Psychiatric Medical History: Reports: Dementia Denies: Depression Hematology: Reports: Anemia Denies: Sickle Cell Disease, Bleeding Tendencies Past Surgical History Past Surgical History: Reports: Hysterectomy, Orthopedic Surgery - left hip replacement Denies: Amputation, Mastectomy, Pacemaker Social/Family History - Social History Lives with: [facility] Smoking Status: Unknown if Ever Smoked Frequency of Alcohol Use: None Hx Recreational Drug Use: No Drugs: None Hx Prescription Drug Abuse: No - Medication/Allergies Home Medications: Ascorbic Acid [Vitamin C 500 mg Tablet] 500 mg PO DAILY 07/08/20 Aspirin [Ecotrin 81 mg EC Tablet] 81 mg PO DAILY 07/08/20 Cholecalciferol (Vitamin D3) [Vitamin D3 400 Unit Tablet] 400 unit PO DAILY 11/26 Clonidine HCl [Catapres 0.1 mg Tablet] 0.1 mg PO Q12 07/08/20 Cyanocobalamin (Vitamin B-12) [Vitamin B-12 1000 mcg Tablet] 1 tab PO DAILY 07/08/20 Donepezil HCl 10 mg PO QHS 07/08/20 Vits96/Iron Fum/Folic [ Tablet] 1 each PO DAILY 07/08/20 Acetaminophen [Tylenol 325 mg Tablet] 650 mg PO Q4HP PRN 08/21/20 Bisacodyl [Dulcolax 10 mg Supp.rect] 10 mg ME DAILYP PRN 08/21/20 Dronabinol [Marinol 2.5 mg Capsule] 5 mg PO BIDACBS 08/21/20 Ferrous Sulfate [Feosol 325 mg Tablet] 325 mg PO DAILY 08/21/20 Multivitamin with Minerals [One Daily Plus Minerals] 1 each PO DAILY 08/21/20 Nut.tx.comp. Immune Systm,Reg [Impact Advanced Recovery] 178 ml PO BID 08/21/20 Zinc Oxide [Zinc Oxide 20% Ointment 28.35 gm] 1 applic TP DAILYP PRN 08/21/20 Zinc Sulfate [Zinc-220 Capsule] 220 mg PO DAILY 08/21/20 Docusate Sodium [Colace 100 mg Capsule] 100 mg PO BID 09/19/20 Levothyroxine Sodium [Synthroid] 200 mcg PO Q6AM 09/19/20 Loperamide HCl [Loperamide] 2 mg PO Q6HP PRN 09/19/20 Ondansetron [Zofran Odt 4 mg Tablet] 4 mg PO Q4HP PRN 09/19/20 Allergies/Adverse Reactions: No Known Allergies Allergy (Verified 09/10/19 16:57) Review of Systems ROS unobtainable: Due to mental status Physical Exam Vital Signs: Temp Pulse Resp BP Pulse Ox 98.1 F 76 18 96/33 L 92 09/20/20 04:13 09/20/20 04:13 09/20/20 04:13 09/20/20 04:13 09/20/20 04:13 Intake & Output 09/18/20 09/19/20 09/20/20 06:59 06:59 06:59 Intake Total 2350 Output Total 514 Balance 1836 Weight 80.1 kg Weight/Height Weight 80.1 kg Height 5 ft 6 in General appearance: PRESENT: no acute distress, morbidly obese Head exam: PRESENT: atraumatic, normocephalic Eye exam: PRESENT: PERRLA Ear exam: PRESENT: normal external ear exam, TM's normal bilaterally Mouth exam: PRESENT: dry mucosa, neck supple Neck exam: ABSENT: lymphadenopathy, tracheal deviation Respiratory exam: PRESENT: decreased breath sounds, unlabored Cardiovascular exam: PRESENT: RRR, +S1, +S2 GI/Abdominal exam: PRESENT: hypoactive bowel sounds, soft. ABSENT: distended, firm, tenderness Rectal exam: PRESENT: deferred Gentrourinary exam: PRESENT: indwelling catheter, other - sediment noted in urine and yellow discharge from around catheter Extremities exam: PRESENT: +1 edema Musculoskeletal exam: ABSENT: ambulatory Neurological exam: PRESENT: alert, altered, other - yells out when touched Psychiatric exam: PRESENT: anxious Skin exam: PRESENT: other - venous stasis ulcer to left calf and bilateral heel presure ulcers Laboratory/Radiographs Laboratory Results: 09/19/20 12:00 09/19/20 20:31 09/19/20 09/19/20 09/19/20 11:20 12:00 12:00 WBC 13.8 H RBC 3.52 L Hgb 10.2 L Hct 32.8 L MCV 93 MCH 28.9 MCHC 31.0 L RDW 17.5 H Plt Count 194 Seg Neutrophils % Not Reportable Sodium 147.2 H Potassium 4.3 Chloride 107 Carbon Dioxide 31 H Anion Gap 9 BUN 71 H Creatinine 3.44 H Est GFR ( Amer) 15 L Glucose 136 H Lactic Acid Calcium 13.8 H* Total Bilirubin 0.5 AST 41 H Alkaline Phosphatase 115 Total Protein 7.0 Albumin 3.2 L Triglycerides Lipase 6325.9 H Urine Color YELLOW Urine Appearance TURBID Urine pH 8.0 Ur Specific [place] 1.017 Urine Protein >=500 H Urine Glucose (UA) NEGATIVE Urine Ketones NEGATIVE Urine Blood NEGATIVE Urine Nitrite NEGATIVE Ur Leukocyte Esterase MODERATE H Urine WBC (Auto) >182 Urine RBC (Auto) 40 09/19/20 09/19/20 09/19/20 12:00 12:00 20:31 WBC RBC Hgb Hct MCV MCH MCHC RDW Plt Count Seg Neutrophils % Sodium 145.8 H Potassium 4.0 Chloride 108 H Carbon Dioxide 27 Anion Gap 11 BUN 67 H Creatinine 3.15 H Est GFR ( Amer) 17 L Glucose 114 H Lactic Acid 1.7 Calcium 12.1 H* Total Bilirubin AST Alkaline Phosphatase Total Protein Albumin Triglycerides 100 Lipase Urine Color Urine Appearance Urine pH Ur Specific [place] Urine Protein Urine Glucose (UA) Urine Ketones Urine Blood Urine Nitrite Ur Leukocyte Esterase Urine WBC (Auto) Urine RBC (Auto) 09/19/20 09/19/20 12:00 20:31 Troponin I 0.013 < 0.012 NT-Pro-B Natriuret Pep 609 H Impressions: Acute Abdomen Series 09/19/20 11:58 IMPRESSION: Constipation. No other significant findings. Head CT 09/19/20 12:02 IMPRESSION: CHRONIC CHANGES OF ATROPHY AND MICROVASCULAR ISCHEMIA. NO ACUTE P ROCESS. EVIDENCE OF ACUTE STROKE: NO. Chest CT 09/19/20 12:03 IMPRESSION: Bilateral nodular airspace disease most marked in the lung bases. This could be infectious, inflammatory or neoplastic. Does the patient have a known primary? No effusions. Abdomen/Pelvis CT 09/19/20 12:05 IMPRESSION: Question mild pancreatitis with slight inflammation noted surrounding the pancreatic head. Gallstones. Abdomen Ultrasound 09/19/20 15:14 IMPRESSION: Gallstones. Echogenic kidneys consistent with medical renal d isease. All labs, radiographs, diagnostic studies and EKGs were personally reviewed: Yes In addition, reports of radiographic and diagnostic studies were read: Yes Critical Time Critical Time (minutes): 50 -: The care of a critically ill patient is dynamic. This note represents a static moment in the admission process. Orders and treatments may be given simultaneously and urgently, and time is not dermatology sales representative of the treatment process. This patient requires Critical Care secondary to life threatening organ or limb dysfunction. Without Critical Care services, the patient is at risk for increased mortality and morbidity.
[2020-09-20] MEDS ORDERED: LINEZOLID 600 MG/300 ML RTUPB IV ONE (06:26)
[2020-09-20] MEDS: LINEZOLID 600 MG/300 ML RTUPB IV SCH ×2 (06:33→17:36)
[2020-09-20] MEDS ORDERED: HYDROCORTISONE SOD SUCCINATE INJ/PF 100 MG/2 ML SDV IV ONE (07:33)
--- NOTE | 2020-09-20 08:54 | RADIOLOGY REPORT (SQ) ---
EXAM DESCRIPTION: CHEST SINGLE VIEW IMAGES COMPLETED DATE/TIME: 09/20/2020 8:04 am REASON FOR STUDY: congestion COMPARISON: CT chest 09/09/2020 Chest films 09/02/2020, 08/20/2020 EXAM PARAMETERS: NUMBER OF VIEWS: One view. TECHNIQUE: Single frontal radiographic view of the chest acquired. RADIATION DOSE: NA LIMITATIONS: None. FINDINGS: LUNGS AND PLEURA: Persistent bibasilar airspace disease. Remainder the lungs are well inf lated and clear. No pleural effusion. No pneumothorax. MEDIASTINUM AND HILAR STRUCTURES: No masses. Contour normal. HEART AND VASCULAR STRUCTURES: Heart normal in size. Normal vasculature. BONES: No acute findings. HARDWARE: None in the chest. OTHER: No other significant finding. IMPRESSION: Persistent bibasilar airspace unchanged TECHNICAL DOCUMENTATION: JOB ID: [id number] 2010 [employer]- All Rights Reserved Reading location - IP/workstation name: [email or web address]
[2020-09-20 09:03] LABS: HEMATOCRIT 29.4 % (36.0-47.0); HEMOGLOBIN 9.2 g/dL (12.0-15.5); MEAN CORPUSCULAR HEMOGLOBIN 29.1 pg (27.0-33.4); MEAN CORPUSCULAR HGB CONC 31.5 g/dL (32.0-36.0); MEAN CORPUSCULAR VOLUME 92 fl (80-97); PLATELET COUNT 137 10^3/uL (150-450); RED BLOOD COUNT 3.18 10^6/uL (3.72-5.28); RED CELL DISTRIBUTION WIDTH 17.6 % (11.5-14.0); WHITE BLOOD COUNT 13.4 10^3/uL (4.0-10.5)
[2020-09-20 09:17] LABS: ALBUMIN 2.5 g/dL (3.5-5.0); ALKALINE PHOSPHATASE 82 U/L (38-126); ANION GAP 8 (5-19); ASPARTATE AMINO TRANSFERASE 35 U/L (14-36); BILIRUBIN,DIRECT 0.2 mg/dL (0.0-0.4); BILIRUBIN,TOTAL 0.4 mg/dL (0.2-1.3); BLOOD UREA NITROGEN 66 mg/dL (7-20); CALCIUM 11.8 mg/dL (8.4-10.2); CARBON DIOXIDE 25 mmol/L (22-30); CHLORIDE 113 mmol/L (98-107); GLUCOSE 106 mg/dL (75-110); POTASSIUM 4.2 mmol/L (3.6-5.0); TOTAL PROTEIN 5.9 g/dL (6.3-8.2)
--- NOTE | 2020-09-20 09:25 | EKG REPORT ---
SEVERITY:- ABNORMAL ECG - SINUS RHYTHM PAIRED VENTRICULAR PREMATURE COMPLEXES BORDERLINE LEFT AXIS DEVIATION : Confirmed by: Ashlie Pollock 20-Sep-2020 09:24:47
[2020-09-20 09:44] LABS: FREE T3 2.1 pg/mL (2.77-5.27); FREE T4 (FREE THYROXINE) 1.78 ng/dL (0.78-2.19)
[2020-09-20 09:48] LABS: ABSOLUTE LYMPHOCYTES# (MANUAL) 2.9 10^3/uL (0.5-4.7); ABSOLUTE MONOCYTES # (MANUAL) 1.2 10^3/uL (0.1-1.4); BASOPHILS % (MANUAL) 0 % (0-2); EOSINOPHILS % (MANUAL) 0 % (0-6); LYMPHOCYTES % (MANUAL) 22 % (13-45); MONOCYTES % (MANUAL) 9 % (3-13); PLATELET COMMENT ADEQUATE; RBC MORPHOLOGY COMMENT NORMO-CYTIC/CHROMIC; SEGMENTED NEUTROPHILS % (MAN) 69 % (42-78); TOTAL CELLS COUNTED 100
[2020-09-20] MEDS ORDERED: (PENDING PHARMACY ID) (Prenatal Vits96/Iron Fum/Folic [Prenatal Tablet] 1 EACH) PO SCH (10:00)
[2020-09-20] MEDS ORDERED: (PENDING PHARMACY ID) (Multivitamin With Minerals [One Daily Plus Minerals] 1 EACH) PO SCH (10:00)
[2020-09-20] MEDS: CEFEPIME 1 GM/D5W RTU 1 GM/50 ML RTUPB IV SCH ×2 (10:53→21:32)
[2020-09-20] MEDS: FAMOTIDINE INJ/PF 20 MG/2 ML SDV IV SCH ×2 (10:55→21:32)
[2020-09-20] MEDS: DRONABINOL 2.5 MG CAPSULE PO SCH ×2 (12:49→15:29)
[2020-09-20] MEDS: ASPIRIN 81 MG TABLET, ENT COATED PO SCH (12:49)
[2020-09-20] MEDS: FERROUS SULFATE 325 MG TABLET PO SCH (12:49)
[2020-09-20] MEDS: DOCUSATE SODIUM 100 MG CAPSULE PO SCH (12:49)
[2020-09-20] MEDS: MULTIVITAMIN TABLET PO SCH (12:49)
[2020-09-20] MEDS: CHOLECALCIFEROL (D3) 400 UNIT TABLET PO SCH (12:50)
[2020-09-20] MEDS: CYANOCOBALAMIN (VITAMIN B-12) 1,000 MCG TABLET PO SCH (12:50)
[2020-09-20] MEDS: ASCORBIC ACID 500 MG TABLET PO SCH (12:50)
[2020-09-20] MEDS: ZINC SULFATE 220 MG CAPSULE PO SCH (12:50)
[2020-09-21] MEDS: LEVOTHYROXINE SODIUM 0.1 MG TABLET PO SCH (06:02)
[2020-09-21] MEDS: HYDROCORTISONE SOD SUCCINATE INJ/PF 100 MG/2 ML SDV IV SCH (06:14)
[2020-09-21] MEDS: LINEZOLID 600 MG/300 ML RTUPB IV SCH ×2 (06:14→18:02)
[2020-09-21] MEDS: HEPARIN SOD (PORCINE) 5,000 UNIT/ML 1 ML VIAL SUBCUT SCH ×3 (06:15→21:31)
[2020-09-21] MEDS: RINGERS SOLUTION,LACTATED 1,000 ML IV PRN ×2 (06:41→14:54)
[2020-09-21 07:31] LABS: HEMATOCRIT 24.6 % (36.0-47.0); MEAN CORPUSCULAR HEMOGLOBIN 29.6 pg (27.0-33.4); MEAN CORPUSCULAR VOLUME 92 fl (80-97); PLATELET COUNT 113 10^3/uL (150-450); RED BLOOD COUNT 2.67 10^6/uL (3.72-5.28); RED CELL DISTRIBUTION WIDTH 17.7 % (11.5-14.0); WHITE BLOOD COUNT 18.1 10^3/uL (4.0-10.5)
[2020-09-21 07:55] LABS: ALBUMIN 2.5 g/dL (3.5-5.0); ALKALINE PHOSPHATASE 79 U/L (38-126); ANION GAP 9 (5-19); ASPARTATE AMINO TRANSFERASE 40 U/L (14-36); BILIRUBIN,DIRECT 0.2 mg/dL (0.0-0.4); BILIRUBIN,TOTAL 0.4 mg/dL (0.2-1.3); BLOOD UREA NITROGEN 61 mg/dL (7-20); CALCIUM 10.7 mg/dL (8.4-10.2); CARBON DIOXIDE 22 mmol/L (22-30); CHLORIDE 112 mmol/L (98-107); GLUCOSE 167 mg/dL (75-110); POTASSIUM 3.7 mmol/L (3.6-5.0); TOTAL PROTEIN 5.8 g/dL (6.3-8.2)
[2020-09-21 08:14] LABS: HEMOGLOBIN 7.9 g/dL (12.0-15.5)
[2020-09-21 08:16] LABS: ABSOLUTE LYMPHOCYTES# (MANUAL) 0.9 10^3/uL (0.5-4.7); ABSOLUTE MONOCYTES # (MANUAL) 0.9 10^3/uL (0.1-1.4); BASOPHILS % (MANUAL) 0 % (0-2); EOSINOPHILS % (MANUAL) 0 % (0-6); LYMPHOCYTES % (MANUAL) 5 % (13-45); MONOCYTES % (MANUAL) 5 % (3-13); SEGMENTED NEUTROPHILS % (MAN) 90 % (42-78); TOTAL CELLS COUNTED 100
[2020-09-21 08:17] LABS: ANISOCYTOSIS 1+; BURR CELLS 1+; PLATELET COMMENT DECREASED; POLYCHROMASIA SLIGHT
[2020-09-21] MEDS ORDERED: (PENDING PHARMACY ID) (Loperamide Hcl [Loperamide] 2 MG) PO PRN (09:38)
[2020-09-21] MEDS ORDERED: ONDANSETRON 4 MG TAB.RAPDIS PO PRN (09:38)
[2020-09-21] MEDS ORDERED: BISACODYL 10 MG SUPP.RECT PR PRN (09:38)
--- NOTE | 2020-09-21 09:54 | PDOC CRITICAL CARE PROG REPORT ---
General Date:: 09/21/20 ICU Day:: 1 Hospital Day:: 1 Resuscitation Status: Full Code Events in the past 12 to 24 Hours:: No cardiovascular instability or need for ICU intervention. Review of systems relevant to events:: CV, GI, neurological. Reason for ICU Addmission:: Assess for CV instability. - Medications: Medications reviewed and adjusted accordingly: Yes Vasopressors:: None Sedation:: None Physical Exam Vital Signs: Temp Pulse Resp BP Pulse Ox 97.3 F 78 16 157/64 H 96 09/21/20 01:54 09/21/20 09:24 09/21/20 09:24 09/21/20 06:11 09/21/20 09:24 Intake & Output 09/20/20 09/21/20 09/22/20 06:59 06:59 06:59 Intake Total 3260 3700 Output Total 514 645 Balance 2746 3055 Weight 83 kg 88.5 kg Weight/Height Weight 88.5 kg Height 5 ft 6 in General appearance: PRESENT: no acute distress Head exam: PRESENT: atraumatic, normocephalic Eye exam: PRESENT: conjunctiva pink, EOMI, PERRLA. ABSENT: scleral icterus Ear exam: PRESENT: normal external ear exam Mouth exam: PRESENT: moist, tongue midline Respiratory exam: PRESENT: clear to auscultation laurie. ABSENT: rales, rhonchi, wheezes Cardiovascular exam: PRESENT: RRR. ABSENT: diastolic murmur, rubs, systolic murmur GI/Abdominal exam: PRESENT: diminished bowel sounds, tenderness - In epigastriu and on L side Rectal exam: PRESENT: deferred Gentrourinary exam: PRESENT: indwelling catheter Extremities exam: PRESENT: full ROM. ABSENT: calf tenderness, clubbing, pedal edema Musculoskeletal exam: PRESENT: normal inspection Neurological exam: PRESENT: altered, CN II-XII grossly intact, other - Dementia. Skin exam: PRESENT: dry, intact, warm. ABSENT: cyanosis, rash Laboratory/Radiographs Laboratory Results: 09/21/20 07:05 09/21/20 07:05 09/20/20 09/20/20 09/20/20 08:50 08:50 08:50 WBC 13.4 H RBC 3.18 L Hgb 9.2 L Hct 29.4 L MCV 92 MCH 29.1 MCHC 31.5 L RDW 17.6 H Plt Count 137 L Seg Neutrophils % Not Reportable Sodium Potassium Chloride Carbon Dioxide Anion Gap BUN Creatinine Est GFR ( Amer) Glucose Calcium Magnesium Total Bilirubin AST Alkaline Phosphatase Total Protein Albumin Lipase 8252.7 H TSH 11.00 H Free T4 1.78 Free T3 pg/mL 2.10 L 09/21/20 09/21/20 07:05 07:05 WBC 18.1 H RBC 2.67 L Hgb 7.9 L Hct 24.6 L MCV 92 MCH 29.6 MCHC 32.0 RDW 17.7 H Plt Count 113 L Seg Neutrophils % Not Reportable Sodium 143.4 Potassium 3.7 Chloride 112 H Carbon Dioxide 22 Anion Gap 9 BUN 61 H Creatinine 3.13 H Est GFR ( Amer) 17 L Glucose 167 H Calcium 10.7 H Magnesium 2.5 H Total Bilirubin 0.4 AST 40 H Alkaline Phosphatase 79 Total Protein 5.8 L Albumin 2.5 L Lipase TSH Free T4 Free T3 pg/mL 09/19/20 09/19/20 09/20/20 12:00 20:31 08:50 Troponin I 0.013 < 0.012 NT-Pro-B Natriuret Pep 609 H 531 H Impressions: Acute Abdomen Series 09/19/20 11:58 IMPRESSION: Constipation. No other significant findings. Head CT 09/19/20 12:02 IMPRESSION: CHRONIC CHANGES OF ATROPHY AND MICROVASCULAR ISCHEMIA. NO ACUTE PROCESS. EVIDENCE OF ACUTE STROKE: NO. Chest CT 09/19/20 12:03 IMPRESSION: Bilateral nodular airspace disease most marked in the lung bases. This could be infectious, inflammatory or neoplastic. Does the patient have a known primary? No effusions. Abdomen/Pelvis CT 09/19/20 12:05 IMPRESSION: Question mild pancreatitis with slight inflammation noted surrounding the pancreatic head. Gallstones. Abdomen Ultrasound 09/19/20 15:14 IMPRESSION: Gallstones. Echogenic kidneys consistent with medical renal disease. Chest X-Ray 09/20/20 07:33 IMPRESSION: Persistent bibasilar airspace unchanged All labs, radiographs, diagnostic studies and EKGs were personally reviewed: Yes In addition, reports of radiographic and diagnostic studies were read: Yes Assessment and Plan - Diagnosis (1) Acute pancreatitis Qualifiers: Pancreatitis type: unspecified pancreatitis type Is this a current diagnosis for this admission?: Yes Plan: This is probably from a gallstone that has passed. No obvious medications. She has pain in the epigastrim, no [place] sign. A CT suggestin of pancreas inflammation. Continu NPO until lipase is lower. (2) Dementia Qualifiers: Dementia type: Alzheimer's disease Is this a current diagnosis for this admission?: Yes Plan: This is likely a bit worsened with acute illness, but no behavioral ssues at this point. (3) Acute kidney injury superimposed on CKD Is this a current diagnosis for this admission?: Yes Plan: Her baseline Cr is 1.5-2.5. Currently about 3. She has CKD at III at baseline. I imagine this will come down with hydration. (4) Hypothermia Qualifiers: Encounter type: initial encounter Qualified Code(s): T68.XXXA - Hyp othermia, initial encounter Is this a current diagnosis for this admission?: Yes Plan: Mild with a temp of 95.2. Warm blankets. (5) SIRS (systemic inflammatory response syndrome) Is this a current diagnosis for this admission?: Yes Plan: She had some mild SIRS criteria on admission. This can be seen in pancreatitis. Resolved at this time. Plan Summary: At this point she does not meet criteria for the ICU and may be downgraded. It does not seem as though she had an actual arrest. Probably her pulse was to weak at the time. It is hard to imagine respirations with no pulse. There has been no recurrence. Critical Time Critical Time (minutes): 30 Level of Care: IMCU Anticipated discharge: SNF Anticipated DC Timeframe: Other -: 1. The care of a critical patient is a dynamic process. This note is a insurance sales representative synopsis but static in nature. The timeframe for treatments given in order is not necessarily the actual time these treatments may have been done. 2. This patient requires critical care secondary to ongoing requirements for therapy not offered or safe outside the critical care environment. Transfer to a lower level of care will result in altered life or limb morbidity and mortal ity. 3. Multidisciplinary rounds completed. 4. ABCDE bundle addressed.
[2020-09-21] MEDS: CEFEPIME 1 GM/D5W RTU 1 GM/50 ML RTUPB IV SCH ×2 (11:22→21:32)
[2020-09-21] MEDS: FAMOTIDINE INJ/PF 20 MG/2 ML SDV IV SCH ×2 (11:23→21:31)
[2020-09-21] MEDS: MULTIVITAMIN TABLET PO SCH (11:24)
[2020-09-21] MEDS: ASPIRIN 81 MG TABLET, ENT COATED PO SCH (11:24)
[2020-09-21] MEDS: DRONABINOL 2.5 MG CAPSULE PO SCH ×2 (11:24→17:35)
[2020-09-21] MEDS: FERROUS SULFATE 325 MG TABLET PO SCH (11:24)
[2020-09-21] MEDS: DOCUSATE SODIUM 100 MG CAPSULE PO SCH ×3 (11:24→17:35)
[2020-09-21] MEDS: ZINC SULFATE 220 MG CAPSULE PO SCH (11:25)
[2020-09-21] MEDS: ASCORBIC ACID 500 MG TABLET PO SCH (11:25)
[2020-09-21] MEDS: CYANOCOBALAMIN (VITAMIN B-12) 1,000 MCG TABLET PO SCH (11:25)
[2020-09-21] MEDS: CHOLECALCIFEROL (D3) 400 UNIT TABLET PO SCH (11:25)
[2020-09-21] MEDS ORDERED: LOPERAMIDE HCL 2 MG CAPSULE PO PRN (11:40)
[2020-09-21] MEDS: DONEPEZIL HCL 5 MG TABLET PO SCH (21:32)
[2020-09-22] MEDS: LINEZOLID 600 MG/300 ML RTUPB IV SCH ×2 (05:15→18:35)
[2020-09-22] MEDS: LEVOTHYROXINE SODIUM 0.1 MG TABLET PO SCH (06:52)
[2020-09-22] MEDS: HEPARIN SOD (PORCINE) 5,000 UNIT/ML 1 ML VIAL SUBCUT SCH ×3 (06:53→21:21)
[2020-09-22 07:10] LABS: HEMATOCRIT 23.3 % (36.0-47.0); MEAN CORPUSCULAR HEMOGLOBIN 29.4 pg (27.0-33.4); MEAN CORPUSCULAR HGB CONC 32.1 g/dL (32.0-36.0); MEAN CORPUSCULAR VOLUME 92 fl (80-97); PLATELET COUNT 100 10^3/uL (150-450); RED BLOOD COUNT 2.54 10^6/uL (3.72-5.28); RED CELL DISTRIBUTION WIDTH 17.5 % (11.5-14.0)
[2020-09-22 08:07] LABS: ABSOLUTE LYMPHOCYTES# (MANUAL) 1.3 10^3/uL (0.5-4.7); ABSOLUTE MONOCYTES # (MANUAL) 0.6 10^3/uL (0.1-1.4); BASOPHILS % (MANUAL) 0 % (0-2); EOSINOPHILS % (MANUAL) 1 % (0-6); LYMPHOCYTES % (MANUAL) 7 % (13-45); MONOCYTES % (MANUAL) 4 % (3-13); SEGMENTED NEUTROPHILS % (MAN) 87 % (42-78); TOTAL CELLS COUNTED 100
[2020-09-22 08:08] LABS: ANISOCYTOSIS 1+
[2020-09-22 08:09] LABS: OVALOCYTES 1+; PLATELET COMMENT DECREASED; POIKILOCYTOSIS 1+; TEAR DROP CELLS 1+
[2020-09-22 08:12] LABS: HEMOGLOBIN 7.5 g/dL (12.0-15.5)
[2020-09-22 08:38] LABS: ANION GAP 11 (5-19); BLOOD UREA NITROGEN 52 mg/dL (7-20); CALCIUM 10.9 mg/dL (8.4-10.2); CARBON DIOXIDE 21 mmol/L (22-30); CHLORIDE 120 mmol/L (98-107); GLUCOSE 111 mg/dL (75-110); POTASSIUM 3.3 mmol/L (3.6-5.0)
[2020-09-22] MEDS: ASPIRIN 81 MG TABLET, ENT COATED PO SCH (10:53)
[2020-09-22] MEDS: MULTIVITAMIN TABLET PO SCH (10:53)
[2020-09-22] MEDS: DOCUSATE SODIUM 100 MG CAPSULE PO SCH ×3 (10:53→18:35)
[2020-09-22] MEDS: DRONABINOL 2.5 MG CAPSULE PO SCH ×2 (10:53→16:34)
[2020-09-22] MEDS: FERROUS SULFATE 325 MG TABLET PO SCH (10:53)
[2020-09-22] MEDS: FAMOTIDINE INJ/PF 20 MG/2 ML SDV IV SCH ×2 (10:54→21:25)
[2020-09-22] MEDS: CEFEPIME 1 GM/D5W RTU 1 GM/50 ML RTUPB IV SCH ×2 (10:54→21:25)
[2020-09-22] MEDS: CYANOCOBALAMIN (VITAMIN B-12) 1,000 MCG TABLET PO SCH ×2 (10:54→11:22)
[2020-09-22] MEDS: ASCORBIC ACID 500 MG TABLET PO SCH (10:54)
[2020-09-22] MEDS: ZINC SULFATE 220 MG CAPSULE PO SCH (10:54)
[2020-09-22] MEDS: CHOLECALCIFEROL (D3) 400 UNIT TABLET PO SCH (11:05)
--- NOTE | 2020-09-22 14:02 | PDOC CRITICAL CARE PROG REPORT ---
General Date:: 09/22/20 ICU Day:: 2 Hospital Day:: 2 Resuscitation Status: Full Code Events in the past 12 to 24 Hours:: No cardiovascular instability or need for ICU intervention. Reason for ICU Addmission:: Assess for CV instability. Physical Exam Vital Signs: Temp Pulse Resp BP Pulse Ox 96.1 F L 61 19 148/55 H 98 09/22/20 12:00 09/22/20 08:00 09/22/20 12:31 09/22/20 12:31 09/22/20 12:31 Intake & Output 09/21/20 09/22/20 09/23/20 06:59 06:59 06:59 Intake Total 3700 2000 Output Total 645 1510 575 Balance 3055 490 -575 Weight 88.5 kg 91 kg Weight/Height Weight 91 kg Height 5 ft 6 in Laboratory/Radiographs Laboratory Results: 09/22/20 05:03 09/22/20 05:03 09/22/20 09/22/20 05:03 05:03 WBC 16.0 H RBC 2.54 L Hgb 7.5 L Hct 23.3 L MCV 92 MCH 29.4 MCHC 32.1 RDW 17.5 H Plt Count 100 L Seg Neutrophils % Not Reportable Sodium 151.5 H Potassium 3.3 L Chloride 120 H Carbon Dioxide 21 L Anion Gap 11 BUN 52 H Creatinine 2.80 H Est GFR ( Amer) 19 L Glucose 111 H Calcium 10.9 H Lipase 1514.1 H 09/19/20 09/19/20 09/20/20 12:00 20:31 08:50 Troponin I 0.013 < 0.012 NT-Pro-B Natriuret Pep 609 H 531 H Impressions: Acute Abdomen Series 09/19/20 11:58 IMPRESSION: Constipation. No other significant findings. Head CT 09/19/20 12:02 IMPRESSION: CHRONIC CHANGES OF ATROPHY AND MICROVASCULAR ISCHEMIA. NO ACUTE PROCESS. EVIDENCE OF ACUTE STROKE: NO. Chest CT 09/19/20 12:03 IMPRESSION: Bilateral nodular airspace disease most marked in the lung bases. This could be infectious, inflammatory or neoplastic. Does the patient have a known primary? No effusions. Abdomen/Pelvis CT 09/19/20 12:05 IMPRESSION: Question mild pancreatitis with slight inflammation noted surrounding the pancreatic head. Gallstones. Abdomen Ultrasound 09/19/20 15:14 IMPRESSION: Gallstones. Echogenic kidneys consistent with medical renal disease. Chest X-Ray 09/20/20 07:33 IMPRESSION: Persistent bibasilar airspace unchanged Assessment and Plan - Diagnosis (1) Acute pancreatitis Qualifiers: Pancreatitis type: unspecified pancreatitis type Is this a current diagnosis for this admission?: Yes Plan: This is probably from a gallstone that has passed. No obvious medications. She has pain in the epigastrim, no [place] sign. A CT suggestin of pancreas inflammation. Continu NPO until lipase is lower. 09/22 The patient has no clinical evidence of pancreatitis aat this time. She had some minior inflammatory changes on her iniitial CT scan. No abdominal pain or nausea. Her lipase appears to be trending down . No furhter soecific therapy recommeneded. (2) Chronic kidney disease, stage III (moderate) Qualifiers: Chronic kidney disease stage 3 subtype: unspecified whether 3a or 3b Qualified Code(s): N18.30 - Chronic kidney disease, stage 3 unspecified Is this a current diagnosis for this admission?: Yes Plan: Her renal fn. has improved from admisssion but is not at ther baseline. At present she has a creat of 2.80. It was 1.24 as of 09/02. (3) Dementia Qualifiers: Dementia type: Alzheimer's disease Is this a current diagnosis for this admission?: Yes Plan: This is likely a bit worsened with acute illness, but no behavioral ssues at this point. (4) Venous stasis ulcer of lower extremity Qualifiers: Laterality: bilateral Qualified Code(s): I83.019 - Varicose veins of right lower extremity with ulcer of unspecified site; I83.029 - Varicose veins of left lower extremity with ulcer of unspecified site; L97.919 - Non-pressure chronic ulcer of unspecified part of right lower leg with unspecified severity; L97.929 - Non-pressure chronic ulcer of unspecified part of left lower leg with unspecified severity Is this a current diagnosis for this admission?: Yes (5) Urinary tract infection Qualifiers: Urinary tract infection type: acute pyelonephritis Qualified Code(s): N10 - Acute pyelonephritis Is this a current diagnosis for this admission?: Yes Plan: The patient was admitted originally becuse of mild hypotensionand hypothermia. This nwas though to be secondary to a UTI. The patient doid have a n elevated WBC on presentation. She grew out proteus and Cpcs in her initial urien specimen. At present she is normothermic and and bp is in the normal range. Can descalate to ancef at this time Critical Time Critical Time (minutes): 15 Level of Care: ICU -: 1. The care of a critical patient is a dynamic process. This note is a inbound sales representative synopsis but static in nature. The timeframe for treatments given in order is not necessarily the actual time these treatments may have been done. 2. This patient requires critical care secondary to ongoing requirements for therapy not offered or safe outside the critical care environment. Transfer to a lower level of care will result in altered life or limb morbidity and mo rtality. 3. Multidisciplinary rounds completed. 4. ABCDE bundle addressed.
[2020-09-22 18:27] LABS: MEAN CORPUSCULAR HEMOGLOBIN 29.5 pg (27.0-33.4); MEAN CORPUSCULAR HGB CONC 32.2 g/dL (32.0-36.0); MEAN CORPUSCULAR VOLUME 92 fl (80-97); RED BLOOD COUNT 2.51 10^6/uL (3.72-5.28); RED CELL DISTRIBUTION WIDTH 17.6 % (11.5-14.0); WHITE BLOOD COUNT 13.7 10^3/uL (4.0-10.5)
[2020-09-22 18:33] LABS: PLATELET COUNT 99 10^3/uL (150-450)
[2020-09-22 18:42] LABS: ABSOLUTE LYMPHOCYTES# (MANUAL) 0.8 10^3/uL (0.5-4.7); ABSOLUTE MONOCYTES # (MANUAL) 0.3 10^3/uL (0.1-1.4); BASOPHILS % (MANUAL) 0 % (0-2); EOSINOPHILS % (MANUAL) 0 % (0-6); LYMPHOCYTES % (MANUAL) 6 % (13-45); MONOCYTES % (MANUAL) 2 % (3-13); NUCLEATED RED BLOOD CELLS 2 /100 WBC (0); SEGMENTED NEUTROPHILS % (MAN) 92 % (42-78); TOTAL CELLS COUNTED 100
[2020-09-22 18:45] LABS: PLATELET COMMENT DECREASED; PLATELET LARGE PRESENT
[2020-09-22 18:46] LABS: ANISOCYTOSIS 1+; BURR CELLS 1+; OVALOCYTES 1+; POIKILOCYTOSIS 1+; TEAR DROP CELLS 1+
[2020-09-22 18:49] LABS: HEMOGLOBIN 7.4 g/dL (12.0-15.5)
[2020-09-22] MEDS: DONEPEZIL HCL 5 MG TABLET PO SCH (21:25)
[2020-09-23] MEDS: 1/2 NORMAL SALINE 1,000 ML IV PRN ×3 (00:45→19:00)
[2020-09-23] MEDS: HEPARIN SOD (PORCINE) 5,000 UNIT/ML 1 ML VIAL SUBCUT SCH ×3 (05:09→22:45)
[2020-09-23] MEDS: LEVOTHYROXINE SODIUM 0.1 MG TABLET PO SCH ×2 (05:10→09:35)
[2020-09-23] MEDS ORDERED: LINEZOLID 600 MG/300 ML RTUPB IV ONE (06:05)
[2020-09-23] MEDS: LINEZOLID 600 MG/300 ML RTUPB IV SCH (06:11)
[2020-09-23] MEDS: DRONABINOL 2.5 MG CAPSULE PO SCH ×2 (08:30→18:14)
[2020-09-23] MEDS: DOCUSATE SODIUM 100 MG CAPSULE PO SCH ×3 (09:20→19:45)
[2020-09-23] MEDS: CEFEPIME 1 GM/D5W RTU 1 GM/50 ML RTUPB IV SCH (09:23)
[2020-09-23] MEDS: FAMOTIDINE INJ/PF 20 MG/2 ML SDV IV SCH ×2 (09:25→22:45)
[2020-09-23] MEDS: CYANOCOBALAMIN (VITAMIN B-12) 1,000 MCG TABLET PO SCH (09:32)
[2020-09-23] MEDS: MULTIVITAMIN TABLET PO SCH (09:32)
[2020-09-23] MEDS: ASCORBIC ACID 500 MG TABLET PO SCH (09:32)
[2020-09-23] MEDS: ZINC SULFATE 220 MG CAPSULE PO SCH (09:32)
[2020-09-23] MEDS: FERROUS SULFATE 325 MG TABLET PO SCH (09:32)
[2020-09-23 09:36] LABS: ANION GAP 10 (5-19); BLOOD UREA NITROGEN 37 mg/dL (7-20); CALCIUM 9.8 mg/dL (8.4-10.2); CARBON DIOXIDE 22 mmol/L (22-30); CHLORIDE 108 mmol/L (98-107); GLUCOSE 114 mg/dL (75-110)
[2020-09-23] MEDS: ASPIRIN 81 MG TABLET, ENT COATED PO SCH (09:38)
[2020-09-23] MEDS: CHOLECALCIFEROL (D3) 400 UNIT TABLET PO SCH (09:39)
[2020-09-23 09:41] LABS: POTASSIUM 2.9 mmol/L (3.6-5.0)
--- NOTE | 2020-09-23 09:48 | PDOC CRITICAL CARE PROG REPORT ---
General Date:: 09/23/20 ICU Day:: 3 Hospital Day:: 3 Resuscitation Status: Full Code Events in the past 12 to 24 Hours:: No cardiovascular instability or need for ICU intervention. 09/23 The patient appears to be doing ok. She appears comfortable. We are reassessing swallow and she appears ablke to take po meds and perhaps puree diet. No further critical care need. Reason for ICU Addmission:: Assess for CV instability. Physical Exam Vital Signs: Temp Pulse Resp BP Pulse Ox 97.2 F 86 23 H 157/120 H 94 09/23/20 08:00 09/23/20 08:00 09/23/20 08:00 09/23/20 08:00 09/23/20 08:00 Intake & Output 09/22/20 09/23/20 09/24/20 06:59 06:59 06:59 Intake Total 1999 1400 Output Total 1510 2910 950 Balance 490 -1510 -950 Weight 91 kg 88 kg Weight/Height Weight 88 kg Height 5 ft 6 in General appearance: PRESENT: no acute distress Head exam: PRESENT: atraumatic, normocephalic Ear exam: PRESENT: normal external ear exam Mouth exam: PRESENT: moist Respiratory exam: ABSENT: accessory muscle use Cardiovascular exam: ABSENT: bradycardia Pulses: PRESENT: normal carotid pulses, normal dorsalis pedis pul GI/Abdominal exam: PRESENT: soft. ABSENT: tenderness Gentrourinary exam: ABSENT: ecchymosis Extremities exam: ABSENT: calf tenderness Neurological exam: PRESENT: alert Laboratory/Radiographs Laboratory Results: 09/22/20 17:56 09/22/20 17:56 WBC 13.7 H RBC 2.51 L Hgb 7.4 L Hct 23.0 L MCV 92 MCH 29.5 MCHC 32.2 RDW 17.6 H Plt Count 99 L Seg Neutrophils % Not Reportable 09/19/20 09/19/20 09/20/20 12:00 20:31 08:50 Troponin I 0.013 < 0.012 NT-Pro-B Natriuret Pep 609 H 531 H Impressions: Acute Abdomen Series 09/19/20 11:58 IMPRESSION: Constipation. No other significant findings. Head CT 09/19/20 12:02 IMPRESSION: CHRONIC CHANGES OF ATROPHY AND MICROVASCULAR ISCHEMIA. NO ACUTE PROCESS. EVIDENCE OF ACUTE STROKE: NO. Chest CT 09/19/20 12:03 IMPRESSION: Bilateral nodular airspace disease most marked in the lung bases. This could be infectious, inflammatory or neoplastic. Does the patient have a known primary? No effusions. Abdomen/Pelvis CT 09/19/20 12:05 IMPRESSION: Question mild pancreatitis with slight inflammation noted surrounding the pancreatic head. Gallstones. Abdomen Ultrasound 09/19/20 15:14 IMPRESSION: Gallstones. Echogenic kidneys consistent with medical renal disease. Chest X-Ray 09/20/20 07:33 IMPRESSION: Persistent bibasilar airspace unchanged Assessment and Plan - Diagnosis (1) Acute pancreatitis Qualifiers: Pancreatitis type: unspecified pancreatitis type Is this a current diagnosis for this admission?: Yes Plan: This is probably from a gallstone that has passed. No obvious medications. She has pain in the epigastrim, no [place] sign. A CT suggestin of pancreas inflammation. Continu NPO until lipase is lower. 09/22 The patient has no clinical evidence of pancreatitis aat this time. She had some minor inflammatory changes on her iniitial CT scan. No abdominal pain or nausea. Her lipase appears to be trending down . No further specific therapy recommended. 09/23 The patient has no complaints. Unsure, why lipase was so elecvated. The patient has never really had symptoms suggestive of pancreatitis. (2) Chronic kidney disease, stage III (moderate) Qualifiers: Chronic kidney disease stage 3 subtype: unspecified whether 3a or 3b Qualified Code(s): N18.30 - Chronic kidney disease, stage 3 unspecified Is this a current diagnosis for this admission?: Yes Plan: Her renal fn. has improved from admisssion but is not at ther baseline. At present she has a creat of 2.80. It was 1.24 as of 09/02. 09/23 The patient has had steady improvement in renal fn. Her creat today is 2.18 from 2.80 yesterday. Urine output close to 3 liters yesterday. (3) Dementia Qualifiers: Dementia type: Alzheimer's disease Is this a current diagnosis for this admission?: Yes (4) Venous stasis ulcer of lower extremity Qualifiers: Laterality: bilateral Qualified Code(s): I83.019 - Varicose veins of right lower extremity with ulcer of unspecified site; I83.029 - Varicose veins of left lower extremity with ulcer of unspecified site; L97.919 - Non-pressure chronic ulcer of unspecified part of right lower leg with unspecified severity; L97.929 - Non-pressure chronic ulcer of unspecified part of left lower leg with unspecified severity Is this a current diagnosis for this admission?: Yes (5) Urinary tract infection Qualifiers: Urinary tract infection type: acute pyelonephritis Qualified Code(s): N10 - Acute pyelonephritis Is this a current diagnosis for this admission?: Yes Plan: The patient was admitted originally becuse of mild hypotensionand hypothermia. This nwas though to be secondary to a UTI. The patient doid have a n elevated WBC on presentation. She grew out proteus and Cpcs in her initial urien specimen. At present she is normothermic and and bp is in the normal range. Can descalate to ancef at this time 09/23 The opatient was thought to have a UTI. Grew out Proteus and small amount of Staph in culture. I have deescalated ehr regimen to Ceftin as the proteus was senstive and thepatient has now had several days of IV abx. The organism is sensitive to cephalosporins. Critical Time Critical Time (minutes): 20 Level of Care: ICU -: 1. The care of a critical patient is a dynamic process. This note is a access representative synopsis but static in nature. The timeframe for treatments given in order is not necessarily the actual time these treatments may have been done. 2. This patient requires critical care secondary to ongoing requirements for therapy not offered or safe outside the critical care environment. Transfer to a lower level of care will result in altered life or limb morbidity and mortality. 3. Multidisciplinary rounds completed. 4. ABCDE bundle addressed.
[2020-09-23] MEDS: POTASSI CL 20 MEQ/50 ML RIDER 20 MEQ/50 ML RTUPB IV SCH ×3 (11:15→14:13)
[2020-09-23] MEDS: CEFUROXIME 250 MG TABLET PO SCH ×2 (11:29→21:38)
[2020-09-23] MEDS: HYDRALAZINE HCL INJ/PF 20 MG/1 ML SDV IV PRN (13:15)
[2020-09-23] MEDS: CLONIDINE HCL 0.1 MG TABLET PO SCH (22:39)
[2020-09-23] MEDS: DONEPEZIL HCL 5 MG TABLET PO SCH (22:39)
[2020-09-23] MEDS ORDERED: CEFTRIAXONE 1 GM/D5W RTU 1 GM/50 ML RTUPB IV ONE (23:30)
[2020-09-24] MEDS: HYDRALAZINE HCL INJ/PF 20 MG/1 ML SDV IV PRN (01:16)
[2020-09-24] MEDS: HEPARIN SOD (PORCINE) 5,000 UNIT/ML 1 ML VIAL SUBCUT SCH ×3 (05:50→21:28)
[2020-09-24] MEDS: LEVOTHYROXINE SODIUM 0.1 MG TABLET PO SCH (05:51)
[2020-09-24] MEDS: 1/2 NORMAL SALINE 1,000 ML IV PRN ×2 (07:38→18:28)
[2020-09-24 11:06] LABS: HEMATOCRIT 23.9 % (36.0-47.0); MEAN CORPUSCULAR HEMOGLOBIN 29.5 pg (27.0-33.4); MEAN CORPUSCULAR HGB CONC 32.5 g/dL (32.0-36.0); MEAN CORPUSCULAR VOLUME 91 fl (80-97); RED BLOOD COUNT 2.64 10^6/uL (3.72-5.28); RED CELL DISTRIBUTION WIDTH 17.6 % (11.5-14.0); WHITE BLOOD COUNT 10.3 10^3/uL (4.0-10.5)
[2020-09-24] MEDS: DRONABINOL 2.5 MG CAPSULE PO SCH ×2 (11:06→17:29)
[2020-09-24 11:23] LABS: ALBUMIN 2.2 g/dL (3.5-5.0); ALKALINE PHOSPHATASE 91 U/L (38-126); ANION GAP 10 (5-19); ASPARTATE AMINO TRANSFERASE 29 U/L (14-36); BILIRUBIN,DIRECT 0.3 mg/dL (0.0-0.4); BILIRUBIN,TOTAL 0.5 mg/dL (0.2-1.3); BLOOD UREA NITROGEN 31 mg/dL (7-20); CALCIUM 9.1 mg/dL (8.4-10.2); CARBON DIOXIDE 20 mmol/L (22-30); CHLORIDE 108 mmol/L (98-107); GLUCOSE 97 mg/dL (75-110); POTASSIUM 3.5 mmol/L (3.6-5.0); TOTAL PROTEIN 5.5 g/dL (6.3-8.2)
[2020-09-24 11:26] LABS: PLATELET COUNT 89 10^3/uL (150-450)
[2020-09-24 11:34] LABS: HEMOGLOBIN 7.8 g/dL (12.0-15.5)
[2020-09-24] MEDS: FAMOTIDINE INJ/PF 20 MG/2 ML SDV IV SCH ×2 (12:02→21:34)
[2020-09-24] MEDS ORDERED: POTASSI CL 20 MEQ/50 ML RIDER 20 MEQ/50 ML RTUPB IV ONE (13:00)
[2020-09-24] MEDS: DOCUSATE SODIUM 100 MG CAPSULE PO SCH ×2 (13:31→17:30)
[2020-09-24] MEDS: CLONIDINE HCL 0.1 MG TABLET PO SCH ×2 (13:31→21:34)
[2020-09-24] MEDS: ASCORBIC ACID 500 MG TABLET PO SCH (13:32)
[2020-09-24] MEDS: FERROUS SULFATE 325 MG TABLET PO SCH (13:32)
[2020-09-24] MEDS: ZINC SULFATE 220 MG CAPSULE PO SCH (13:32)
[2020-09-24] MEDS: CHOLECALCIFEROL (D3) 400 UNIT TABLET PO SCH (13:32)
[2020-09-24] MEDS: MULTIVITAMIN TABLET PO SCH (13:32)
[2020-09-24] MEDS: CYANOCOBALAMIN (VITAMIN B-12) 1,000 MCG TABLET PO SCH (13:32)
[2020-09-24] MEDS: ASPIRIN 81 MG TABLET, ENT COATED PO SCH (13:33)
--- NOTE | 2020-09-24 17:54 | PDOC PROGRESS REPORT ---
Subjective Date:: 09/24/20 Subjective:: Patient was seen on afternoon rounds with her niece present. She was found resting in bed, comfortably, on room air. She was sleeping but woke easily when we said her name. She made eye contact and answered some questions appropriately but overall was not conversational. When asked if she was in pain or having difficulty breathing she said no but otherwise did not respond to me. She did seem to have improved attention towards her knees, although, she stated that she did not know her. Per the niece, they have witnessed a gradual decline in the patient's mentation substantially worse as compared to the last time they had visited together. Of note, patient was Discharged from our facility to SNF on August 27, 2020 and so it has been several weeks since they last interacted directly. ROS is otherwise limited. She does appear to be comfortable and is not noted to be in any acute distress at this time. No questions or concerns per family at this time. No concerns per nursing. Reason For Visit: ACUTE PANCREATITIS,HYPERCALCEMIA,DENISSE/CKD Physical Exam Vital Signs: Temp Pulse Resp BP Pulse Ox 98.2 F 71 15 132/60 H 92 09/24/20 15:16 09/24/20 15:16 09/24/20 15:16 09/24/20 15:16 09/24/20 15:16 Intake & Output 09/23/20 09/24/20 09/25/20 06:59 06:59 06:59 Intake Total 1400 2801 Output Total 2910 2375 Balance -1510 426 Weight 88 kg 73.1 kg 73.1 kg General appearance: PRESENT: no acute distress, obese, well-developed, well- nourished Head exam: PRESENT: atraumatic, normocephalic Eye exam: PRESENT: conjunctiva pink, EOMI, PERRLA. ABSENT: scleral icterus Mouth exam: PRESENT: moist, tongue midline Respiratory exam: PRESENT: clear to auscultation laurie, symmetrical, unlabored, other - Room air. ABSENT: rales, rhonchi, wheezes Cardiovascular exam: PRESENT: RRR. ABSENT: diastolic murmur, rubs, systolic murmur Pulses: PRESENT: normal dorsalis pedis pul Vascular exam: PRESENT: normal capillary refill GI/Abdominal exam: PRESENT: normal bowel sounds, soft. ABSENT: distended, guarding, mass, organolmegaly, rebound, tenderness Rectal exam: PRESENT: deferred Gentrourinary exam: PRESENT: indwelling catheter Extremities exam: PRESENT: full ROM - Moves all extremities spontaneously. ABSENT: calf tenderness, clubbing, pedal edema Neurological exam: PRESENT: alert, awake, oriented to person, CN II-XII grossly intact. ABSENT: oriented to place, oriented to time, oriented to situation, motor sensory deficit Psychiatric exam: PRESENT: flat affect, normal mood. ABSENT: homicidal ideation, suicidal ideation Skin exam: PRESENT: dry, warm, other - Bilateral lower extremity stasis dermatitis w/ venous stasis ulcer to the left calf and bilateral heel pressure ulcers.. ABSENT: cyanosis, rash Results Laboratory Results: 09/24/20 10:45 09/24/20 10:45 09/24/20 09/24/20 10:45 10:45 WBC 10.3 RBC 2.64 L Hgb 7.8 L Hct 23.9 L MCV 91 MCH 29.5 MCHC 32.5 RDW 17.6 H Plt Count 89 L Sodium 137.9 Potassium 3.5 L Chloride 108 H Carbon Dioxide 20 L Anion Gap 10 BUN 31 H Creatinine 2.17 H Est GFR ( Amer) 26 L Glucose 97 Calcium 9.1 Total Bilirubin 0.5 AST 29 Alkaline Phosphatase 91 Total Protein 5.5 L Albumin 2.2 L Lipase 436.0 H 09/19/20 13:09 Blood Blood Culture - Final NO GROWTH IN 5 DAYS 09/19/20 12:00 Blood Blood Culture - Final NO GROWTH IN 5 DAYS 09/19/20 09/19/20 09/20/20 12:00 20:31 08:50 Troponin I 0.013 < 0.012 NT-Pro-B Natriuret Pep 609 H 531 H Impressions: Acute Abdomen Series 09/19/20 11:58 IMPRESSION: Constipation. No other significant findings. Head CT 09/19/20 12:02 IMPRESSION: CHRONIC CHANGES OF ATROPHY AND MICROVASCULAR ISCHEMIA. NO ACUTE PROCESS. EVIDENCE OF ACUTE STROKE: NO. Chest CT 09/19/20 12:03 IMPRESSION: Bilateral nodular airspace disease most marked in the lung bases. This could be infectious, inflammatory or neoplastic. Does the patient have a known primary? No effusions. Abdomen/Pelvis CT 09/19/20 12:05 IMPRESSION: Question mild pancreatitis with slight inflammation noted surrounding the pancreatic head. Gallstones. Abdomen Ultrasound 09/19/20 15:14 IMPRESSION: Gallstones. Echogenic kidneys consistent with medical renal disease. Chest X-Ray 09/20/20 07:33 IMPRESSION: Persistent bibasilar airspace unchanged Assessment and Plan - Diagnosis (1) Acute pancreatitis Qualifiers: Pancreatitis type: unspecified pancreatitis type Is this a current diagnosis for this admission?: Yes Plan: Improved. This is probably from a gallstone that has passed. No obvious medications. She had pain in the epigastrim, no [place] sign. A CT suggestion of pancreas inflammation. Lipase 6k-> 8k-> 1.5k-> 436 Triglycerides 100 A1c (07/2020) 6.3% Continue gentle IV fluids. Analgesics and antiemetics as needed. Cautiously advance to clear liquid diet today. (2) Acute on chronic renal failure Qualifiers: Acute renal failure type: unspecified Chronic kidney disease stage: stage 3 (moderate) Is this a current diagnosis for this admission?: Yes Plan: Likely prerenal secondary to hypotension (questionable cardiopulmonary arrest while at SNF) and UTI. CR 3.44-> 2.17. Baseline appears to be 1.9. Avoid nephrotoxic medications. Continue gentle IV fluids. Strict I&O's. Follow-up chemistry. (3) Urinary tract infection Qualifiers: Urinary tract infection type: acute pyelonephritis Qualified Code(s): N10 - Acute pyelonephritis Is this a current diagnosis for this admission?: Yes Plan: The patient was admitted originally becuse of mild hypotensionand hypothermia. This was though to be secondary to a UTI. Grew out Proteus and small amount of Staph in urine culture. Initially received cefepime and Zyvox. These are deescalated to ceftriaxone. Now on day #5/7 of appropriate antibiotic coverage. We will remove Valdovinos catheter. (4) Venous stasis ulcer of lower extremity Qualifiers: Laterality: bilateral Qualified Code(s): I83.019 - Varicose veins of right lower extremity with ulcer of unspecified site; I83.029 - Varicose veins of left lower extremity with ulcer of unspecified site; L97.919 - Non-pressure chronic ulcer of unspecified part of right lower leg with unspecified severity; L97.929 - Non-pressure chronic ulcer of unspecified part of left lower leg with unspecified severity Is this a current diagnosis for this admission?: Yes Plan: Chronic bilateral lower extremity stasis dermatitis. Does not appear to be infected. Continue wound care. Will consult wound care nurse for recommendation. Elevate bilateral lower extremities. (5) Dementia Qualifiers: Dementia type: Alzheimer's disease Is this a current diagnosis for this admission?: Yes Plan: This is likely a bit worsened with acute illness, but no behavioral issues at t his point. Supportive care. - Time Time Spent with patient: 35 or more minutes Medications reviewed and adjusted accordingly: Yes Anticipated Discharge Disposition: Group Home Facility Anticipated Discharge Timeframe: within 72 hours
[2020-09-24] MEDS: DONEPEZIL HCL 5 MG TABLET PO SCH (21:34)
[2020-09-24] MEDS: CEFTRIAXONE 1 GM/D5W RTU 1 GM/50 ML RTUPB IV SCH (21:35)
[2020-09-25] MEDS: HYDRALAZINE HCL INJ/PF 20 MG/1 ML SDV IV PRN ×3 (00:56→20:08)
[2020-09-25 05:28] LABS: HEMATOCRIT 25.2 % (36.0-47.0); HEMOGLOBIN 8.2 g/dL (12.0-15.5); MEAN CORPUSCULAR HEMOGLOBIN 29.6 pg (27.0-33.4); MEAN CORPUSCULAR HGB CONC 32.6 g/dL (32.0-36.0); MEAN CORPUSCULAR VOLUME 91 fl (80-97); RED BLOOD COUNT 2.78 10^6/uL (3.72-5.28); RED CELL DISTRIBUTION WIDTH 17.7 % (11.5-14.0); WHITE BLOOD COUNT 8.7 10^3/uL (4.0-10.5)
[2020-09-25] MEDS: HEPARIN SOD (PORCINE) 5,000 UNIT/ML 1 ML VIAL SUBCUT SCH ×3 (05:34→23:05)
[2020-09-25 05:43] LABS: ALBUMIN 2.4 g/dL (3.5-5.0); ALKALINE PHOSPHATASE 100 U/L (38-126); ANION GAP 9 (5-19); ASPARTATE AMINO TRANSFERASE 31 U/L (14-36); BILIRUBIN,DIRECT 0.2 mg/dL (0.0-0.4); BILIRUBIN,TOTAL 0.5 mg/dL (0.2-1.3); BLOOD UREA NITROGEN 31 mg/dL (7-20); CALCIUM 8.8 mg/dL (8.4-10.2); CARBON DIOXIDE 21 mmol/L (22-30); CHLORIDE 107 mmol/L (98-107); GLUCOSE 103 mg/dL (75-110); POTASSIUM 3.7 mmol/L (3.6-5.0); TOTAL PROTEIN 5.7 g/dL (6.3-8.2)
[2020-09-25 06:00] LABS: PLATELET COUNT 92 10^3/uL (150-450)
[2020-09-25] MEDS: LEVOTHYROXINE SODIUM 0.1 MG TABLET PO SCH (06:02)
[2020-09-25] MEDS: DRONABINOL 2.5 MG CAPSULE PO SCH ×2 (07:34→16:02)
[2020-09-25] MEDS: FAMOTIDINE INJ/PF 20 MG/2 ML SDV IV SCH ×2 (09:41→23:03)
[2020-09-25] MEDS: DOCUSATE SODIUM 100 MG CAPSULE PO SCH ×2 (09:42→17:39)
[2020-09-25] MEDS: MULTIVITAMIN TABLET PO SCH (09:42)
[2020-09-25] MEDS: ASCORBIC ACID 500 MG TABLET PO SCH (09:42)
[2020-09-25] MEDS: CLONIDINE HCL 0.1 MG TABLET PO SCH ×2 (09:42→23:02)
[2020-09-25] MEDS: ASPIRIN 81 MG TABLET, ENT COATED PO SCH (09:42)
[2020-09-25] MEDS: CYANOCOBALAMIN (VITAMIN B-12) 1,000 MCG TABLET PO SCH (09:42)
[2020-09-25] MEDS: FERROUS SULFATE 325 MG TABLET PO SCH (09:42)
[2020-09-25] MEDS: CHOLECALCIFEROL (D3) 400 UNIT TABLET PO SCH (09:43)
[2020-09-25] MEDS: ZINC SULFATE 220 MG CAPSULE PO SCH (09:43)
[2020-09-25] MEDS: NORMAL SALINE 1000 ML 1,000 ML IV PRN (11:15)
[2020-09-25 16:27] LABS: AMORPHOUS SEDIMENT,URINE TRACE /HPF; APPEARANCE,URINE SLIGHTLY-CLOUDY; BILIRUBIN,URINE NEGATIVE (NEGATIVE); COLOR,URINE YELLOW; GLUCOSE, URINE NEGATIVE (NEGATIVE); KETONES,URINE NEGATIVE (NEGATIVE); PROTEIN,URINE 100 mg/dL (NEGATIVE); URINE SPECIFIC GRAVITY 1.012; UROBILINOGEN,URINE NEGATIVE mg/dL (<2.0)
--- NOTE | 2020-09-25 18:28 | PDOC PROGRESS REPORT ---
Subjective Date:: 09/25/20 Subjective:: Patient was seen on afternoon rounds. She was found resting in bed, comfortably, on room air. She was sleeping but woke easily when we said her name. She appeared to be more alert this morning and responded promptly when asked if she wanted something to drink. She also nodded her head yes when I asked about looking at her feet. She did not answer further questions. ROS is otherwise limited. She does appear to be comfortable and is not noted to be in any acute distress at this time. No concerns per nursing. Reason For Visit: ACUTE PANCREATITIS,HYPERCALCEMIA,DENISSE/CKD Physical Exam Vital Signs: Temp Pulse Resp BP Pulse Ox 98.7 F 83 18 143/62 H 96 09/25/20 16:00 09/25/20 16:00 09/25/20 16:00 09/25/20 16:00 09/25/20 16:00 Intake & Output 09/24/20 09/25/20 09/26/20 06:59 06:59 06:59 Intake Total 2801 1100 1000 Output Total 2375 200 Balance 346 322 0924 Weight 73.1 kg 93.8 kg 93.8 kg General appearance: PRESENT: no acute distress, obese, well-developed, well- nourished Head exam: PRESENT: atraumatic, normocephalic Eye exam: PRESENT: conjunctiva pink, EOMI, PERRLA. ABSENT: scleral icterus Mouth exam: PRESENT: moist, tongue midline Respiratory exam: PRESENT: clear to auscultation laurie, symmetrical, unlabored, other - room air. ABSENT: rales, rhonchi, wheezes Cardiovascular exam: PRESENT: RRR. ABSENT: diastolic murmur, rubs, systolic murmur Vascular exam: PRESENT: normal capillary refill GI/Abdominal exam: PRESENT: normal bowel sounds, soft. ABSENT: distended, guarding, mass, organolmegaly, rebound, tenderness Rectal exam: PRESENT: deferred Extremities exam: PRESENT: full ROM - moves all extremities. ABSENT: calf tenderness, clubbing, pedal edema Musculoskeletal exam: PRESENT: ambulatory - per nursing; have been informed that the patient has been nonambulatory at SNF. OOB w/ sarahi only Neurological exam: PRESENT: alert, awake, oriented to person, CN II-XII grossly intact. ABSENT: motor sensory deficit Psychiatric exam: PRESENT: appropriate affect, normal mood. ABSENT: homicidal ideation, suicidal ideation Skin exam: PRESENT: dry, warm, other - Unstageable pressure wound to right heel with eschar, stage II pressure wound to left heel, skin tear/abrasion to right knee, venous stasis ulceration to right posterior/lateral lower leg with scant serous drainage no surrounding erythema.. ABSENT: cyanosis, rash Results Laboratory Results: 09/25/20 03:54 09/25/20 03:45 09/25/20 09/25/20 09/25/20 03:45 03:54 15:40 WBC 8.7 RBC 2.78 L Hgb 8.2 L Hct 25.2 L MCV 91 MCH 29.6 MCHC 32.6 RDW 17.7 H Plt Count 92 L Sodium 136.9 L Potassium 3.7 Chloride 107 Carbon Dioxide 21 L Anion Gap 9 BUN 31 H Creatinine 2.13 H Est GFR ( Amer) 27 L Glucose 103 Calcium 8.8 Total Bilirubin 0.5 AST 31 Alkaline Phosphatase 100 Total Protein 5.7 L Albumin 2.4 L Lipase 450.4 H Urine Color YELLOW Urine Appearance SLIGHTLY-CLOUDY Urine pH 5.0 Ur Specific [place] 1.012 Urine Protein 100 H Urine Glucose (UA) NEGATIVE Urine Ketones NEGATIVE Urine Blood LARGE H Urine RBC (Auto) >182 09/19/20 11:20 Singh Catheter Urine Culture - Final Proteus Mirabilis Mrsa (Meth Resis Staph Aureus) 09/19/20 13:09 Blood Blood Culture - Final NO GROWTH IN 5 DAYS 09/19/20 09/19/20 09/20/20 12:00 20:31 08:50 Troponin I 0.013 < 0.012 NT-Pro-B Natriuret Pep 609 H 531 H Impressions: Acute Abdomen Series 09/19/20 11:58 IMPRESSION: Constipation. No other significant findings. Head CT 09/19/20 12:02 IMPRESSION: CHRONIC CHANGES OF ATROPHY AND MICROVASCULAR ISCHEMIA. NO ACUTE PROCESS. EVIDENCE OF ACUTE STROKE: NO. Chest CT 09/19/20 12:03 IMPRESSION: Bilateral nodular airspace disease most marked in the lung bases. This could be infectious, inflammatory or neoplastic. Does the patient have a known primary? No effusions. Abdomen/Pelvis CT 09/19/20 12:05 IMPRESSION: Question mild pancreatitis with slight inflammation noted surrounding the pancreatic head. Gallstones. Abdomen Ultrasound 09/19/20 15:14 IMPRESSION: Gallstones. Echogenic kidneys consistent with medical renal disease. Chest X-Ray 09/20/20 07:33 IMPRESSION: Persistent bibasilar airspace unchanged Assessment and Plan - Diagnosis (1) Acute pancreatitis Qualifiers: Pancreatitis type: unspecified pancreatitis type Is this a current diagnosis for this admission?: Yes Plan: Improved. This is probably from a gallstone that has passed. No obvious medications. She had pain in the epigastrim, no [place] sign. A CT suggestion of pancreas inflammation. Lipase 6k-> 8k-> 1.5k-> 436-> 450 Triglycerides 100 A1c (07/2020) 6.3% Continue gentle IV fluids. Analgesics and antiemetics as needed. Continue clear liquid diet. (2) Acute on chronic renal failure Qualifiers: Acute renal failure type: unspecified Chronic kidney disease stage: stage 3 (moderate) Is this a current diagnosis for this admission?: Yes Plan: Approaching baseline renal function. Likely prerenal secondary to hypotension (questionable cardiopulmonary arrest while at SNF) and UTI. CR 3.44-> 2.13. Baseline appears to be 1.9. Avoid nephrotoxic medications. Continue gentle IV fluids. Strict I&O's. Follow-up chemistry. (3) Urinary tract infection Qualifiers: Urinary tract infection type: acute pyelonephritis Qualified Code(s): N10 - Acute pyelonephritis Is this a current diagnosis for this admission?: Yes Plan: The patient was admitted originally becuse of mild hypotensionand hypothermia. This was though to be secondary to a UTI. Grew out >100 k Proteus and < 60k MRSA Blood cultures remain negative at 5 days. Repeat urinalysis is negative. Initially received Vanc x 1 dose and Zyvox x4 days. Now on day #6/7 of Cefepime. Singh catheter has been exchanged. MRSA possibly r/t contamination of singh (urine collected from singh catheter that had been in place while at SNF. Unclear if urine came from bag or port w/ proper cleaning first). Examined patient's wounds; none appear acutely infected/cellulitic at this time. (4) Venous stasis ulcer of lower extremity Qualifiers: Laterality: bilateral Qualified Code(s): I83.019 - Varicose veins of right lower extremity with ulcer of unspecified site; I83.029 - Varicose veins of left lower extremity with ulcer of unspecified site; L97.919 - Non-pressure chronic ulcer of unspecified part of right lower leg with unspecified severity; L97.929 - Non-pressure chronic ulcer of unspecified part of left lower leg with unspecified severity Is this a current diagnosis for this admission?: Yes Plan: Chronic bilateral lower extremity stasis dermatitis. Does not appear to be infected. Continue wound care. Will consult wound care nurse for recommendation. Elevate bilateral lower extremities. (5) Dementia Qualifiers: Dementia type: Alzheimer's disease Is this a current diagnosis for this admission?: Yes Plan: This is likely a bit worsened with acute illness, but no behavioral issues at this point. Supportive care. - Time Time Spent with patient: 25-34 minutes Medications reviewed and adjusted accordingly: Yes Anticipated Discharge Disposition: Detention Facility Anticipated Discharge Timeframe: >72 hrs
[2020-09-25] MEDS: CEFTRIAXONE 1 GM/D5W RTU 1 GM/50 ML RTUPB IV SCH (23:03)
[2020-09-25] MEDS: DONEPEZIL HCL 5 MG TABLET PO SCH (23:03)
--- NOTE | 2020-09-25 23:36 | RADIOLOGY REPORT (SQ) ---
EXAM DESCRIPTION: Site: CHEST SINGLE VIEW RP: XR CHEST 1 VIEW CLINICAL HISTORY: 85 years Female; Temp 93.5; FINDINGS: Since 09/20/2020, interstitial densities have developed in both lungs, throughout the left lung and mostly involving the right lower lobe. There is partial consolidation of the left lung base, likely combination of infiltrate/atelectasis/effusion. No pneumothorax. No mediastinal shift. Mediastinum is unchanged. IMPRESSION: Increased diffuse interstitial infiltrates bilaterally, indeterminate for cardiogenic pulmonary edema versus an atypical interstitial pneumonia.
[2020-09-26] MEDS: HEPARIN SOD (PORCINE) 5,000 UNIT/ML 1 ML VIAL SUBCUT SCH ×3 (05:11→22:45)
[2020-09-26] MEDS: LEVOTHYROXINE SODIUM 0.1 MG TABLET PO SCH (05:14)
[2020-09-26 05:45] LABS: HEMATOCRIT 23.1 % (36.0-47.0); MEAN CORPUSCULAR HEMOGLOBIN 29.6 pg (27.0-33.4); MEAN CORPUSCULAR HGB CONC 32.3 g/dL (32.0-36.0); MEAN CORPUSCULAR VOLUME 92 fl (80-97); RED BLOOD COUNT 2.52 10^6/uL (3.72-5.28); RED CELL DISTRIBUTION WIDTH 17.8 % (11.5-14.0); WHITE BLOOD COUNT 7.6 10^3/uL (4.0-10.5)
[2020-09-26] MEDS: NORMAL SALINE 1000 ML 1,000 ML IV PRN (06:06)
[2020-09-26 06:08] LABS: ANION GAP 9 (5-19); BLOOD UREA NITROGEN 33 mg/dL (7-20); CALCIUM 8.6 mg/dL (8.4-10.2); CARBON DIOXIDE 19 mmol/L (22-30); CHLORIDE 110 mmol/L (98-107); GLUCOSE 77 mg/dL (75-110); POTASSIUM 3.8 mmol/L (3.6-5.0)
[2020-09-26 06:14] LABS: PLATELET COUNT 96 10^3/uL (150-450)
[2020-09-26 06:15] LABS: HEMOGLOBIN 7.5 g/dL (12.0-15.5)
[2020-09-26] MEDS ORDERED: NORMAL SALINE 1000 ML 1,000 ML IV PRN (06:28)
[2020-09-26] MEDS: DRONABINOL 2.5 MG CAPSULE PO SCH ×2 (07:43→17:08)
[2020-09-26] MEDS: MULTIVITAMIN TABLET PO SCH (10:48)
[2020-09-26] MEDS: CYANOCOBALAMIN (VITAMIN B-12) 1,000 MCG TABLET PO SCH (10:48)
[2020-09-26] MEDS: ASCORBIC ACID 500 MG TABLET PO SCH (10:48)
[2020-09-26] MEDS: ASPIRIN 81 MG TABLET, ENT COATED PO SCH (10:48)
[2020-09-26] MEDS: DOCUSATE SODIUM 100 MG CAPSULE PO SCH ×2 (10:48→17:08)
[2020-09-26] MEDS: FERROUS SULFATE 325 MG TABLET PO SCH (10:48)
[2020-09-26] MEDS: CLONIDINE HCL 0.1 MG TABLET PO SCH ×2 (10:48→22:44)
[2020-09-26] MEDS: ZINC SULFATE 220 MG CAPSULE PO SCH (10:49)
[2020-09-26] MEDS: CHOLECALCIFEROL (D3) 400 UNIT TABLET PO SCH (10:49)
[2020-09-26] MEDS: FAMOTIDINE INJ/PF 20 MG/2 ML SDV IV SCH ×2 (10:49→22:45)
[2020-09-26] MEDS: ALBUMIN HUMAN 12.5 GM/50 ML RTUINJ IV SCH ×4 (13:34→16:20)
--- NOTE | 2020-09-26 14:48 | PDOC PROGRESS REPORT ---
Subjective Date:: 09/26/20 Subjective:: Patient was seen on morning rounds. She was found resting in bed, comfortably, on supplemental oxygen at 2 lpm. She was sleeping but woke easily when I said her name. She smiled and made eye contact, however, she did not respond to me when I asked questions. She does appear to be comfortable and is not noted to be in any acute distress. ROS is otherwise limited. No concerns per nursing. I attempted to call the patient's NOK, Karrie Jain, but there was o answer. I did leave an answer and requested that she return my call. Reason For Visit: ACUTE PANCREATITIS,HYPERCALCEMIA,DENISSE/CKD Physical Exam Vital Signs: Temp Pulse Resp BP Pulse Ox 97.3 F 61 20 142/49 H 98 09/26/20 12:00 09/26/20 12:00 09/26/20 12:00 09/26/20 12:00 09/26/20 12:00 Intake & Output 09/25/20 09/26/20 09/27/20 06:59 06:59 06:59 Intake Total 1100 2050 Output Total 200 225 Balance 900 1825 Weight 93.8 kg 94.5 kg General appearance: PRESENT: no acute distress, obese, well-developed, well- nourished Head exam: PRESENT: atraumatic, normocephalic Eye exam: PRESENT: conjunctiva pink, EOMI, PERRLA. ABSENT: scleral icterus Mouth exam: PRESENT: moist, tongue midline Respiratory exam: PRESENT: clear to auscultation laurie - anterior, decreased breath sounds - throughout; secondary to poor inspiratory effort (does not participate w/ exam) and positioning., symmetrical, unlabored, other - supplemental oxygen. ABSENT: rales, rhonchi, wheezes Cardiovascular exam: PRESENT: RRR. ABSENT: diastolic murmur, rubs, systolic murmur Vascular exam: PRESENT: normal capillary refill GI/Abdominal exam: PRESENT: normal bowel sounds, soft. ABSENT: distended, guarding, mass, organolmegaly, rebound, tenderness Rectal exam: PRESENT: deferred Gentrourinary exam: PRESENT: indwelling catheter Extremities exam: PRESENT: full ROM, +1 edema - pitting BLE. ABSENT: calf tenderness, clubbing, pedal edema Musculoskeletal exam: ABSENT: ambulatory - per nursing; have been informed that the patient has been nonambulatory at SNF. OOB w/ sarahi only Neurological exam: PRESENT: alert, awake, oriented to person, CN II-XII grossly intact, other - does not answer questions or follow directions. ABSENT: motor sensory deficit Psychiatric exam: PRESENT: normal mood. ABSENT: homicidal ideation, suicidal ideation Skin exam: PRESENT: dry, warm, other - Unstageable pressure wound to right heel with eschar, stage II pressure wound to left heel, skin tear/abrasion to right knee, venous stasis ulceration to right posterior/lateral lower leg with scant serous drainage no surrounding erythema. ABSENT: cyanosis, intact, rash Results Laboratory Results: 09/26/20 04:16 09/26/20 04:16 09/25/20 09/26/20 09/26/20 15:40 04:16 04:16 WBC 7.6 RBC 2.52 L Hgb 7.5 L Hct 23.1 L MCV 92 MCH 29.6 MCHC 32.3 RDW 17.8 H Plt Count 96 L Sodium 138.3 Potassium 3.8 Chloride 110 H Carbon Dioxide 19 L Anion Gap 9 BUN 33 H Creatinine 2.25 H Est GFR ( Amer) 25 L Glucose 77 Calcium 8.6 Urine Color YELLOW Urine Appearance SLIGHTLY-CLOUDY Urine pH 5.0 Ur Specific [place] 1.012 Urine Protein 100 H Urine Glucose (UA) NEGATIVE Urine Ketones NEGATIVE Urine Blood LARGE H Urine RBC (Auto) >182 Blood Type Antibody Screen 09/26/20 08:33 WBC RBC Hgb Hct MCV MCH MCHC RDW Plt Count Sodium Potassium Chloride Carbon Dioxide Anion Gap BUN Creatinine Est GFR ( Amer) Glucose Calcium Urine Color Urine Appearance Urine pH Ur Specific [place] Urine Protein Urine Glucose (UA) Urine Ketones Urine Blood Urine RBC (Auto) Blood Type O POSITIVE Antibody Screen POSITIVE 09/19/20 09/19/20 09/20/20 12:00 20:31 08:50 Troponin I 0.013 < 0.012 NT-Pro-B Natriuret Pep 609 H 531 H 09/26/20 08:33 Troponin I NT-Pro-B Natriuret Pep 3190 H Impressions: Acute Abdomen Series 09/19/20 11:58 IMPRESSION: Constipation. No other significant findings. Head CT 09/19/20 12:02 IMPRESSION: CHRONIC CHANGES OF ATROPHY AND MICROVASCULAR ISCHEMIA. NO ACUTE PROCESS. EVIDENCE OF ACUTE STROKE: NO. Chest CT 09/19/20 12:03 IMPRESSION: Bilateral nodular airspace disease most marked in the lung bases. This could be infectious, inflammatory or neoplastic. Does the patient have a known primary? No effusions. Abdomen/Pelvis CT 09/19/20 12:05 IMPRESSION: Question mild pancreatitis with slight inflammation noted surrounding the pancreatic head. Gallstones. Abdomen Ultrasound 09/19/20 15:14 IMPRESSION: Gallstones. Echogenic kidneys consistent with medical renal disease. Chest X-Ray 09/25/20 00:00 IMPRESSION: Increased diffuse interstitial infiltrates bilaterally, indeterminate for cardiogenic pulmonary edema versus an atypical interstitial pneumonia. Assessment and Plan - Diagnosis (1) Acute on chronic renal failure Qualifiers: Acute renal failure type: unspecified Chronic kidney disease stage: stage 3 (moderate) Is this a current diagnosis for this admission?: Yes Plan: Approaching baseline renal function. Likely prerenal secondary to hypotension (questionable cardiopulmonary arrest while at SNF) and UTI. CR 3.44-> 2.13-> 2.25. Baseline appears to be 1.9. Unfortunately, now w/ evidence of fluid volume overload/chf exacerbation. IVF held. Avoid nephrotoxic medications. Strict I&O's. Follow-up chemistry. (2) Acute pancreatitis Qualifiers: Pancreatitis type: unspecified pancreatitis type Is this a current diagnosis for this admission?: Yes Plan: Resolved. This is probably from a gallstone that has passed. No obvious medications. She had pain in the epigastrim, no [place] sign. A CT suggestion of pancreas inflammation. Lipase 6k-> 8k-> 1.5k-> 436-> 450-> 260 Triglycerides 100 A1c (07/2020) 6.3% Now w/ evidence of fluid volume overload/chf exacerbation. IVF held. Analgesics and antiemetics as needed. None needed >48 hrs. Continue clear liquid diet. Minimal oral intake per nursing. (3) Urinary tract infection Qualifiers: Urinary tract infection type: acute pyelonephritis Qualified Code(s): N10 - Acute pyelonephritis Is this a current diagnosis for this admission?: Yes Plan: The patient was admitted originally becuse of mild hypotensionand hypothermia. This was though to be secondary to a UTI. Grew out >100 k Proteus and < 60k MRSA Blood cultures remain negative at 5 days. Repeat urinalysis is negative. Repeat blood cultures pending. Initially received Vanc x 1 dose and Zyvox x4 days. Completed 7 days of Ceftriaxone. Correction to previous notes; patient has not received Cefepime. Singh catheter has been exchanged. MRSA possibly r/t contamination of singh (urine collected from singh catheter that had been in place while at SNF. Unclear if urine came from bag or port w/ proper cleaning first). Examined patient's wounds; none appear acutely infected/cellulitic at this time. (4) Venous stasis ulcer of lower extremity Qualifiers: Laterality: bilateral Qualified Code(s): I83.019 - Varicose veins of right lower extremity with ulcer of unspecified site; I83.029 - Varicose veins of left lower extremity with ulcer of unspecified site; L97.919 - Non-pressure chronic ulcer of unspecified part of right lower leg with unspecified severity; L97.929 - Non-pressure chronic ulcer of unspecified part of left lower leg with unspecified severity Is this a current diagnosis for this admission?: Yes Plan: Chronic bilateral lower extremity stasis dermatitis. Does not appear to be infected. Continue wound care. Awaiting wound care nurse recommendations Elevate bilateral lower extremities. (5) Dementia Qualifiers: Dementia type: Alzheimer's disease Is this a current diagnosis for this admission?: Yes Plan: This is likely a bit worsened with acute illness, but no behavioral issues at this point. Supportive care. (6) Nonhealing wound of heel Is this a current diagnosis for this admission?: Yes Plan: Bilateral pressure wounds to heels; unstageable to the right and stage II to the left with evidence of early healing. Wound care nurse consultation; wound care per their recommendations. Offload heels. (7) CHF (congestive heart failure) Qualifiers: Heart failure type: unspecified Heart failure chronicity: unspecified Qualified Code(s): I50.9 - Heart failure, unspecified Is this a current diagnosis for this admission?: Yes Plan: No known history of CHF. However, patient noted to have evidence of vascular congestion on chest x-ray and an elevated proBNP to 3000 today. She had been receiving IV fluids for treatment of acute pancreatitis. IV fluids are placed on hold. We will continue to monitor strict I&O's, daily weights. Received 1 dose of IV furosemide early this morning. - Time Time Spent with patient: 35 or more minutes Medications reviewed and adjusted accordingly: Yes Anticipated Discharge Disposition: [facility] - w/wo Hospice services Anticipated Discharge Timeframe: within 72 hours
--- NOTE | 2020-09-26 15:23 | ADVANCED CARE ---
- Diagnosis (1) Acute on chronic renal failure Diagnosis Current: Yes (2) Acute pancreatitis Diagnosis Current: Yes (3) Urinary tract infection Diagnosis Current: Yes (4) Venous stasis ulcer of lower extremity Diagnosis Current: Yes (5) Dementia Diagnosis Current: Yes (6) Nonhealing wound of heel Diagnosis Current: Yes (7) CHF (congestive heart failure) Diagnosis Current: Yes Attendance: The patient's daughter, Karrie Jain, by phone. Resuscitation Status: Full Code Discussion: We discussed the patient's chronic medical conditions, recent hospital admissions, precipitating events this admission, and clinical course thus far. I discussed with the patient's daughter my concern that her renal function has plateaued and now she is showing some evidence of fluid volume overload which is concerning for possible CHF exacerbation. We also discussed the patient's chronic wounds and her bedbound status. Further, I expressed concern that the patient was not drinking adequate fluids to support her bodily needs and had shown no interest in eating thus far. She was advised that this may improve as the patient continues to recover, however, several days of close attention have shown that the patient has had minimal interest in oral intake and when offered, even with assistance, only tolerate small sips at a time. We discussed that reduced oral intake is often a symptom of advancing dementia leading toward end of life. The patient's daughter states that she would like her mother to remain FULL Code at this time. She intends to discuss goals of care with her aunt, the patient's sister, and will let us know if they wish to change her code status or goals of care. Care Planning Goals: Patient's daughter to discuss with family members (the patient's sister) goals of care. Specifically asked the family to consider code status and nutritional needs. Patient is Hospice appropriate at this time. Time Spent: 40 min
[2020-09-26] MEDS: FUROSEMIDE INJ/PF 20 MG/2 ML SDV IV SCH (22:45)
[2020-09-26] MEDS: DONEPEZIL HCL 5 MG TABLET PO SCH (22:45)
[2020-09-27 05:14] LABS: ABSOLUTE RETICS # 0.024 10^6/uL (0.028-0.122); HEMATOCRIT 21.4 % (36.0-47.0); MEAN CORPUSCULAR HEMOGLOBIN 29.5 pg (27.0-33.4); MEAN CORPUSCULAR HGB CONC 32.2 g/dL (32.0-36.0); MEAN CORPUSCULAR VOLUME 91 fl (80-97); RED BLOOD COUNT 2.34 10^6/uL (3.72-5.28); RETICULOCYTE COUNT (AUTO) 1.04 % (0.66-2.85); WHITE BLOOD COUNT 8.8 10^3/uL (4.0-10.5)
[2020-09-27 05:26] LABS: ANION GAP 10 (5-19); BLOOD UREA NITROGEN 32 mg/dL (7-20); CARBON DIOXIDE 21 mmol/L (22-30); CHLORIDE 110 mmol/L (98-107); GLUCOSE 82 mg/dL (75-110); IRON(TIBC) 62.7 ug/dL (37-170); POTASSIUM 3.7 mmol/L (3.6-5.0)
[2020-09-27] MEDS: HEPARIN SOD (PORCINE) 5,000 UNIT/ML 1 ML VIAL SUBCUT SCH ×2 (05:41→13:26)
[2020-09-27] MEDS: LEVOTHYROXINE SODIUM 0.1 MG TABLET PO SCH (05:41)
[2020-09-27 05:56] LABS: HEMOGLOBIN 6.9 g/dL (12.0-15.5); PLATELET COUNT 78 10^3/uL (150-450)
[2020-09-27 06:45] LABS: FOLATE > 20.00 ng/mL (>2.76)
[2020-09-27] MEDS: CLONIDINE HCL 0.1 MG TABLET PO SCH ×2 (10:45→22:44)
[2020-09-27] MEDS: FERROUS SULFATE 325 MG TABLET PO SCH (10:50)
[2020-09-27] MEDS: CYANOCOBALAMIN (VITAMIN B-12) 1,000 MCG TABLET PO SCH (10:50)
[2020-09-27] MEDS: ASCORBIC ACID 500 MG TABLET PO SCH (10:51)
[2020-09-27] MEDS: MULTIVITAMIN TABLET PO SCH (10:51)
[2020-09-27] MEDS: ZINC SULFATE 220 MG CAPSULE PO SCH (10:52)
[2020-09-27] MEDS: CHOLECALCIFEROL (D3) 400 UNIT TABLET PO SCH (10:52)
[2020-09-27] MEDS: FUROSEMIDE INJ/PF 20 MG/2 ML SDV IV SCH (10:57)
[2020-09-27] MEDS: FAMOTIDINE INJ/PF 20 MG/2 ML SDV IV SCH ×2 (10:58→22:45)
[2020-09-27] MEDS: DOCUSATE SODIUM 100 MG CAPSULE PO SCH ×2 (11:19→18:15)
[2020-09-27] MEDS: ASPIRIN 81 MG TABLET, ENT COATED PO SCH (11:19)
--- NOTE | 2020-09-27 16:41 | ADVANCED CARE ---
- Diagnosis (1) Acute on chronic renal failure Diagnosis Current: Yes (2) Acute pancreatitis Diagnosis Current: Yes (3) Urinary tract infection Diagnosis Current: Yes (4) Venous stasis ulcer of lower extremity Diagnosis Current: Yes (5) Dementia Diagnosis Current: Yes (6) Nonhealing wound of heel Diagnosis Current: Yes (7) CHF (congestive heart failure) Diagnosis Current: Yes Attendance: The patient's daughter, Karrie Jain, by phone. Resuscitation Status: Full Code Discussion: We discussed the patient's chronic medical conditions, recent hospital admissions, precipitating events this admission, and clinical course thus far. I discussed with the patient's daughter my concern that her renal function has plateaued and now she is showing some evidence of fluid volume overload which is concerning for possible CHF exacerbation. We discussed that these two systems often are carefully balanced and exacerbate one another; it is likely that she is at her new baseline renal and cardiac function. Discussed development of anemia and guiac positive stool. Patient is receiving 1 unit PRBC today. This may improve her renal and cardiac function slightly. Discussed option for conservative vs aggressive approach. Daughter states that she wishes her mother to be comfortable; declines abdominal imaging or surgical evaluation at this time. Will maintain clear liquids only, holding ASA and Hepa rin, and monitor closely. She is undecided about code status. She would like to continue a conservative/minimalist approach to her mother's care but is not yet ready to transition to DNR or hospice services. Daughter does tell me that she has not spoken to her Aunt yet. She still intends to discuss goals of care with her aunt, the patient's sister, and will let us know if they wish to change her code status or goals of care. Care Planning Goals: Patient's daughter to discuss with family members (the patient's sister) goals of care. Minimalist approach to interventions requested. Patient is Hospice appropriate at this time. Remains FULL code. Time Spent: 20 min
--- NOTE | 2020-09-27 17:01 | PDOC PROGRESS REPORT ---
Subjective Date:: 09/27/20 Subjective:: Patient is resting upright in bed. Reviewed previous notes. Patient engages in verbal conversation, though remains oriented to self and person only. Left arm noted to be edematous and erythematous specifically in the area of previous IV. Hgb 6.7, though appears hemodynamically stable. Nurse reports heme + stools, describes stool appearance as red, suggestive of LGB. ROS limited due to patient's mental status. Refer to ACP note as per abbey Wheatley MANAGER CODE-C. ACP conversation aided in decision making for patient's care. Reason For Visit: ACUTE PANCREATITIS,HYPERCALCEMIA,DENISSE/CKD Physical Exam Vital Signs: Temp Pulse Resp BP Pulse Ox 99.1 F 77 18 129/71 H 97 09/27/20 13:19 09/27/20 13:19 09/27/20 13:19 09/27/20 13:19 09/27/20 13:19 Intake & Output 09/26/20 09/27/20 09/28/20 06:59 06:59 06:59 Intake Total 2050 233 0 Output Total 225 1425 Balance 1825 -1192 0 Weight 94.5 kg 96.2 kg General appearance: PRESENT: no acute distress, cooperative, obese Head exam: PRESENT: atraumatic, normocephalic Eye exam: PRESENT: conjunctiva pink, EOMI, PERRLA Mouth exam: PRESENT: moist, tongue midline Respiratory exam: PRESENT: clear to auscultation laurie - Listened on anterior aspect bilaterally, decreased breath sounds, symmetrical, unlabored, other - Intranasal oxygen in place. Cardiovascular exam: PRESENT: RRR. ABSENT: diastolic murmur, systolic murmur Pulses: PRESENT: normal radial pulses GI/Abdominal exam: PRESENT: normal bowel sounds, soft. ABSENT: distended, firm, tenderness Rectal exam: PRESENT: heme (+) stool Gentrourinary exam: PRESENT: indwelling catheter Extremities exam: PRESENT: other - Unable to exam as compression boots are in place. Musculoskeletal exam: ABSENT: ambulatory, deformity, dislocation Neurological exam: PRESENT: altered, awake, oriented to person. ABSENT: oriented to place, oriented to time, oriented to situation Psychiatric exam: PRESENT: other - Confused, when nurse walks past the room the patient calls out her daughter's name and claims it is her daughter Skin exam: PRESENT: dry, erythema - and edema left arm, in the area of previous IV insertion. Left > right arm diameter., intact, warm Results Laboratory Results: 09/27/20 04:44 09/27/20 04:44 09/26/20 09/26/20 09/27/20 04:16 08:33 04:44 WBC 8.8 RBC 2.34 L Hgb 6.9 L Hct 21.4 L MCV 91 MCH 29.5 MCHC 32.2 RDW 18.0 H Plt Count 78 L Retic Count (auto) 1.04 Sodium Potassium Chloride Carbon Dioxide Anion Gap BUN Creatinine Est GFR ( Amer) Glucose Calcium Iron TIBC % Saturation Ferritin Lipase 260.0 Vitamin B12 Folate Stool Occult Blood Blood Type O POSITIVE Antibody Screen POSITIVE 09/27/20 09/27/20 04:44 06:20 WBC RBC Hgb Hct MCV MCH MCHC RDW Plt Count Retic Count (auto) Sodium 140.7 Potassium 3.7 Chloride 110 H Carbon Dioxide 21 L Anion Gap 10 BUN 32 H Creatinine 2.41 H Est GFR ( Amer) 23 L Glucose 82 Calcium 9.0 Iron 62.7 TIBC 180 L % Saturation 35 Ferritin 665.00 H Lipase Vitamin B12 > 1000.0 H Folate > 20.00 Stool Occult Blood POSITIVE Blood Type Antibody Screen 09/19/20 09/19/20 09/20/20 12:00 20:31 08:50 Troponin I 0.013 < 0.012 NT-Pro-B Natriuret Pep 609 H 531 H 09/26/20 08:33 Troponin I NT-Pro-B Natriuret Pep 3190 H Impressions: Acute Abdomen Series 09/19/20 11:58 IMPRESSION: Constipation. No other significant findings. Head CT 09/19/20 12:02 IMPRESSION: CHRONIC CHANGES OF ATROPHY AND MICROVASCULAR ISCHEMIA. NO ACUTE PROCESS. EVIDENCE OF ACUTE STROKE: NO. Chest CT 09/19/20 12:03 IMPRESSION: Bilateral nodular airspace disease most marked in the lung bases. This could be infectious, inflammatory or neoplastic. Does the patient have a known primary? No effusions. Abdomen/Pelvis CT 09/19/20 12:05 IMPRESSION: Question mild pancreatitis with slight inflammation noted surrounding the pancreatic head. Gallstones. Abdomen Ultrasound 09/19/20 15:14 IMPRESSION: Gallstones. Echogenic kidneys consistent with medical renal disease. Chest X-Ray 09/25/20 00:00 IMPRESSION: Increased diffuse interstitial infiltrates bilaterally, indeterminate for cardiogenic pulmonary edema versus an atypical interstitial pneumonia. Assessment and Plan - Diagnosis (1) Normocytic anemia Is this a current diagnosis for this admission?: Yes Plan: Hgb gradually trending down over hospital course: 8.2 -> 7.5 -> 6.9 Heme + stools. Stool with noted red coloring. Likely secondary to LGB. Tx: 1unit PRBC - No CT or colonoscopy as per discussion with pt's daughter (refer to ACP note) - Plan: correct with RBC, continue to monitor Patient with evidence of anemia of chronic disease - TIBC low (180) - Iron WNL (62.7) - Ferritin high (665) (2) Thrombocytopenia Is this a current diagnosis for this admission?: Yes Plan: Interestingly pt's PLT count has gradually trended downward over hospitalization. 137 -> 99 -> 78 today. Likely secondary to acute blood loss (LGB as above). Heparin held as per protocol. (3) Localized swelling of right upper extremity Is this a current diagnosis for this admission?: Yes Plan: LUE with edema and erythema. Concerning for possible thrombophlebitis vs DVT. As per Well's Score for DVT pt at high risk. Doppler US LUE pending. Pt on Heparin for DVT prophylaxis, though has not received dose due to low Plt counts. (4) Acute on chronic renal failure Qualifiers: Acute renal failure type: unspecified Chronic kidney disease stage: stage 3 (moderate) Is this a current diagnosis for this admission?: Yes Plan: CR 3.44-> 2.13-> 2.25. ->2.41 Baseline appears to be 1.9. - Slight increase Cr expected, holding fluids due to fluid volume overload/c hf. - Continue to hold at this time. - Continue to monitor on chemistries daily. - Avoid nephrotoxic medications. Cause is likely prerenal secondary to hypotension (questionable cardiopulmonary arrest while at SNF) and UTI. Strict I&O's. (5) Acute pancreatitis Qualifiers: Pancreatitis type: unspecified pancreatitis type Is this a current diagnosis for this admission?: Yes Plan: Resolved at this time. Likely secondary to gallstone that has now passed. - No obvious medication cause - Denies epigastrium pain today - Lyons sign remains negative CT pancreas inflammation (09/19) Lipase 260, Triglycerides 100, A1c (07/2020) 6.3%. Previous tx includes IVF, hold due to fluid volume overload/chf exacerbation Analgesics and antiemetics as needed. (W/o need >48hrs) Continue clear liquid diet. Pt with poor oral intake, this was discussed with pt's NOK as per ACP note. - Patient's NOK, daughter, reports interest in inserting PEG tube if necessary. (6) Urinary tract infection Qualifiers: Urinary tract infection type: acute pyelonephritis Qualified Code(s): N10 - Acute pyelonephritis Is this a current diagnosis for this admission?: Yes Plan: Resolved. No further therapy necessary at this time. On admission pt was hypothermic with hypotension. Presumed secondary to UTI - UC >100K Proteus and <60K MRSA (MRSA likely contamination of singh) - Repeat UA (09/25) negative - BC 09/19 and 09/26 without growth Previous treatment includes - Vanc x1 dose, Zyvox x4 days - Completed 7 day course Ceftriaxone (as of 09/26) Singh catheter exchanged 09/26. (7) Venous stasis ulcer of lower extremity Qualifiers: Laterality: bilateral Qualified Code(s): I83.019 - Varicose veins of right lower extremity with ulcer of unspecified site; I83.029 - Varicose veins of left lower extremity with ulcer of unspecified site; L97.919 - Non-pressure chronic ulcer of unspecified part of right lower leg with unspecified severity; L97.929 - Non-pressure chronic ulcer of unspecified part of left lower leg with unspecified severity Is this a current diagnosis for this admission?: Yes Plan: Chronic bilateral lower extremity stasis dermatitis. Without signs of infection. Continue wound care. Wound care evaluation pending. Elevate bilateral lower extremities. (8) Dementia Qualifiers: Dementia type: Alzheimer's disease Is this a current diagnosis for this admission?: Yes Plan: Severity of dementia likely increased due to acute illness. Appears to be more oriented today, able to engage in conversation. No behavioral issues present. Supportive care. (9) Nonhealing wound of heel Is this a current diagnosis for this admission?: Yes Plan: Bilateral pressure wounds to heels; unstageable to the right and stage II to the left with evidence of early healing. Wound care nurse consultation; wound care per their recommendations. Offload heels. (10) CHF (congestive heart failure) Qualifiers: Heart failure type: unspecified Heart failure chronicity: unspecified Stephan lified Code(s): I50.9 - Heart failure, unspecified Is this a current diagnosis for this admission?: Yes Plan: Patient without known history of CHF prior to hospitalization. Patient previously receiving IV fluids for acute pancreatitis, since on hold. Evidence of CHF - Vascular congestion on CXR - Elevated proBNP 3000 - Strict I&Os - Daily weights Tx: IV Lasix 20mg IV q12hrs. - Time Time Spent with patient: 25-34 minutes Medications reviewed and adjusted accordingly: Yes Anticipated Discharge Disposition: Assisted Care Facility - w/wo Hospice services Anticipated Discharge Timeframe: within 72 hours
[2020-09-27 18:18] LABS: HEMATOCRIT 25.3 % (36.0-47.0); HEMOGLOBIN 8.2 g/dL (12.0-15.5); MEAN CORPUSCULAR HEMOGLOBIN 28.8 pg (27.0-33.4); MEAN CORPUSCULAR HGB CONC 32.5 g/dL (32.0-36.0); MEAN CORPUSCULAR VOLUME 89 fl (80-97); RED BLOOD COUNT 2.85 10^6/uL (3.72-5.28); RED CELL DISTRIBUTION WIDTH 18.6 % (11.5-14.0); WHITE BLOOD COUNT 8.1 10^3/uL (4.0-10.5)
[2020-09-27 18:52] LABS: PLATELET COUNT 82 10^3/uL (150-450)
[2020-09-27 21:02] LABS: ABSOLUTE LYMPHOCYTES# (MANUAL) 1.5 10^3/uL (0.5-4.7); ABSOLUTE MONOCYTES # (MANUAL) 0.6 10^3/uL (0.1-1.4); ANISOCYTOSIS 2+; BASOPHILS % (MANUAL) 0 % (0-2); BURR CELLS SLIGHT; EOSINOPHILS % (MANUAL) 0 % (0-6); LYMPHOCYTES % (MANUAL) 18 % (13-45); MONOCYTES % (MANUAL) 8 % (3-13); SEGMENTED NEUTROPHILS % (MAN) 74 % (42-78); TEAR DROP CELLS SLIGHT; TOTAL CELLS COUNTED 100
[2020-09-27 21:03] LABS: OVALOCYTES 1+; PLATELET COMMENT DECREASED; POIKILOCYTOSIS 1+; TOXIC GRANULATION SLIGHT
[2020-09-27] MEDS: DONEPEZIL HCL 5 MG TABLET PO SCH (22:44)
[2020-09-28] MEDS: HYDRALAZINE HCL INJ/PF 20 MG/1 ML SDV IV PRN ×2 (00:17→06:30)
[2020-09-28 05:20] LABS: HEMATOCRIT 25.7 % (36.0-47.0); HEMOGLOBIN 8.5 g/dL (12.0-15.5); MEAN CORPUSCULAR HEMOGLOBIN 29.2 pg (27.0-33.4); MEAN CORPUSCULAR HGB CONC 33.3 g/dL (32.0-36.0); MEAN CORPUSCULAR VOLUME 88 fl (80-97); RED BLOOD COUNT 2.93 10^6/uL (3.72-5.28); RED CELL DISTRIBUTION WIDTH 18.9 % (11.5-14.0); WHITE BLOOD COUNT 9.9 10^3/uL (4.0-10.5)
[2020-09-28 05:39] LABS: ANION GAP 12 (5-19); BLOOD UREA NITROGEN 30 mg/dL (7-20); CALCIUM 9.1 mg/dL (8.4-10.2); CARBON DIOXIDE 18 mmol/L (22-30); CHLORIDE 112 mmol/L (98-107); GLUCOSE 109 mg/dL (75-110); POTASSIUM 3.4 mmol/L (3.6-5.0)
[2020-09-28] MEDS: LEVOTHYROXINE SODIUM 0.1 MG TABLET PO SCH (05:43)
[2020-09-28 05:44] LABS: PLATELET COUNT 79 10^3/uL (150-450)
[2020-09-28] MEDS: CHOLECALCIFEROL (D3) 400 UNIT TABLET PO SCH (09:20)
[2020-09-28] MEDS: FERROUS SULFATE 325 MG TABLET PO SCH (09:20)
[2020-09-28] MEDS: ASCORBIC ACID 500 MG TABLET PO SCH (09:20)
[2020-09-28] MEDS: ZINC SULFATE 220 MG CAPSULE PO SCH (09:20)
[2020-09-28] MEDS: FAMOTIDINE INJ/PF 20 MG/2 ML SDV IV SCH ×2 (09:20→22:19)
[2020-09-28] MEDS: CLONIDINE HCL 0.1 MG TABLET PO SCH ×3 (09:20→22:19)
[2020-09-28] MEDS: CYANOCOBALAMIN (VITAMIN B-12) 1,000 MCG TABLET PO SCH (09:20)
[2020-09-28] MEDS: DOCUSATE SODIUM 100 MG CAPSULE PO SCH ×2 (09:20→18:40)
[2020-09-28] MEDS: MULTIVITAMIN TABLET PO SCH (09:21)
[2020-09-28 10:55] LABS: INTERNATIONAL RATION (INR) 1.11; PROTHROMBIN TIME 14.5 SEC (11.4-15.4)
[2020-09-28 10:56] LABS: PARTIAL THROMBOPLASTIN TIME 46.6 SEC (23.5-35.8)
--- NOTE | 2020-09-28 15:11 | PDOC PROGRESS REPORT ---
Subjective Date:: 09/28/20 Subjective:: Patient seen on morning rounds. She is resting in bed comfortably. Nursing staff is in the room with the patient for morning medications. It is witnessed that the patient is placing medications in her mouth then spitting them out onto the bed when the nurse looks away. Patient expressed similar behavior on previous hospital visits as well. The nurse remains in the room and watches as patient takes all medications. Patient remains demented, though today and yesterday she appeared to be more so at her baseline. She provides me with no complaints or concerns today. Her hgb remains stable since PRBC yesterday. Discussed with nurse. It is unknown if patient continues to pass blood in stools, plan to monitor closely. Patient historically on clear liquid diet with minimal oral intake. Can advance diet to pureed. Reason For Visit: ACUTE PANCREATITIS,HYPERCALCEMIA,DENISSE/CKD Physical Exam Vital Signs: Temp Pulse Resp BP Pulse Ox 97.3 F 86 22 H 161/74 H 98 09/28/20 12:03 09/28/20 12:03 09/28/20 12:03 09/28/20 12:03 09/28/20 12:03 Intake & Output 09/27/20 09/28/20 09/29/20 06:59 06:59 06:59 Intake Total 233 370 Output Total 1425 1105 150 Balance -1192 -735 -150 Weight 96.2 kg 97.1 kg Additional comments: eneral appearance: PRESENT: no acute distress, cooperative, obese. Patient is at baseline demented. Today she alert and oriented to self, person and place. Head exam: PRESENT: atraumatic, normocephalic Eye exam: PRESENT: conjunctiva pink, EOMI, PERRLA Mouth exam: PRESENT: moist, tongue midline Respiratory exam: PRESENT: Due to patient's decreased mobility, dementia and body habitus auscultated breath sounds anterior chest wall only. Breath sounds are symmetrical though appear to be decreased which i related to her body habitus. unlabored, other - O2 sat 98% on 1.5L nasal cannula. Cardiovascular exam: PRESENT: RRR. ABSENT: diastolic murmur, systolic murmur Pulses: PRESENT: normal radial pulses GI/Abdominal exam: PRESENT: normal bowel sounds, soft. ABSENT: distended, firm, tenderness Rectal exam: PRESENT: heme (+) stool Gentrourinary exam: PRESENT: indwelling catheter Extremities exam: PRESENT: other - Unable to exam as compression boots are in place. Without edema in thigh region. Musculoskeletal exam: ABSENT: ambulatory, deformity, dislocation Neurological exam: PRESENT: altered, awake, oriented to person. ABSENT oriented to time, oriented to situation Psychiatric exam: PRESENT: other - demented at baseline. Skin exam: PRESENT: the RUE remains edematous with associated arythema. Skin on LUE with wrinkling vs skin on RUE tight and hard. Patient denies TTP RUE. There is associated warmth in the area of previous IV line, this has since been removed. Results Laboratory Results: 09/28/20 04:39 09/28/20 04:39 09/27/20 09/28/20 09/28/20 18:00 04:39 04:39 WBC 8.1 9.9 RBC 2.85 L 2.93 L Hgb 8.2 L 8.5 L Hct 25.3 L 25.7 L MCV 89 88 MCH 28.8 29.2 MCHC 32.5 33.3 RDW 18.6 H 18.9 H Plt Count 82 L 79 L Seg Neutrophils % Not Reportable Sodium 142.4 Potassium 3.4 L Chloride 112 H Carbon Dioxide 18 L Anion Gap 12 BUN 30 H Creatinine 2.61 H Est GFR ( Amer) 21 L Glucose 109 Calcium 9.1 09/19/20 09/19/20 09/20/20 12:00 20:31 08:50 Troponin I 0.013 < 0.012 NT-Pro-B Natriuret Pep 609 H 531 H 09/26/20 09/28/20 08:33 04:39 Troponin I NT-Pro-B Natriuret Pep 3190 H 4660 H Impressions: Acute Abdomen Series 09/19/20 11:58 IMPRESSION: Constipation. No other significant findings. Head CT 09/19/20 12:02 IMPRESSION: CHRONIC CHANGES OF ATROPHY AND MICROVASCULAR ISCHEMIA. NO ACUTE PROCESS. EVIDENCE OF ACUTE STROKE: NO. Chest CT 09/19/20 12:03 IMPRESSION: Bilateral nodular airspace disease most marked in the lung bases. This could be infectious, inflammatory or neoplastic. Does the patient have a known primary? No effusions. Abdomen/Pelvis CT 09/19/20 12:05 IMPRESSION: Question mild pancreatitis with slight inflammation noted surrounding the pancreatic head. Gallstones. Abdomen Ultrasound 09/19/20 15:14 IMPRESSION: Gallstones. Echogenic kidneys consistent with medical renal disease. Chest X-Ray 09/25/20 00:00 IMPRESSION: Increased diffuse interstitial infiltrates bilaterally, indeterminate for cardiogenic pulmonary edema versus an atypical interstitial pneumonia. Assessment and Plan - Diagnosis (1) Normocytic anemia Is this a current diagnosis for this admission?: Yes Plan: Hgb gradually trending down over hospital course: 8.2 -> 7.5 -> 6.9 Heme + stools. Stool with noted red coloring. Likely from LGB. - As per ACP note by Claudine Wheatley NP-C patient's NOK and daughter wants hgb tx'd but denies wanting further workup including CT or colonscopy. - No further workup completed 1unit PRBC given 09/26. - Hgb corrected to 8.5; consistent with pt's baseline. - Plan: No further workup, continue to monitor. Patient with evidence of anemia of chronic disease - TIBC low (180) - Iron WNL (62.7) - Ferritin high (665) - Likely heart failure, hgb should correct with correction of heart failure. (2) Thrombocytopenia Is this a current diagnosis for this admission?: Yes Plan: Interestingly pt's PLT count has gradually trended downward over hospitalization. 137 -> 99 -> 78 -> 79 This is likely secondary to acute blood loss (as per above). Suspect to see this continue to correct as hgb becomes further stable. Heparin held as per protocol. (3) Localized swelling of right upper extremity Is this a current diagnosis for this admission?: Yes Plan: LUE with edema and erythema. Concerning for possible thrombophlebitis vs DVT. As per Well's Score for DVT pt at high risk. Doppler US LUE pending. Patient was on Heparin for DVT prophylaxis, though has not received dose due to low Plt counts. (4) Acute on chronic renal failure Qualifiers: Acute renal failure type: unspecified Chronic kidney disease stage: stage 3 (moderate) Is this a current diagnosis for this admission?: Yes Plan: CR 3.44-> 2.13-> 2.25. ->2.41 -> 2.61. Baseline appears to be 2.0 - Slight increase Cr expected, holding fluids due to fluid volume overload/chf. - Continue to hold fluids at this time. - Continue to monitor on chemistries daily. - Avoid nephrotoxic medications. Given history of heart failure and kidney failure goal is to not fluid overload patient to treat kidney disease, while also not over diuresing the patient to treat heart failure. Lasix given x1 day ago given evidence of fluid overload, with noted creatinine bump with diuresing. Lasix on hold at this time. Repeat BMP to continue to monitor. (5) Acute pancreatitis Qualifiers: Pancreatitis type: unspecified pancreatitis type Is this a current diagnosis for this admission?: Yes Plan: Resolved. Advance diet from clear liquids to pureed diet. - Plan to keep note of patient's oral intake - Diet order for ensure with every meal This was likely secondary to gallstone that has now passed. - No obvious medication cause - Denies epigastrium pain today - Lyons sign remains negative CT pancreas inflammation (09/19) Lipase 260, Triglycerides 100, A1c (07/2020) 6.3%. Previous tx includes IVF, hold due to fluid volume overload/chf exacerbation Analgesics and antiemetics as needed. (W/o need >48hrs) Continue clear liquid diet. Pt with poor oral intake, this was discussed with pt's NOK as per ACP note. - Patient's NOK, daughter, reports interest in inserting PEG tube if necessary. (6) Urinary tract infection Qualifiers: Urinary tract infection type: acute pyelonephritis Qualified Code(s): N10 - Acute pyelonephritis Is this a current diagnosis for this admission?: Yes Plan: Resolved. No further therapy necessary at this time. On admission pt was hypothermic with hypotension. Presumed secondary to UTI - UC >100K Proteus and <60K MRSA (MRSA likely contamination of singh) - Repeat UA (09/25) negative - BC 09/19 and 09/26 without growth Previous treatment includes - Vanc x1 dose, Zyvox x4 days - Completed 7 day course Ceftriaxone (as of 09/26) Singh catheter exchanged 09/26. (7) Venous stasis ulcer of lower extremity Qualifiers: Laterality: bilateral Qualified Code(s): I83.019 - Varicose veins of right lower extremity with ulcer of unspecified site; I83.029 - Varicose veins of left lower extremity with ulcer of unspecified site; L97.919 - Non-pressure chronic ulcer of unspecified part of right lower leg with unspecified severity; L97.929 - Non-pressure chronic ulcer of unspecified part of left lower leg with unspecified severity Is this a current diagnosis for this admission?: Yes Plan: Chronic bilateral lower extremity stasis dermatitis. Without signs of infection. Continue wound care. Wound care evaluation pending. Elevate bilateral lower extremities. (8) Dementia Qualifiers: Dementia type: Alzheimer's disease Is this a current diagnosis for this admission?: Yes Plan: Patient appears to be returning to her baseline dementia. Appears to be more oriented today, able to engage in conversation. Severity of dementia likely increased due to acute illness. Supportive care (9) Nonhealing wound of heel Is this a current diagnosis for this admission?: Yes Plan: Bilateral pressure wounds to heels; unstageable to the right and stage II to the left with evidence of early healing. Wound care nurse consultation; wound care per their recommendations. Offload heels. (10) CHF (congestive heart failure) Qualifiers: Heart failure type: unspecified Heart failure chronicity: unspecified Qualified Code(s): I50.9 - Heart failure, unspecified Is this a current diagnosis for this admission?: Yes Plan: Patient without known history of CHF prior to hospitalization. Patient previously receiving IV fluids for acute pancreatitis, which likely causes fluid overload and evidence of CHF. Evidence of CHF includes: - Vascular congestion on CXR - Elevated proBNP 3190 -> 4660 - Strict I&Os - Daily weights Tx: IV Lasix 20mg IV q12hrs. x1 day (09/27) - Overall improvement in diffuse edema - Given hx of heart failure and kidney failure with noted increase cr with diuresis, plan to hold lasix at this time Consider Echo for clarification of LVEF/heart failure - Patient without history of Echo documented at [facility]. -Echo ordered, pending - Time Time Spent with patient: 35 or more minutes Medications reviewed and adjusted accordingly: Yes Anticipated Discharge Disposition: [facility] - w/w/o hospice services Anticipated Discharge Timeframe: within 48 hours
[2020-09-28] MEDS ORDERED: DEXTROSE 5%-1/2 NORMAL SALINE 1,000 ML IV PRN (18:47)
[2020-09-28] MEDS: DONEPEZIL HCL 5 MG TABLET PO SCH (22:19)
[2020-09-29 06:10] LABS: HEMATOCRIT 25.8 % (36.0-47.0); HEMOGLOBIN 8.6 g/dL (12.0-15.5); MEAN CORPUSCULAR HEMOGLOBIN 29.1 pg (27.0-33.4); MEAN CORPUSCULAR HGB CONC 33.3 g/dL (32.0-36.0); MEAN CORPUSCULAR VOLUME 88 fl (80-97); RED BLOOD COUNT 2.95 10^6/uL (3.72-5.28); RED CELL DISTRIBUTION WIDTH 18.9 % (11.5-14.0); WHITE BLOOD COUNT 9.7 10^3/uL (4.0-10.5)
[2020-09-29] MEDS: LEVOTHYROXINE SODIUM 0.1 MG TABLET PO SCH (06:29)
[2020-09-29 06:35] LABS: ANION GAP 12 (5-19); BLOOD UREA NITROGEN 30 mg/dL (7-20); CALCIUM 9.6 mg/dL (8.4-10.2); CARBON DIOXIDE 19 mmol/L (22-30); CHLORIDE 112 mmol/L (98-107); GLUCOSE 141 mg/dL (75-110); POTASSIUM 3.2 mmol/L (3.6-5.0)
[2020-09-29 06:50] LABS: PLATELET COUNT 79 10^3/uL (150-450)
[2020-09-29] MEDS: ASCORBIC ACID 500 MG TABLET PO SCH (09:09)
[2020-09-29] MEDS: CYANOCOBALAMIN (VITAMIN B-12) 1,000 MCG TABLET PO SCH (09:10)
[2020-09-29] MEDS: ZINC SULFATE 220 MG CAPSULE PO SCH (09:10)
[2020-09-29] MEDS: CHOLECALCIFEROL (D3) 400 UNIT TABLET PO SCH (09:10)
[2020-09-29] MEDS: MULTIVITAMIN TABLET PO SCH (09:10)
[2020-09-29] MEDS: FERROUS SULFATE 325 MG TABLET PO SCH (09:10)
[2020-09-29] MEDS: DOCUSATE SODIUM 100 MG CAPSULE PO SCH ×2 (09:10→17:30)
[2020-09-29] MEDS: CLONIDINE HCL 0.1 MG TABLET PO SCH ×2 (09:10→21:58)
--- NOTE | 2020-09-29 12:26 | RADIOLOGY REPORT (SQ) ---
EXAM DESCRIPTION: VENOUS UNILATERAL UPPER IMAGES COMPLETED DATE/TIME: 09/29/2020 12:16 pm REASON FOR STUDY: LUE edema, erythema; ?thrombophlebitis v DVT COMPARISON: None. TECHNIQUE: Dynamic and static hewitt scale and color images acquired of the left arm venous system. Se lected spectral images acquired with additional compression and augmentation maneuvers. The contralat eral subclavian vein and internal jugular vein were also imaged. Images stored on PACS. LIMITATIONS: None. FINDINGS: INTERNAL JUGULAR VEIN: Acute DVT in the left internal jugular vein. SUBCLAVIAN VEIN: Acute DVT in the left subclavian vein. AXILLARY VEIN: Acute DVT in the left axillary vein. BRACHIAL VEIN: Normal compression, augmentation. No visualized echogenic material on hewitt scale. No d efects on color images. BASILIC VEIN: Normal compression, augmentation. No visualized echogenic material on hewitt scale. No de fects on color images. CEPHALIC VEIN: Normal compression, augmentation. No visualized echogenic material on hewitt scale. No d efects on color images. OTHER: No other significant finding. IMPRESSION: Extensive DVT extending from the left axillary vein to the left internal jugular vein. TECHNICAL DOCUMENTATION: JOB ID: [id number] 2010 [employer]- All Rights Reserved Reading location - IP/workstation name: [email or web address]
--- NOTE | 2020-09-29 18:18 | ADVANCED CARE ---
- Diagnosis (1) Acute on chronic renal failure Diagnosis Current: Yes (2) Acute pancreatitis Diagnosis Current: Yes (3) Urinary tract infection Diagnosis Current: Yes (4) Venous stasis ulcer of lower extremity Diagnosis Current: Yes (5) Dementia Diagnosis Current: Yes (6) Nonhealing wound of heel Diagnosis Current: Yes (7) CHF (congestive heart failure) Diagnosis Current: Yes Attendance: The patient, and her daughter (Karrie Jain), at bedside. Resuscitation Status: Full Code Discussion: The patient's daughter was provided an update on her mother's current clinical condition and new findings of DVT to the left upper extremity and preliminary echocardiogram results demonstrating severe pulmonary hypertension. We reviewed that her cardiac and renal status had been optimized and that she was likely at the best functional status that could be achieved. We also discussed her mother's improved alertness and interaction staff, but continued poor oral intake. Over the last 4 days she has averaged less than 100 mL of fluid in a 24-hour period and her only solid in food take has been spoonfuls of applesauce or pudding with her medications. Nursing reports that she spits more than half of this out. Per previous discussion with family, she has had reduced oral intake over the last several weeks and they are unsurprised by this report. We discussed that at this point, it was recommended that her mother be transition to hospice services with a focus on comfort care as her clinical condition was tenuously balanced and she remains at risk of exacerbation of her chronic kidney disease, CHF/pulmonary hypertension, recurrence of GI bleeding, worsening DVT and potential complication of embolus resulting in pulmonary embolism. Patient's daughter states that she has discussed with family members and they have determined that they would like for Stefanie Jain to remain FULL CODE with surgical evaluation for PEG tube placement. Care Planning Goals: FULL CODE Surgical consultation for evaluation for PEG placement. Time Spent: 40 min
--- NOTE | 2020-09-29 18:18 | PDOC PROGRESS REPORT ---
Subjective Date:: 09/29/20 Subjective:: Patient seen on morning rounds. She is resting comfortably in bed. Patient still with very little PO intake, reports lack of appetite. Patient did accept a cup of water and was able to drink small sips in front of me. My hope is that if we encourage fluid intake by presenting fluids PO to her that she will increase her PO intake. I remain concerned for failure to thrive as her overall oral intake has been low. This was discussed with patient's NOK and daughter, as per Mahsa Wheatley FRONT OFFICE CLERK-C ACP note (please refer). Patient remains alert and oriented to self only. Provides me with no complaints or concerns. Discussed with nursing. Pt with minimal urine output yesterday, this was treated with gentle fluids which inevitably increased urine output, fluids since discontinued. No concerns per nursing. Reason For Visit: ACUTE PANCREATITIS,HYPERCALCEMIA,DENISSE/CKD Physical Exam Vital Signs: Temp Pulse Resp BP Pulse Ox 97.3 F 74 24 H 166/56 H 91 L 09/29/20 17:52 09/29/20 17:52 09/29/20 17:52 09/29/20 17:52 09/29/20 17:52 Intake & Output 09/28/20 09/29/20 09/30/20 06:59 06:59 06:59 Intake Total 370 100 Output Total 1105 500 210 Balance -735 -500 -110 Weight 97.1 kg 97.1 kg 97.1 kg Additional comments: General appearance: PRESENT: no acute distress, cooperative, obese. Patient is at baseline demented. Today she alert and oriented to self. Head exam: PRESENT: atraumatic, normocephalic Eye exam: PRESENT: conjunctiva pink, EOMI, PERRLA Mouth exam: PRESENT: moist, tongue midline Respiratory exam: PRESENT: Due to patient's decreased mobility, dementia and body habitus auscultated breath sounds anterior chest wall only. Breath sounds are symmetrical though appear to be decreased which i related to her body habi tus. unlabored, other - O2 sat 98% on 1.5L nasal cannula. Cardiovascular exam: PRESENT: RRR. ABSENT: diastolic murmur, systolic murmur Pulses: PRESENT: normal radial pulses GI/Abdominal exam: PRESENT: normal bowel sounds, soft. ABSENT: distended, firm, tenderness Rectal exam: PRESENT: heme (+) stool Gentrourinary exam: PRESENT: indwelling catheter Extremities exam: PRESENT: other - Unable to exam as compression boots are in place. Without edema in thigh region. Musculoskeletal exam: ABSENT: ambulatory, deformity, dislocation Neurological exam: PRESENT: altered, awake, oriented to person. ABSENT oriented to time, oriented to situation Psychiatric exam: PRESENT: other - demented at baseline. Skin exam: PRESENT: the LUE remains edematous with associated arythema. Skin on RUE with wrinkling vs skin on LUE tight and hard. Patient denies TTP RUE. There is associated warmth in the area of previous IV line, this has since been removed. Results Laboratory Results: 09/29/20 04:15 09/29/20 04:15 09/29/20 09/29/20 04:15 04:15 WBC 9.7 RBC 2.95 L Hgb 8.6 L Hct 25.8 L MCV 88 MCH 29.1 MCHC 33.3 RDW 18.9 H Plt Count 79 L Sodium 143.4 Potassium 3.2 L Chloride 112 H Carbon Dioxide 19 L Anion Gap 12 BUN 30 H Creatinine 2.59 H Est GFR ( Amer) 21 L Glucose 141 H Calcium 9.6 09/19/20 09/19/20 09/20/20 12:00 20:31 08:50 Troponin I 0.013 < 0.012 NT-Pro-B Natriuret Pep 609 H 531 H 09/26/20 09/28/20 08:33 04:39 Troponin I NT-Pro-B Natriuret Pep 3190 H 4660 H Impressions: Acute Abdomen Series 09/19/20 11:58 IMPRESSION: Constipation. No other significant findings. Head CT 09/19/20 12:02 IMPRESSION: CHRONIC CHANGES OF ATROPHY AND MICROVASCULAR ISCHEMIA. NO ACUTE PROCESS. EVIDENCE OF ACUTE STROKE: NO. Chest CT 09/19/20 12:03 IMPRESSION: Bilateral nodular airspace disease most marked in the lung bases. This could be infectious, inflammatory or neoplastic. Does the patient have a known primary? No effusions. Abdomen/Pelvis CT 09/19/20 12:05 IMPRESSION: Question mild pancreatitis with slight inflammation noted surrounding the pancreatic head. Gallstones. Abdomen Ultrasound 09/19/20 15:14 IMPRESSION: Gallstones. Echogenic kidneys consistent with medical renal disease. Chest X-Ray 09/25/20 00:00 IMPRESSION: Increased diffuse interstitial infiltrates bilaterally, indeterminate for cardiogenic pulmonary edema versus an atypical interstitial pneumonia. Venous Doppler Study 09/29/20 00:00 IMPRESSION: Extensive DVT extending from the left axillary vein to the left internal jugular vein. Assessment and Plan - Diagnosis (1) DVT of left axillary vein, acute Is this a current diagnosis for this admission?: Yes Plan: LUE with edema and erythema. LUE US notable for: Extensive DVT extending from the left axillary vein to the left internal jugular vein. As per Well's Score for DVT pt at high risk. Patient was on previously on Heparin for DVT prophylaxis, though has not received dose due to low Plt counts and recent GI bleed. Given pt's history as noted above patient is not a candidate for anticoagulation at this time. Patient's daughter was made aware of this and expressed understanding. (2) Localized swelling of left upper extremity Is this a current diagnosis for this admission?: Yes Plan: As per DVT above. (3) Normocytic anemia Is this a current diagnosis for this admission?: Yes Plan: Hgb trending upward since RBC transfusion. Heme + stools. Stool with noted red coloring. Likely from LGB. - As per ACP note by Claudine Wheatley NP-C patient's NOK and daughter wants hgb tx'd but denies wanting further workup including CT or colonscopy. - No further workup completed 1unit PRBC given 09/26. - Hgb corrected to 8.5; continues to trend upward, consistent with pt's baseline. - Plan: No further workup, continue to monitor. Patient with evidence of anemia of chronic disease - TIBC low (180) - Iron WNL (62.7) - Ferritin high (665) - Likely heart failure, hgb should correct with correction of heart failure. (4) Thrombocytopenia Is this a current diagnosis for this admission?: Yes Plan: Initially trended downward, since blood transfusion has remained at 79. This is likely secondary to acute blood loss (as per above). Suspect to see this continue to correct as hgb becomes further stable. (5) Acute on chronic renal failure Qualifiers: Acute renal failure type: unspecified Chronic kidney disease stage: stage 3 (moderate) Is this a current diagnosis for this admission?: Yes Plan: CR 3.44-> 2.13-> 2.25. ->2.41 -> 2.61 -> 2.59 Baseline appears to be 2.0 - Slight increase Cr expected, holding fluids due to fluid volume overloa d/chf. - Continue to hold fluids at this time. - Continue to monitor on chemistries daily. - Avoid nephrotoxic medications. Given history of heart failure and kidney failure goal is to not fluid overload patient to treat kidney disease, while also not over diuresing the patient to treat heart failure. Lasix given x1 day ago given evidence of fluid overload, with noted creatinine bump with diuresing. Lasix on hold at this time. Repeat BMP to continue to monitor. (6) Acute pancreatitis Qualifiers: Pancreatitis type: unspecified pancreatitis type Is this a current diagnosis for this admission?: Yes Plan: Resolved. Advance diet from clear liquids to pureed diet. - Plan to keep note of patient's oral intake - Diet order for ensure with every meal This was likely secondary to gallstone that has now passed. - No obvious medication cause - Denies epigastrium pain today - Lyons sign remains negative CT pancreas inflammation (09/19) Lipase 260, Triglycerides 100, A1c (07/2020) 6.3%. Previous tx includes IVF, hold due to fluid volume overload/chf exacerbation Analgesics and antiemetics as needed. (W/o need >48hrs) Continue clear liquid diet. Pt with poor oral intake, this was discussed with pt's NOK as per ACP note. - Patient's NOK, daughter, reports interest in inserting PEG tube if necessary. (7) Urinary tract infection Qualifiers: Urinary tract infection type: acute pyelonephritis Qualified Code(s): N10 - Acute pyelonephritis Is this a current diagnosis for this admission?: Yes Plan: Resolved. No further therapy necessary at this time. On admission pt was hypothermic with hypotension. Presumed secondary to UTI - UC >100K Proteus and <60K MRSA (MRSA likely contamination of singh) - Repeat UA (09/25) negative - BC 09/19 and 09/26 without growth Previous treatment includes - Vanc x1 dose, Zyvox x4 days - Completed 7 day course Ceftriaxone (as of 09/26) Singh catheter exchanged 09/26. (8) Venous stasis ulcer of lower extremity Qualifiers: Laterality: bilateral Qualified Code(s): I83.019 - Varicose veins of right lower extremity with ulcer of unspecified site; I83.029 - Varicose veins of left lower extremity with ulcer of unspecified site; L97.919 - Non-pressure chronic ulcer of unspecified part of right lower leg with unspecified severity; L97.929 - Non-pressure chronic ulcer of unspecified part of left lower leg with un specified severity Is this a current diagnosis for this admission?: Yes Plan: Chronic bilateral lower extremity stasis dermatitis. Without signs of infection. Continue wound care. Wound care evaluation pending. Elevate bilateral lower extremities. (9) Dementia Qualifiers: Dementia type: Alzheimer's disease Is this a current diagnosis for this admission?: Yes Plan: Patient appears to be returning to her baseline dementia. Appears to be more oriented today, able to engage in conversation. Severity of dementia likely increased due to acute illness. Supportive care (10) Nonhealing wound of heel Is this a current diagnosis for this admission?: Yes Plan: Bilateral pressure wounds to heels; unstageable to the right and stage II to the left with evidence of early healing. Wound care nurse consultation; wound care per their recommendations. Offload heels. (11) CHF (congestive heart failure) Qualifiers: Heart failure type: unspecified Heart failure chronicity: unspecified Qualified Code(s): I50.9 - Heart failure, unspecified Is this a current diagnosis for this admission?: Yes Plan: Patient without known history of CHF prior to hospitalization. Patient previously receiving IV fluids for acute pancreatitis, which likely causes fluid overload and evidence of CHF. Evidence of CHF includes: - Vascular congestion on CXR - Elevated proBNP 3190 -> 4660 - Strict I&Os - Daily weights Tx: IV Lasix 20mg IV q12hrs. x1 day (09/27) - Overall improvement in diffuse edema - Given hx of heart failure and kidney failure with noted increase cr with diuresis, plan to hold lasix at this time Patient without history of Echo documented at [facility]. -Echo ordered, pending (12) Failure to thrive in adult Is this a current diagnosis for this admission?: Yes Plan: Patient with limited to almost no oral intake over the last several days. Averaged <400ml oral intake. Discussed with patient's daughter was documented in ACP. Family is interested in moving forward with PEG tube. Surgical consult placed for surgical evaluation of PEG tube. - Plan Summary Summary: Surgery consult regarding PEG tube. If placed dc to SNF with PEG tube. - Time Time Spent with patient: 15-24 minutes Anticipated Discharge Disposition[facility] Anticipated Discharge Timeframe: within 48 hours
[2020-09-29] MEDS: HYDRALAZINE HCL INJ/PF 20 MG/1 ML SDV IV PRN (18:33)
--- NOTE | 2020-09-29 20:04 | XCELERA REPORT ---
[address] [address] Transthoracic Echocardiogram Report Name: DANK WHITE Age: 85 yrs Gender: Female : 1935 Patient Status: Inpatient Patient Location: [address] [place], [place] [address] Study Date: 09/29/2020 10:30 AM Height: 66 in Weight: 214 lb BSA: 2.1 m2 Procedure: A complete two-dimensional transthoracic echocardiogram was performed (2D, M-mode, spectral and color flow Doppler). The study was technically adequate with some images being suboptimal in quality. Reason For Study: CHF Ordering Physician: VERO MONTES DE OCA Performed By: Trish Gar Interpretation Summary The left ventricle is grossly normal size. Left ventricular systolic function is normal. The Ejection Fraction estimate is 65-70%. Doppler measurements suggest impaired left ventricular relaxation, which is associated with grade I/IV or mild diastolic dysfunction. The left ventricular wall motion is normal. There is no thrombus. Trace MR, moderate TR, trace PI. Severe pulmonary hypertension with pressure estimated between 65 and 70 mmHg. No prior studies for comparison. MMode/2D Measurements & Calculations RVDd: 2.7 cm LVIDd: 4.5 cm FS: 41.6 % Ao root diam: 2.8 cm IVSd: 1.0 cm LVIDs: 2.6 cm EDV(Teich): 94.2 ml Ao root area: 6.3 cm2 LVPWd: 0.96 cm ESV(Teich): 25.8 ml LA dimension: 3.1 cm EF(Teich): 72.6 % Doppler Measurements & Calculations MV E max maricel: MV P1/2t max maricel: Ao V2 max: LV V1 max P.9 cm/sec 85.9 cm/sec 166.3 cm/sec 5.8 mmHg MV A max maricel: MV P1/2t: 75.3 msec Ao max PG: LV V1 max: 130.3 cm/sec MVA(P1/2t): 2.9 cm2 11.1 mmHg 119.9 cm/sec MV E/A: 0.66 MV dec slope: 334.1 cm/sec2 MV dec time: 0.24 sec PA V2 max: TR max maricel: MV P1/2t-pr_phl: 88.8 cm/sec 388.2 cm/sec 75.3 msec PA max P.2 mmHgTR max P.3 mmHg Left Ventricle The left ventricle is grossly normal size. Left ventricular systolic function is normal. The Ejection Fraction estimate is 65-70%. Doppler measurements suggest impaired left ventricular relaxation, which is associated with grade I/IV or mild diastolic dysfunction. The left ventricular wall motion is normal. There is no thrombus. Right Ventricle The right ventricle is grossly normal size. The right ventricular systolic function is normal. Atria The right atrium is normal in size. The left atrial size is normal. There is no Doppler evidence for an interatrial shunt. Mitral Valve There is mild mitral leaflet calcification. There is no evidence of mitral valve prolapse. There is no mitral valve stenosis. There is a trace amount of mitral regurgitation. Aortic Valve The aortic valve is normal in structure and function. The aortic valve is mildly calcified. There is no aortic valve stenosis. No aortic regurgitation is present. Tricuspid Valve The tricuspid valve is not well visualized, but is grossly normal. There is a moderate amount of tricuspid regurgitation. Severe pulmonary hypertension with pressure estimated between 65 and 70 mmHg. Pulmonic Valve The pulmonic valve is not well seen, but is grossly normal. There is a trace or physiologic amount of pulmonic regurgitation. Great Vessels Mild pulmonary artery dilation. The inferior vena cava appeared normal and decreased > 50% with respiration (RAP 5-10 mmHg). Effusions There is no pericardial effusion. : VERO MONTES DE OCA Antonio
[2020-09-29] MEDS: FAMOTIDINE 20 MG TABLET PO SCH (21:58)
[2020-09-29] MEDS: DONEPEZIL HCL 5 MG TABLET PO SCH (21:58)
[2020-09-29] MEDS ORDERED: FAMOTIDINE INJ/PF 20 MG/2 ML SDV IV SCH ×2 (22:00)
[2020-09-30] MEDS: LEVOTHYROXINE SODIUM 0.1 MG TABLET PO SCH (05:41)
--- NOTE | 2020-09-30 06:00 | PDOC CONSULTATION ---
Consultation Consult Date: 09/30/20 Provider Consulted: SURGICAL SURGICALIST Consult reason:: Inanition, advanced dementia History of Present Illness Admission Date/PCP: 09/19/20 16:06 JUAN SNYDER MD History of Present Illness: DANK WHITE is a 85 year old female seen in consultation at the request of the hospitalist service. The patient has advanced dementia and will not eat. Per report, she only eats several bites of food per day. She is not taking enough oral fluids to maintain her hydration. The family is requesting PEG tube placement, despite recommendations for hospice. I have evaluated her, however she cannot relate any portion of her medical history. Her family is not present. Medical history is obtained from the medical record as well as the nursing staff. No review of systems can be obtained, due to the patient's mental status. Past Medical History Cardiac Medical History: Reports: Hyperlipidema, Hypertension Denies: Coronary Artery Disease, Myocardial Infarction Pulmonary Medical History: Denies: Asthma, Bronchitis, Chronic Obstructive Pulmonary Disease (COPD), Pneumonia Neurological Medical History: Denies: Seizures Endocrine Medical History: Reports: Hypothyroidism Denies: Diabetes Mellitus Type 1, Diabetes Mellitus Type 2, Hyperthyroidism GI Medical History: Denies: Cirrhosis, Hepatitis, Hiatal Hernia Musculoskeltal Medical History: Denies: Arthritis, Fibromyalgia Skin Medical History: Denies: Eczema, Psoriasis Psychiatric Medical History: Reports: Dementia Denies: Depression Hematology: Reports: Anemia Denies: Sickle Cell Disease, Bleeding Tendencies Past Surgical History Past Surgical History: Reports: Hysterectomy, Orthopedic Surgery - left hip replacement Denies: Amputation, Mastectomy, Pacemaker Social History Lives with: Correction Smoking Status: Unknown if Ever Smoked Electronic Cigarette use?: No Frequency of Alcohol Use: None Hx Recreational Drug Use: No Drugs: None Hx Prescription Drug Abuse: No - Advance Directive Resuscitation Status: Full Code Family History Family History: Reviewed & Not Pertinent, CVA, Malignancy Parental Family History Reviewed: Yes Children Family History Reviewed: Yes Sibling(s) Family History Reviewed.: Yes Medication/Allergy Home Medications: Ascorbic Acid [Vitamin C 500 mg Tablet] 500 mg PO DAILY 07/08/20 Aspirin [Ecotrin 81 mg EC Tablet] 81 mg PO DAILY 07/08/20 Cholecalciferol (Vitamin D3) [Vitamin D3 400 Unit Tablet] 400 unit PO DAILY 07/08/20 Clonidine HCl [Catapres 0.1 mg Tablet] 0.1 mg PO Q12 07/08/20 Cyanocobalamin (Vitamin B-12) [Vitamin B-12 1000 mcg Tablet] 1 tab PO DAILY 07/08/20 Donepezil HCl 10 mg PO QHS 07/08/20 Vits96/Iron Fum/Folic [ Tablet] 1 each PO DAILY 07/08/20 Acetaminophen [Tylenol 325 mg Tablet] 650 mg PO Q4HP PRN 08/21/20 Bisacodyl [Dulcolax 10 mg Supp.rect] 10 mg KS DAILYP PRN 08/21/20 Dronabinol [Marinol 2.5 mg Capsule] 5 mg PO BIDACBS 08/21/20 Ferrous Sulfate [Feosol 325 mg Tablet] 325 mg PO DAILY 08/21/20 Multivitamin with Minerals [One Daily Plus Minerals] 1 each PO DAILY 08/21/20 Nut.tx.comp. Immune Systm,Reg [Impact Advanced Recovery] 178 ml PO BID 08/21/20 Zinc Oxide [Zinc Oxide 20% Ointment 28.35 gm] 1 applic TP DAILYP PRN 08/21/20 Zinc Sulfate [Zinc-220 Capsule] 220 mg PO DAILY 08/21/20 Docusate Sodium [Colace 100 mg Capsule] 100 mg PO BID 09/19/20 Levothyroxine Sodium [Synthroid] 200 mcg PO Q6AM 09/19/20 Loperamide HCl [Loperamide] 2 mg PO Q6HP PRN 09/19/20 Ondansetron [Zofran Odt 4 mg Tablet] 4 mg PO Q4HP PRN 09/19/20 Allergies/Adverse Reactions: No Known Allergies Allergy (Verified 09/10/19 16:57) Review of Systems ROS unobtainable: Due to mental status Physical Exam Vital Signs: Temp Pulse Resp BP Pulse Ox 97.3 F 86 18 148/96 H 96 09/30/20 00:32 09/30/20 00:32 09/30/20 00:32 09/30/20 00:32 09/30/20 00:32 Intake & Output 09/28/20 09/29/20 09/30/20 06:59 06:59 06:59 Intake Total 370 100 Output Total 1108 500 685 Balance -299 -500 -202 Weight 97.1 kg 97.1 kg 95.1 kg General appearance: PRESENT: no acute distress, cooperative Head exam: PRESENT: atraumatic, normocephalic Eye exam: PRESENT: EOMI, PERRLA. ABSENT: scleral icterus Mouth exam: PRESENT: moist, neck supple Neck exam: ABSENT: meningismus, tenderness, thyromegaly, tracheal deviation Respiratory exam: PRESENT: unlabored. ABSENT: tachypnea, wheezes Cardiovascular exam: ABSENT: tachycardia Vascular exam: PRESENT: normal capillary refill GI/Abdominal exam: PRESENT: soft. ABSENT: distended, tenderness Rectal exam: PRESENT: deferred Extremities exam: ABSENT: clubbing Musculoskeletal exam: ABSENT: deformity Neurological exam: PRESENT: awake. ABSENT: oriented to person, oriented to place, oriented to time, oriented to situation Psychiatric exam: ABSENT: agitated, anxious, depressed Focused psych exam: ABSENT: delusional Skin exam: ABSENT: cyanosis, erythema, jaundice Results Laboratory Results: 09/29/20 09/29/20 04:15 04:15 WBC 9.7 RBC 2.95 L Hgb 8.6 L Hct 25.8 L MCV 88 MCH 29.1 MCHC 33.3 RDW 18.9 H Plt Count 79 L Sodium 143.4 Potassium 3.2 L Chloride 112 H Carbon Dioxide 19 L Anion Gap 12 BUN 30 H Creatinine 2.59 H Est GFR ( Amer) 21 L Glucose 141 H Calcium 9.6 09/19/20 09/19/20 09/20/20 12:00 20:31 08:50 Troponin I 0.013 < 0.012 NT-Pro-B Natriuret Pep 609 H 531 H 09/26/20 09/28/20 08:33 04:39 Troponin I NT-Pro-B Natriuret Pep 3190 H 4660 H Impressions: Acute Abdomen Series 09/19/20 11:58 IMPRESSION: Constipation. No other significant findings. Head CT 09/19/20 12:02 IMPRESSION: CHRONIC CHANGES OF ATROPHY AND MICROVASCULAR ISCHEMIA. NO ACUTE PROCESS. EVIDENCE OF ACUTE STROKE: NO. Chest CT 09/19/20 12:03 IMPRESSION: Bilateral nodular airspace disease most marked in the lung bases. This could be infectious, inflammatory or neoplastic. Does the patient have a known primary? No effusions. Abdomen/Pelvis CT 09/19/20 12:05 IMPRESSION: Question mild pancreatitis with slight inflammation noted surrounding the pancreatic head. Gallstones. Abdomen Ultrasound 09/19/20 15:14 IMPRESSION: Gallstones. Echogenic kidneys consistent with medical renal disease. Chest X-Ray 09/25/20 00:00 IMPRESSION: Increased diffuse interstitial infiltrates bilaterally, indeterminate for cardiogenic pulmonary edema versus an atypical interstitial pneumonia. Venous Doppler Study 09/29/20 00:00 IMPRESSION: Extensive DVT extending from the left axillary vein to the left internal jugular vein. Assessment & Plan - Diagnosis (1) Inanition Is this a current diagnosis for this admission?: Yes (2) Malnutrition, calorie Is this a current diagnosis for this admission?: Yes - Plan Summary Plan Summary: 85-year-old female with inanition. She is not taking enough calories to support herself. The family is requesting a PEG tube. There is no family at bedside to discuss this with. I will discuss the case with Dr. Sheets, the oncoming surgeon. He will discuss the situation with the family, and make a plan for possible PEG tube placement (if appropriate). Covid test was checked yesterday morning. We are awaiting these results. Surgery will follow.
[2020-09-30 06:01] LABS: HEMATOCRIT 22.7 % (36.0-47.0); MEAN CORPUSCULAR HEMOGLOBIN 28.7 pg (27.0-33.4); MEAN CORPUSCULAR HGB CONC 32.6 g/dL (32.0-36.0); MEAN CORPUSCULAR VOLUME 88 fl (80-97); RED BLOOD COUNT 2.58 10^6/uL (3.72-5.28); RED CELL DISTRIBUTION WIDTH 19.2 % (11.5-14.0); WHITE BLOOD COUNT 8.9 10^3/uL (4.0-10.5)
[2020-09-30 06:13] LABS: ANION GAP 7 (5-19); BLOOD UREA NITROGEN 26 mg/dL (7-20); CALCIUM 9.1 mg/dL (8.4-10.2); CARBON DIOXIDE 23 mmol/L (22-30); CHLORIDE 113 mmol/L (98-107); GLUCOSE 96 mg/dL (75-110); POTASSIUM 3.1 mmol/L (3.6-5.0)
[2020-09-30 06:38] LABS: PLATELET COUNT 78 10^3/uL (150-450)
[2020-09-30 06:39] LABS: HEMOGLOBIN 7.4 g/dL (12.0-15.5)
--- NOTE | 2020-09-30 10:12 | PDOC PROGRESS REPORT ---
Subjective Date:: 09/30/20 Reason For Visit: ACUTE PANCREATITIS,HYPERCALCEMIA,DENISSE/CKD Patient had an uneventful night. Taking minimal p.o. assistance Physical Exam Vital Signs: Temp Pulse Resp BP Pulse Ox 97.3 F 74 16 179/75 H 96 09/30/20 08:04 09/30/20 08:04 09/30/20 08:04 09/30/20 08:04 09/30/20 08:04 Intake & Output 09/29/20 09/30/20 10/01/20 06:59 06:59 06:59 Intake Total 100 Output Total 500 785 Balance -500 -685 Weight 97.1 kg 95.1 kg General appearance: PRESENT: no acute distress GI/Abdominal exam: PRESENT: other - Abdomen is benign soft, no peritoneal signs no rigidity. Focused psych exam: PRESENT: other - Patient is pleasant, smiling, responds to commands. She is disoriented to time place and situation. Results Laboratory Results: 09/30/20 04:20 09/30/20 04:20 09/30/20 09/30/20 04:20 04:20 WBC 8.9 RBC 2.58 L Hgb 7.4 L Hct 22.7 L MCV 88 MCH 28.7 MCHC 32.6 RDW 19.2 H Plt Count 78 L Sodium 143.3 Potassium 3.1 L Chloride 113 H Carbon Dioxide 23 Anion Gap 7 BUN 26 H Creatinine 2.37 H Est GFR ( Amer) 24 L Glucose 96 Calcium 9.1 09/19/20 09/19/20 09/20/20 12:00 20:31 08:50 Troponin I 0.013 < 0.012 NT-Pro-B Natriuret Pep 609 H 531 H 09/26/20 09/28/20 08:33 04:39 Troponin I NT-Pro-B Natriuret Pep 3190 H 4660 H Impressions: Acute Abdomen Series 09/19/20 11:58 IMPRESSION: Constipation. No other significant findings. Head CT 09/19/20 12:02 IMPRESSION: CHRONIC CHANGES OF ATROPHY AND MICROVASCULAR ISCHEMIA. NO ACUTE PROCESS. EVIDENCE OF ACUTE STROKE: NO. Chest CT 09/19/20 12:03 IMPRESSION: Bilateral nodular airspace disease most marked in the lung bases. This could be infectious, inflammatory or neoplastic. Does the patient have a known primary? No effusions. Abdomen/Pelvis CT 09/19/20 12:05 IMPRESSION: Question mild pancreatitis with slight inflammation noted surrounding the pancreatic head. Gallstones. Abdomen Ultrasound 09/19/20 15:14 IMPRESSION: Gallstones. Echogenic kidneys consistent with medical renal disease. Chest X-Ray 09/25/20 00:00 IMPRESSION: Increased diffuse interstitial infiltrates bilaterally, indeterminate for cardiogenic pulmonary edema versus an atypical interstitial pneumonia. Venous Doppler Study 09/29/20 00:00 IMPRESSION: Extensive DVT extending from the left axillary vein to the left internal jugular vein. Assessment & Plan - Diagnosis (1) Dementia Qualifiers: Dementia type: Alzheimer's disease Is this a current diagnosis for this admission?: Yes Plan: Impression: Dementia and inanition an 85-year-old Afro-[place] female with multiple chronic medical problems, stable Discussion 1. I had a limited conversation with the patient at bedside this morning. I told her we are interested in placing a feeding tube. She wanted no part of that. Spoke with the nursing staff, the hospitalist, as well as patient's daughter, Karrie on the telephone. Discussed the objectives of the feeding tube, well as the mechanics of maintaining a tube, and protecting the abdominal wall from infection etc. I expressed my concern that this patient who is partially aware of her surroundings, and able to express herself to some degree, would be at risk for pulling a feeding tube if she does not want. Do not believe it would be appropriate to install a feeding tube against her expressed wishes at this time today, September 30. I also explained that patient may perk up, and improve her p.o. intake. She may benefit from a appetite stimulant. Conversely patient may deteriorate and appropriate reassessment may be necessary. 2. Surgery will sign off at this time. Please reconsult if clinically indicated. (2) Acute on chronic renal failure Qualifiers: Acute renal failure type: unspecified Chronic kidney disease stage: stage 3 (moderate) Is this a current diagnosis for this admission?: Yes (3) CHF (congestive heart failure) Qualifiers: Heart failure type: unspecified Heart failure chronicity: unspecified Qualified Code(s): I50.9 - Heart failure, unspecified - Time Anticipated Discharge Disposition: Home with Home Health Anticipated Discharge Timeframe: within 24 hours Time Spent: 30 to 50 Minutes
[2020-09-30] MEDS: MULTIVITAMIN TABLET PO SCH (11:01)
[2020-09-30] MEDS: FERROUS SULFATE 325 MG TABLET PO SCH (11:01)
[2020-09-30] MEDS: ZINC SULFATE 220 MG CAPSULE PO SCH (11:01)
[2020-09-30] MEDS: CYANOCOBALAMIN (VITAMIN B-12) 1,000 MCG TABLET PO SCH (11:01)
[2020-09-30] MEDS: ASCORBIC ACID 500 MG TABLET PO SCH (11:01)
[2020-09-30] MEDS: CLONIDINE HCL 0.1 MG TABLET PO SCH ×2 (11:02→23:00)
[2020-09-30] MEDS: CHOLECALCIFEROL (D3) 400 UNIT TABLET PO SCH (11:02)
[2020-09-30] MEDS ORDERED: DRONABINOL 2.5 MG CAPSULE PO PRN (13:10)
--- NOTE | 2020-09-30 13:48 | PDOC PROGRESS REPORT ---
Subjective Date:: 09/30/20 Subjective:: DANK WHITE is a 85 year old female past medical history of dyslipidemia, hyp ertension, hypothyroidism, CKD, dementia, chronic bilateral lower extremity venous stasis, recurrent UTI with indwelling Valdovinos catheter, who was brought by EMS from [facility] after patient was found unresponsive in the shower by the staff. Unfortunately patient has dementia and does not recall any incident causing her to come to the hospital, patient's daughter who is in the room present stating that she does not know anything about the incident and she was just called by [facility] that her mother had coded as was being sent to the hospital. Source of information is chart review and my conversation with ED physician. As per EMS patient was found nonresponsive, was noted to breathing but they could not find a pulse, they started CPR and patient regained a pulse shortly after. A 20 EMS arrival patient was noted to be confused vital signs were stable and BGL was 166. In ED chest CT showed bilateral nodular airspace disease most marked in the lung bases, CT head was negative for any acute abnormalities, CT abdomen pelvis showed mild pancreatitis with slight inflammation and gallstones, abdominal ultrasound showed gallstones with no acute cholecystitis or common bile duct dilation. Patient was noted to have neutrophilic leukocytosis with no bandemia, worsening renal function, hypercalcemia and elevated lipase. Was also noted to have positive UA. Patient was transferred to the ICU 09/20/20 due to sepsis and acute pancreatitis, transferred back to floors 09/24/20. Since being transferred she has had poor oral intake. Multiple discussions have been conducted with the family regarding PEG tube placement. Surgery service assessed her as well and stated that a PEG tube placement would be not in her best interest since she is at risk of pulling it out. Surgery spoke to the patients daughter as well. 09/30/20 She was seen and examined at bedside. She is alert and awake but is not oriented to time, place and person. She stated that she does not want to eat because she's afraid she will get fat and I assure her that this is not the case and we want her to eat. Surgery has signed off and will not put a PEG tube in her. Patient was started on Dronabinol for appetite. Reason For Visit: ACUTE PANCREATITIS,HYPERCALCEMIA,DENISSE/CKD Physical Exam Vital Signs: Temp Pulse Resp BP Pulse Ox 98.5 F 68 18 158/59 H 94 09/30/20 12:00 09/30/20 12:00 09/30/20 12:00 09/30/20 12:00 09/30/20 12:00 Intake & Output 09/29/20 09/30/20 10/01/20 06:59 06:59 06:59 Intake Total 100 20 Output Total 500 785 Balance -500 -685 20 Weight 97.1 kg 95.1 kg General appearance: PRESENT: no acute distress, cooperative Head exam: PRESENT: atraumatic, normocephalic Eye exam: PRESENT: EOMI, PERRLA Mouth exam: PRESENT: moist Neck exam: PRESENT: full ROM Respiratory exam: PRESENT: clear to auscultation laurie, symmetrical, unlabored Cardiovascular exam: PRESENT: RRR, +S1, +S2 GI/Abdominal exam: PRESENT: normal bowel sounds, soft. ABSENT: rebound, tenderness Extremities exam: ABSENT: calf tenderness, joint swelling Musculoskeletal exam: PRESENT: full ROM, normal inspection. ABSENT: dislocation Neurological exam: PRESENT: alert, awake, other - Has baseline dementia Psychiatric exam: PRESENT: normal mood Skin exam: PRESENT: normal color Results Laboratory Results: 09/30/20 04:20 09/30/20 04:20 09/30/20 09/30/20 04:20 04:20 WBC 8.9 RBC 2.58 L Hgb 7.4 L Hct 22.7 L MCV 88 MCH 28.7 MCHC 32.6 RDW 19.2 H Plt Count 78 L Sodium 143.3 Potassium 3.1 L Chloride 113 H Carbon Dioxide 23 Anion Gap 7 BUN 26 H Creatinine 2.37 H Est GFR ( Amer) 24 L Glucose 96 Calcium 9.1 09/19/20 09/19/20 09/20/20 12:00 20:31 08:50 Troponin I 0.013 < 0.012 NT-Pro-B Natriuret Pep 609 H 531 H 09/26/20 09/28/20 08:33 04:39 Troponin I NT-Pro-B Natriuret Pep 3190 H 4660 H Impressions: Acute Abdomen Series 09/19/20 11:58 IMPRESSION: Constipation. No other significant findings. Head CT 09/19/20 12:02 IMPRESSION: CHRONIC CHANGES OF ATROPHY AND MICROVASCULAR ISCHEMIA. NO ACUTE P ROCESS. EVIDENCE OF ACUTE STROKE: NO. Chest CT 09/19/20 12:03 IMPRESSION: Bilateral nodular airspace disease most marked in the lung bases. This could be infectious, inflammatory or neoplastic. Does the patient have a known primary? No effusions. Abdomen/Pelvis CT 09/19/20 12:05 IMPRESSION: Question mild pancreatitis with slight inflammation noted surrounding the pancreatic head. Gallstones. Abdomen Ultrasound 09/19/20 15:14 IMPRESSION: Gallstones. Echogenic kidneys consistent with medical renal d isease. Chest X-Ray 09/25/20 00:00 IMPRESSION: Increased diffuse interstitial infiltrates bilaterally, indeterminate for cardiogenic pulmonary edema versus an atypical interstitial pneumonia. Venous Doppler Study 09/29/20 00:00 IMPRESSION: Extensive DVT extending from the left axillary vein to the left internal jugular vein. Assessment and Plan - Diagnosis (1) Failure to thrive in adult Is this a current diagnosis for this admission?: Yes Plan: Patient with limited to almost no oral intake over the last several days. Averaged <400ml oral intake. Discussed with patient's daughter was documented in ACP. Family is interested in moving forward with PEG tube. Dr. Sheets spoke to the patients daughter and have determined that a PEG tube is not the best option for her at this time. Surgery has signed off at this time. I have started her on Dronabinol but I am worried that this is not going to alter her course as far as nutrition. End stage dementia is what's driving her inability to eat and this is unlikely to improve with any medications. (2) CHF (congestive heart failure) Qualifiers: Heart failure type: unspecified Heart failure chronicity: unspecified Qualified Code(s): I50.9 - Heart failure, unspecified Is this a current diagnosis for this admission?: Yes Plan: -Patient without known history of CHF prior to hospitalization. -Patient previously receiving IV fluids for acute pancreatitis, which likely causes fluid overload and evidence of CHF. - Echo EF 65-70%, normal LV systolic function, impaired LV relaxation mild diastolic dyfunction, severe pulm hypertension pressure 65-70 mmhg - BNP 4660 - received 1 dose of lasix - will monitor for now and not actively diurese since she only has mild diastolic dysfunction (3) Acute on chronic renal failure Qualifiers: Acute renal failure type: unspecified Chronic kidney disease stage: stage 3 (moderate) Is this a current diagnosis for this admission?: Yes (4) Acute pancreatitis Qualifiers: Pancreatitis type: unspecified pancreatitis type Is this a current diagnosis for this admission?: Yes Plan: Resolved. Diet advanced to regular diet CT pancreas inflammation (09/19) Lipase 260, Triglycerides 100, A1c (07/2020) 6.3%. Analgesics and antiemetics as needed. (W/o need >48hrs) food intake still poor, we'll see if advancing diet will improve her appetite (5) DVT of left axillary vein, acute Is this a current diagnosis for this admission?: Yes Plan: LUE with edema and erythema. LUE US notable for: Extensive DVT extending from the left axillary vein to the left internal jugular vein. As per Well's Score for DVT pt at high risk. Patient was on previously on Heparin for DVT prophylaxis, though has not received dose due to low Plt counts and recent GI bleed. Given pt's history as noted above patient is not a candidate for anticoagulation at this time. Patient's daughter was made aware of this and expressed understanding. (6) Dementia Qualifiers: Dementia type: Alzheimer's disease Is this a current diagnosis for this admission?: Yes Plan: - Patient appears to be returning to her baseline dementia. Appears to be more oriented today, able to engage in conversation. Severity of dementia likely increased due to acute illness. Supportive care (7) Normocytic anemia Is this a current diagnosis for this admission?: Yes Plan: Hgb 8.6>7.4 - Heme + stools. Stool with noted red coloring. Likely from LGB. -As per ACP note by AMILCAR Pop patient's NOK and daughter wants hgb tx'd but denies wanting further workup including CT or colonscopy. - TIBC low (180), Iron WNL (62.7), Ferritin high (665) - s/p 1unit PRBC given 09/26. - Patient with evidence of anemia of chronic disease on top off acute GI bleed (8) Urinary tract infection Qualifiers: Urinary tract infection type: acute pyelonephritis Qualified Code(s): N10 - Acute pyelonephritis Is this a current diagnosis for this admission?: Yes Plan: Resolved. No further therapy necessary at this time. Completed 7 day course Ceftriaxone (as of 09/26) Valdovinos catheter exchanged 09/26. (9) Thrombocytopenia Is this a current diagnosis for this admission?: Yes Plan: Initially trended downward, since blood transfusion has remained at 79. This is likely secondary to acute blood loss (as per above). Suspect to see this continue to correct as hgb becomes further stable. (10) Venous stasis ulcer of lower extremity Qualifiers: Laterality: bilateral Qualified Code(s): I83.019 - Varicose veins of right lower extremity with ulcer of unspecified site; I83.029 - Varicose veins of left lower extremity with ulcer of unspecified site; L97.919 - Non-pressure chronic ulcer of unspecified part of right lower leg with unspecified severity; L97.929 - Non-pressure chronic ulcer of unspecified part of left lower leg with uns pecified severity Is this a current diagnosis for this admission?: Yes Plan: Chronic bilateral lower extremity stasis dermatitis. Without signs of infection. Continue wound care. Wound care evaluation pending. Elevate bilateral lower extremities. (11) Localized swelling of left upper extremity Is this a current diagnosis for this admission?: Yes Plan: As per DVT above. (12) Nonhealing wound of heel Is this a current diagnosis for this admission?: Yes Plan: Bilateral pressure wounds to heels; unstageable to the right and stage II to the left with evidence of early healing. Wound care nurse consultation; wound care per their recommendations. Offload heels. - Plan Summary Summary: - Time Time Spent with patient: 15-24 minutes Anticipated Discharge Disposition: Group Home Facility Anticipated Discharge Timeframe: TBD
[2020-09-30] MEDS: DRONABINOL 2.5 MG CAPSULE PO SCH ×2 (17:20→23:15)
[2020-09-30] MEDS: FAMOTIDINE 20 MG TABLET PO SCH (23:00)
[2020-09-30] MEDS: DONEPEZIL HCL 5 MG TABLET PO SCH (23:00)
[2020-10-01 04:57] LABS: HEMATOCRIT 22.9 % (36.0-47.0); MEAN CORPUSCULAR HEMOGLOBIN 29.3 pg (27.0-33.4); MEAN CORPUSCULAR VOLUME 89 fl (80-97); PLATELET COUNT 109 10^3/uL (150-450); RED BLOOD COUNT 2.58 10^6/uL (3.72-5.28); WHITE BLOOD COUNT 7.2 10^3/uL (4.0-10.5)
[2020-10-01 05:20] LABS: ANION GAP 8 (5-19); BLOOD UREA NITROGEN 27 mg/dL (7-20); CALCIUM 9.3 mg/dL (8.4-10.2); CARBON DIOXIDE 23 mmol/L (22-30); CHLORIDE 113 mmol/L (98-107); GLUCOSE 96 mg/dL (75-110); POTASSIUM 3.3 mmol/L (3.6-5.0)
[2020-10-01 05:22] LABS: HEMOGLOBIN 7.6 g/dL (12.0-15.5)
[2020-10-01] MEDS: DRONABINOL 2.5 MG CAPSULE PO SCH ×3 (05:39→17:12)
[2020-10-01] MEDS: LEVOTHYROXINE SODIUM 0.1 MG TABLET PO SCH (05:39)
[2020-10-01] MEDS: POTASSI CL 20 MEQ/50 ML RIDER 20 MEQ/50 ML RTUPB IV SCH ×2 (08:05→10:23)
[2020-10-01] MEDS: CLONIDINE HCL 0.1 MG TABLET PO SCH ×2 (10:24→22:12)
[2020-10-01] MEDS: ASCORBIC ACID 500 MG TABLET PO SCH (10:24)
[2020-10-01] MEDS: CYANOCOBALAMIN (VITAMIN B-12) 1,000 MCG TABLET PO SCH (10:24)
[2020-10-01] MEDS: CHOLECALCIFEROL (D3) 400 UNIT TABLET PO SCH (10:24)
[2020-10-01] MEDS: ZINC SULFATE 220 MG CAPSULE PO SCH (10:24)
[2020-10-01] MEDS: MULTIVITAMIN TABLET PO SCH (10:25)
[2020-10-01] MEDS: FERROUS SULFATE 325 MG TABLET PO SCH (10:25)
--- NOTE | 2020-10-01 17:50 | PDOC PROGRESS REPORT ---
Subjective Date:: 10/01/20 Subjective:: DANK WHITE is a 85 year old female past medical history of dyslipidemia, hyp ertension, hypothyroidism, CKD, dementia, chronic bilateral lower extremity venous stasis, recurrent UTI with indwelling Valdovinos catheter, who was brought by EMS from [facility] after patient was found unresponsive in the shower by the staff. Unfortunately patient has dementia and does not recall any incident causing her to come to the hospital, patient's daughter who is in the room present stating that she does not know anything about the incident and she was just called by [facility] that her mother had coded as was being sent to the hospital. Source of information is chart review and my conversation with ED physician. As per EMS patient was found nonresponsive, was noted to breathing but they could not find a pulse, they started CPR and patient regained a pulse shortly after. A 20 EMS arrival patient was noted to be confused vital signs were stable and BGL was 166. In ED chest CT showed bilateral nodular airspace disease most marked in the lung bases, CT head was negative for any acute abnormalities, CT abdomen pelvis showed mild pancreatitis with slight inflammation and gallstones, abdominal ultrasound showed gallstones with no acute cholecystitis or common bile duct dilation. Patient was noted to have neutrophilic leukocytosis with no bandemia, worsening renal function, hypercalcemia and elevated lipase. Was also noted to have positive UA. Patient was transferred to the ICU 09/20/20 due to sepsis and acute pancreatitis, transferred back to floors 09/24/20. Since being transferred she has had poor oral intake. Multiple discussions have been conducted with the family regarding PEG tube placement. Surgery service assessed her as well and stated that a PEG tube placement would be not in her best interest since she is at risk of pulling it out. Surgery spoke to the patients daughter as well. 09/30/20 She was seen and examined at bedside. She is alert and awake but is not oriented to time, place and person. She stated that she does not want to eat because she's afraid she will get fat and I assure her that this is not the case and we want her to eat. Surgery has signed off and will not put a PEG tube in her. Patient was started on Dronabinol for appetite. 10/01/20 She was seen and examined at bedside. She is alert and awake and able to engage in some conversation but she is still very forgetful because of her dementia. I have tried to offer her ensure but she is unwilling. She was started on Dronabinol yesterday but I doubt this is going to make a difference in terms of her appetite. I spoke to her daughter and DAWIT Yoon and we have discussed hospice and avoiding PEG tube placement. She agrees that a PEG tube will not really help her mom and she also wishes to honor her moms choice of not putting a PEG tube. She wishes to know more about hospice and I have told her that I would reach out to our discharge planning to help her with this. Reason For Visit: ACUTE PANCREATITIS,HYPERCALCEMIA,DENISSE/CKD Physical Exam Vital Signs: Temp Pulse Resp BP Pulse Ox 97.3 F 60 19 165/58 H 97 10/01/20 15:13 10/01/20 15:13 10/01/20 15:13 10/01/20 15:13 10/01/20 15:13 Intake & Output 09/30/20 10/01/20 10/02/20 06:59 06:59 06:59 Intake Total 100 240 280 Output Total 785 850 Balance -685 -610 280 Weight 95.1 kg 93.7 kg 93.7 kg General appearance: PRESENT: no acute distress, cooperative Head exam: PRESENT: atraumatic, normocephalic Eye exam: PRESENT: EOMI, PERRLA Neck exam: PRESENT: full ROM Respiratory exam: PRESENT: clear to auscultation laurie, symmetrical, unlabored Cardiovascular exam: PRESENT: RRR, +S1, +S2 GI/Abdominal exam: PRESENT: normal bowel sounds, soft. ABSENT: rebound, tenderness Extremities exam: PRESENT: full ROM Musculoskeletal exam: PRESENT: full ROM Neurological exam: PRESENT: alert, awake, oriented to person, oriented to place, oriented to time, oriented to situation Psychiatric exam: PRESENT: normal mood Skin exam: PRESENT: normal color Results Laboratory Results: 10/01/20 04:40 10/01/20 04:40 10/01/20 10/01/20 04:40 04:40 WBC 7.2 RBC 2.58 L Hgb 7.6 L Hct 22.9 L MCV 89 MCH 29.3 MCHC 33.0 RDW 19.0 H Plt Count 109 L Sodium 143.6 Potassium 3.3 L Chloride 113 H Carbon Dioxide 23 Anion Gap 8 BUN 27 H Creatinine 2.43 H Est GFR ( Amer) 23 L Glucose 96 Calcium 9.3 09/26/20 05:00 Blood Blood Culture - Final NO GROWTH IN 5 DAYS 09/26/20 04:16 Blood Blood Culture - Final NO GROWTH IN 5 DAYS 09/25/20 23:45 Blood Blood Culture - Final NO GROWTH IN 5 DAYS 09/25/20 22:59 Blood Blood Culture - Final NO GROWTH IN 5 DAYS 09/19/20 09/19/20 09/20/20 12:00 20:31 08:50 Troponin I 0.013 < 0.012 NT-Pro-B Natriuret Pep 609 H 531 H 09/26/20 09/28/20 08:33 04:39 Troponin I NT-Pro-B Natriuret Pep 3190 H 4660 H Impressions: Acute Abdomen Series 09/19/20 11:58 IMPRESSION: Constipation. No other significant findings. Head CT 09/19/20 12:02 IMPRESSION: CHRONIC CHANGES OF ATROPHY AND MICROVASCULAR ISCHEMIA. NO ACUTE PROCESS. EVIDENCE OF ACUTE STROKE: NO. Chest CT 09/19/20 12:03 IMPRESSION: Bilateral nodular airspace disease most marked in the lung bases. This could be infectious, inflammatory or neoplastic. Does the patient have a known primary? No effusions. Abdomen/Pelvis CT 09/19/20 12:05 IMPRESSION: Question mild pancreatitis with slight inflammation noted surrounding the pancreatic head. Gallstones. Abdomen Ultrasound 09/19/20 15:14 IMPRESSION: Gallstones. Echogenic kidneys consistent with medical renal disease. Chest X-Ray 09/25/20 00:00 IMPRESSION: Increased diffuse interstitial infiltrates bilaterally, indeterminate for cardiogenic pulmonary edema versus an atypical interstitial pneumonia. Venous Doppler Study 09/29/20 00:00 IMPRESSION: Extensive DVT extending from the left axillary vein to the left internal jugular vein. Assessment and Plan - Diagnosis (1) Failure to thrive in adult Is this a current diagnosis for this admission?: Yes Plan: Patient with limited to almost no oral intake over the last several days. Averaged <400ml oral intake. Discussed with patient's daughter was documented in ACP. Family is interested in moving forward with PEG tube. Dr. Sheets spoke to the patients daughter and have determined that a PEG tube is not the best option for her at this time. Surgery has signed off at this time. I have started her on Dronabinol but I am worried that this is not going to alter her course as far as nutrition. End stage dementia is what's driving her inability to eat and this is unlikely to improve with any medications. I spoke to her daughter Karrie today regarding PEG tube and hospice. She would like to know more about hospice service. (2) CHF (congestive heart failure) Qualifiers: Heart failure type: unspecified Heart failure chronicity: unspecified Qualified Code(s): I50.9 - Heart failure, unspecified Is this a current diagnosis for this admission?: Yes Plan: -Patient without known history of CHF prior to hospitalization. -Patient previously receiving IV fluids for acute pancreatitis, which likely causes fluid overload and evidence of CHF. - Echo EF 65-70%, normal LV systolic function, impaired LV relaxation mild diastolic dyfunction, severe pulm hypertension pressure 65-70 mmhg - BNP 4660 - received 1 dose of lasix - will monitor for now and not actively diurese since she only has mild diastolic dysfunction (3) Acute on chronic renal failure Qualifiers: Acute renal failure type: unspecified Chronic kidney disease stage: stage 3 (moderate) Is this a current diagnosis for this admission?: Yes Plan: CR 3.44-> 2.13-> 2.25. ->2.41 -> 2.61 -> 2.59>2.37 . Baseline appears to be 2.0 - Avoid nephrotoxic medications. - Given history of heart failure and kidney failure goal is to not fluid overload patient to treat kidney disease, while also not over diuresing the patient to treat heart failure. Lasix given x1 day ago given evidence of fluid overload, with noted creatinine bump with diuresing. Lasix on hold at this time. Repeat BMP to continue to monitor. (4) Acute pancreatitis Qualifiers: Pancreatitis type: unspecified pancreatitis type Is this a current diagnosis for this admission?: Yes Plan: Resolved. Diet advanced to regular diet CT pancreas inflammation (09/19) Lipase 260, Triglycerides 100, A1c (07/2020) 6.3%. Analgesics and antiemetics as needed. (W/o need >48hrs) food intake still poor, we'll see if advancing diet will improve her appetite (5) DVT of left axillary vein, acute Is this a current diagnosis for this admission?: Yes Plan: LUE with edema and erythema. LUE US notable for: Extensive DVT extending from the left axillary vein to the left internal jugular vein. As per Well's Score for DVT pt at high risk. Patient was on previously on Heparin for DVT prophylaxis, though has not received dose due to low Plt counts and recent GI bleed. Given pt's history as noted above patient is not a candidate for anticoagulation at this time. Patient's daughter was made aware of this and expressed understanding. (6) Dementia Qualifiers: Dementia type: Alzheimer's disease Is this a current diagnosis for this admission?: Yes Plan: - Patient appears to be returning to her baseline dementia. However it would seem that she is at end stage dementia with her refusal to eat I have spoken to her daughter about this Supportive care (7) Normocytic anemia Is this a current diagnosis for this admission?: Yes Plan: Hgb 8.6>7.4 - Heme + stools. Stool with noted red coloring. Likely from LGB. -As per ACP note by LAINE PopC patient's NOK and daughter wants hgb tx'd but denies wanting further workup including CT or colonscopy. - TIBC low (180), Iron WNL (62.7), Ferritin high (665) - s/p 1unit PRBC given 09/26. - Patient with evidence of anemia of chronic disease on top off acute GI bleed (8) Urinary tract infection Qualifiers: Urinary tract infection type: acute pyelonephritis Qualified Code(s): N10 - Acute pyelonephritis Is this a current diagnosis for this admission?: Yes Plan: Resolved. No further therapy necessary at this time. Completed 7 day course Ceftriaxone (as of 09/26) Valdovinos catheter exchanged 09/26. (9) Thrombocytopenia Is this a current diagnosis for this admission?: Yes Plan: - Plt 109 (10) Venous stasis ulcer of lower extremity Qualifiers: Laterality: bilateral Qualified Code(s): I83.019 - Varicose veins of right lower extremity with ulcer of unspecified site; I83.029 - Varicose veins of left lower extremity with ulcer of unspecified site; L97.919 - Non-pressure chronic ulcer of unspecified part of right lower leg with unspecified severity; L97.929 - Non-pressure chronic ulcer of unspecified part of left lower leg with unspecified severity Is this a current diagnosis for this admission?: Yes Plan: Chronic bilateral lower extremity stasis dermatitis. Without signs of infection. Continue wound care. Wound care evaluation pending. Elevate bilateral lower extremities. (11) Localized swelling of left upper extremity Is this a current diagnosis for this admission?: Yes Plan: As per DVT above. (12) Nonhealing wound of heel Is this a current diagnosis for this admission?: Yes Plan: Bilateral pressure wounds to heels; unstageable to the right and stage II to the left with evidence of early healing. Wound care nurse consultation; wound care per their recommendations. Offload heels. - Plan Summary Summary: - Time Time Spent with patient: 25-34 minutes Medications reviewed and adjusted accordingly: Yes Anticipated Discharge Disposition: Home with Hospice Anticipated Discharge Timeframe: TBD
[2020-10-01] MEDS: HYDRALAZINE HCL INJ/PF 20 MG/1 ML SDV IV PRN (20:02)
[2020-10-01] MEDS: FAMOTIDINE 20 MG TABLET PO SCH (22:12)
[2020-10-01] MEDS: DONEPEZIL HCL 5 MG TABLET PO SCH (22:12)
[2020-10-02] MEDS: DRONABINOL 2.5 MG CAPSULE PO SCH ×5 (05:20→23:06)
[2020-10-02] MEDS: LEVOTHYROXINE SODIUM 0.1 MG TABLET PO SCH (05:20)
[2020-10-02 05:53] LABS: HEMATOCRIT 23.9 % (36.0-47.0); MEAN CORPUSCULAR HEMOGLOBIN 28.6 pg (27.0-33.4); MEAN CORPUSCULAR HGB CONC 32.5 g/dL (32.0-36.0); MEAN CORPUSCULAR VOLUME 88 fl (80-97); PLATELET COUNT 129 10^3/uL (150-450); RED CELL DISTRIBUTION WIDTH 19.2 % (11.5-14.0); WHITE BLOOD COUNT 7.7 10^3/uL (4.0-10.5)
[2020-10-02 06:22] LABS: HEMOGLOBIN 7.7 g/dL (12.0-15.5)
[2020-10-02] MEDS: MULTIVITAMIN TABLET PO SCH (10:41)
[2020-10-02] MEDS: CLONIDINE HCL 0.1 MG TABLET PO SCH ×2 (10:41→22:24)
[2020-10-02] MEDS: ASCORBIC ACID 500 MG TABLET PO SCH (10:41)
[2020-10-02] MEDS: CHOLECALCIFEROL (D3) 400 UNIT TABLET PO SCH (10:41)
[2020-10-02] MEDS: CYANOCOBALAMIN (VITAMIN B-12) 1,000 MCG TABLET PO SCH (10:41)
[2020-10-02] MEDS: ZINC SULFATE 220 MG CAPSULE PO SCH (10:41)
[2020-10-02] MEDS: FERROUS SULFATE 325 MG TABLET PO SCH (10:41)
[2020-10-02] MEDS ORDERED: DEXTROSE 5%-LACTATED RINGERS 1,000 ML IV ONE (13:26)
[2020-10-02] MEDS ORDERED: DEXTROSE 5%-LACTATED RINGERS 1,000 ML IV PRN (13:26)
--- NOTE | 2020-10-02 13:55 | PDOC PROGRESS REPORT ---
Subjective Date:: 10/02/20 Subjective:: DANK WHITE is a 85 year old female past medical history of dyslipidemia, hyp ertension, hypothyroidism, CKD, dementia, chronic bilateral lower extremity venous stasis, recurrent UTI with indwelling Valdovinos catheter, who was brought by EMS from [facility] after patient was found unresponsive in the shower by the staff. Unfortunately patient has dementia and does not recall any incident causing her to come to the hospital, patient's daughter who is in the room present stating that she does not know anything about the incident and she was just called by [facility] that her mother had coded as was being sent to the hospital. Source of information is chart review and my conversation with ED physician. As per EMS patient was found nonresponsive, was noted to breathing but they could not find a pulse, they started CPR and patient regained a pulse shortly after. A 20 EMS arrival patient was noted to be confused vital signs were stable and BGL was 166. In ED chest CT showed bilateral nodular airspace disease most marked in the lung bases, CT head was negative for any acute abnormalities, CT abdomen pelvis showed mild pancreatitis with slight inflammation and gallstones, abdominal ultrasound showed gallstones with no acute cholecystitis or common bile duct dilation. Patient was noted to have neutrophilic leukocytosis with no bandemia, worsening renal function, hypercalcemia and elevated lipase. Was also noted to have positive UA. Patient was transferred to the ICU 09/20/20 due to sepsis and acute pancreatitis, transferred back to floors 09/24/20. Since being transferred she has had poor oral intake. Multiple discussions have been conducted with the family regarding PEG tube placement. Surgery service assessed her as well and stated that a PEG tube placement would be not in her best interest since she is at risk of pulling it out. Surgery spoke to the patients daughter as well. 09/30/20 She was seen and examined at bedside. She is alert and awake but is not oriented to time, place and person. She stated that she does not want to eat because she's afraid she will get fat and I assure her that this is not the case and we want her to eat. Surgery has signed off and will not put a PEG tube in her. Patient was started on Dronabinol for appetite. 10/01/20 She was seen and examined at bedside. She is alert and awake and able to engage in some conversation but she is still very forgetful because of her dementia. I have tried to offer her ensure but she is unwilling. She was started on Dronabinol yesterday but I doubt this is going to make a difference in terms of her appetite. I spoke to her daughter and DAWIT Yoon and we have discussed hospice and avoiding PEG tube placement. She agrees that a PEG tube will not really help her mom and she also wishes to honor her moms choice of not putting a PEG tube. She wishes to know more about hospice and I have told her that I would reach out to our discharge planning to help her with this. 10/02/20 She was seen and examined at bedside. She is not aware that it is Thanksgiving today and according to the nurses she still has not eaten very well despite receiving dronabinol. She is off Oxygen support. Reason For Visit: ACUTE PANCREATITIS,HYPERCALCEMIA,DENISSE/CKD Physical Exam Vital Signs: Temp Pulse Resp BP Pulse Ox 97.3 F 63 18 168/63 H 95 10/02/20 11:45 10/02/20 11:45 10/02/20 11:45 10/02/20 11:45 10/02/20 11:45 Intake & Output 10/01/20 10/02/20 10/03/20 06:59 06:59 06:59 Intake Total 240 680 Output Total 850 950 Balance -610 -270 Weight 93.7 kg 93.9 kg General appearance: PRESENT: no acute distress, cooperative Head exam: PRESENT: atraumatic, normocephalic Eye exam: PRESENT: EOMI, PERRLA Mouth exam: PRESENT: moist Neck exam: PRESENT: full ROM Respiratory exam: PRESENT: clear to auscultation laurie, symmetrical, unlabored Cardiovascular exam: PRESENT: RRR, +S1, +S2 Pulses: PRESENT: +2 pedal pulses bilateral GI/Abdominal exam: PRESENT: normal bowel sounds, soft. ABSENT: rebound, tendern ess Extremities exam: PRESENT: full ROM Musculoskeletal exam: PRESENT: full ROM Neurological exam: PRESENT: alert, awake, oriented to person, oriented to place, oriented to time, oriented to situation Psychiatric exam: PRESENT: normal mood Skin exam: PRESENT: normal color Results Laboratory Results: 10/02/20 05:00 10/01/20 04:40 10/02/20 05:00 WBC 7.7 RBC 2.70 L Hgb 7.7 L Hct 23.9 L MCV 88 MCH 28.6 MCHC 32.5 RDW 19.2 H Plt Count 129 L 09/19/20 09/19/20 09/20/20 12:00 20:31 08:50 Troponin I 0.013 < 0.012 NT-Pro-B Natriuret Pep 609 H 531 H 09/26/20 09/28/20 08:33 04:39 Troponin I NT-Pro-B Natriuret Pep 3190 H 4660 H Impressions: Acute Abdomen Series 09/19/20 11:58 IMPRESSION: Constipation. No other significant findings. Head CT 09/19/20 12:02 IMPRESSION: CHRONIC CHANGES OF ATROPHY AND MICROVASCULAR ISCHEMIA. NO ACUTE PROCESS. EVIDENCE OF ACUTE STROKE: NO. Chest CT 09/19/20 12:03 IMPRESSION: Bilateral nodular airspace disease most marked in the lung bases. This could be infectious, inflammatory or neoplastic. Does the patient have a known primary? No effusions. Abdomen/Pelvis CT 09/19/20 12:05 IMPRESSION: Question mild pancreatitis with slight inflammation noted surrounding the pancreatic head. Gallstones. Abdomen Ultrasound 09/19/20 15:14 IMPRESSION: Gallstones. Echogenic kidneys consistent with medical renal disease. Chest X-Ray 09/25/20 00:00 IMPRESSION: Increased diffuse interstitial infiltrates bilaterally, indeterminate for cardiogenic pulmonary edema versus an atypical interstitial pneumonia. Venous Doppler Study 09/29/20 00:00 IMPRESSION: Extensive DVT extending from the left axillary vein to the left internal jugular vein. Assessment and Plan - Diagnosis (1) Failure to thrive in adult Is this a current diagnosis for this admission?: Yes Plan: Patient with limited to almost no oral intake over the last several days. Averaged <400ml oral intake. Discussed with patient's daughter was documented in ACP. Dr. Sheets spoke to the patients daughter and have determined that a PEG tube is not the best option for her at this time. Surgery has signed off at this time. I have started her on Dronabinol but I am worried that this is not going to alter her course as far as nutrition. End stage dementia is what's driving her inability to eat and this is unlikely to improve with any medications. I spoke to her daughter Karrie today regarding PEG tube and hospice. She would like to know more about hospice service. (2) CHF (congestive heart failure) Qualifiers: Heart failure type: unspecified Heart failure chronicity: unspecified Qualified Code(s): I50.9 - Heart failure, unspecified Is this a current diagnosis for this admission?: Yes Plan: -Patient without known history of CHF prior to hospitalization. -Patient previously receiving IV fluids for acute pancreatitis, which likely causes fluid overload and evidence of CHF. - Echo EF 65-70%, normal LV systolic function, impaired LV relaxation mild diastolic dyfunction, severe pulm hypertension pressure 65-70 mmhg - BNP 4660 - received 1 dose of lasix - has very poor water intake, may need to be started on IV fluids soon. will re assess her fluid balance tomorrow. (3) Acute on chronic renal failure Qualifiers: Acute renal failure type: unspecified Chronic kidney disease stage: stage 3 (moderate) Is this a current diagnosis for this admission?: Yes Plan: CR 3.44-> 2.37 . Baseline appears to be 2.0 - Avoid nephrotoxic medications. - will continue to monitor (4) Acute pancreatitis Qualifiers: Pancreatitis type: unspecified pancreatitis type Is this a current diagnosis for this admission?: Yes Plan: Resolved. Diet advanced to regular diet CT pancreas inflammation (09/19) Lipase 260, Triglycerides 100, A1c (07/2020) 6.3%. Analgesics and antiemetics as needed. (W/o need >48hrs) food intake still poor, we'll see if advancing diet will improve her appetite (5) DVT of left axillary vein, acute Is this a current diagnosis for this admission?: Yes Plan: LUE with edema and erythema. LUE US notable for: Extensive DVT extending from the left axillary vein to the left internal jugular vein. As per Well's Score for DVT pt at high risk. Patient was on previously on Heparin for DVT prophylaxis, though has not received dose due to low Plt counts and recent GI bleed. Given pt's history as noted above patient is not a candidate for anticoagulation at this time. Patient's daughter was made aware of this and expressed understanding. (6) Dementia Qualifiers: Dementia type: Alzheimer's disease Is this a current diagnosis for this admission?: Yes Plan: - Patient appears to be returning to her baseline dementia. However it would seem that she is at end stage dementia with her refusal to eat I have spoken to her daughter about this . Patients daughter interested to hear more about hospice. i have reached out to discharge planners about this Supportive care (7) Normocytic anemia Is this a current diagnosis for this admission?: Yes Plan: Hgb 8.6>7.4>7.7 - Heme + stools. Stool with noted red coloring. Likely from LGB. -As per ACP note by Claudine Wheatley NP-C patient's NOK and daughter wants hgb tx'd but denies wanting further workup including CT or colonscopy. - TIBC low (180), Iron WNL (62.7), Ferritin high (665) - s/p 1unit PRBC given 09/26. - Patient with evidence of anemia of chronic disease on top off acute GI bleed (8) Urinary tract infection Qualifiers: Urinary tract infection type: acute pyelonephritis Qualified Code(s): N10 - Acute pyelonephritis Is this a current diagnosis for this admission?: Yes Plan: Resolved. No further therapy necessary at this time. Completed 7 day course Ceftriaxone (as of 09/26) Valdovinos catheter exchanged 09/26. (9) Thrombocytopenia Is this a current diagnosis for this admission?: Yes Plan: - Plt 109 (10) Venous stasis ulcer of lower extremity Qualifiers: Laterality: bilateral Qualified Code(s): I83.019 - Varicose veins of right lower extremity with ulcer of unspecified site; I83.029 - Varicose veins of left lower extremity with ulcer of unspecified site; L97.919 - Non-pressure chronic ulcer of unspecified part of right lower leg with unspecified severity; L97.929 - Non-pressure chronic ulcer of unspecified part of left lower leg with unspecified severity Is this a current diagnosis for this admission?: Yes Plan: Chronic bilateral lower extremity stasis dermatitis. Without signs of infection. Continue wound care. Wound care evaluation pending. Elevate bilateral lower extremities. (11) Localized swelling of left upper extremity Is this a current diagnosis for this admission?: Yes Plan: As per DVT above. (12) Nonhealing wound of heel Is this a current diagnosis for this admission?: Yes Plan: Bilateral pressure wounds to heels; unstageable to the right and stage II to the left with evidence of early healing. Wound care nurse consultation; wound care per their recommendations. Offload heels. - Plan Summary Summary: - Time Time Spent with patient: 15-24 minutes Medications reviewed and adjusted accordingly: Yes Anticipated Discharge Disposition: [facility] Facility Anticipated Discharge Timeframe: within 48 hours - tbd
[2020-10-02] MEDS: FAMOTIDINE 20 MG TABLET PO SCH (22:24)
[2020-10-02] MEDS: DONEPEZIL HCL 5 MG TABLET PO SCH (22:24)
[2020-10-03] MEDS: HYDRALAZINE HCL INJ/PF 20 MG/1 ML SDV IV PRN (00:46)
[2020-10-03] MEDS: LEVOTHYROXINE SODIUM 0.1 MG TABLET PO SCH (05:29)
[2020-10-03] MEDS: DRONABINOL 2.5 MG CAPSULE PO SCH ×4 (05:29→23:10)
[2020-10-03 06:15] LABS: HEMATOCRIT 23.8 % (36.0-47.0); MEAN CORPUSCULAR HGB CONC 32.4 g/dL (32.0-36.0); MEAN CORPUSCULAR VOLUME 89 fl (80-97); PLATELET COUNT 147 10^3/uL (150-450); RED BLOOD COUNT 2.67 10^6/uL (3.72-5.28); RED CELL DISTRIBUTION WIDTH 19.4 % (11.5-14.0); WHITE BLOOD COUNT 8.4 10^3/uL (4.0-10.5)
[2020-10-03 06:38] LABS: ALBUMIN 2.5 g/dL (3.5-5.0); ALKALINE PHOSPHATASE 137 U/L (38-126); ASPARTATE AMINO TRANSFERASE 53 U/L (14-36); BILIRUBIN,DIRECT 0.2 mg/dL (0.0-0.4); BILIRUBIN,TOTAL 0.5 mg/dL (0.2-1.3); BLOOD UREA NITROGEN 26 mg/dL (7-20); CALCIUM 9.6 mg/dL (8.4-10.2); GLUCOSE 152 mg/dL (75-110); POTASSIUM 3.6 mmol/L (3.6-5.0); TOTAL PROTEIN 5.9 g/dL (6.3-8.2)
[2020-10-03 06:50] LABS: ABSOLUTE LYMPHOCYTES# (MANUAL) 1.2 10^3/uL (0.5-4.7); ABSOLUTE MONOCYTES # (MANUAL) 0.6 10^3/uL (0.1-1.4); BASOPHILS % (MANUAL) 0 % (0-2); EOSINOPHILS % (MANUAL) 2 % (0-6); LYMPHOCYTES % (MANUAL) 14 % (13-45); MONOCYTES % (MANUAL) 7 % (3-13); SEGMENTED NEUTROPHILS % (MAN) 77 % (42-78); TOTAL CELLS COUNTED 100
[2020-10-03 06:51] LABS: ANISOCYTOSIS 1+; HYPOCHROMASIA 1+; OVALOCYTES SLIGHT; POIKILOCYTOSIS SLIGHT; SCHISTOCYTES SLIGHT
[2020-10-03 06:52] LABS: PLATELET COMMENT DECREASED
[2020-10-03 06:54] LABS: ANION GAP 7 (5-19); CARBON DIOXIDE 24 mmol/L (22-30); CHLORIDE 116 mmol/L (98-107); HEMOGLOBIN 7.7 g/dL (12.0-15.5)
[2020-10-03] MEDS: CLONIDINE HCL 0.1 MG TABLET PO SCH ×2 (10:23→23:10)
[2020-10-03] MEDS: MULTIVITAMIN TABLET PO SCH (10:23)
[2020-10-03] MEDS: ASCORBIC ACID 500 MG TABLET PO SCH (10:24)
[2020-10-03] MEDS: FERROUS SULFATE 325 MG TABLET PO SCH (10:24)
[2020-10-03] MEDS: CYANOCOBALAMIN (VITAMIN B-12) 1,000 MCG TABLET PO SCH (10:24)
[2020-10-03] MEDS: CHOLECALCIFEROL (D3) 400 UNIT TABLET PO SCH (10:25)
[2020-10-03] MEDS: ZINC SULFATE 220 MG CAPSULE PO SCH (10:25)
--- NOTE | 2020-10-03 17:01 | PDOC PROGRESS REPORT ---
Subjective Date:: 10/03/20 Subjective:: DANK WHITE is a 85 year old female past medical history of dyslipidemia, hyp ertension, hypothyroidism, CKD, dementia, chronic bilateral lower extremity venous stasis, recurrent UTI with indwelling Valdovinos catheter, who was brought by EMS from [facility] after patient was found unresponsive in the shower by the staff. Unfortunately patient has dementia and does not recall any incident causing her to come to the hospital, patient's daughter who is in the room present stating that she does not know anything about the incident and she was just called by [facility] that her mother had coded as was being sent to the hospital. Source of information is chart review and my conversation with ED physician. As per EMS patient was found nonresponsive, was noted to breathing but they could not find a pulse, they started CPR and patient regained a pulse shortly after. A 20 EMS arrival patient was noted to be confused vital signs were stable and BGL was 166. In ED chest CT showed bilateral nodular airspace disease most marked in the lung bases, CT head was negative for any acute abnormalities, CT abdomen pelvis showed mild pancreatitis with slight inflammation and gallstones, abdominal ultrasound showed gallstones with no acute cholecystitis or common bile duct dilation. Patient was noted to have neutrophilic leukocytosis with no bandemia, worsening renal function, hypercalcemia and elevated lipase. Was also noted to have positive UA. Patient was transferred to the ICU 09/20/20 due to sepsis and acute pancreatitis, transferred back to floors 09/24/20. Since being transferred she has had poor oral intake. Multiple discussions have been conducted with the family regarding PEG tube placement. Surgery service assessed her as well and stated that a PEG tube placement would be not in her best interest since she is at risk of pulling it out. Surgery spoke to the patients daughter as well. 09/30/20 She was seen and examined at bedside. She is alert and awake but is not oriented to time, place and person. She stated that she does not want to eat because she's afraid she will get fat and I assure her that this is not the case and we want her to eat. Surgery has signed off and will not put a PEG tube in her. Patient was started on Dronabinol for appetite. 10/01/20 She was seen and examined at bedside. She is alert and awake and able to engage in some conversation but she is still very forgetful because of her dementia. I have tried to offer her ensure but she is unwilling. She was started on Dronabinol yesterday but I doubt this is going to make a difference in terms of her appetite. I spoke to her daughter and DENISJOSETTE Yoon and we have discussed hospice and avoiding PEG tube placement. She agrees that a PEG tube will not really help her mom and she also wishes to honor her moms choice of not putting a PEG tube. She wishes to know more about hospice and I have told her that I would reach out to our discharge planning to help her with this. 10/02/20 She was seen and examined at bedside. She is not aware that it is Thanksgiving today and according to the nurses she still has not eaten very well despite receiving dronabinol. She is off Oxygen support. 10/03/20 She was seen and examined at bedside in the morning and again in the afternoon with her daughter. KJ from discharge planning also spoke to them. I discussed with them that the patient still has poor appetite despite all her other acute medical issues resolving. Unfortunately according to our account planner, she would need a caregiver to stay with her at home if she is going to go home with hospice and this is something her daughter will not be able to afford. She cannot get hospice in [facility] because she does not have medicaid. I discusses with them about at least making her DBR and comfort measures only and the daughter said she needs time to think. She is otherwise stable and ready to be discharged to [facility]. Reason For Visit: ACUTE PANCREATITIS,HYPERCALCEMIA,DENISSE/CKD Physical Exam Vital Signs: Temp Pulse Resp BP Pulse Ox 97.2 F 81 16 156/58 H 95 10/03/20 12:00 10/03/20 12:00 10/03/20 12:00 10/03/20 12:00 10/03/20 12:00 Intake & Output 10/02/20 10/03/20 10/04/20 06:59 06:59 06:59 Intake Total 680 1210 100 Output Total 950 380 Balance -270 830 100 Weight 93.9 kg 94 kg General appearance: PRESENT: no acute distress, cooperative Head exam: PRESENT: atraumatic, normocephalic Eye exam: PRESENT: EOMI, PERRLA Mouth exam: PRESENT: moist Neck exam: PRESENT: full ROM Respiratory exam: PRESENT: clear to auscultation laurie, symmetrical, unlabored Cardiovascular exam: PRESENT: RRR, +S1, +S2 Pulses: PRESENT: normal radial pulses GI/Abdominal exam: PRESENT: normal bowel sounds, soft. ABSENT: rebound, tenderness Extremities exam: PRESENT: other - non ambulatory Musculoskeletal exam: PRESENT: full ROM Neurological exam: PRESENT: alert, awake. ABSENT: oriented to person, oriented to place, oriented to time, oriented to situation Psychiatric exam: PRESENT: normal mood Skin exam: PRESENT: normal color Results Laboratory Results: 10/03/20 05:18 10/03/20 05:18 10/03/20 10/03/20 05:18 05:18 WBC 8.4 RBC 2.67 L Hgb 7.7 L Hct 23.8 L MCV 89 MCH 29.0 MCHC 32.4 RDW 19.4 H Plt Count 147 L Seg Neutrophils % Not Reportable Sodium 146.6 H Potassium 3.6 Chloride 116 H Carbon Dioxide 24 Anion Gap 7 BUN 26 H Creatinine 2.02 H Est GFR ( Amer) 28 L Glucose 152 H Calcium 9.6 Total Bilirubin 0.5 AST 53 H Alkaline Phosphatase 137 H Total Protein 5.9 L Albumin 2.5 L 09/19/20 09/19/20 09/20/20 12:00 20:31 08:50 Troponin I 0.013 < 0.012 NT-Pro-B Natriuret Pep 609 H 531 H 09/26/20 09/28/20 08:33 04:39 Troponin I NT-Pro-B Natriuret Pep 3190 H 4660 H Impressions: Acute Abdomen Series 09/19/20 11:58 IMPRESSION: Constipation. No other significant findings. Head CT 09/19/20 12:02 IMPRESSION: CHRONIC CHANGES OF ATROPHY AND MICROVASCULAR ISCHEMIA. NO ACUTE PROCESS. EVIDENCE OF ACUTE STROKE: NO. Chest CT 09/19/20 12:03 IMPRESSION: Bilateral nodular airspace disease most marked in the lung bases. This could be infectious, inflammatory or neoplastic. Does the patient have a known primary? No effusions. Abdomen/Pelvis CT 09/19/20 12:05 IMPRESSION: Question mild pancreatitis with slight inflammation noted surrounding the pancreatic head. Gallstones. Abdomen Ultrasound 09/19/20 15:14 IMPRESSION: Gallstones. Echogenic kidneys consistent with medical renal disease. Chest X-Ray 09/25/20 00:00 IMPRESSION: Increased diffuse interstitial infiltrates bilaterally, indeterminate for cardiogenic pulmonary edema versus an atypical interstitial pneumonia. Venous Doppler Study 09/29/20 00:00 IMPRESSION: Extensive DVT extending from the left axillary vein to the left internal jugular vein. Assessment and Plan - Diagnosis (1) Failure to thrive in adult Is this a current diagnosis for this admission?: Yes Plan: Patient with limited to almost no oral intake over the last several days. Averaged <400ml oral intake. Hospice was discussed by me and LUISA from discharge planning. She will require someone to come stay with her if she's going to go home with hospice. She also can't get hospice at [facility] since she deos not have medicaid. I talked to the daughter about making her comfort care and DNR/DNI. (2) CHF (congestive heart failure) Qualifiers: Heart failure type: unspecified Heart failure chronicity: unspecified Qualified Code(s): I50.9 - Heart failure, unspecified Is this a current diagnosis for this admission?: Yes Plan: -Patient without known history of CHF prior to hospitalization. -Patient previously receiving IV fluids for acute pancreatitis, which likely causes fluid overload and evidence of CHF. - Echo EF 65-70%, normal LV systolic function, impaired LV relaxation mild diastolic dyfunction, severe pulm hypertension pressure 65-70 mmhg - BNP 4660 - received 1 dose of lasix - has very poor water intake,crea is stale. Will encourage more fluid intake (3) Acute on chronic renal failure Qualifiers: Acute renal failure type: unspecified Chronic kidney disease stage: stage 3 (moderate) Is this a current diagnosis for this admission?: Yes Plan: CR 3.44-> 2.37>2.02. Baseline appears to be 2.0 - Avoid nephrotoxic medications. - will continue to monitor (4) Acute pancreatitis Qualifiers: Pancreatitis type: unspecified pancreatitis type Is this a current diagnosis for this admission?: Yes Plan: Resolved. Diet advanced to regular diet CT pancreas inflammation (09/19) Lipase 260, Triglycerides 100, A1c (07/2020) 6.3%. Analgesics and antiemetics as needed. (W/o need >48hrs) food intake still poor, we'll see if advancing diet will improve her appetite (5) DVT of left axillary vein, acute Is this a current diagnosis for this admission?: Yes Plan: LUE with edema and erythema. LUE US notable for: Extensive DVT extending from the left axillary vein to the left internal jugular vein. As per Well's Score for DVT pt at high risk. Patient was on previously on Heparin for DVT prophylaxis, though has not receiv ed dose due to low Plt counts and recent GI bleed. Given pt's history as noted above patient is not a candidate for anticoagulation at this time. Patient's daughter was made aware of this and expressed understanding. (6) Dementia Qualifiers: Dementia type: Alzheimer's disease Is this a current diagnosis for this admission?: Yes Plan: - It is in my medical opinion that she has end stage dementia and this is the cause of her poor oral intake - on Donepizil (7) Normocytic anemia Is this a current diagnosis for this admission?: Yes Plan: Hgb 8.6>7.4>7.7>7.7 - Heme + stools. Stool with noted red coloring. Likely from LGB. -As per ACP note by AMILCAR Pop patient's NOK and daughter wants hgb tx'd but denies wanting further workup including CT or colonscopy. - TIBC low (180), Iron WNL (62.7), Ferritin high (665) - s/p 1unit PRBC given 09/26. - Patient with evidence of anemia of chronic disease on top off acute GI bleed (8) Urinary tract infection Qualifiers: Urinary tract infection type: acute pyelonephritis Qualified Code(s): N10 - Acute pyelonephritis Is this a current diagnosis for this admission?: Yes Plan: Resolved. No further therapy necessary at this time. Completed 7 day course Ceftriaxone (as of 09/26) Valdovinos catheter exchanged 09/26. (9) Thrombocytopenia Is this a current diagnosis for this admission?: Yes Plan: - Plt 109>147 (10) Venous stasis ulcer of lower extremity Qualifiers: Laterality: bilateral Qualified Code(s): I83.019 - Varicose veins of right lower extremity with ulcer of unspecified site; I83.029 - Varicose veins of left lower extremity with ulcer of unspecified site; L97.919 - Non-pressure chronic ulcer of unspecified part of right lower leg with unspecified severity; L97.929 - Non-pressure chronic ulcer of unspecified part of left lower leg with unspecified severity Is this a current diagnosis for this admission?: Yes Plan: Chronic bilateral lower extremity stasis dermatitis. Without signs of infection. Continue wound care. Wound care evaluation pending. Elevate bilateral lower extremities. (11) Localized swelling of left upper extremity Is this a current diagnosis for this admission?: Yes Plan: As per DVT above. (12) Nonhealing wound of heel Is this a current diagnosis for this admission?: Yes Plan: Bilateral pressure wounds to heels; unstageable to the right and stage II to the left with evidence of early healing. Wound care nurse consultation; wound care per their recommendations. Offload heels. - Plan Summary Summary: - Time Time Spent with patient: 15-24 minutes Anticipated Discharge Disposition: [facility] Facility Anticipated Discharge Timeframe: tbd
[2020-10-03] MEDS: FAMOTIDINE 20 MG TABLET PO SCH (23:10)
[2020-10-03] MEDS: DONEPEZIL HCL 5 MG TABLET PO SCH (23:10)
[2020-10-04] MEDS: LEVOTHYROXINE SODIUM 0.1 MG TABLET PO SCH (05:11)
[2020-10-04] MEDS: DRONABINOL 2.5 MG CAPSULE PO SCH ×4 (05:12→23:10)
[2020-10-04] MEDS: FERROUS SULFATE 325 MG TABLET PO SCH (09:01)
[2020-10-04] MEDS: MULTIVITAMIN TABLET PO SCH (09:01)
[2020-10-04] MEDS: CHOLECALCIFEROL (D3) 400 UNIT TABLET PO SCH (09:01)
[2020-10-04] MEDS: ASCORBIC ACID 500 MG TABLET PO SCH (09:02)
[2020-10-04] MEDS: DEXTROSE 5%-1/4 NORMAL SALINE 1,000 ML IV PRN ×2 (09:02→23:09)
[2020-10-04] MEDS: CLONIDINE HCL 0.1 MG TABLET PO SCH ×2 (09:02→23:10)
[2020-10-04] MEDS: ZINC SULFATE 220 MG CAPSULE PO SCH (09:02)
[2020-10-04] MEDS: CYANOCOBALAMIN (VITAMIN B-12) 1,000 MCG TABLET PO SCH (09:02)
--- NOTE | 2020-10-04 16:47 | ADVANCED CARE ---
- Diagnosis (1) Failure to thrive in adult Diagnosis Current: Yes (2) CHF (congestive heart failure) Diagnosis Current: Yes (3) Acute on chronic renal failure Diagnosis Current: Yes (4) Acute pancreatitis Diagnosis Current: Yes (5) DVT of left axillary vein, acute Diagnosis Current: Yes (6) Dementia Diagnosis Current: Yes (7) Normocytic anemia Diagnosis Current: Yes (8) Urinary tract infection Diagnosis Current: Yes (9) Thrombocytopenia Diagnosis Current: Yes (10) Venous stasis ulcer of lower extremity Diagnosis Current: Yes (11) Localized swelling of left upper extremity Diagnosis Current: Yes (12) Nonhealing wound of heel Diagnosis Current: Yes Attendance: Karrie (Daughter) and Me GISELE and Karrie's friend Resuscitation Status: Do Not Resuscitate Discussion: I was able to speak to the patient's daughter and only child Karrie in the room with the patient. This friend was present as well during the discussion. I discussed with her the nature of her mom's illness which is end-stage dementia and this is the main reason why she is refusing to eat and has hardly taken any food or water the past few days. I explained to her that despite resolution of her mom's acute medical condition (acute pancreatitis and UTI) her appetite's mom is still unlikely to improve and if this continues she will eventually become emaciated, dehydrated, hypernatremic which can eventually lead to her . She is essentially hospice appropriate. Initial plan was to put a PEG tube in the patient but this was highly discouraged by the surgeon and I agreed with the surgeon that PEG tube placement has not really provided any benefit on patient with end-stage dementia. In addition to this her mom also stated that she does not want any surgery to make her eat. In line with this I also disc ussed with the daughter that she should be made comfort care and this will prevent her from undergoing unnecessary medical procedures that will not really benefit her or improve her quality of life. Naturally this includes PEG tube placement and CPR. She understood this and asked time to make her final decision. I touch base with her again this afternoon and she agreed to change her CODE STATUS to DNR and make her comfort care. KJ from discharge planning discussed with them hospice services however since her daughter is working and she will not be able to care for her mom at home and cannot afford a caregiver. She also cannot have hospice at [facility] since Medicare does not pay for both hospice and room and board at [facility]. Change her CODE STATUS to DNR and made her comfort care. Care Planning Goals: Patient CODE STATUS changed to DNR Document(s) Completed: None Time Spent: more than 30 minutes
--- NOTE | 2020-10-04 17:03 | PDOC PROGRESS REPORT ---
Subjective Date:: 10/04/20 Subjective:: DANK WHITE is a 85 year old female past medical history of dyslipidemia, hyp ertension, hypothyroidism, CKD, dementia, chronic bilateral lower extremity venous stasis, recurrent UTI with indwelling Valdovinos catheter, who was brought by EMS from [facility] after patient was found unresponsive in the shower by the staff. Unfortunately patient has dementia and does not recall any incident causing her to come to the hospital, patient's daughter who is in the room present stating that she does not know anything about the incident and she was just called by [facility] that her mother had coded as was being sent to the hospital. Source of information is chart review and my conversation with ED physician. As per EMS patient was found nonresponsive, was noted to breathing but they could not find a pulse, they started CPR and patient regained a pulse shortly after. A 20 EMS arrival patient was noted to be confused vital signs were stable and BGL was 166. In ED chest CT showed bilateral nodular airspace disease most marked in the lung bases, CT head was negative for any acute abnormalities, CT abdomen pelvis showed mild pancreatitis with slight inflammation and gallstones, abdominal ultrasound showed gallstones with no acute cholecystitis or common bile duct dilation. Patient was noted to have neutrophilic leukocytosis with no bandemia, worsening renal function, hypercalcemia and elevated lipase. Was also noted to have positive UA. Patient was transferred to the ICU 09/20/20 due to sepsis and acute pancreatitis, transferred back to floors 09/24/20. Since being transferred she has had poor oral intake. Multiple discussions have been conducted with the family regarding PEG tube placement. Surgery service assessed her as well and stated that a PEG tube placement would be not in her best interest since she is at risk of pulling it out. Surgery spoke to the patients daughter as well. 09/30/20 She was seen and examined at bedside. She is alert and awake but is not oriented to time, place and person. She stated that she does not want to eat because she's afraid she will get fat and I assure her that this is not the case and we want her to eat. Surgery has signed off and will not put a PEG tube in her. Patient was started on Dronabinol for appetite. 10/01/20 She was seen and examined at bedside. She is alert and awake and able to engage in some conversation but she is still very forgetful because of her dementia. I have tried to offer her ensure but she is unwilling. She was started on Dronabinol yesterday but I doubt this is going to make a difference in terms of her appetite. I spoke to her daughter and DAWIT Yoon and we have discussed hospice and avoiding PEG tube placement. She agrees that a PEG tube will not really help her mom and she also wishes to honor her moms choice of not putting a PEG tube. She wishes to know more about hospice and I have told her that I would reach out to our discharge planning to help her with this. 10/02/20 She was seen and examined at bedside. She is not aware that it is Thanksgiving today and according to the nurses she still has not eaten very well despite receiving dronabinol. She is off Oxygen support. 10/03/20 She was seen and examined at bedside in the morning and again in the afternoon with her daughter. KJ from discharge planning also spoke to them. I discussed with them that the patient still has poor appetite despite all her other acute medical issues resolving. Unfortunately according to our partner integration planner, she would need a caregiver to stay with her at home if she is going to go home with hospice and this is something her daughter will not be able to afford. She cannot get hospice in [facility] because she does not have medicaid. I discusses with them about at least making her DBR and comfort measures only and the daughter said she needs time to think. She is otherwise stable and ready to be discharged to [facility]. 10/04/20 She was seen and examined at bedside. She still continues to refuse food and water despite hand feeding her my self. She keeps saying she's full. However she denied any abdominal pain, no nausea/vomiting.She was started on D5W because her sodium is 146.6 and I am worried that with her refusing to eat pr drink this will be a problem down the line. Please refer to ACP note for full discussion regarding her CODE status and comfort care. Reason For Visit: ACUTE PANCREATITIS,HYPERCALCEMIA,DENISSE/CKD Physical Exam Vital Signs: Temp Pulse Resp BP Pulse Ox 97.4 F 63 16 140/46 H 92 10/04/20 10:00 10/04/20 11:10/04/20 11:10/04/20 11:10/04/20 11:26 Intake & Output 10/03/20 10/04/20 10/05/20 06:59 06:59 06:59 Intake Total 1210 150 0 Output Total 831 212 5207 Balance 830 -370 -1000 Weight 94 kg 95.4 kg 95.4 kg General appearance: PRESENT: no acute distress, cooperative, obese Head exam: PRESENT: atraumatic, normocephalic Eye exam: PRESENT: EOMI, PERRLA Mouth exam: PRESENT: moist Neck exam: PRESENT: full ROM Respiratory exam: PRESENT: clear to auscultation laurie, symmetrical, unlabored Cardiovascular exam: PRESENT: RRR, +S1, +S2 Pulses: PRESENT: normal carotid pulses Vascular exam: PRESENT: normal capillary refill GI/Abdominal exam: PRESENT: normal bowel sounds, soft. ABSENT: rebound, tenderness Extremities exam: PRESENT: full ROM Musculoskeletal exam: PRESENT: full ROM Neurological exam: PRESENT: alert, awake. ABSENT: oriented to person, oriented to place, oriented to time, oriented to situation Psychiatric exam: PRESENT: normal mood Results Laboratory Results: 10/03/20 05:18 10/03/20 05:18 09/19/20 09/19/20 09/20/20 12:00 20:31 08:50 Troponin I 0.013 < 0.012 NT-Pro-B Natriuret Pep 609 H 531 H 09/26/20 09/28/20 08:33 04:39 Troponin I NT-Pro-B Natriuret Pep 3190 H 4660 H Impressions: Acute Abdomen Series 09/19/20 11:58 IMPRESSION: Constipation. No other significant findings. Head CT 09/19/20 12:02 IMPRESSION: CHRONIC CHANGES OF ATROPHY AND MICROVASCULAR ISCHEMIA. NO ACUTE PROCESS. EVIDENCE OF ACUTE STROKE: NO. Chest CT 09/19/20 12:03 IMPRESSION: Bilateral nodular airspace disease most marked in the lung bases. This could be infectious, inflammatory or neoplastic. Does the patient have a known primary? No effusions. Abdomen/Pelvis CT 09/19/20 12:05 IMPRESSION: Question mild pancreatitis with slight inflammation noted surrounding the pancreatic head. Gallstones. Abdomen Ultrasound 09/19/20 15:14 IMPRESSION: Gallstones. Echogenic kidneys consistent with medical renal disease. Chest X-Ray 09/25/20 00:00 IMPRESSION: Increased diffuse interstitial infiltrates bilaterally, indeterminate for cardiogenic pulmonary edema versus an atypical interstitial pneumonia. Venous Doppler Study 09/29/20 00:00 IMPRESSION: Extensive DVT extending from the left axillary vein to the left internal jugular vein. Assessment and Plan - Diagnosis (1) Failure to thrive in adult Is this a current diagnosis for this admission?: Yes Plan: Patient with limited to almost no oral intake over the last several days. Averaged <400ml oral intake. Please refer to ACP note for full discussion. Essentially she is comfort care only and I have changed her CODE STATUS to DNR after discussing it with her daughter and power of attorney at law (2) Dementia Qualifiers: Dementia type: Alzheimer's disease Is this a current diagnosis for this admission?: Yes Plan: - It is in my medical opinion that she has end stage dementia and this is the cause of her poor oral intake - on Donepizil -Please refer to ACP note (3) CHF (congestive heart failure) Qualifiers: Heart failure type: unspecified Heart failure chronicity: unspecified Qualified Code(s): I50.9 - Heart failure, unspecified Is this a current diagnosis for this admission?: Yes Plan: -Patient without known history of CHF prior to hospitalization. -Patient previously receiving IV fluids for acute pancreatitis, which likely causes fluid overload and evidence of CHF. - Echo EF 65-70%, normal LV systolic function, impaired LV relaxation mild diastolic dyfunction, severe pulm hypertension pressure 65-70 mmhg - BNP 4660 - received 1 dose of lasix - has very poor water intake,crea is stable. Will encourage more fluid intake (4) Acute on chronic renal failure Qualifiers: Acute renal failure type: unspecified Chronic kidney disease stage: stage 3 (moderate) Is this a current diagnosis for this admission?: Yes Plan: CR 3.44-> 2.37>2.02. Baseline appears to be 2.0 - Avoid nephrotoxic medications. - will continue to monitor (5) Acute pancreatitis Qualifiers: Pancreatitis type: unspecified pancreatitis type Is this a current diagnosis for this admission?: Yes Plan: Resolved. Diet advanced to regular diet CT pancreas inflammation (09/19) Lipase 260, Triglycerides 100, A1c (07/2020) 6.3%. Analgesics and antiemetics as needed. (W/o need >48hrs) food intake still poor, (6) DVT of left axillary vein, acute Is this a current diagnosis for this admission?: Yes Plan: LUE with edema and erythema. LUE US notable for: Extensive DVT extending from the left axillary vein to the left internal jugular vein. As per Well's Score for DVT pt at high risk. Patient was on previously on Heparin for DVT prophylaxis, though has not received dose due to low Plt counts and recent GI bleed. Given pt's history as noted above patient is not a candidate for anticoagulation at this time. Patient's daughter was made aware of this and expressed understanding. (7) Normocytic anemia Is this a current diagnosis for this admission?: Yes Plan: Hgb 8.6>7.4>7.7>7.7 - Heme + stools. Stool with noted red coloring. Likely from LGB. -As per ACP note by AMILCAR Pop patient's NOK and daughter wants hgb tx'd but denies wanting further workup including CT or colonscopy. - TIBC low (180), Iron WNL (62.7), Ferritin high (665) - s/p 1unit PRBC given 09/26. - Patient with evidence of anemia of chronic disease on top off acute GI bleed (8) Urinary tract infection Qualifiers: Urinary tract infection type: acute pyelonephritis Qualified Code(s): N10 - Acute pyelonephritis Is this a current diagnosis for this admission?: Yes Plan: Resolved. No further therapy necessary at this time. Completed 7 day course Ceftriaxone (as of 09/26) Valdovinos catheter exchanged 09/26. (9) Thrombocytopenia Is this a current diagnosis for this admission?: Yes Plan: - Plt 109>147 (10) Venous stasis ulcer of lower extremity Qualifiers: Laterality: bilateral Qualified Code(s): I83.019 - Varicose veins of right lower extremity with ulcer of unspecified site; I83.029 - Varicose veins of left lower extremity with ulcer of unspecified site; L97.919 - Non-pressure chronic ulcer of unspecified part of right lower leg with unspecified severity; L97.929 - Non-pressure chronic ulcer of unspecified part of left lower leg with unspecified severity Is this a current diagnosis for this admission?: Yes Plan: Chronic bilateral lower extremity stasis dermatitis. Without signs of infection. Continue wound care. Wound care evaluation pending. Elevate bilateral lower extremities. (11) Localized swelling of left upper extremity Is this a current diagnosis for this admission?: Yes Plan: As per DVT above. (12) Nonhealing wound of heel Is this a current diagnosis for this admission?: Yes Plan: Bilateral pressure wounds to heels; unstageable to the right and stage II to the left with evidence of early healing. Wound care nurse consultation; wound care per their recommendations. Offload heels. - Plan Summary Summary: - Time Time Spent with patient: 25-34 minutes Medications reviewed and adjusted accordingly: Yes Anticipated Discharge Disposition: [facility] Facility Anticipated Discharge Timeframe: within 48 hours
[2020-10-04] MEDS: FAMOTIDINE 20 MG TABLET PO SCH (23:09)
[2020-10-04] MEDS: DONEPEZIL HCL 5 MG TABLET PO SCH (23:10)
[2020-10-05] MEDS: DRONABINOL 2.5 MG CAPSULE PO SCH ×4 (05:05→23:02)
[2020-10-05] MEDS: LEVOTHYROXINE SODIUM 0.1 MG TABLET PO SCH (05:06)
[2020-10-05] MEDS: ASCORBIC ACID 500 MG TABLET PO SCH (11:00)
[2020-10-05] MEDS: CLONIDINE HCL 0.1 MG TABLET PO SCH ×2 (11:00→22:16)
[2020-10-05] MEDS: CYANOCOBALAMIN (VITAMIN B-12) 1,000 MCG TABLET PO SCH (11:00)
[2020-10-05] MEDS: MULTIVITAMIN TABLET PO SCH (11:00)
[2020-10-05] MEDS: FERROUS SULFATE 325 MG TABLET PO SCH (11:00)
[2020-10-05] MEDS: ZINC SULFATE 220 MG CAPSULE PO SCH (11:01)
[2020-10-05] MEDS: CHOLECALCIFEROL (D3) 400 UNIT TABLET PO SCH (11:01)
[2020-10-05] MEDS: DEXTROSE 5%-1/4 NORMAL SALINE 1,000 ML IV PRN (11:12)
--- NOTE | 2020-10-05 14:15 | PDOC PROGRESS REPORT ---
Subjective Date:: 10/05/20 Subjective:: DANK WHITE is a 85 year old female past medical history of dyslipidemia, hyp ertension, hypothyroidism, CKD, dementia, chronic bilateral lower extremity venous stasis, recurrent UTI with indwelling Valdovinos catheter, who was brought by EMS from [facility] after patient was found unresponsive in the shower by the staff. Unfortunately patient has dementia and does not recall any incident causing her to come to the hospital, patient's daughter who is in the room present stating that she does not know anything about the incident and she was just called by [facility] that her mother had coded as was being sent to the hospital. Source of information is chart review and my conversation with ED physician. As per EMS patient was found nonresponsive, was noted to breathing but they could not find a pulse, they started CPR and patient regained a pulse shortly after. A 20 EMS arrival patient was noted to be confused vital signs were stable and BGL was 166. In ED chest CT showed bilateral nodular airspace disease most marked in the lung bases, CT head was negative for any acute abnormalities, CT abdomen pelvis showed mild pancreatitis with slight inflammation and gallstones, abdominal ultrasound showed gallstones with no acute cholecystitis or common bile duct dilation. Patient was noted to have neutrophilic leukocytosis with no bandemia, worsening renal function, hypercalcemia and elevated lipase. Was also noted to have positive UA. Patient was transferred to the ICU 09/20/20 due to sepsis and acute pancreatitis, transferred back to floors 09/24/20. Since being transferred she has had poor oral intake. Multiple discussions have been conducted with the family regarding PEG tube placement. Surgery service assessed her as well and stated that a PEG tube placement would be not in her best interest since she is at risk of pulling it out. Surgery spoke to the patients daughter as well. 09/30/20 She was seen and examined at bedside. She is alert and awake but is not oriented to time, place and person. She stated that she does not want to eat because she's afraid she will get fat and I assure her that this is not the case and we want her to eat. Surgery has signed off and will not put a PEG tube in her. Patient was started on Dronabinol for appetite. 10/01/20 She was seen and examined at bedside. She is alert and awake and able to engage in some conversation but she is still very forgetful because of her dementia. I have tried to offer her ensure but she is unwilling. She was started on Dronabinol yesterday but I doubt this is going to make a difference in terms of her appetite. I spoke to her daughter and DENISJOSETTE Yoon and we have discussed hospice and avoiding PEG tube placement. She agrees that a PEG tube will not really help her mom and she also wishes to honor her moms choice of not putting a PEG tube. She wishes to know more about hospice and I have told her that I would reach out to our discharge planning to help her with this. 10/02/20 She was seen and examined at bedside. She is not aware that it is Thanksgiving today and according to the nurses she still has not eaten very well despite receiving dronabinol. She is off Oxygen support. 10/03/20 She was seen and examined at bedside in the morning and again in the afternoon with her daughter. KJ from discharge planning also spoke to them. I discussed with them that the patient still has poor appetite despite all her other acute medical issues resolving. Unfortunately according to our shoe lay out planner, she would need a caregiver to stay with her at home if she is going to go home with hospice and this is something her daughter will not be able to afford. She cannot get hospice in [facility] because she does not have medicaid. I discusses with them about at least making her DBR and comfort measures only and the daughter said she needs time to think. She is otherwise stable and ready to be discharged to [facility]. 10/04/20 She was seen and examined at bedside. She still continues to refuse food and water despite hand feeding her my self. She keeps saying she's full. However she denied any abdominal pain, no nausea/vomiting.She was started on D5W because her sodium is 146.6 and I am worried that with her refusing to eat pr drink this will be a problem down the line. Please refer to ACP note for full discussion regarding her CODE status and comfort care. 10/05/20 She was seen and examined at bedside. No new complains, still with poor appetite. I will continue with low dose IV fluids for now. I spoke to discharge planning and they are working on sending her back to [facility]. Reason For Visit: ACUTE PANCREATITIS,HYPERCALCEMIA,DENISSE/CKD Physical Exam Vital Signs: Temp Pulse Resp BP Pulse Ox 97.1 F 61 18 171/67 H 96 10/05/20 00:15 10/05/20 00:15 10/05/20 00:15 10/05/20 00:15 10/05/20 00:15 Intake & Output 10/04/20 10/05/20 10/06/20 06:59 06:59 06:59 Intake Total 150 1000 964 Output Total 520 1605 Balance -370 -605 964 Weight 95.4 kg 93.7 kg General appearance: PRESENT: no acute distress, cooperative Head exam: PRESENT: atraumatic, normocephalic Eye exam: PRESENT: EOMI, PERRLA Mouth exam: PRESENT: moist Neck exam: PRESENT: full ROM Respiratory exam: PRESENT: clear to auscultation laurie, symmetrical, unlabored Cardiovascular exam: PRESENT: RRR, +S1, +S2 Pulses: PRESENT: normal carotid pulses GI/Abdominal exam: PRESENT: normal bowel sounds, soft. ABSENT: rebound, tenderness Extremities exam: PRESENT: other - Bedbound. ABSENT: +1 edema, +2 edema Musculoskeletal exam: PRESENT: normal inspection Neurological exam: PRESENT: alert, awake. ABSENT: oriented to person, oriented to place, oriented to time, oriented to situation Psychiatric exam: PRESENT: normal mood Skin exam: PRESENT: normal color Results Laboratory Results: 10/03/20 05:18 10/03/20 05:18 09/19/20 09/19/20 09/20/20 12:00 20:31 08:50 Troponin I 0.013 < 0.012 NT-Pro-B Natriuret Pep 609 H 531 H 09/26/20 09/28/20 08:33 04:39 Troponin I NT-Pro-B Natriuret Pep 3190 H 4660 H Impressions: Acute Abdomen Series 09/19/20 11:58 IMPRESSION: Constipation. No other significant findings. Head CT 09/19/20 12:02 IMPRESSION: CHRONIC CHANGES OF ATROPHY AND MICROVASCULAR ISCHEMIA. NO ACUTE PROCESS. EVIDENCE OF ACUTE STROKE: NO. Chest CT 09/19/20 12:03 IMPRESSION: Bilateral nodular airspace disease most marked in the lung bases. This could be infectious, inflammatory or neoplastic. Does the patient have a known primary? No effusions. Abdomen/Pelvis CT 09/19/20 12:05 IMPRESSION: Question mild pancreatitis with slight inflammation noted surroundi ng the pancreatic head. Gallstones. Abdomen Ultrasound 09/19/20 15:14 IMPRESSION: Gallstones. Echogenic kidneys consistent with medical renal disease. Chest X-Ray 09/25/20 00:00 IMPRESSION: Increased diffuse interstitial infiltrates bilaterally, indeterminate for cardiogenic pulmonary edema versus an atypical interstitial pneumonia. Venous Doppler Study 09/29/20 00:00 IMPRESSION: Extensive DVT extending from the left axillary vein to the left internal jugular vein. Assessment and Plan - Diagnosis (1) Failure to thrive in adult Is this a current diagnosis for this admission?: Yes Plan: Patient with limited to almost no oral intake over the last several days. Averaged <400ml oral intake. Please refer to ACP note for full discussion. Essentially she is comfort care only and I have changed her CODE STATUS to DNR after discussing it with her daughter and power of collections attorney. (2) Dementia Qualifiers: Dementia type: Alzheimer's disease Is this a current diagnosis for this admission?: Yes Plan: - It is in my medical opinion that she has end stage dementia and this is the cause of her poor oral intake - on Donepizil -Please refer to ACP note (3) CHF (congestive heart failure) Qualifiers: Heart failure type: unspecified Heart failure chronicity: unspecified Qualified Code(s): I50.9 - Heart failure, unspecified Is this a current diagnosis for this admission?: Yes Plan: -Patient without known history of CHF prior to hospitalization. -Patient previously receiving IV fluids for acute pancreatitis, which likely causes fluid overload and evidence of CHF. - Echo EF 65-70%, normal LV systolic function, impaired LV relaxation mild diastolic dyfunction, severe pulm hypertension pressure 65-70 mmhg - BNP 4660 - received 1 dose of lasix - has very poor water intake,crea is stable. Will encourage more fluid intake (4) Acute on chronic renal failure Qualifiers: Acute renal failure type: unspecified Chronic kidney disease stage: stage 3 (moderate) Is this a current diagnosis for this admission?: Yes Plan: CR 3.44-> 2.37>2.02. Baseline appears to be 2.0 - Avoid nephrotoxic medications. - will continue to monitor (5) Acute pancreatitis Qualifiers: Pancreatitis type: unspecified pancreatitis type Is this a current diagnosis for this admission?: Yes Plan: Resolved. Diet advanced to regular diet CT pancreas inflammation (09/19) Lipase 260, Triglycerides 100, A1c (07/2020) 6.3%. Analgesics and antiemetics as needed. (W/o need >48hrs) food intake still poor, (6) DVT of left axillary vein, acute Is this a current diagnosis for this admission?: Yes Plan: LUE with edema and erythema. LUE US notable for: Extensive DVT extending from the left axillary vein to the left internal jugular vein. As per Well's Score for DVT pt at high risk. Patient was on previously on Heparin for DVT prophylaxis, though has not received dose due to low Plt counts and recent GI bleed. Given pt's history as noted above patient is not a candidate for anticoagulation at this time. Patient's daughter was made aware of this and expressed understanding. (7) Normocytic anemia Is this a current diagnosis for this admission?: Yes Plan: Hgb 8.6>7.4>7.7>7.7 - Heme + stools. Stool with noted red coloring. Likely from LGB. -As per ACP note by AMILCAR Pop patient's NOK and daughter wants hgb tx'd but denies wanting further workup including CT or colonscopy. - TIBC low (180), Iron WNL (62.7), Ferritin high (665) - s/p 1unit PRBC given 09/26. - Patient with evidence of anemia of chronic disease on top off acute GI bleed (8) Urinary tract infection Qualifiers: Urinary tract infection type: acute pyelonephritis Qualified Code(s): N10 - Acute pyelonephritis Is this a current diagnosis for this admission?: Yes Plan: Resolved. No further therapy necessary at this time. Completed 7 day course Ceftriaxone (as of 09/26) Valdovinos catheter exchanged 09/26. (9) Thrombocytopenia Is this a current diagnosis for this admission?: Yes Plan: - Plt 109>147 (10) Venous stasis ulcer of lower extremity Qualifiers: Laterality: bilateral Qualified Code(s): I83.019 - Varicose veins of right lower extremity with ulcer of unspecified site; I83.029 - Varicose veins of left lower extremity with ulcer of unspecified site; L97.919 - Non-pressure chronic ulcer of unspecified part of right lower leg with unspecified severity; L97.929 - Non-pressure chronic ulcer of unspecified part of left lower leg with unspe cified severity Is this a current diagnosis for this admission?: Yes Plan: Chronic bilateral lower extremity stasis dermatitis. Without signs of infection. Continue wound care. Wound care evaluation pending. Elevate bilateral lower extremities. (11) Localized swelling of left upper extremity Is this a current diagnosis for this admission?: Yes Plan: As per DVT above. (12) Nonhealing wound of heel Is this a current diagnosis for this admission?: Yes Plan: Bilateral pressure wounds to heels; unstageable to the right and stage II to the left with evidence of early healing. Wound care nurse consultation; wound care per their recommendations. Offload heels. - Plan Summary Summary: - Time Time Spent with patient: 25-34 minutes Medications reviewed and adjusted accordingly: Yes Anticipated Discharge Disposition: [facility] Facility Anticipated Discharge Timeframe: TBD
[2020-10-05] MEDS: DONEPEZIL HCL 5 MG TABLET PO SCH (22:16)
[2020-10-05] MEDS: FAMOTIDINE 20 MG TABLET PO SCH (22:17)
[2020-10-06] MEDS: DEXTROSE 5%-1/4 NORMAL SALINE 1,000 ML IV PRN (01:35)
[2020-10-06 05:52] LABS: ABSOLUTE BASOPHILS # (AUTO) 0.1 10^3/uL (0.0-0.2); ABSOLUTE EOSINOPHILS # (AUTO) 0.4 10^3/uL (0.0-0.6); ABSOLUTE LYMPHOCYTES (AUTO) 1.8 10^3/uL (0.5-4.7); ABSOLUTE MONOCYTES (AUTO) 0.5 10^3/uL (0.1-1.4); ABSOLUTE NEUT (AUTO) 3.9 10^3/uL (1.7-8.2); BASOPHILS % (AUTO) 1.3 % (0-2); EOSINOPHILS % (AUTO) 5.7 % (0-6); HEMATOCRIT 25.1 % (36.0-47.0); HEMOGLOBIN 8.2 g/dL (12.0-15.5); LYMPHOCYTES % (AUTO) 26.4 % (13-45); MEAN CORPUSCULAR HEMOGLOBIN 28.9 pg (27.0-33.4); MEAN CORPUSCULAR HGB CONC 32.8 g/dL (32.0-36.0); MEAN CORPUSCULAR VOLUME 88 fl (80-97); MONOCYTES % (AUTO) 7.5 % (3-13); PLATELET COUNT 160 10^3/uL (150-450); RED BLOOD COUNT 2.85 10^6/uL (3.72-5.28); RED CELL DISTRIBUTION WIDTH 19.3 % (11.5-14.0); SEGMENTED NEUTROPHILS % (AUTO) 59.1 % (42-78); TOTAL CELLS COUNTED % (AUTO) 100 %; WHITE BLOOD COUNT 6.7 10^3/uL (4.0-10.5)
[2020-10-06] MEDS: LEVOTHYROXINE SODIUM 0.1 MG TABLET PO SCH (05:52)
[2020-10-06] MEDS: DRONABINOL 2.5 MG CAPSULE PO SCH ×3 (05:53→18:19)
[2020-10-06 06:31] LABS: ALBUMIN 2.8 g/dL (3.5-5.0); ALKALINE PHOSPHATASE 117 U/L (38-126); ANION GAP 10 (5-19); ASPARTATE AMINO TRANSFERASE 49 U/L (14-36); BILIRUBIN,DIRECT 0.2 mg/dL (0.0-0.4); BILIRUBIN,TOTAL 0.6 mg/dL (0.2-1.3); BLOOD UREA NITROGEN 19 mg/dL (7-20); CALCIUM 9.4 mg/dL (8.4-10.2); CARBON DIOXIDE 24 mmol/L (22-30); CHLORIDE 108 mmol/L (98-107); GLUCOSE 139 mg/dL (75-110); POTASSIUM 3.4 mmol/L (3.6-5.0); TOTAL PROTEIN 6.6 g/dL (6.3-8.2)
[2020-10-06] MEDS: ZINC SULFATE 220 MG CAPSULE PO SCH (11:45)
[2020-10-06] MEDS: ASCORBIC ACID 500 MG TABLET PO SCH (11:46)
[2020-10-06] MEDS: CHOLECALCIFEROL (D3) 400 UNIT TABLET PO SCH (11:46)
[2020-10-06] MEDS: CYANOCOBALAMIN (VITAMIN B-12) 1,000 MCG TABLET PO SCH (11:46)
[2020-10-06] MEDS: FERROUS SULFATE 325 MG TABLET PO SCH (11:46)
[2020-10-06] MEDS: CLONIDINE HCL 0.1 MG TABLET PO SCH ×2 (11:46→22:03)
[2020-10-06] MEDS: MULTIVITAMIN TABLET PO SCH (11:46)
--- NOTE | 2020-10-06 16:19 | PDOC PROGRESS REPORT ---
Subjective Date:: 10/06/20 Subjective:: DANK WHITE is a 85 year old female past medical history of dyslipidemia, hyp ertension, hypothyroidism, CKD, dementia, chronic bilateral lower extremity venous stasis, recurrent UTI with indwelling Valdovinos catheter, who was brought by EMS from [facility] after patient was found unresponsive in the shower by the staff. Unfortunately patient has dementia and does not recall any incident causing her to come to the hospital, patient's daughter who is in the room present stating that she does not know anything about the incident and she was just called by [facility] that her mother had coded as was being sent to the hospital. Source of information is chart review and my conversation with ED physician. As per EMS patient was found nonresponsive, was noted to breathing but they could not find a pulse, they started CPR and patient regained a pulse shortly after. A 20 EMS arrival patient was noted to be confused vital signs were stable and BGL was 166. In ED chest CT showed bilateral nodular airspace disease most marked in the lung bases, CT head was negative for any acute abnormalities, CT abdomen pelvis showed mild pancreatitis with slight inflammation and gallstones, abdominal ultrasound showed gallstones with no acute cholecystitis or common bile duct dilation. Patient was noted to have neutrophilic leukocytosis with no bandemia, worsening renal function, hypercalcemia and elevated lipase. Was also noted to have positive UA. Patient was transferred to the ICU 09/20/20 due to sepsis and acute pancreatitis, transferred back to floors 09/24/20. Since being transferred she has had poor oral intake. Multiple discussions have been conducted with the family regarding PEG tube placement. Surgery service assessed her as well and stated that a PEG tube placement would be not in her best interest since she is at risk of pulling it out. Surgery spoke to the patients daughter as well. 09/30/20 She was seen and examined at bedside. She is alert and awake but is not oriented to time, place and person. She stated that she does not want to eat because she's afraid she will get fat and I assure her that this is not the case and we want her to eat. Surgery has signed off and will not put a PEG tube in her. Patient was started on Dronabinol for appetite. 10/01/20 She was seen and examined at bedside. She is alert and awake and able to engage in some conversation but she is still very forgetful because of her dementia. I have tried to offer her ensure but she is unwilling. She was started on Dronabinol yesterday but I doubt this is going to make a difference in terms of her appetite. I spoke to her daughter and DAWIT Yoon and we have discussed hospice and avoiding PEG tube placement. She agrees that a PEG tube will not really help her mom and she also wishes to honor her moms choice of not putting a PEG tube. She wishes to know more about hospice and I have told her that I would reach out to our discharge planning to help her with this. 10/02/20 She was seen and examined at bedside. She is not aware that it is Thanksgiving today and according to the nurses she still has not eaten very well despite receiving dronabinol. She is off Oxygen support. 10/03/20 She was seen and examined at bedside in the morning and again in the afternoon with her daughter. KJ from discharge planning also spoke to them. I discussed with them that the patient still has poor appetite despite all her other acute medical issues resolving. Unfortunately according to our regional planner, she would need a caregiver to stay with her at home if she is going to go home with hospice and this is something her daughter will not be able to afford. She cannot get hospice in [facility] because she does not have medicaid. I discusses with them about at least making her DBR and comfort measures only and the daughter said she needs time to think. She is otherwise stable and ready to be discharged to [facility]. 10/04/20 She was seen and examined at bedside. She still continues to refuse food and water despite hand feeding her my self. She keeps saying she's full. However she denied any abdominal pain, no nausea/vomiting.She was started on D5W because her sodium is 146.6 and I am worried that with her refusing to eat pr drink this will be a problem down the line. Please refer to ACP note for full discussion regarding her CODE status and comfort care. 10/05/20 She was seen and examined at bedside. No new complains, still with poor appetite. I will continue with low dose IV fluids for now. I spoke to discharge planning and they are working on sending her back to [facility]. 10/06/20 She was seen and examined at bedside. Still with very little oral intake. She denies abdominal pain as the cause of her poor appetite, no trouble swallowing as well. I have spoken to LUISA about her disposition since she is now mainly comfort care. Ideally before sending her back to [facility] she should have hospice service. I also put in a PT consult for her. She is otherwise ready for transfer to [facility]. Reason For Visit: ACUTE PANCREATITIS,HYPERCALCEMIA,DENISSE/CKD Physical Exam Vital Signs: Temp Pulse Resp BP Pulse Ox 98.0 F 66 15 160/68 H 99 10/06/20 12:00 10/06/20 12:00 10/06/20 12:00 10/06/20 12:00 10/06/20 12:00 Intake & Output 10/05/20 10/06/20 10/07/20 06:59 06:59 06:59 Intake Total 1000 2064 553 Output Total 1605 1600 Balance -605 464 553 Weight 93.7 kg 94 kg General appearance: PRESENT: no acute distress, cooperative, obese Head exam: PRESENT: atraumatic, normocephalic Eye exam: PRESENT: EOMI, PERRLA Mouth exam: PRESENT: moist Neck exam: PRESENT: full ROM Respiratory exam: PRESENT: clear to auscultation laurie, symmetrical, unlabored Cardiovascular exam: PRESENT: RRR, +S1, +S2 Pulses: PRESENT: +2 pedal pulses bilateral GI/Abdominal exam: PRESENT: normal bowel sounds, soft. ABSENT: rebound, tenderness Extremities exam: PRESENT: full ROM Musculoskeletal exam: PRESENT: full ROM Neurological exam: PRESENT: alert, awake, other - she frequently forgets all things we have discussed the previous days. ABSENT: oriented to person, oriented to place, oriented to time Psychiatric exam: PRESENT: normal mood Skin exam: PRESENT: normal color Results Laboratory Results: 10/06/20 04:29 10/06/20 04:29 10/06/20 10/06/20 04:29 04:29 WBC 6.7 RBC 2.85 L Hgb 8.2 L Hct 25.1 L MCV 88 MCH 28.9 MCHC 32.8 RDW 19.3 H Plt Count 160 Seg Neutrophils % 59.1 Sodium 142.0 Potassium 3.4 L Chloride 108 H Carbon Dioxide 24 Anion Gap 10 BUN 19 Creatinine 1.46 H Est GFR ( Amer) 41 L Glucose 139 H Calcium 9.4 Total Bilirubin 0.6 AST 49 H Alkaline Phosphatase 117 Total Protein 6.6 Albumin 2.8 L 09/19/20 09/19/20 09/20/20 12:00 20:31 08:50 Troponin I 0.013 < 0.012 NT-Pro-B Natriuret Pep 609 H 531 H 09/26/20 09/28/20 08:33 04:39 Troponin I NT-Pro-B Natriuret Pep 3190 H 4660 H Impressions: Acute Abdomen Series 09/19/20 11:58 IMPRESSION: Constipation. No other significant findings. Head CT 09/19/20 12:02 IMPRESSION: CHRONIC CHANGES OF ATROPHY AND MICROVASCULAR ISCHEMIA. NO ACUTE PROCESS. EVIDENCE OF ACUTE STROKE: NO. Chest CT 09/19/20 12:03 IMPRESSION: Bilateral nodular airspace disease most marked in the lung bases. This could be infectious, inflammatory or neoplastic. Does the patient have a known primary? No effusions. Abdomen/Pelvis CT 09/19/20 12:05 IMPRESSION: Question mild pancreatitis with slight inflammation noted surrounding the pancreatic head. Gallstones. Abdomen Ultrasound 09/19/20 15:14 IMPRESSION: Gallstones. Echogenic kidneys consistent with medical renal disease. Chest X-Ray 09/25/20 00:00 IMPRESSION: Increased diffuse interstitial infiltrates bilaterally, indeterminate for cardiogenic pulmonary edema versus an atypical interstitial pneumonia. Venous Doppler Study 09/29/20 00:00 IMPRESSION: Extensive DVT extending from the left axillary vein to the left internal jugular vein. Assessment and Plan - Diagnosis (1) Failure to thrive in adult Is this a current diagnosis for this admission?: Yes Plan: Patient with limited to almost no oral intake over the last several days. Averaged <400ml oral intake. PEG tube was discussed and daughter agrees taht this will not benefit her in the long run Please refer to ACP note for full discussion. Essentially she is comfort care only and I have changed her CODE STATUS to DNR after discussing it with her daughter and power of real estate attorney. (2) Dementia Qualifiers: Dementia type: Alzheimer's disease Is this a current diagnosis for this admission?: Yes Plan: - It is in my medical opinion that she has end stage dementia and this is the cause of her poor oral intake - on Donepizil -Please refer to ACP note (3) CHF (congestive heart failure) Qualifiers: Heart failure type: unspecified Heart failure chronicity: unspecified Qualified Code(s): I50.9 - Heart failure, unspecified Is this a current diagnosis for this admission?: Yes Plan: -Patient without known history of CHF prior to hospitalization. -Patient previously receiving IV fluids for acute pancreatitis, which likely causes fluid overload and evidence of CHF. - Echo EF 65-70%, normal LV systolic function, impaired LV relaxation mild diastolic dyfunction, severe pulm hypertension pressure 65-70 mmhg - BNP 4660 - received 1 dose of lasix - has very poor water intake,crea is stable. Will encourage more fluid intake (4) Acute on chronic renal failure Qualifiers: Acute renal failure type: unspecified Chronic kidney disease stage: stage 3 (moderate) Is this a current diagnosis for this admission?: Yes Plan: CR 3.44-> 2.37>2.02. Baseline appears to be 2.0 - Avoid nephrotoxic medications. - will continue to monitor (5) Acute pancreatitis Qualifiers: Pancreatitis type: unspecified pancreatitis type Is this a current diagnosis for this admission?: Yes Plan: Resolved. Diet advanced to regular diet CT pancreas inflammation (09/19) Lipase 260, Triglycerides 100, A1c (07/2020) 6.3%. Analgesics and antiemetics as needed. (W/o need >48hrs) food intake still poor, (6) DVT of left axillary vein, acute Is this a current diagnosis for this admission?: Yes Plan: LUE with edema and erythema. LUE US notable for: Extensive DVT extending from the left axillary vein to the left internal jugular vein. As per Well's Score for DVT pt at high risk. Patient was on previously on Heparin for DVT prophylaxis, though has not received dose due to low Plt counts and recent GI bleed. Given pt's history as noted above patient is not a candidate for anticoagulation at this time. Patient's daughter was made aware of this and expressed understanding. (7) Normocytic anemia Is this a current diagnosis for this admission?: Yes Plan: Hgb 8.6>7.4>7.7>7.7>8.2 - Heme + stools. Stool with noted red coloring. Likely from LGB. -As per ACP note by AMILCAR Pop patient's NOK and daughter wants hgb tx'd but denies wanting further workup including CT or colonscopy. - TIBC low (180), Iron WNL (62.7), Ferritin high (665) - s/p 1unit PRBC given 09/26. - Patient with evidence of anemia of chronic disease on top off acute GI bleed (8) Urinary tract infection Qualifiers: Urinary tract infection type: acute pyelonephritis Qualified Code(s): N10 - Acute pyelonephritis Is this a current diagnosis for this admission?: Yes Plan: Resolved. No further therapy necessary at this time. Completed 7 day course Ceftriaxone (as of 09/26) Valdovinos catheter exchanged 09/26. (9) Thrombocytopenia Is this a current diagnosis for this admission?: Yes Plan: - RESOLVED -Plt 109>147 (10) Venous stasis ulcer of lower extremity Qualifiers: Laterality: bilateral Qualified Code(s): I83.019 - Varicose veins of right lower extremity with ulcer of unspecified site; I83.029 - Varicose veins of left lower extremity with ulcer of unspecified site; L97.919 - Non-pressure chronic ulcer of unspecified part of right lower leg with unspecified severity; L97.929 - Non-pressure chronic ulcer of unspecified part of left lower leg with unspecified severity Is this a current diagnosis for this admission?: Yes Plan: Chronic bilateral lower extremity stasis dermatitis. Without signs of infection. Continue wound care. Elevate bilateral lower extremities. (11) Localized swelling of left upper extremity Is this a current diagnosis for this admission?: Yes Plan: As per DVT above. (12) Nonhealing wound of heel Is this a current diagnosis for this admission?: Yes Plan: Bilateral pressure wounds to heels; unstageable to the right and stage II to the left with evidence of early healing. Wound care nurse consultation; wound care per their recommendations. Offload heels. - Plan Summary Summary: - Time Time Spent with patient: 15-24 minutes Medications reviewed and adjusted accordingly: Yes Anticipated [facility]charge [facility]position[facility] Anticipated Discharge Timeframe: TBD
[2020-10-06] MEDS: POTASSI CL 20 MEQ/50 ML RIDER 20 MEQ/50 ML RTUPB IV SCH ×2 (18:19→20:28)
[2020-10-06] MEDS: DONEPEZIL HCL 5 MG TABLET PO SCH (22:04)
[2020-10-06] MEDS: FAMOTIDINE 20 MG TABLET PO SCH (22:04)
[2020-10-07] MEDS: DRONABINOL 2.5 MG CAPSULE PO SCH ×3 (00:05→12:17)
[2020-10-07] MEDS: LEVOTHYROXINE SODIUM 0.1 MG TABLET PO SCH (05:32)
[2020-10-07] MEDS: MULTIVITAMIN TABLET PO SCH (12:17)
[2020-10-07] MEDS: FERROUS SULFATE 325 MG TABLET PO SCH (12:17)
[2020-10-07] MEDS: ASCORBIC ACID 500 MG TABLET PO SCH (12:17)
[2020-10-07] MEDS: CLONIDINE HCL 0.1 MG TABLET PO SCH (12:17)
[2020-10-07] MEDS: CYANOCOBALAMIN (VITAMIN B-12) 1,000 MCG TABLET PO SCH (12:18)
[2020-10-07] MEDS: ZINC SULFATE 220 MG CAPSULE PO SCH (12:18)
[2020-10-07] MEDS: CHOLECALCIFEROL (D3) 400 UNIT TABLET PO SCH (12:18)
[2020-10-07] MEDS ORDERED: CLONIDINE HCL 0.1 MG TABLET PO SCH (14:00)
[2020-10-07] MEDS: CLONIDINE HCL 0.2 MG TABLET PO SCH ×3 (14:13→23:07)
--- NOTE | 2020-10-07 16:22 | PDOC TRANSFER SUMMARY ---
Impression - Admit/DC Date/PCP Admission Date/Primary Care Provider: 09/19/20 16:06 JUAN SNYDER MD Discharge Date: 10/07/20 - Assessment Summary: Per Previous Physician: "DANK WHITE is a 85 year old female past medical history of dyslipidemia, hypertension, hypothyroidism, CKD, dementia, chronic bilateral lower extremity venous stasis, recurrent UTI with indwelling Valdovinos catheter, who was brought by EMS from [facility] after patient was found unresponsive in the shower by the staff. Unfortunately patient has dementia and does not recall any incident causing her to come to the hospital, patient's daughter who is in the room present stating that she does not know anything about the incident and she was just called by [facility] that her mother had coded as was being sent to the hospital. Source of information is chart review and my conversation with ED physician. As per EMS patient was found nonresponsive, was noted to breathing but they could not find a pulse, they started CPR and patient regained a pulse shortly after. A 20 EMS arrival patient was noted to be confused vital signs were stable and BGL was 166. In ED chest CT showed bilateral nodular airspace disease most marked in the lung bases, CT head was negative for any acute abnormalities, CT abdomen pelvis showed mild pancreatitis with slight inflammation and gallstones, abdominal ultrasound showed gallstones with no acute cholecystitis or common bile duct dilation. Patient was noted to have neutrophilic leukocytosis with no bandemia, worsening renal function, hypercalcemia and elevated lipase. Was also noted to have positive UA. Patient was transferred to the ICU 09/20/20 due to sepsis and acute pancreatitis, transferred back to floors 09/24/20. Since being transferred she has had poor oral intake. Multiple discussions have been conducted with the family regarding PEG tube placement. Surgery service assessed her as well and stated that a PEG tube placement would be not in her best interest since she is at risk of pulling it out. Surgery spoke to the patients daughter as well. 09/30/20 She was seen and examined at bedside. She is alert and awake but is not oriented to time, place and person. She stated that she does not want to eat because she's afraid she will get fat and I assure her that this is not the case and we want her to eat. Surgery has signed off and will not put a PEG tube in her. Patient was started on Dronabinol for appetite. 10/01/20 She was seen and examined at bedside. She is alert and awake and able to engage in some conversation but she is still very forgetful because of her dementia. I have tried to offer her ensure but she is unwilling. She was started on Dronabinol yesterday but I doubt this is going to make a difference in terms of her appetite. I spoke to her daughter and DAWIT Yoon and we have discussed hospice and avoiding PEG tube placement. She agrees that a PEG tube will not really help her mom and she also wishes to honor her moms choice of not putting a PEG tube. She wishes to know more about hospice and I have told her that I would reach out to our discharge planning to help her with this. 10/02/20 She was seen and examined at bedside. She is not aware that it is Thanksgiving today and according to the nurses she still has not eaten very well despite receiving dronabinol. She is off Oxygen support. 10/03/20 She was seen and examined at bedside in the morning and again in the afternoon with her daughter. LUISA from discharge planning also spoke to them. I discussed with them that the patient still has poor appetite despite all her other acute medical issues resolving. Unfortunately according to our environmental restoration planner, she would need a caregiver to stay with her at home if she is going to go home with hospice and this is something her daughter will not be able to afford. She cannot get hospice in [facility] because she does not have medicaid. I discusses with them about at least making her DBR and comfort measures only and the daughter said she needs time to think. She is otherwise stable and ready to be discharged to [facility]. 10/04/20 She was seen and examined at bedside. She still continues to refuse food and water despite hand feeding her my self. She keeps saying she's full. However she denied any abdominal pain, no nausea/vomiting.She was started on D5W because her sodium is 146.6 and I am worried that with her refusing to eat pr drink this will be a problem down the line. Please refer to ACP note for full discussion regarding her CODE status and comfort care. 10/05/20 She was seen and examined at bedside. No new complains, still with poor appetite. I will continue with low dose IV fluids for now. I spoke to discharge planning and they are working on sending her back to [facility]. 10/06/20 She was seen and examined at bedside. Still with very little oral intake. She denies abdominal pain as the cause of her poor appetite, no trouble swallowing as well. I have spoken to KJ about her disposition since she is now mainly comfort care. Ideally before sending her back to [facility] she should have hospice service. I also put in a PT consult for her. She is otherwise ready for transfer to [facility]. " 10/07/2020 Patient will be discharged to nursing facility for hospice care. He has previously been living there on a long-term care plan. Patient has been made comfort measures per daughter request. This was confirmed with Dr. Alcaraz. DISCHARGE TO NURSING FACILITY FOR HOSPICE PER DAUGHTER/MPOA REQUEST DNR/DNI (1) Failure to thrive in adult Is this a current diagnosis for this admission?: Yes Plan: Patient with limited to almost no oral intake over the last several days. Averaged <400ml oral intake. PEG tube was discussed and daughter agrees taht this will not benefit her in the long run Please refer to ACP note for full discussion. Essentially she is comfort care only and I have changed her CODE STATUS to DNR after discussing it with her daughter and power of immigration attorney. (2) Dementia Qualifiers: Dementia type: Alzheimer's disease Is this a current diagnosis for this admission?: Yes Plan: - It is in my medical opinion that she has end stage dementia and this is the cause of her poor oral intake - on Donepizil -Please refer to ACP note (3) CHF (congestive heart failure) Qualifiers: Heart failure type: unspecified Heart failure chronicity: unspecified Qualified Code(s): I50.9 - Heart failure, unspecified Is this a current diagnosis for this admission?: Yes Plan: -Patient without known history of CHF prior to hospitalization. -Patient previously receiving IV fluids for acute pancreatitis, which likely causes fluid overload and evidence of CHF. - Echo EF 65-70%, normal LV systolic function, impaired LV relaxation mild diastolic dyfunction, severe pulm hypertension pressure 65-70 mmhg - BNP 4660 - received 1 dose of lasix - has very poor water intake,crea is stable. Will encourage more fluid intake (4) Acute on chronic renal failure Qualifiers: Acute renal failure type: unspecified Chronic kidney disease stage: stage 3 (moderate) Is this a current diagnosis for this admission?: Yes Plan: CR 3.44-> 2.37>2.02. Baseline appears to be 2.0 - Avoid nephrotoxic medications. - will continue to monitor (5) Acute pancreatitis Qualifiers: Pancreatitis type: unspecified pancreatitis type Is this a current diagnosis for this admission?: Yes Plan: Resolved. Diet advanced to regular diet CT pancreas inflammation (09/19) Lipase 260, Triglycerides 100, A1c (07/2020) 6.3%. Analgesics and antiemetics as needed. (W/o need >48hrs) food intake still poor, (6) DVT of left axillary vein, acute Is this a current diagnosis for this admission?: Yes Plan: LUE with edema and erythema. LUE US notable for: Extensive DVT extending from the left axillary vein to the left internal jugular vein. As per Well's Score for DVT pt at high risk. Patient was on previously on Heparin for DVT prophylaxis, though has not received dose due to low Plt counts and recent GI bleed. Given pt's history as noted above patient is not a candidate for anticoagulation at this time. Patient's daughter was made aware of this and expressed understanding. (7) Normocytic anemia Is this a current diagnosis for this admission?: Yes Plan: Hgb 8.6>7.4>7.7>7.7>8.2 - Heme + stools. Stool with noted red coloring. Likely from LGB. -As per ACP note by Claudine Wheatley, FELTON-C patient's NOK and daughter wants hgb tx'd but denies wanting further workup including CT or colonscopy. - TIBC low (180), Iron WNL (62.7), Ferritin high (665) - s/p 1unit PRBC given 09/26. - Patient with evidence of anemia of chronic disease on top off acute GI bleed (8) Urinary tract infection Qualifiers: Urinary tract infection type: acute pyelonephritis Qualified Code(s): N10 - Acute pyelonephritis Is this a current diagnosis for this admission?: Yes Plan: Resolved. No further therapy necessary at this time. Completed 7 day course Ceftriaxone (as of 09/26) Valdovinos catheter exchanged 09/26. (9) Thrombocytopenia Is this a current diagnosis for this admission?: Yes Plan: - RESOLVED -Plt 109>147 (10) Venous stasis ulcer of lower extremity Qualifiers: Laterality: bilateral Qualified Code(s): I83.019 - Varicose veins of right lower extremity with ulcer of unspecified site; I83.029 - Varicose veins of left lower extremity with ulcer of unspecified site; L97.919 - Non-pressure chronic ulcer of unspecified part of right lower leg with unspecified severity; L97.929 - Non-pressure chronic ulcer of unspecified part of left lower leg with unspecified severity Is this a current diagnosis for this admission?: Yes Plan: Chronic bilateral lower extremity stasis dermatitis. Without signs of infection. Continue wound care. Elevate bilateral lower extremities. (11) Localized swelling of left upper extremity Is this a current diagnosis for this admission?: Yes Plan: As per DVT above. (12) Nonhealing wound of heel Is this a current diagnosis for this admission?: Yes Plan: Bilateral pressure wounds to heels; unstageable to the right and stage II to the left with evidence of early healing. Wound care nurse consultation; wound care per their recommendations. Offload heels. - Additional Information Resuscitation Status: Do Not Resuscitate Discharge Diet: As Tolerated, Regular Referrals: JUAN SNYDER MD [Primary Care Provider] - Follow up as needed Home Medications: Ascorbic Acid [Vitamin C 500 mg Tablet] 500 mg PO DAILY 07/08/20 Aspirin [Ecotrin 81 mg EC Tablet] 81 mg PO DAILY 07/08/20 Cholecalciferol (Vitamin D3) [Vitamin D3 400 Unit Tablet] 400 unit PO DAILY 07/08/20 Cyanocobalamin (Vitamin B-12) [Vitamin B-12 1000 mcg Tablet] 1 tab PO DAILY 07/08/20 Donepezil HCl 10 mg PO QHS 07/08/20 Vits96/Iron Fum/Folic [ Tablet] 1 each PO DAILY 07/08/20 Acetaminophen [Tylenol 325 mg Tablet] 650 mg PO Q4HP PRN 08/21/20 Bisacodyl [Dulcolax 10 mg Supp.rect] 10 mg LA DAILYP PRN 08/21/20 Dronabinol [Marinol 2.5 mg Capsule] 5 mg PO BIDACBS 08/21/20 Ferrous Sulfate [Feosol 325 mg Tablet] 325 mg PO DAILY 08/21/20 Multivitamin with Minerals [One Daily Plus Minerals] 1 each PO DAILY 08/21/20 Nut.tx.comp. Immune Systm,Reg [Impact Advanced Recovery] 178 ml PO BID 08/21/20 Zinc Oxide [Zinc Oxide 20% Ointment 28.35 gm] 1 applic TP DAILYP PRN 08/21/20 Zinc Sulfate [Zinc-220 Capsule] 220 mg PO DAILY 08/21/20 Docusate Sodium [Colace 100 mg Capsule] 100 mg PO BID 09/19/20 Levothyroxine Sodium [Synthroid] 200 mcg PO Q6AM 09/19/20 Loperamide HCl [Loperamide] 2 mg PO Q6HP PRN 09/19/20 Ondansetron [Zofran Odt 4 mg Tablet] 4 mg PO Q4HP PRN 09/19/20 Clonidine HCl [Catapres 0.2 mg Tablet] 0.2 mg PO Q8 tablet 10/07/20 History of Present Illiness History of Present Illness: DANK WHITE is a 85 year old female Physical Exam Vital Signs: Temp Pulse Resp BP Pulse Ox 97.3 F 68 21 H 180/47 H 91 L 10/07/20 11:13 10/07/20 11:13 10/07/20 11:13 10/07/20 13:19 10/07/20 11:13 Intake & Output 10/06/20 10/07/20 10/08/20 06:59 06:59 06:59 Intake Total 2064 753 20 Output Total 1600 1150 450 Balance 464 -397 -430 Weight 94 kg 94 kg 94 kg Exam: General appearance: PRESENT: no acute distress, chronically ill-appearing elderly female, repeatedly states she wants to get out of bed Head exam: PRESENT: atraumatic, normocephalic Eye exam: PRESENT: conjunctiva pink. ABSENT: scleral icterus Mouth exam: PRESENT: moist Respiratory exam: PRESENT: clear to auscultation laurie. ABSENT: rales, rhonchi, wheezes Cardiovascular exam: PRESENT: RRR. ABSENT: diastolic murmur, rubs, systolic mur mur GI/Abdominal exam: PRESENT: normal bowel sounds, soft. ABSENT: distended, guarding, mass, organolmegaly, rebound, tenderness Neurological exam: PRESENT: alert, awake, oriented to person and place Psychiatric exam: PRESENT: appropriate affect, normal mood Skin exam: PRESENT: dry, intact, warm Results Laboratory Results: WBC 6.7 10^3/uL (4.0-10.5) 10/06/20 04:29 RBC 2.85 10^6/uL (3.72-5.28) L 10/06/20 04:29 Hgb 8.2 g/dL (12.0-15.5) L 10/06/20 04:29 Hct 25.1 % (36.0-47.0) L 10/06/20 04:29 MCV 88 fl (80-97) 10/06/20 04:29 MCH 28.9 pg (27.0-33.4) 10/06/20 04:29 MCHC 32.8 g/dL (32.0-36.0) 10/06/20 04:29 RDW 19.3 % (11.5-14.0) H 10/06/20 04:29 Plt Count 160 10^3/uL (150-450) 10/06/20 04:29 Lymph % (Auto) 26.4 % (13-45) 10/06/20 04:29 Lamb % (Auto) 7.5 % (3-13) 10/06/20 04:29 Eos % (Auto) 5.7 % (0-6) 10/06/20 04:29 Baso % (Auto) 1.3 % (0-2) 10/06/20 04:29 Reticulocyte # 0.024 10^6/uL (0.028-0.122) L 09/27/20 04:44 Absolute Neuts (auto) 3.9 10^3/uL (1.7-8.2) 10/06/20 04:29 Absolute Lymphs (auto) 1.8 10^3/uL (0.5-4.7) 10/06/20 04:29 Absolute Monos (auto) 0.5 10^3/uL (0.1-1.4) 10/06/20 04:29 Absolute Eos (auto) 0.4 10^3/uL (0.0-0.6) 10/06/20 04:29 Absolute Basos (auto) 0.1 10^3/uL (0.0-0.2) 10/06/20 04:29 Total Counted 100 10/03/20 05:18 Seg Neutrophils % 59.1 % (42-78) 10/06/20 04:29 Seg Neuts % (Manual) 77 % (42-78) 10/03/20 05:18 Lymphocytes % (Manual) 14 % (13-45) 10/03/20 05:18 Atypical Lymphs % 1 % (0) 09/22/20 05:03 Monocytes % (Manual) 7 % (3-13) 10/03/20 05:18 Eosinophils % (Manual) 2 % (0-6) 10/03/20 05:18 Basophils % (Manual) 0 % (0-2) 10/03/20 05:18 Abs Neuts (Manual) 6.5 10^3/uL (1.7-8.2) 10/03/20 05:18 Abs Lymphs (Manual) 1.2 10^3/uL (0.5-4.7) 10/03/20 05:18 Abs Monocytes (Manual) 0.6 10^3/uL (0.1-1.4) 10/03/20 05:18 Absolute Eos (Manual) 0.2 10^3/uL (0.0-0.6) 10/03/20 05:18 Abs Basophils (Manual) 0.0 10^3/uL (0.0-0.2) 10/03/20 05:18 Nucleated RBCs 2 /100 WBC (0) 09/22/20 17:56 Toxic Granulation SLIGHT 09/27/20 18:00 Large Platelets PRESENT 09/22/20 17:56 Platelet Comment DECREASED 10/03/20 05:18 Polychromasia SLIGHT 09/21/20 07:05 Hypochromasia 1+ 10/03/20 05:18 Poikilocytosis SLIGHT 10/03/20 05:18 Basophilic Stippling PRESENT 09/22/20 17:56 Anisocytosis 1+ 10/03/20 05:18 Tear Drop Cells SLIGHT 09/27/20 18:00 Ovalocytes SLIGHT 10/03/20 05:18 Jonathan Cells SLIGHT 09/27/20 18:00 Schistocytes SLIGHT 10/03/20 05:18 RBC Morph Comment NORMO-CYTIC/CHROMIC 09/20/20 08:50 Retic Count (auto) 1.04 % (0.66-2.85) 09/27/20 04:44 PT 14.5 SEC (11.4-15.4) 09/28/20 10:30 INR 1.11 09/28/20 10:30 APTT 46.6 SEC (23.5-35.8) H 09/28/20 10:30 Sodium 142.0 mmol/L (137-145) 10/06/20 04:29 Potassium 3.4 mmol/L (3.6-5.0) L 10/06/20 04:29 Chloride 108 mmol/L (98-107) H 10/06/20 04:29 Carbon Dioxide 24 mmol/L (22-30) 10/06/20 04:29 Anion Gap 10 (5-19) 10/06/20 04:29 BUN 19 mg/dL (7-20) 10/06/20 04:29 Creatinine 1.46 mg/dL (0.52-1.25) H 10/06/20 04:29 Est GFR ( Amer) 41 (>60) L 10/06/20 04:29 Est GFR (MDRD) Non-Af 34 (>60) L 10/06/20 04:29 Glucose 139 mg/dL (75-110) H 10/06/20 04:29 POC Glucose 118 mg/dL (70-110) H 09/28/20 22:41 Lactic Acid 1.7 mmol/L (0.7-2.1) 09/19/20 12:00 Calcium 9.4 mg/dL (8.4-10.2) 10/06/20 04:29 Magnesium 2.5 mg/dL (1.6-2.3) H 09/21/20 07:05 Iron 62.7 ug/dL (37-170) 09/27/20 04:44 TIBC 180 ug/dL (250-450) L 09/27/20 04:44 % Saturation 35 % 09/27/20 04:44 Ferritin 665.00 ng/mL (11.1-264.0) H 09/27/20 04:44 Total Bilirubin 0.6 mg/dL (0.2-1.3) 10/06/20 04:29 Direct Bilirubin 0.2 mg/dL (0.0-0.4) 10/06/20 04:29 Neonat Total Bilirubin Not Reportable 10/06/20 04:29 Neonat Direct Bilirubin Not Reportable 10/06/20 04:29 Neonat Indirect Bili Not Reportable 10/06/20 04:29 AST 49 U/L (14-36) H 10/06/20 04:29 ALT 42 U/L (<35) H 10/06/20 04:29 Alkaline Phosphatase 117 U/L (38-126) 10/06/20 04:29 Troponin I < 0.012 ng/mL 09/19/20 20:31 NT-Pro-B Natriuret Pep 4660 pg/mL (<450) H 09/28/20 04:39 Total Protein 6.6 g/dL (6.3-8.2) 10/06/20 04:29 Albumin 2.8 g/dL (3.5-5.0) L 10/06/20 04:29 Triglycerides 100 mg/dL (<150) 09/19/20 12:00 Lipase 260.0 U/L (23-300) 09/26/20 04:16 Vitamin B12 > 1000.0 pg/mL (239-931) H 09/27/20 04:44 Folate > 20.00 ng/mL (>2.76) 09/27/20 04:44 TSH 11.00 uIU/mL (0.47-4.68) H 09/20/20 08:50 Free T4 1.78 ng/dL (0.78-2.19) 09/20/20 08:50 Free T3 pg/mL 2.10 pg/mL (2.77-5.27) L 09/20/20 08:50 Urine Color YELLOW 09/25/20 15:40 Urine Appearance SLIGHTLY-CLOUDY 09/25/20 15:40 Urine pH 5.0 (5.0-9.0) 09/25/20 15:40 Ur Specific [place] 1.012 09/25/20 15:40 Urine Protein 100 mg/dL (NEGATIVE) H 09/25/20 15:40 Urine Glucose (UA) NEGATIVE mg/dL (NEGATIVE) 09/25/20 15:40 Urine Ketones NEGATIVE mg/dL (NEGATIVE) 09/25/20 15:40 Urine Blood LARGE (NEGATIVE) H 09/25/20 15:40 Urine Nitrite NEGATIVE (NEGATIVE) 09/19/20 11:20 Urine Nitrite (Reflex) NEGATIVE (NEGATIVE) 09/25/20 15:40 Urine Bilirubin NEGATIVE (NEGATIVE) 09/25/20 15:40 Urine Urobilinogen NEGATIVE mg/dL (<2.0) 09/25/20 15:40 Ur Leukocyte Esterase MODERATE (NEGATIVE) H 09/19/20 11:20 Leukocyte Esterase Rfl NEGATIVE (NEGATIVE) 09/25/20 15:40 Urine WBC (Auto) >182 /HPF 09/19/20 11:20 Urine RBC (Auto) >182 /HPF 09/25/20 15:40 Urine Bacteria (Auto) 3+ /HPF 09/19/20 11:20 Urine WBC (Reflex) 7 /HPF 09/25/20 15:40 Squamous Epi Cells Auto <1 /HPF 09/25/20 15:40 Uric Acid Cryst (Auto) MODERATE /HPF 09/19/20 11:20 Triple Phos Cryst (Auto) TOO NUMEROUS TO CNT /HPF 09/19/20 11:20 Amorphous Sediment Auto TRACE /HPF 09/25/20 15:40 Urine Mucus (Auto) RARE /LPF 09/25/20 15:40 Urine Ascorbic Acid NEGATIVE (NEGATIVE) 09/25/20 15:40 Stool Occult Blood POSITIVE (NEGATIVE) 09/27/20 06:20 COVID-19 Source See comment 09/29/20 10:40 COVID-19 (RYANN) Not Detected (Not Detect) 09/29/20 10:40 Influenza A (RT-PCR) NEGATIVE (NEGATIVE) 10/07/20 14:00 Influenza B (RT-PCR) NEGATIVE (NEGATIVE) 10/07/20 14:00 RSV (RT-PCR) NEGATIVE (NEGATIVE) 10/07/20 14:00 SARS-CoV-2 Rap RNA(RT-PCR) NEGATIVE (NEGATIVE) 10/07/20 14:00 Blood Type O POSITIVE 09/26/20 08:33 Blood Type Confirm O POSITIVE 09/26/20 08:33 Antibody Screen POSITIVE 09/26/20 08:33 Antibody Identification Anti-K 09/26/20 08:33 Crossmatch See Detail 09/26/20 08:33 09/19/20 09/19/20 09/20/20 12:00 20:31 08:50 Troponin I 0.013 < 0.012 NT-Pro-B Natriuret Pep 609 H 531 H 09/26/20 09/28/20 08:33 04:39 Troponin I NT-Pro-B Natriuret Pep 3190 H 4660 H Impressions: Acute Abdomen Series 09/19/20 11:58 IMPRESSION: Constipation. No other significant findings. Head CT 09/19/20 12:02 IMPRESSION: CHRONIC CHANGES OF ATROPHY AND MICROVASCULAR ISCHEMIA. NO ACUTE PROCESS. EVIDENCE OF ACUTE STROKE: NO. Chest CT 09/19/20 12:03 IMPRESSION: Bilateral nodular airspace disease most marked in the lung bases. This could be infectious, inflammatory or neoplastic. Does the patient have a known primary? No effusions. Abdomen/Pelvis CT 09/19/20 12:05 IMPRESSION: Question mild pancreatitis with slight inflammation noted surrounding the pancreatic head. Gallstones. Abdomen Ultrasound 09/19/20 15:14 IMPRESSION: Gallstones. Echogenic kidneys consistent with medical renal disease. Chest X-Ray 09/20/20 07:33 IMPRESSION: Persistent bibasilar airspace unchanged Chest X-Ray 09/25/20 00:00 IMPRESSION: Increased diffuse interstitial infiltrates bilaterally, indeterminate for cardiogenic pulmonary edema versus an atypical interstitial pneumonia. Venous Doppler Study 09/29/20 00:00 IMPRESSION: Extensive DVT extending from the left axillary vein to the left internal jugular vein. Plan Plan of Treatment: Follow-up with PCP as needed Transfer nursing facility for hospice Time Spent: Greater than 30 Minutes Stroke Is this a Stroke Patient?: No Acute Heart Failure Is this a Heart Failure Patient?: Yes Documentation of LVEF assessment?: Yes LVEF: LVEF Greater Than 40% Anticoagulant Therapy: N/A
[2020-10-07] MEDS: FAMOTIDINE 20 MG TABLET PO SCH (23:08)
[2020-10-07] MEDS: DONEPEZIL HCL 5 MG TABLET PO SCH (23:08)
[2020-10-08] MEDS: LEVOTHYROXINE SODIUM 0.1 MG TABLET PO SCH (05:40)
[2020-10-08] MEDS: CLONIDINE HCL 0.2 MG TABLET PO SCH (05:40)
[2020-10-08] MEDS: FERROUS SULFATE 325 MG TABLET PO SCH ×2 (11:23→11:38)
[2020-10-08] MEDS: ZINC SULFATE 220 MG CAPSULE PO SCH (11:23)
[2020-10-08] MEDS: CYANOCOBALAMIN (VITAMIN B-12) 1,000 MCG TABLET PO SCH ×2 (11:23→11:39)
[2020-10-08] MEDS: MULTIVITAMIN TABLET PO SCH ×2 (11:23→11:31)
[2020-10-08] MEDS: ASCORBIC ACID 500 MG TABLET PO SCH ×2 (11:23→11:39)
[2020-10-08] MEDS: CHOLECALCIFEROL (D3) 400 UNIT TABLET PO SCH ×2 (11:24→11:39)
[2020-10-08] MEDS ORDERED: CLONIDINE 0.2 MG/24 HR PATCH.TDWK TD SCH (12:00)
--- NOTE | 2020-10-08 13:37 | PDOC PROGRESS REPORT ---
Subjective Subjective:: Per Previous Physician: "DANK WHITE is a 85 year old female past medical history of dyslipidemia, hypertension, hypothyroidism, CKD, dementia, chronic bilateral lower extremity venous stasis, recurrent UTI with indwelling Valdovinos catheter, who was brought by EMS from [facility] after patient was found unresponsive in the shower by the staff. Unfortunately patient has dementia and does not recall any incident causing her to come to the hospital, patient's daughter who is in the room present stating that she does not know anything about the incident and she was just called by [facility] that her mother had coded as was being sent to the hospital. Source of information is chart review and my conversation with ED physician. As per EMS patient was found nonresponsive, was noted to breathing but they could not find a pulse, they started CPR and patient regained a pulse shortly after. A 20 EMS arrival patient was noted to be confused vital signs were stable and BGL was 166. In ED chest CT showed bilateral nodular airspace disease most marked in the lung bases, CT head was negative for any acute abnormalities, CT abdomen pelvis showed mild pancreatitis with slight inflammation and gallstones, abdominal ultrasound showed gallstones with no acute cholecystitis or common bile duct dilation. Patient was noted to have neutrophilic leukocytosis with no bandemia, worsening renal function, hypercalcemia and elevated lipase. Was also noted to have positive UA. Patient was transferred to the ICU 09/20/20 due to sepsis and acute pancreatitis, transferred back to floors 09/24/20. Since being transferred she has had poor oral intake. Multiple discussions have been conducted with the family regarding PEG tube placement. Surgery service assessed her as well and stated that a PEG tube placement would be not in her best interest since she is at risk of pulling it out. Surgery spoke to the patients daughter as well. 09/30/20 She was seen and examined at bedside. She is alert and awake but is not oriented to time, place and person. She stated that she does not want to eat because she's afraid she will get fat and I assure her that this is not the case and we want her to eat. Surgery has signed off and will not put a PEG tube in her. Patient was started on Dronabinol for appetite. 10/01/20 She was seen and examined at bedside. She is alert and awake and able to engage in some conversation but she is still very forgetful because of her dementia. I have tried to offer her ensure but she is unwilling. She was started on Dronabinol yesterday but I doubt this is going to make a difference in terms of her appetite. I spoke to her daughter and DENISJOSETTE Yoon and we have discussed hospice and avoiding PEG tube placement. She agrees that a PEG tube will not really help her mom and she also wishes to honor her moms choice of not putting a PEG tube. She wishes to know more about hospice and I have told her that I would reach out to our discharge planning to help her with this. 10/02/20 She was seen and examined at bedside. She is not aware that it is Thanksgiving today and according to the nurses she still has not eaten very well despite receiving dronabinol. She is off Oxygen support. 10/03/20 She was seen and examined at bedside in the morning and again in the afternoon with her daughter. KJ from discharge planning also spoke to them. I discussed with them that the patient still has poor appetite despite all her other acute medical issues resolving. Unfortunately according to our environmental restoration planner, she would need a caregiver to stay with her at home if she is going to go home with hospice and this is something her daughter will not be able to afford. She cannot get hospice in [facility] because she does not have medicaid. I discusses with them about at least making her DBR and comfort measures only and the daughter said she needs time to think. She is otherwise stable and ready to be discharged to [facility]. 10/04/20 She was seen and examined at bedside. She still continues to refuse food and water despite hand feeding her my self. She keeps saying she's full. However she denied any abdominal pain, no nausea/vomiting.She was started on D5W because her sodium is 146.6 and I am worried that with her refusing to eat pr drink this will be a problem down the line. Please refer to ACP note for full discussion regarding her CODE status and comfort care. 10/05/20 She was seen and examined at bedside. No new complains, still with poor appetite. I will continue with low dose IV fluids for now. I spoke to discharge planning and they are working on sending her back to [facility]. 10/06/20 She was seen and examined at bedside. Still with very little oral intake. She denies abdominal pain as the cause of her poor appetite, no trouble swallowing as well. I have spoken to KJ about her disposition since she is now mainly comfort care. Ideally before sending her back to [facility] she should have hospice service. I also put in a PT consult for her. She is otherwise ready for transfer to [facility]. " 10/07/2020 Patient will be discharged to nursing facility for hospice care. He has previously been living there on a long-term care plan. Patient has been made comfort measures per daughter request. This was confirmed with Dr. Alcaraz. 10/08/2020 Patient will be discharged to nursing facility reportedly likely today. There have been no significant changes since yesterday. Patient continues to refuse all her medications fairly consistently. I have started her on a clonidine patch although she may pull this off as well. Patient will be discharged to nursing facility for hospice. She is DNR/DNI. Reason For Visit: ACUTE PANCREATITIS,HYPERCALCEMIA,DENISSE/CKD Physical Exam Vital Signs: Temp Pulse Resp BP Pulse Ox 97.2 F 64 16 184/75 H 98 10/07/20 23:40 10/07/20 23:40 10/07/20 23:40 10/07/20 23:40 10/07/20 23:40 Intake & Output 10/07/20 10/08/20 10/09/20 06:59 06:59 06:59 Intake Total 753 120 Output Total 1150 1100 Balance -397 -980 Weight 94 kg 94 kg Exam: General appearance: PRESENT: no acute distress, chronically ill-appearing elderly female, calm and resting comfortably today Head exam: PRESENT: atraumatic, normocephalic Eye exam: PRESENT: conjunctiva pink. ABSENT: scleral icterus Mouth exam: PRESENT: moist Respiratory exam: PRESENT: clear to auscultation laurie. ABSENT: rales, rhonchi, wheezes Cardiovascular exam: PRESENT: RRR. ABSENT: diastolic murmur, rubs, systolic murmur GI/Abdominal exam: PRESENT: normal bowel sounds, soft. ABSENT: distended, guarding, mass, organolmegaly, rebound, tenderness Neurological exam: PRESENT: alert, awake, oriented to person and place Psychiatric exam: PRESENT: appropriate affect, normal mood Skin exam: PRESENT: dry, intact, warm Results Laboratory Results: 10/06/20 04:29 10/06/20 04:29 09/19/20 09/19/20 09/20/20 12:00 20:31 08:50 Troponin I 0.013 < 0.012 NT-Pro-B Natriuret Pep 609 H 531 H 09/26/20 09/28/20 08:33 04:39 Troponin I NT-Pro-B Natriuret Pep 3190 H 4660 H Impressions: Acute Abdomen Series 09/19/20 11:58 IMPRESSION: Constipation. No other significant findings. Head CT 09/19/20 12:02 IMPRESSION: CHRONIC CHANGES OF ATROPHY AND MICROVASCULAR ISCHEMIA. NO ACUTE PROCESS. EVIDENCE OF ACUTE STROKE: NO. Chest CT 09/19/20 12:03 IMPRESSION: Bilateral nodular airspace disease most marked in the lung bases. This could be infectious, inflammatory or neoplastic. Does the patient have a known primary? No effusions. Abdomen/Pelvis CT 09/19/20 12:05 IMPRESSION: Question mild pancreatitis with slight inflammation noted surrounding the pancreatic head. Gallstones. Abdomen Ultrasound 09/19/20 15:14 IMPRESSION: Gallstones. Echogenic kidneys consistent with medical renal disease. Chest X-Ray 09/25/20 00:00 IMPRESSION: Increased diffuse interstitial infiltrates bilaterally, indeterminate for cardiogenic pulmonary edema versus an atypical interstitial pneumonia. Venous Doppler Study 09/29/20 00:00 IMPRESSION: Extensive DVT extending from the left axillary vein to the left internal jugular vein. Assessment and Plan - Diagnosis (1) Acute pancreatitis Qualifiers: Pancreatitis type: unspecified pancreatitis type Is this a current diagnosis for this admission?: Yes (2) Acute on chronic renal failure Qualifiers: Acute renal failure type: unspecified Chronic kidney disease stage: stage 3 (moderate) Is this a current diagnosis for this admission?: Yes (3) CHF (congestive heart failure) Qualifiers: Heart failure type: unspecified Heart failure chronicity: unspecified Qualified Code(s): I50.9 - Heart failure, unspecified Is this a current diagnosis for this admission?: Yes (4) Chronic kidney disease, stage III (moderate) Qualifiers: Chronic kidney disease stage 3 subtype: unspecified whether 3a or 3b Qualified Code(s): N18.30 - Chronic kidney disease, stage 3 unspecified Is this a current diagnosis for this admission?: Yes (5) Dementia Qualifiers: Dementia type: Alzheimer's disease Is this a current diagnosis for this admission?: Yes (6) DVT of left axillary vein, acute Is this a current diagnosis for this admission?: Yes (7) Encounter for hospice care Is this a current diagnosis for this admission?: Yes (8) Failure to thrive in adult Is this a current diagnosis for this admission?: Yes - Plan Summary Summary: Per Previous Physician: "DANK WHITE is a 85 year old female past medical history of dyslipidemia, hypertension, hypothyroidism, CKD, dementia, chronic bilateral lower extremity venous stasis, recurrent UTI with indwelling Valdovinos catheter, who was brought by EMS from [facility] after patient was found unresponsive in the shower by the staff. Unfortunately patient has dementia and does not recall any incident causing her to come to the hospital, patient's daughter who is in the room present stating that she does not know anything about the incident and she was just called by [facility] that her mother had coded as was being sent to the hospital. Source of information is chart review and my conversation with ED physician. As per EMS patient was found nonresponsive, was noted to breathing but they could not find a pulse, they started CPR and patient regained a pulse shortly after. A 20 EMS arrival patient was noted to be confused vital signs were stable and BGL was 166. In ED chest CT showed bilateral nodular airspace disease most marked in the lung bases, CT head was negative for any acute abnormalities, CT abdomen pelvis showed mild pancreatitis with slight inflammation and gallstones, abdominal ultrasound showed gallstones with no acute cholecystitis or common bile duct dilation. Patient was noted to have neutrophilic leukocytosis with no bandemia, worsening renal function, hypercalcemia and elevated lipase. Was also noted to have positive UA. Patient was transferred to the ICU 09/20/20 due to sepsis and acute pancreatitis, transferred back to floors 09/24/20. Since being transferred she has had poor oral intake. Multiple discussions have been conducted with the family regarding PEG tube placement. Surgery service assessed her as well and stated that a PEG tube placement would be not in her best interest since she is at risk of pulling it out. Surgery spoke to the patients daughter as well. 09/30/20 She was seen and examined at bedside. She is alert and awake but is not oriented to time, place and person. She stated that she does not want to eat because she's afraid she will get fat and I assure her that this is not the case and we want her to eat. Surgery has signed off and will not put a PEG tube in her. Patient was started on Dronabinol for appetite. 10/01/20 She was seen and examined at bedside. She is alert and awake and able to engage in some conversation but she is still very forgetful because of her dementia. I have tried to offer her ensure but she is unwilling. She was started on Dronabinol yesterday but I doubt this is going to make a difference in terms of her appetite. I spoke to her daughter and DENISJOSETTE Yoon and we have discussed hospice and avoiding PEG tube placement. She agrees that a PEG tube will not really help her mom and she also wishes to honor her moms choice of not putting a PEG tube. She wishes to know more about hospice and I have told her that I would reach out to our discharge planning to help her with this. 10/02/20 She was seen and examined at bedside. She is not aware that it is Thanksgiving today and according to the nurses she still has not eaten very well despite receiving dronabinol. She is off Oxygen support. 10/03/20 She was seen and examined at bedside in the morning and again in the afternoon with her daughter. KJ from discharge planning also spoke to them. I discussed with them that the patient still has poor appetite despite all her other acute medical issues resolving. Unfortunately according to our environmental restoration planner, she would need a caregiver to stay with her at home if she is going to go home with hospice and this is something her daughter will not be able to afford. She cannot get hospice in [facility] because she does not have medicaid. I discusses with them about at least making her DBR and comfort measures only and the daughter said she needs time to think. She is otherwise stable and ready to be discharged to [facility]. 10/04/20 She was seen and examined at bedside. She still continues to refuse food and water despite hand feeding her my self. She keeps saying she's full. However she denied any abdominal pain, no nausea/vomiting.She was started on D5W because her sodium is 146.6 and I am worried that with her refusing to eat pr drink this will be a problem down the line. Please refer to ACP note for full discussion regarding her CODE status and comfort care. 10/05/20 She was seen and examined at bedside. No new complains, still with poor appetite. I will continue with low dose IV fluids for now. I spoke to discharge planning and they are working on sending her back to [facility]. 10/06/20 She was seen and examined at bedside. Still with very little oral intake. She denies abdominal pain as the cause of her poor appetite, no trouble swallowing as well. I have spoken to KJ about her disposition since she is now mainly comfort care. Ideally before sending her back to [facility] she should have hospice service. I also put in a PT consult for her. She is otherwise ready for transfer to [facility]. " 10/07/2020 Patient will be discharged to nursing facility for hospice care. He has previously been living there on a long-term care plan. Patient has been made comfort measures per daughter request. This was confirmed with Dr. Alcaraz. DISCHARGE TO NURSING FACILITY FOR HOSPICE PER DAUGHTER/MPOA REQUEST DNR/DNI (1) Failure to thrive in adult Is this a current diagnosis for this admission?: Yes Plan: Patient with limited to almost no oral intake over the last several days. Averaged <400ml oral intake. PEG tube was discussed and daughter agrees taht this will not benefit her in the long run Please refer to ACP note for full discussion. Essentially she is comfort care only and I have changed her CODE STATUS to DNR after discussing it with her daughter and power of tax associate attorney. (2) Dementia Qualifiers: Dementia type: Alzheimer's disease Is this a current diagnosis for this admission?: Yes Plan: - It is in my medical opinion that she has end stage dementia and this is the cause of her poor oral intake - on Donepizil -Please refer to ACP note (3) CHF (congestive heart failure) Qualifiers: Heart failure type: unspecified Heart failure chronicity: unspecified Qualified Code(s): I50.9 - Heart failure, unspecified Is this a current diagnosis for this admission?: Yes Plan: -Patient without known history of CHF prior to hospitalization. -Patient previously receiving IV fluids for acute pancreatitis, which likely causes fluid overload and evidence of CHF. - Echo EF 65-70%, normal LV systolic function, impaired LV relaxation mild diastolic dyfunction, severe pulm hypertension pressure 65-70 mmhg - BNP 4660 - received 1 dose of lasix - has very poor water intake,crea is stable. Will encourage more fluid intake (4) Acute on chronic renal failure Qualifiers: Acute renal failure type: unspecified Chronic kidney disease stage: stage 3 (moderate) Is this a current diagnosis for this admission?: Yes Plan: CR 3.44-> 2.37>2.02. Baseline appears to be 2.0 - Avoid nephrotoxic medications. - will continue to monitor (5) Acute pancreatitis Qualifiers: Pancreatitis type: unspecified pancreatitis type Is this a current diagnosis for this admission?: Yes Plan: Resolved. Diet advanced to regular diet CT pancreas inflammation (09/19) Lipase 260, Triglycerides 100, A1c (07/2020) 6.3%. Analgesics and antiemetics as needed. (W/o need >48hrs) food intake still poor, (6) DVT of left axillary vein, acute Is this a current diagnosis for this admission?: Yes Plan: LUE with edema and erythema. LUE US notable for: Extensive DVT extending from the left axillary vein to the left internal jugular vein. As per Well's Score for DVT pt at high risk. Patient was on previously on Heparin for DVT prophylaxis, though has not received dose due to low Plt counts and recent GI bleed. Given pt's history as noted above patient is not a candidate for anticoagulation at this time. Patient's daughter was made aware of this and expressed understanding. (7) Normocytic anemia Is this a current diagnosis for this admission?: Yes Plan: Hgb 8.6>7.4>7.7>7.7>8.2 - Heme + stools. Stool with noted red coloring. Likely from LGB. -As per ACP note by LAINE PopC patient's NOK and daughter wants hgb tx'd but denies wanting further workup including CT or colonscopy. - TIBC low (180), Iron WNL (62.7), Ferritin high (665) - s/p 1unit PRBC given 09/26. - Patient with evidence of anemia of chronic disease on top off acute GI bleed (8) Urinary tract infection Qualifiers: Urinary tract infection type: acute pyelonephritis Qualified Code(s): N10 - Acute pyelonephritis Is this a current diagnosis for this admission?: Yes Plan: Resolved. No further therapy necessary at this time. Completed 7 day course Ceftriaxone (as of 09/26) Valdovinos catheter exchanged 09/26. (9) Thrombocytopenia Is this a current diagnosis for this admission?: Yes Plan: - RESOLVED -Plt 109>147 (10) Venous stasis ulcer of lower extremity Qualifiers: Laterality: bilateral Qualified Code(s): I83.019 - Varicose veins of right lower extremity with ulcer of unspecified site; I83.029 - Varicose veins of left lower extremity with ulcer of unspecified site; L97.919 - Non-pressure chronic ulcer of unspecified part of right lower leg with unspecified severity; L97.929 - Non-pressure chronic ulcer of unspecified part of left lower leg with unspecified severity Is this a current diagnosis for this admission?: Yes Plan: Chronic bilateral lower extremity stasis dermatitis. Without signs of infection. Continue wound care. Elevate bilateral lower extremities. (11) Localized swelling of left upper extremity Is this a current diagnosis for this admission?: Yes Plan: As per DVT above. (12) Nonhealing wound of heel Is this a current diagnosis for this admission?: Yes Plan: Bilateral pressure wounds to heels; unstageable to the right and stage II to the left with evidence of early healing. Wound care nurse consultation; wound care per their recommendations. Offload heels. - Time Time Spent with patient: 15-24 minutes Medications reviewed and adjusted accordingly: Yes Anticipated Discharge Disposition: [facility] Anticipated Discharge Timeframe: within 24 hours - Inpatient Certification Based on my medical assessment, after consideration of the patient's comorbidities, presenting symptoms, or acuity I expect that the services needed warrant INPATIENT care.: Yes I certify that my determination is in accordance with my understanding of Medicare's requirements for reasonable and necessary INPATIENT services [42 CFR 412.3e].: Yes
[2020-10-08 20:15] VITALS: BP 163/58
== END 2020-10-08 21:00 | disposition hospice, inpatient (51) | DRG 871 ==
LOC: ER 10:29 → EH 16:06 → 3W 19:18 → ICU 09-20 05:19 → 4N 09-23 19:28
PROVIDERS: ADMIT Family Medicine; ATTEND Internal Medicine
PROC: 30233N1 Transfusion of Nonautologous Red Blood Cells into Peripheral Vein, Percutaneous Approach (ICD-10-PCS; principal; 2020-09-27)
DX: A41.9 Sepsis, unspecified organism (principal); K85.10 Biliary acute pancreatitis without necrosis or infection; R65.21 Severe sepsis with septic shock; I13.0 Hypertensive heart and chronic kidney disease with heart failure and stage 1 through stage 4 chronic kidney disease, or unspecified chronic kidney disease; N17.9 Acute kidney failure, unspecified; I82.622 Acute embolism and thrombosis of deep veins of left upper extremity; N10 Acute pyelonephritis; L97.919 Non-pressure chronic ulcer of unspecified part of right lower leg with unspecified severity; L97.929 Non-pressure chronic ulcer of unspecified part of left lower leg with unspecified severity; E46 Unspecified protein-calorie malnutrition; R62.7 Adult failure to thrive; E03.9 Hypothyroidism, unspecified; E78.5 Hyperlipidemia, unspecified; D72.829 Elevated white blood cell count, unspecified; E83.52 Hypercalcemia; Z51.5 Encounter for palliative care; Z66 Do not resuscitate; Z68.33 Body mass index [BMI] 33.0-33.9, adult; G30.9 Alzheimer's disease, unspecified; F02.80 Dementia in other diseases classified elsewhere, unspecified severity, without behavioral disturbance, psychotic disturbance, mood disturbance, and anxiety; I50.9 Heart failure, unspecified; N18.30 Chronic kidney disease, stage 3 unspecified; D63.1 Anemia in chronic kidney disease; D69.6 Thrombocytopenia, unspecified; I83.019 Varicose veins of right lower extremity with ulcer of unspecified site; I83.029 Varicose veins of left lower extremity with ulcer of unspecified site; L89.622 Pressure ulcer of left heel, stage 2; L89.610 Pressure ulcer of right heel, unstageable; Z79.82 Long term (current) use of aspirin; Z79.899 Other long term (current) drug therapy; Z96.642 Presence of left artificial hip joint; Z11.59 Encounter for screening for other viral diseases; E66.01 Morbid (severe) obesity due to excess calories; B96.4 Proteus (mirabilis) (morganii) as the cause of diseases classified elsewhere
CPT/HCPCS: 11042; 11045; 36415; 36430; 70450; 71045; 71250; 74022; 74176; 76700; 80048; 80053; 81001; 82272; 82607; 82728; 82746; 82962; 83540; 83550; 83605; 83690; 83735; 83880; 84439; 84443; 84478; 84481; 84484; 85025; 85027; 85045; 85610; 85730; 86850; 86870; 86900; 86901; 86902; 86920; 86922; 87040; 87086; 87088; 87186; 87635; 93005; 93010; 93306; 93971; 93976; 96365; 96366; 96368; 96372; 96375; 99221; 99285; 99291; 0241U; A9270-GY; C9803; J0360; J0630; J0692; J0696; J1644; J1720; J1940; J2020; J2405; J2550; J3370; J3480; J3490; J7030; J7120; J7121; P9016; P9047; S0028